=== PATIENT | male | born 1950 | race Caucasian/White ===

== ENCOUNTER → 2016-09-04 | Outpatient (CLI) | payer OTHER ==
[~2016-09-04] MED LIST: ALL300 PO; ALLO300T2 PO; ASPI81TA28 PO; DOXY100C2 PO; ENOX120I SQ; GLC5 PO; METF500T5 PO; METO50TA16 PO; PRAV20TA PO; PRLSR20 PO; RLF500 PO; ROSU5TAB PO; TAMS0.4C38 PO; TAMS0.4C59 PO
[2016-09-04 12:09] LABS: BASO % 0.6 %; BASO ABS # 0.06 K/uL (0-0.2); COMPLETE YES; EOS % 2.8 %; HEMATOCRIT 42.9 % (42-52); IG% 0.2 %; LYMPH % 40.4 %; MEAN CELL VOLUME 95.5 fL (80-100); MEAN CORPUSCULAR HEMOGLOBIN 30.1 pg (25-34); MEAN CORPUSCULAR HGB CONC 31.5 g/dl (32-36); MEAN PLATELET VOLUME 9.6 fL (7.4-10.4); MONO % 6.8 %; NEUT % 49.2 %; PLATELET COUNT 248 K/uL (130-400); RED BLOOD COUNT 4.49 M/uL (4.7-6.1); WHITE BLOOD COUNT 9.91 K/uL (4.8-10.8)
[2016-09-04 12:13] LABS: URINE APPEARANCE CLEAR (CLEAR); URINE BILIRUBIN NEG (NEG); URINE COLOR YELLOW; URINE NITRITE NEG (NEG); URINE PH 5.5 (4.5-7.5); URINE SPECIFIC GRAVITY 1.027 (1.000-1.030); UROBILINOGEN NEG (NEG); ZZUR CULT IF INDIC CLEAN CATCH NO
[2016-09-04 12:14] LABS: MANUAL MICROSCOPIC REQUIRED? NO; REVIEW REQ? NO
[2016-09-04 12:21] LABS: ALT/SGPT 23 U/L (12-78); AST/SGOT 16 U/L (15-37); BLOOD UREA NITROGEN 18 mg/dl (7-18); BUN/CREATININE RATIO 14.8 (10-20); CARBON DIOXIDE 24 mmol/L (21-32); CHLORIDE 105 mmol/L (98-107); CHOLESTEROL 135 mg/dl (0-200); GLUCOSE 207 mg/dl (70-99); POTASSIUM 4.1 mmol/L (3.5-5.1); SODIUM 139 mmol/L (136-145); TRIGLYCERIDES 240 mg/dl (0-150); URIC ACID 3.4 mg/dl (2.6-7.2); VERY LOW DENSITY LIPOPROT CALC 48 mg/dl
[2016-09-04 12:44] LABS: ALB/GLOB RATIO 0.9 (0.9-2); ALKALINE PHOSPHATASE 96 U/L (45-117); CHOLESTEROL/HDL RATIO 4.2; HDL CHOLESTEROL 32 mg/dl; LDL CHOLESTEROL CALCULATED 55 mg/dl
[2016-09-04 12:48] LABS: RATIO 40.9 mcg/mg (0-30.0)
[2016-09-04 12:58] LABS: ESTIMATED AVERAGE GLUCOSE 194 mg/dl; HA1C FLAG Normal (Normal)
== END | disposition home or self-care (01) ==
LOC: C.LABBFT 07:48
PROVIDERS: ATTEND Internal Medicine
DX: E11.65 Type 2 diabetes mellitus with hyperglycemia (principal); E78.5 Hyperlipidemia, unspecified; N40.0 Benign prostatic hyperplasia without lower urinary tract symptoms; M10.9 Gout, unspecified

== ENCOUNTER 2016-11-18 06:19 | Observation (INO) | payer OTHER ==
[~2016-11-18] VITALS: Ht 185.4 cm; Wt 149.0 kg
[~2016-11-18 06:19] MED LIST changes: -ALLO300T2 PO; -ASPI81TA28 PO; -ENOX120I SQ; -METF500T5 PO; -ROSU5TAB PO; -TAMS0.4C38 PO
[2016-11-18] MEDS ORDERED: GLC5 PO (06:40)
[2016-11-18] MEDS ORDERED: ASPI81TA28 PO (06:40)
[2016-11-18] MEDS ORDERED: TAMS0.4C38 PO (06:40)
[2016-11-18] MEDS ORDERED: ROSU5TAB PO (06:40)
[2016-11-18] MEDS ORDERED: ALLO300T2 PO (06:40)
[2016-11-18] MEDS ORDERED: METF500T5 PO (06:40)
[2016-11-18] MEDS ORDERED: ONDANSETRON INJ 2 MG/ML 2 ML VIAL IV STA (06:41)
[2016-11-18] MEDS ORDERED: MoRPHine SULFATE 4 MG/ML 1 ML CARP\\VIAL IV STA ×2 (06:41→07:39)
--- NOTE | 2016-11-18 06:44 | EMERGENCY ROOM VISIT NOTE ---
History Report prepared by Marshall: Sher Tilley Under the Supervision of: Dr. Quan Covarrubias M.D. First contact with patient: 06:30 Chief Complaint: CHEST PAIN Stated Complaint: CHEST PAIN Nursing Triage Summary: Patient arrived via EMS from home. EMS reports patient has been having chest pain on and off for the last month. Patient states his chest pain started tonight around 3AM. Patient reports a heavy pain radiating to his necka dn left jaw. Patient ahs a history of a previous NC five years ago. Patient took 2 nitro at home with no relief. Patient recieved 3 sprays of nitro in the ambulance and 324 of asa. Patient pain reduced from 10/10 to 5/10. Patient also recieved duoneb and albuterol breathing treatment en route for SOB. History of Present Illness The patient is a 66 year old male who presents to the Emergency Room with complaints of intermittent chest pain that began 1 hour ago. He rates his current pain a 5/10 in severity. Per EMS, he received 3 NTG en route which helped his pain. His pain is radiating down his left arm and into his left jaw. When his pain began, he was lying in bed. The patient notes that he has been short of breath for about 1 month, but it worsened this morning. His pain is exacerbated when he takes a deep breath. He denies any fevers, cough, chills, congestion, rhinorrhea, melena, hematochezia, pain in his legs, or swelling in his leg. He has a past medical history of cardiac arrest which occurred 5 years ago. Source of History: patient Onset: 1 hour ago Position: chest Symptom Intensity: 5/10 Quality: sharp Timing: intermittent Modifying Factors (Worsening): breathing Associated Symptoms: + SOB, + nausea, No fevers, No chills, No cough, No melena, No hematochezia Review of Systems See HPI for pertinent positives & negatives. A total of 10 systems reviewed and were otherwise negative. Past Medical & Surgical Medical Problems: (1) Ac/Subac Bact Endocard (2) ACUTE KIDNEY FAILURE WITH LESION OF TUBULAR NECROSIS (3) Acute retention of urine (4) Anemia of chronic disorder (5) Arthritis (6) Bacterial endocarditis (7) Chronic Kidney Disease, Stage Iii (Moderate) (8) Diab Radha Wo Compl, Type Ii Or Unspec Type, Not Uncntrld (9) diabetes type 2 poor control (10) ENCEPHALOPATHY (11) Endocarditis (12) Foreign body in nose (13) Heart Disease Nos (14) HYPOPOTASSEMIA (15) Metabolic Encephalopathy (16) Morbid Obesity (17) Morbid obesity (18) NSTMI (19) Pulmonary embolism (20) Retention Of Urine Nos (21) Rhabdomyolysis (22) Sepsis (23) Streptococcal Septicemia Old medical records were reviewed. Nurse's notes were reviewed and I agree with. Family History Diabetes mellitus FH: heart disease Social History Smoking Status: Former Smoker Alcohol Use: none, occasionally Drug Use: none Marital Status: Housing Status: lives with family Occupation Status: retired, disabled Current/Historical Medications Scheduled Allopurinol (Zyloprim), 300 MG PO DAILY Aspirin (Aspirin Ec), 81 MG PO DAILY Glipizide (Glipizide), 5 MG PO BID Metformin Hcl Er (Glucophage Er), 1,000 MG PO DAILY Metoprolol Tartrate (Lopressor) (Lopressor), 50 MG PO BID Omeprazole (Prilosec), 20 MG PO BID Rosuvastatin Calcium (Crestor), 5 MG PO DAILY Tamsulosin Hcl (Flomax), 0.4 MG PO QPM Allergies Coded Allergies: Fluticasone (Verified Allergy, Severe, lips and tongue swelling, angioedema, 11/18/16) Tomato (Verified Allergy, Mild, Itching, 11/18/16) Pt/family reported to during 01/27 visit. Physical Exam Vital Signs Date Time Temp Pulse Resp B/P (MAP) Pulse Ox O2 Delivery O2 Flow Rate FiO2 11/18/16 09:15 91 16 136/78 92 Room Air 11/18/16 07:40 94 18 119/63 93 Room Air 11/18/16 06:38 100 11/18/16 06:30 92 Room Air 11/18/16 06:30 36.6 98 16 125/72 92 Room Air Physical Exam General: Non ill appearing middle aged male, Well developed well nourished in no acute distress, breathing comfortably on room air. Normal speech HEENT: Normal cephalic atraumatic. Pupils are equal round and reactive to light. Extraocular movements are intact. Oropharynx is pink with moist mucous membranes. No swelling of the mouth lips or tongue. Neck: Supple with a midline trachea. No meningeal signs or stiffness, no JVD or bruits. No Stridor. Chest: Clear to auscultation bilaterally. No wheezes or rhonchi. No increased work of breathing. Heart: regular rate and rhythm. Abdomen: Soft nontender, nondistended without rebound guarding or rigidity. Extremities: Trace pedal edema to the bilateral lower extremities. No cyanosis clubbing. No calf tenderness or assymetry Spine/Back. Non tender to palpation. No CVA tenderness Skin: Good turgor without rashes. Neurologic exam: Cranial nerves two through 12 are intact. Motor and sensation are intact and symmetrical throughout. Medical Decision & Procedures ER Provider Diagnostic Interpretation: Radiology results as stated below per my review and radiologist interpretation: CHEST ONE VIEW PORTABLE HISTORY: 66 years-old Male Chest Pain acute atypical chest pain COMPARISON: Chest radiograph 05/28/2015 TECHNIQUE: Portable upright AP view of the chest FINDINGS: Cardiac silhouette is mildly enlarged. Mild pulmonary vascular congestion is noted without overt pulmonary edema. There is no pneumothorax or large pleural effusion. Multifocal alveolar opacities of the right lung base are noted. Bones are grossly intact. Degenerative changes are seen about the shoulders. IMPRESSION: Alveolar opacities of the right lung base suggest pneumonia. Follow-up imaging recommended. The above report was generated using voice recognition software. It may contain grammatical, syntax or spelling errors. Electronically signed by: Fito Hayes M.D. 11/18/2016 7:25 AM Dictated Date/Time: 11/18/2016 7:24 AM (CHEST FOR PE) ANGIO WITH CT DOSE: 609.93 mGy.cm HISTORY: 66 years-old Male presents with acute chest pain and heaviness with radiation to the left side and left jaw. History of myocardial infarction. Acute shortness of breath. TECHNIQUE: Multiple CTA images of the chest were obtained after the intravenous administration of 117 mL Optiray 320. Coronal and sagittal MIPS were obtained from the axial data set and were submitted for review. A dose lowering technique was utilized adhering to the principles of ALARA. COMPARISON: CT chest 07/16/2014. FINDINGS: CTA: Heart is mildly enlarged. No pericardial effusion. Coronary arterial calcifications are noted. The thoracic aorta is normal in course and caliber. Imaged proximal great vessels are patent. No aortic dissection or aneurysm. The pulmonary arterial tree is opacified level of the proximal segmental branches. The distal segmental and subsegmental branches are not well seen secondary to contrast bolus timing and respiratory motion. There is focal filling defects within the right lower lobar and segmental branches as seen on images 118 through 129 of the axial series. CT CHEST: No dominant thyroid nodule identified. Mildly prominent lymph nodes are seen about the mediastinum which are nonspecific. Mildly enlarged subcarinal lymph node, 3.0 x 1.3 cm is unchanged and nonspecific. Mild dependent bibasilar atelectasis. No pneumothorax or pleural effusion. No lobar airspace consolidation or large pulmonary infarction. 8 mm groundglass nodule is present within the posterior basal right lower lobe on image 84 which appears unchanged from 07/16/2014. Additional scattered noncalcified pulmonary nodules also appear unchanged from comparison. Calcified granuloma the apical segment right upper lobe noted. Central airways are patent. Patient obesity noted. Bones appear intact. Multiple remote left-sided rib fractures. IMPRESSION: 1. Pulmonary emboli are present within the right lower lobar and proximal segmental branches as above. The distal segmental and subsegmental branches are not well-seen secondary to respiratory motion artifact and contrast bolus timing. 2. Cardiomegaly. 3. Scattered bilateral noncalcified pulmonary nodules are unchanged from comparison 07/16/2014 suggesting benign etiology. 4. Additional incidental findings as above. The above report was generated using voice recognition software. It may contain grammatical, syntax or spelling errors. Electronically signed by: Fito Hayes M.D. 11/18/2016 8:56 AM Dictated Date/Time: 11/18/2016 8:43 AM Laboratory Results 11/18/16 07:35 Red Blood Count 3.87, Mean Corpuscular Volume 93.3, Mean Corpuscular Hemoglobin 31.0, Mean Corpuscular Hemoglobin Concent 33.2, Mean Platelet Volume 9.2, Neutrophils (%) (Auto) 70.7, Lymphocytes (%) (Auto) 21.0, Monocytes (%) (Auto) 6.8, Eosinophils (%) (Auto) 1.0, Basophils (%) (Auto) 0.2, Neutrophils # (Auto) 11.58, Lymphocytes # (Auto) 3.43, Monocytes # (Auto) 1.12, Eosinophils # (Auto) 0.16, Basophils # (Auto) 0.03 11/18/16 06:36 11/18/16 07:36 Test 11/18/16 06:22 11/18/16 06:36 11/18/16 06:39 11/18/16 07:35 Creatine Kinase MB Ratio (0-3.0) Anion Gap 8.0 mmol/L (3-11) Est Creatinine Clear Calc Drug Dose 89.6 ml/min Estimated GFR () 71.6 Estimated GFR (Non- 61.8 BUN/Creatinine Ratio 13.5 (10-20) Calcium Level 8.7 mg/dl (8.5-10.1) Total Bilirubin 0.8 mg/dl (0.2-1) Alanine Aminotransferase (ALT/SGPT) 17 U/L (12-78) Alkaline Phosphatase 88 U/L (45-117) Creatine Kinase MB 1.5 ng/ml (0.5-3.6) Troponin I < 0.015 ng/ml (0-0.045) Pro-B-Type Natriuretic Peptide 791 pg/ml (0-900) Total Protein 7.4 gm/dl (6.4-8.2) Albumin 3.5 gm/dl (3.4-5.0) Globulin 3.9 gm/dl (2.5-4.0) Albumin/Globulin Ratio 0.9 (0.9-2) Bedside Troponin I < 0.030 ng/ml (0-0.045) White Blood Count 16.37 K/uL (4.8-10.8) Red Blood Count 3.87 M/uL (4.7-6.1) Hemoglobin 12.0 g/dL (14.0-18.0) Hematocrit 36.1 % (42-52) Mean Corpuscular Volume 93.3 fL (80-100) Mean Corpuscular Hemoglobin 31.0 pg (25-34) Mean Corpuscular Hemoglobin Concent 33.2 g/dl (32-36) Platelet Count 201 K/uL (130-400) Mean Platelet Volume 9.2 fL (7.4-10.4) Neutrophils (%) (Auto) 70.7 % Lymphocytes (%) (Auto) 21.0 % Monocytes (%) (Auto) 6.8 % Eosinophils (%) (Auto) 1.0 % Basophils (%) (Auto) 0.2 % Neutrophils # (Auto) 11.58 K/uL (1.4-6.5) Lymphocytes # (Auto) 3.43 K/uL (1.2-3.4) Monocytes # (Auto) 1.12 K/uL (0.11-0.59) Eosinophils # (Auto) 0.16 K/uL (0-0.5) Basophils # (Auto) 0.03 K/uL (0-0.2) RDW Standard Deviation 49.0 fL (36.4-46.3) RDW Coefficient of Variation 14.5 % (11.5-14.5) Immature Granulocyte % (Auto) 0.3 % Immature Granulocyte # (Auto) 0.05 K/uL (0.00-0.02) Prothrombin Time 10.7 SECONDS (9.0-12.0) Prothromb Time International Ratio 1.0 (0.9-1.1) Activated Partial Thromboplast Time 27.1 SECONDS (21.0-31.0) Partial Thromboplastin Ratio 1.0 Test 11/18/16 07:36 Aspartate Amino Transf (AST/SGOT) 11 U/L (15-37) Total Creatine Kinase 92 U/L (39-308) Laboratory studies as stated above per my review. Medications Administered Medications (Trade) Dose Ordered Sig/Dat Route Start Time Stop Time Status Last Admin Dose Admin Morphine Sulfate (MoRPHine SULFATE INJ) 4 mg NOW STAT IV 11/18/16 06:41 11/18/16 06:42 DC 11/18/16 06:51 4 MG Ondansetron HCl (Zofran Inj) 4 mg NOW STAT IV 11/18/16 06:41 11/18/16 06:42 DC 11/18/16 06:51 4 MG Morphine Sulfate (MoRPHine SULFATE INJ) 4 mg NOW STAT IV 11/18/16 07:39 11/18/16 07:40 DC 11/18/16 08:15 4 MG ECG Indication: chest pain Rate (beats per minute): 77 Rhythm: normal sinus Findings: 1st degree AV block, left axis deviation, other (Low voltage, no ST elevation) Comparison ECG Date: 15 April 2014 Change: no significant change ED Course 0630: Past medical records reviewed. The patient was evaluated in room B10, and a complete history and physical examination were performed. 0641: Ordered Zofran Inj 4 mg IV, Morphine Sulfate 4 mg IV 0654: I reevaluated the patient at this time. He is starting to feel better. Multiple members of his family are at bedside. 0738: The patient is feeling even better but is still experiencing a pain rated a 4/10. I will order him more pain medications. 0739: Ordered Morphine Sulfate 4 mg IV 0921: Upon reevaluation, the patient is resting. I discussed the results and treatment plan with the patient. He verbalized agreement of the treatment plan. The patient will be evaluated by Dr. Ghada CORRALES, for further management. Medical Decision Differentials include, but are not limited to; ACS, arrhythmia, PE, CHF, and electrolyte or metabolic abnormality. This patient comes in as described above. He had chest pain since this morning he did receive aspirin and 3 nitroglycerin on route his pain went from a attend about a 4. He does have a an extensive medical history. His EKG does not show any definite acute changes compared to old. Chest x-ray multiple blood testing was obtained. He was given morphine 4 mg IV and Zofran 4 mg IV for additional pain management. He was reassessed frequently the pain has come down he still is some mild residual pain and is somewhat full her rate a cation is 2. He was given additional 4 morphine IV. His initial cardiac enzymes are not elevated. He has no acute electrolyte or metabolic abnormalities. His chest x-ray is somewhat difficult to ensure interpret due to his large body habitus cannot rule out infiltrate in the right base however he's had no cough or fever or any symptoms to suggest pneumonia. He did eat some food last night and thinks he could have had caused indigestion from this. I did order a chest CT to rule out PE and other pulmonary pathology. The chest CT does show findings consistent with a PE. I have consulted the hospitalist group to see him. Dr. Urrutia who saw the patient ER and is going to admit him for further anticoagulation treatment and evaluation. Medication Reconcilliation Current Medication List: was personally reviewed by me Blood Pressure Screening Patient's blood pressure: Normal blood pressure Blood pressure disposition: Did not require urgent referral Consults Time Called: 917 Consulting Physician: Dr. Ghada CORRALES Returned Call: [phone] Discussed the patient's case. The patient will be evaluated for further management. Impression Primary Impression: Chest pain, central Additional Impression: Pulmonary embolism Scribe Attestation The scribe's documentation has been prepared under my direction and personally reviewed by me in its entirety. I confirm that the note above accurately reflects all work, treatment, procedures, and medical decision making performed by me. Departure Information Dispostion Being Evaluated By Hospitalist Referrals Diego Marie M.D. (PCP) Patient Instructions My [facility] Problem Qualifiers
[2016-11-18 07:26] LABS: BLOOD UREA NITROGEN 16 mg/dl (7-18); BUN/CREATININE RATIO 13.5 (10-20); CALCIUM 8.7 mg/dl (8.5-10.1); CARBON DIOXIDE 25 mmol/L (21-32); CHLORIDE 105 mmol/L (98-107); GLUCOSE 199 mg/dl (70-99); SODIUM 138 mmol/L (136-145)
--- NOTE | 2016-11-18 07:26 | DIAGNOSTIC IMAGING REPORT ---
CHEST ONE VIEW PORTABLE HISTORY: 66 years-old Male Chest Pain acute atypical chest pain COMPARISON: Chest radiograph 05/28/2015 TECHNIQUE: Portable upright AP view of the chest FINDINGS: Cardiac silhouette is mildly enlarged. Mild pulmonary vascular congestion is noted without overt pulmonary edema. There is no pneumothorax or large pleural effusion. Multifocal alveolar opacities of the right lung base are noted. Bones are grossly intact. Degenerative changes are seen about the shoulders. IMPRESSION: Alveolar opacities of the right lung base suggest pneumonia. Follow-up imaging recommended. The above report was generated using voice recognition software. It may contain grammatical, syntax or spelling errors. Electronically signed by: Fito Hayes M.D. 11/18/2016 7:25 AM Dictated Date/Time: 11/18/2016 7:24 AM
[2016-11-18] MEDS ORDERED: OPTIRAY 320 IV PRN (07:45)
[2016-11-18 07:54] LABS: BASO % 0.2 %; BASO ABS # 0.03 K/uL (0-0.2); COMPLETE YES; HEMATOCRIT 36.1 % (42-52); IG% 0.3 %; LYMPH ABS # 3.43 K/uL (1.2-3.4); MEAN CELL VOLUME 93.3 fL (80-100); MEAN CORPUSCULAR HGB CONC 33.2 g/dl (32-36); MEAN PLATELET VOLUME 9.2 fL (7.4-10.4); MONO % 6.8 %; NEUT % 70.7 %; PLATELET COUNT 201 K/uL (130-400); RED BLOOD COUNT 3.87 M/uL (4.7-6.1); WHITE BLOOD COUNT 16.37 K/uL (4.8-10.8)
[2016-11-18 08:06] LABS: PROTHROMBIN TIME (PATIENT) 10.7 SECONDS (9.0-12.0)
[2016-11-18 08:11] LABS: ALB/GLOB RATIO 0.9 (0.9-2); ALKALINE PHOSPHATASE 88 U/L (45-117); ALT/SGPT 17 U/L (12-78)
[2016-11-18 08:11] LABS: POTASSIUM 3.6 mmol/L (3.5-5.1)
--- NOTE | 2016-11-18 08:57 | DIAGNOSTIC IMAGING REPORT ---
(CHEST FOR PE) ANGIO WITH CT DOSE: 609.93 mGy.cm HISTORY: 66 years-old Male presents with acute chest pain and heaviness with radiation to the left side and left jaw. History of myocardial infarction. Acute shortness of breath. TECHNIQUE: Multiple CTA images of the chest were obtained after the intravenous administration of 117 mL Optiray 320. Coronal and sagittal MIPS were obtained from the axial data set and were submitted for review. A dose lowering technique was utilized adhering to the principles of ALARA. COMPARISON: CT chest 07/16/2014. FINDINGS: CTA: Heart is mildly enlarged. No pericardial effusion. Coronary arterial calcifications are noted. The thoracic aorta is normal in course and caliber. Imaged proximal great vessels are patent. No aortic dissection or aneurysm. The pulmonary arterial tree is opacified level of the proximal segmental branches. The distal segmental and subsegmental branches are not well seen secondary to contrast bolus timing and respiratory motion. There is focal filling defects within the right lower lobar and segmental branches as seen on images 118 through 129 of the axial series. CT CHEST: No dominant thyroid nodule identified. Mildly prominent lymph nodes are seen about the mediastinum which are nonspecific. Mildly enlarged subcarinal lymph node, 3.0 x 1.3 cm is unchanged and nonspecific. Mild dependent bibasilar atelectasis. No pneumothorax or pleural effusion. No lobar airspace consolidation or large pulmonary infarction. 8 mm groundglass nodule is present within the posterior basal right lower lobe on image 84 which appears unchanged from 07/16/2014. Additional scattered noncalcified pulmonary nodules also appear unchanged from comparison. Calcified granuloma the apical segment right upper lobe noted. Central airways are patent. Patient obesity noted. Bones appear intact. Multiple remote left-sided rib fractures. IMPRESSION: 1. Pulmonary emboli are present within the right lower lobar and proximal segmental branches as above. The distal segmental and subsegmental branches are not well-seen secondary to respiratory motion artifact and contrast bolus timing. 2. Cardiomegaly. 3. Scattered bilateral noncalcified pulmonary nodules are unchanged from comparison 07/16/2014 suggesting benign etiology. 4. Additional incidental findings as above. The above report was generated using voice recognition software. It may contain grammatical, syntax or spelling errors. Electronically signed by: Fito Hayes M.D. 11/18/2016 8:56 AM Dictated Date/Time: 11/18/2016 8:43 AM
[2016-11-18] MEDS ORDERED: APIXABAN 2.5 MG TAB PO ONE (10:08)
[2016-11-18 10:15] VITALS: O2SAT 91
[2016-11-18] MEDS ORDERED: ALUMINUM/MAGNESIUM/SIMETH (MAALOX MAX) 30 ML UDC PO PRN (10:15)
[2016-11-18] MEDS ORDERED: MAGNESIUM HYDROXIDE SUSP 30 ML UDC PO PRN (10:15)
--- NOTE | 2016-11-18 10:20 | History and Physical ---
History & Physical Date of Service Nov 18, 2016. History & Physical obs #[id number]
[2016-11-18 10:22] VITALS: BP 160/91; PULSE 92; TEMP 36.7; O2SAT 93; Ht 185.4 cm; Wt 149.0 kg
--- NOTE | 2016-11-18 10:56 | HISTORY & PHYSICAL EXAMINATION ---
DATE OF ADMISSION: 11/18/2016 CHIEF COMPLAINT: Chest pain. HISTORY OF PRESENT ILLNESS: The patient is a very pleasant 66-year-old male accompanied by his family who notes that he started with chest pain about an hour ago, 5/10 in severity. There was initial concern on cardiac because it was radiating down the left arm and left jaw. It started whenever he was lying in bed. Incidentally, he notes that he has been short of breath for about a month but it did worsen this morning. It seems to be a little bit more pleuritic in nature given it is worse whenever he takes a deep breath. No fevers, chills or sweats, no real cough or sputum. REVIEW OF SYSTEMS: Otherwise, negative except for as above. PAST MEDICAL HISTORY: Includes coronary artery disease and he did apparently have a cardiac arrest about 5 years ago, uncontrolled type 2 diabetes, GERD, morbid obesity, allergic rhinitis, gout, hyperlipidemia, osteoarthritis, question of rheumatoid arthritis. MEDICATIONS: Allopurinol 300 mg daily, Astelin nasal 2 sprays daily, glipizide 5 mg p.o. b.i.d., metformin 1000 mg daily, metoprolol 50 mg tartrate b.i.d., Relafen 500 mg b.i.d. p.r.n. pain, nitroglycerin 0.4 sublingual q. 5 minutes p.r.n. chest pain, Prilosec 20 mg daily, Crestor 5 mg at bedtime, sodium bicarb 650 mg 2 tabs t.i.d., Flomax 0.4 two tabs at bedtime. PAST SURGICAL HISTORY: Includes colonoscopy, on paper was reportedly done in about 2005, although he and his claim to me they feel like it was more in the 3-5 year range. FAMILY HISTORY: His parents have both passed. There is no significant family history. SOCIAL HISTORY: No significant alcohol, tobacco or drugs. He is a former smoker, unclear his pack years. ALLERGIES: INCLUDE FLUTICASONE AND TOMATO. PHYSICAL EXAMINATION: VITAL SIGNS: Temperature 36.6, pulse 98-100, respiratory rate 16, blood pressure 125/72, 92% on room air. GENERAL: He is awake, alert, oriented x3, pleasant, in no acute distress. HEAD, EYES, EARS, NOSE, AND THROAT: Normocephalic, atraumatic. Mucous membranes are moist. CARDIOVASCULAR: Regular, without rubs, murmurs, or gallops. May be slightly tachycardic, it is distant. LUNGS: Clear to auscultation bilaterally with diminished breath sounds. No rales, rhonchi or wheezes. Good effort. ABDOMEN: Soft, obese but nondistended, nontender, no masses or organomegaly. EXTREMITIES: Without cyanosis or clubbing. He has about 1-2+ bilateral edema without tenderness. SKIN: Shows no rashes. No pallor or icterus. NEUROLOGIC: Shows cranial nerves II-XII to be grossly intact. Gross motor and sensory are intact. MENTAL STATE: Shows good recent and remote recall. Normal mood and affect. Good judgment and insight. MUSCULOSKELETAL: Exam yields no gross lesions. LABORATORY DATA AND DIAGNOSTICS: His chest CT shows PEs. His EKG shows sinus with first degree AV block, questionable anterior Q's versus lead placement and normal variant working towards a left anterior hemiblock with left axis deviation but no ischemic changes. CBC shows a white count of 16.4 with 71% neutrophils, hemoglobin 12, platelets 201. Complete metabolic panel with sodium 138, potassium 3.6, chloride 105, CO2 25, BUN 16, creatinine 1.2, calcium 8.7, glucose 199. His A1c not yet 3 months ago was about 8.5, calcium 8.7, total bilirubin 0.8, AST 11, ALT 17, alkaline phos 88, CK total of 92 with an MB of 1.5, troponin of less than 0.015. BNP of 791, total protein 7.4, albumin 3.5. PT of 10.7, PTT 27.1. ASSESSMENT AND PLAN: 1. Acute PEs, this appears predominantly to be related to his weight and venous stasis. He is centrally obese, does not move much according to both him and his and family and does have osteoarthritis. Certainly also has evidence of venous stasis with this lower extremity edema. I see no evidence for endothelial dysfunction or hypercoagulable state, so it is possible that extreme degree of venous stasis is the main root cause. He is fortunately very stable. He is on room air in the mid 90s. I also wonder with his weight if this may or may not be his baseline oxygenation and he is hemodynamically stable; however, with his age and comorbidities, certainly he warrants initial inpatient treatment to ensure stability, but he appears to be a good candidate for novel anticoagulant. Because of his weight we will utilize Eliquis 10 mg b.i.d. for a week and then 5 mg b.i.d. thereafter and had an absolutely extensive discussion with the patient and the family in regards to PEs, etiology, pathophysiology, treatment and recovery answering all questions to the best of my ability and their satisfaction. 2. Leukocytosis. He shows no active signs or symptoms of infection. We will recheck in the morning. Follow serial exams and serial vitals. I suspect demargination related to the PEs given no other clearcut cause. 3. Morbid obesity. We had an extensive discussion on weight loss, weight gain, discussing the physics of weight loss, discussing simple measures to work towards weight loss and initially he is going to work towards walking more with a goal of about a half hour a day as well as reducing and working towards eliminating concentrated sweets. 4. Uncontrolled diabetes. The above noted lifestyle changes will likely improve that dramatically should he follow through. 5. Coronary artery disease. In spite of his PEs "putting him on a treadmill" fortunately he is not showing any signs or symptoms of unstable angina. His troponins are okay. His EKG is nonacute. Continue his home meds in that respect. 6. Hyperlipidemia. Continue home meds. 7. Osteoarthritis. Continue home meds, although over time given his age and vascular disease, I will defer to his PCP, but we may need to move away from NSAIDs, although hopefully weight loss would certainly improve this and moving more would certainly improve this as well. 8. Gout. Continue his allopurinol. DISPOSITION: He will be observed on med/surg under the [facility] hospitalist service.
[2016-11-18] MEDS: INSULIN ASPART 100 UNITS/ML 3 ML PEN SC SCH ×3 (11:00→22:05)
[2016-11-18] MEDS ORDERED: DEXTROSE 50% 50 ML SYR IV PRN (11:30)
[2016-11-18] MEDS ORDERED: GLUCAGON FOR INJ 1 MG VIAL SQ PRN (11:30)
[2016-11-18] MEDS ORDERED: GLUCOSE 40% GEL 15 GM TUBE PO PRN (11:30)
[2016-11-18] MEDS ORDERED: GLUCOSE 10 TABS/TUBE PO PRN (11:30)
[2016-11-18] MEDS: ACETAMINOPHEN 325 MG TAB PO PRN (13:03)
[2016-11-18] MEDS ORDERED: IV FLUIDS COMPLETED PRN (14:15)
[2016-11-18 16:49] VITALS: BP 147/94; PULSE 95; TEMP 37; O2SAT 93
[2016-11-18] MEDS ORDERED: SODIUM CHLORIDE 0.65% NA SOLN 45 ML (OCEAN) ONE (17:24)
[2016-11-18] MEDS ORDERED: TAMSULOSIN HCL 0.4 MG CAP PO SCH (21:00)
[2016-11-18] MEDS: APIXABAN 2.5 MG TAB PO SCH (22:00)
[2016-11-18] MEDS: PANTOprazole SOD 40 MG TAB PO SCH (22:01)
[2016-11-18] MEDS: METOPROLOL TARTRATE 50 MG TAB PO SCH (22:01)
[2016-11-19] MEDS: ACETAMINOPHEN 325 MG TAB PO PRN (00:08)
[2016-11-19 00:35] VITALS: BP 147/72; PULSE 84; TEMP 37.1; O2SAT 90
[2016-11-19] MEDS: INSULIN ASPART 100 UNITS/ML 3 ML PEN SC SCH ×2 (06:30→12:04)
[2016-11-19 07:35] VITALS: BP 143/79; PULSE 86; TEMP 36.8; O2SAT 91
[2016-11-19 08:19] LABS: HEMATOCRIT 35.9 % (42-52); MEAN CORPUSCULAR HEMOGLOBIN 31.7 pg (25-34); MEAN CORPUSCULAR HGB CONC 33.7 g/dl (32-36); MEAN PLATELET VOLUME 9.2 fL (7.4-10.4); PLATELET COUNT 188 K/uL (130-400); RED BLOOD COUNT 3.82 M/uL (4.7-6.1); WHITE BLOOD COUNT 10.35 K/uL (4.8-10.8)
[2016-11-19] MEDS ORDERED: ASPIRIN 81 MG ECTAB PO SCH (09:00)
[2016-11-19] MEDS ORDERED: ALLOPURINOL 300 MG TAB PO SCH (09:00)
[2016-11-19] MEDS ORDERED: ROSUVASTATIN CALCIUM 5 MG TAB PO SCH (09:00)
[2016-11-19] MEDS ORDERED: METFORMIN HCL 500 MG TABCR PO SCH (09:00)
[2016-11-19] MEDS: PANTOprazole SOD 40 MG TAB PO SCH (09:01)
[2016-11-19] MEDS: METOPROLOL TARTRATE 50 MG TAB PO SCH (09:01)
[2016-11-19] MEDS: APIXABAN 2.5 MG TAB PO SCH (09:01)
[2016-11-19 09:30] LABS: BASO % 0.4 %; BASO ABS # 0.04 K/uL (0-0.2); COMPLETE YES; EOS % 1.6 %; IG% 0.3 %; LYMPH % 28.9 %; LYMPH ABS # 2.99 K/uL (1.2-3.4); MONO % 9.5 %; NEUT % 59.3 %
[2016-11-19] MEDS ORDERED: ENOX120I SQ (11:10)
--- NOTE | 2016-11-19 14:46 | Discharge Instructions ---
Discharge Instructions Date of Service Nov 19, 2016. Admission Reason for Admission: Pulmonary Embolism VTE Date & Time Date of VTE Diagnosis: Nov 18, 2016 Time of VTE Diagnosis: 08:43 Discharge Goals Goal(s): Learn about illness, Diagnostic testing, Therapeutic intervention Activity Recommendations Activity Limitations: resume your previous activity (for now, allow "your symptoms to be your guide" -- there are no formal restrictions with activity as you recover, but just don't push through if you're feeling short of breath, weak or lightheaded -- if those were to happen, then take a rest; otherwise you can do anything you feel up to.) . Instructions / Follow-Up Instructions / Follow-Up pulmonary emboli (blood clots in the lungs) -as we discussed, your symptoms were related to blood clots in your lungs -the clots likely formed because of sluggish venous blood flow (brought on by a combination of lack of activity, arthritis, and weight all reducing how briskly your veins bring blood back to central circulation -- this sluggish flow creates a "stagnant pond" that allows clots to form, and these clots, when floating "downstream" will go through the heart and then out into the lungs) -fortunately you're very stable with the clots -- and likely will only need a blood thinner for about three months -we're going to work on prior authorization for a pill blood thinner - most likely eliquis - but for now to be able to have you home safely we'll need to have you on an injection blood thinner (lovenox or enoxaparin) until we can get insurance authorization to transition to a pill -the lovenox (enoxaparin) will be 150mg injected under the skin twice a day ( as close to about 12 hours apart as you can) until you are switched to the pill blood thinner -- it is very important that you don't miss doses and that if anything appears to be "falling through the cracks" with coverage for a new pill blood thinner that you're kept on the lovenox until the "insurance mess" is able to be sorted out. We wrote the prescription for the lovenox to be about a week - but only because if it takes that long for the prior auth process you'll have a blood thinner - so again, to reiterate, make sure that you don't run out of blood thinner even if it means that Dr Marie has to refill the lovenox if they're still running into insurance problems weight loss -as we discussed, the weight is the "central theme" of what's been making you feel sick lately - and is something that it fortunately sounds like you and your family are motivated to help you address -the simplest way to look at weight loss and weight gain is through the laws of physics - weight is just stored energy, and energy can't be created or destroyed , just converted to different forms. food is energy that your body takes in, living (which christianson calories through your base metabolism - which is about 2500 calories per day -- and once there is less of you that number will slowly go down) and exercise gets energy out -there are about 3500 calories per pound, so if you "convert dollars to pennies " (multiple your weight in pounds by 3500 calories per pound) you have a savings of about 1,000,000 calories of energy -- the goal is to "spend more than you earn" -when you eat things like sweets, cookies, pies, etc - those have A LOT of calories per bite - so you're depositing WAY more into the savings account than if you eat something more "whole" (like a banana, apple, etc) -- so it takes a lot more to "spend" off those calories, and if you don't, your body saves it as weight gain -when you move more, you burn off more calories - making you "spend" more -- so movement is hugely important, and the more movement the better. while everyone is a little different, you can assume that you burn off about 100 calories for every mile you walk. 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 ("generic" [place] blood clot instructions below:) Medication Instructions: Your condition is typically treated with an anticoagulant. Anticoagulants will thin your blood to help prevent new clots. * You should take her medication exactly as directed. * Never skip a dose. * Never take a double dose. If you miss a dose, take it as soon as you remember. Call your Primary Care doctor if you experience any of the following: * Swelling or Pain in your leg * Sudden, continuous pain deep in a muscle * Pain that worsens when you are active or when you stand still for a long time * Chest Pain * Sudden Shortness of Breath * Rapid or pounding heart beat * Fainting * Dizziness * Cough with blood or bloody sputum * Sweating more than normal * Bruises * Heavy or uncontrolled bleeding * Blood in your urine, stool or vomit * Black or tarry stools Caring for Your Self at Home: * Avoid sitting, standing or lying down for long periods without moving your legs and feet * When traveling by car, stop to get out and move around at least once every 3 hours * On long airplane, train or bus rides, get up and move around when possible * If you can't get up, wiggle your toes and tighten your calves to keep your blood moving Follow Up: It is important for you to keep your follow up appointments with your medical provider. Current Hospital Diet Patient's current hospital diet: AHA Diet (Heart Healthy), Diabetes Type 2 Diet Discharge Diet Recommended Diet: AHA Diet (Heart Healthy), Diabetes Type 2 Diet Pending Studies Studies pending at discharge: no Laboratory Results Hemoglobin A1c Test 09/04/16 07:54 Range/Units Estimated Average Glucose 194 mg/dl Hemoglobin A1c 8.4 H 4.5-5.6 % Lipid Panel Test 09/04/16 07:54 Range/Units Triglycerides Level 240 H 0-150 mg/dl Cholesterol Level 135 0-200 mg/dl HDL Cholesterol 32 mg/dl Cholesterol/HDL Ratio 4.2 LDL Cholesterol, Calculated 55 mg/dl Medical Emergencies . Who to Call and When: Medical Emergencies: If at any time you feel your situation is an emergency, please call 911 immediately. . Non-Emergent Contact Non-Emergency issues call your: Primary Care Provider . . "Provider Documentation" section prepared by Sohail Urrutia. . VTE Core Measure Inpt VTE Proph given/why not?: Other Anticoagulation
[2016-11-19 15:06] VITALS: BP 143/79; PULSE 86; TEMP 36.8; O2SAT 91
--- NOTE | 2016-11-19 20:25 | Discharge Summary ---
Discharge Summary Date of Service Nov 19, 2016. Discharge Summary Admission Date: Nov 18, 2016 at 09:21 Discharge Date: Nov 19, 2016 Discharge Disposition: Home Principal Diagnosis: PE Immunizations: Have You Had Influenza Vaccine: Yes Influenza Vaccine Date: Oct 23, 2011 History of Tetanus Vaccine?: Yes Tetanus Immunization Date: Nov 04, 2011 History of Pneumococcal: Unknown History of Hepatitis B Vaccine: Unknown Procedures: [~ rep ct add3]] (CHEST FOR PE) ANGIO WITH CT DOSE: 609.93 mGy.cm HISTORY: 66 years-old Male presents with acute chest pain and heaviness with radiation to the left side and left jaw. History of myocardial infarction. Acute shortness of breath. TECHNIQUE: Multiple CTA images of the chest were obtained after the intravenous administration of 117 mL Optiray 320. Coronal and sagittal MIPS were obtained from the axial data set and were submitted for review. A dose lowering technique was utilized adhering to the principles of ALARA. COMPARISON: CT chest 07/16/2014. FINDINGS: CTA: Heart is mildly enlarged. No pericardial effusion. Coronary arterial calcifications are noted. The thoracic aorta is normal in course and caliber. Imaged proximal great vessels are patent. No aortic dissection or aneurysm. The pulmonary arterial tree is opacified level of the proximal segmental branches. The distal segmental and subsegmental branches are not well seen secondary to contrast bolus timing and respiratory motion. There is focal filling defects within the right lower lobar and segmental branches as seen on images 118 through 129 of the axial series. CT CHEST: No dominant thyroid nodule identified. Mildly prominent lymph nodes are seen about the mediastinum which are nonspecific. Mildly enlarged subcarinal lymph node, 3.0 x 1.3 cm is unchanged and nonspecific. Mild dependent bibasilar atelectasis. No pneumothorax or pleural effusion. No lobar airspace consolidation or large pulmonary infarction. 8 mm groundglass nodule is present within the posterior basal right lower lobe on image 84 which appears unchanged from 07/16/2014. Additional scattered noncalcified pulmonary nodules also appear unchanged from comparison. Calcified granuloma the apical segment right upper lobe noted. Central airways are patent. Patient obesity noted. Bones appear intact. Multiple remote left-sided rib fractures. IMPRESSION: 1. Pulmonary emboli are present within the right lower lobar and proximal segmental branches as above. The distal segmental and subsegmental branches are not well-seen secondary to respiratory motion artifact and contrast bolus timing. 2. Cardiomegaly. 3. Scattered bilateral noncalcified pulmonary nodules are unchanged from comparison 07/16/2014 suggesting benign etiology. 4. Additional incidental findings as above. The above report was generated using voice recognition software. It may contain grammatical, syntax or spelling errors. Last 24 Hours Test 11/19/16 06:08 11/19/16 07:19 11/19/16 11:22 White Blood Count 10.35 K/uL Red Blood Count 3.82 M/uL Hemoglobin 12.1 g/dL Hematocrit 35.9 % Mean Corpuscular Volume 94.0 fL Mean Corpuscular Hemoglobin 31.7 pg Mean Corpuscular Hemoglobin Concent 33.7 g/dl Platelet Count 188 K/uL Mean Platelet Volume 9.2 fL Neutrophils (%) (Auto) 59.3 % Lymphocytes (%) (Auto) 28.9 % Monocytes (%) (Auto) 9.5 % Eosinophils (%) (Auto) 1.6 % Basophils (%) (Auto) 0.4 % Neutrophils # (Auto) 6.14 K/uL Lymphocytes # (Auto) 2.99 K/uL Monocytes # (Auto) 0.98 K/uL Eosinophils # (Auto) 0.17 K/uL Basophils # (Auto) 0.04 K/uL RDW Standard Deviation 49.4 fL RDW Coefficient of Variation 14.5 % Immature Granulocyte % (Auto) 0.3 % Immature Granulocyte # (Auto) 0.03 K/uL Bedside Glucose 146 mg/dl 194 mg/dl Medication Reconciliation New Medications: Enoxaparin (Lovenox) 120 Mg/0.8 Ml Inj 150 MG SQ Q12H, #14 SYR Rx called in verbally by me to pharmacist for 150mg SQ Q12 first 2 days will be with 1.5 100mg syringes, then pharmacy will be able to have ordered in 150mg syringes Continued Medications: Allopurinol (Zyloprim) 300 Mg Tab 300 MG PO DAILY, TAB Aspirin (Aspirin Ec) 81 Mg Tab 81 MG PO DAILY Glipizide (Glipizide) 5 Mg Tab 5 MG PO BID Metformin Hcl Er (Glucophage Er) 500 Mg Tab 1000 MG PO DAILY, TAB Metoprolol Tartrate (Lopressor) (Lopressor) 50 Mg Tab 50 MG PO BID, 0 Refills Omeprazole (Prilosec) 20 Mg Capcr 20 MG PO BID, 0 Refills Rosuvastatin Calcium (Crestor) 5 Mg Tab 5 MG PO DAILY, TAB Tamsulosin Hcl (Flomax) 0.4 Mg Cap 0.4 MG PO QPM, CAP Discharge Exam Physical Exam: General Appearance: no apparent distress Eyes: EOMI ENT: hearing grossly normal Respiratory/Chest: no respiratory distress, no accessory muscle use Extremities: normal inspection Neurologic/Psychiatric: 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 Acute PEs, this appears predominantly to be related to his weight and venous stasis. He is centrally obese, does not move much according to both him and his and family and does have osteoarthritis. Certainly also has evidence of venous stasis with this lower extremity edema. I see no evidence for endothelial dysfunction or hypercoagulable state, so it is possible that extreme degree of venous stasis is the main root cause. -very stable - stable for home, no deterioration despite hx of CAD/etc -tried to d/c home on eliquis - unfortunately requires prior auth - i called # but while a person answered they informed me that prior auth's are not done on weekend -d/w pt - options of staying inpatient or home on lovenox (made it clear that was in injection) until situation w NOAC could be sorted out, he clearly expressed that he was OK w lovenox, i discussed with nursing, they discussed further and he appeared comfortable with situation -after discharge family called panicked because pt apparently said he was needle phobic and could not / would not take injections. i personally called back - ~10mins conversation w , i noted that i made it clear that home today included injections and he was OK w that. she noted that she has anxiety and can't administer, son has essential tremor and can't but dtr was coming and probably could I emphasized critical importance of getting blood thinners on time - if all else fails ER if it was ER or no blood thinners at all - but also emphasized that optimal treatment would be him being able to take the already RX'd lovenox at home until prior auth situation could be sorted out. she expressed understanding and commitment to ensuring in some way pt will have anticoagulant. will ask for home nursing referral but noted to that this will not likely be able to continue q12 dosing with every dose - but could help some -anticipate anticoagulation to be for three months unless other factors arise ( and as long as he makes enough lifestyle change that his venous stasis risk is reduced) -hopefully NOAC tomorrow - asking TOM Langley to assist with this as well -I discussed with pt's pharmacist twice - first about eliquis, then about lovenox - he only had 100mg syringes but again this was discussed with pt and he expressed good understanding and comfort with this. dosing 150mg BID - so for now asked pharm to fill #8 100mg syringes then order in 150mg syringes - and pt instructed on 1.5 syringes per 150mg dose, then if NOAC still not approved would use 150mg syringes -on above noted phone call i reiterated this again to -during his stay today pt expressed good understanding and comfort with above plan to myself and multiple members of nursing staff, then when home apparently totally changed his mind -again emphasized to critical importance of keeping anticoagulation on time and ER as last resort but far better than allowing him off anticoagulation 2. Leukocytosis. He shows no active signs or symptoms of infection. improved. likely PE related demargination 3. Morbid obesity. We had an extensive discussion on weight loss, weight gain, etc - see d/c instructions 4. Uncontrolled diabetes. The above noted lifestyle changes will likely improve that dramatically should he follow through. 5. Coronary artery disease. In spite of his PEs "putting him on a treadmill" fortunately he is not showing any signs or symptoms of unstable angina. His troponins are okay. His EKG was nonacute. Continue his home meds in that respect. 6. Hyperlipidemia. Continue home meds. 7. Osteoarthritis. Continue home meds, although over time given his age and vascular disease, I will defer to his PCP, but we may need to move away from NSAIDs, although hopefully weight loss would certainly improve this and moving more would certainly improve this as well. 8. Gout. Continue his allopurinol. stable for home Total Time Spent: Greater than 30 minutes This includes examination of the patient, discharge planning, medication reconciliation, and communication with other providers. Discharge Instructions Please refer to the electronic Patient Visit Report (Discharge Instructions) for additional information. Additional Copies To Diego Marie M.D.
[2016-11-25] MEDS ORDERED: APIXABAN 2.5 MG TAB PO SCH (09:00)
== END 2016-11-19 15:45 | disposition home or self-care (01) ==
LOC: EDBD 06:19 → C.EDB 06:20 → C.MS2W 09:21 → ENRESERV 09:53
PROVIDERS: ADMIT Family Medicine; ATTEND Family Medicine
DX: I26.99 Other pulmonary embolism without acute cor pulmonale (principal); I51.7 Cardiomegaly; E11.65 Type 2 diabetes mellitus with hyperglycemia; E78.5 Hyperlipidemia, unspecified; R91.8 Other nonspecific abnormal finding of lung field; I25.10 Atherosclerotic heart disease of native coronary artery without angina pectoris; M10.9 Gout, unspecified; M19.90 Unspecified osteoarthritis, unspecified site; N18.3 Chronic kidney disease, stage 3 (moderate); E66.01 Morbid (severe) obesity due to excess calories; Z86.711 Personal history of pulmonary embolism; Z83.3 Family history of diabetes mellitus; Z82.49 Family history of ischemic heart disease and other diseases of the circulatory system; Z87.891 Personal history of nicotine dependence; Z79.82 Long term (current) use of aspirin; Z79.84 Long term (current) use of oral hypoglycemic drugs

== ENCOUNTER 2016-11-28 13:47 | Emergency (ER) | payer OTHER ==
[~2016-11-28] VITALS: Ht 185.4 cm; Wt 142.0 kg
[~2016-11-28 13:47] MED LIST changes: -ALL300 PO; +ALLO300T2 PO; +ASPI81TA28 PO; -DOXY100C2 PO; +ENOX120I SQ; +METF500T5 PO; -PRAV20TA PO; -RLF500 PO; +ROSU5TAB PO; +TAMS0.4C38 PO; -TAMS0.4C59 PO
[2016-11-28 13:57] VITALS: TEMP 36.8; O2SAT 95; Ht 185.4 cm; Wt 142.0 kg
[2016-11-28] MEDS ORDERED: LIDOCAINE 4% W/AFRIN NASAL SOLN 4ML ONE (14:07)
[2016-11-28] MEDS ORDERED: LIDOCAINE/EPINEPHRINE 1% 20 ML VIAL ONE (14:11)
--- NOTE | 2016-11-28 14:21 | EMERGENCY ROOM VISIT NOTE ---
History Report prepared by Marshall: Katheryn Diggs Under the Supervision of: Dr. Raul Rdz M.D. First contact with patient: 14:01 Chief Complaint: NOSE BLEED (MINOR) Stated Complaint: unk History of Present Illness The patient is a 66 year old white male with a past medical history of a PE who presents to the ED with a cc of a nosebleed beginning 3 hours [employer]. He has had intermittent bleeding from both nostrils for the past couple of days, but he states that today it is worse and constant. He has been on Lovenox for the past week for a PE. Pt denies recent trauma, injury, or fall. He does not take any other blood thinners. Source of History: patient Onset: 3 hours [employer] Position: nose Quality: other (bleeding) Timing: constant Modifying Factors (Worsening): other (Lovenox) Note: Pt denies recent trauma, injury, or fall. Review of Systems See HPI for pertinent positives and negatives. A total of ten systems were reviewed and were otherwise negative. Past Medical & Surgical Medical Problems: (1) Ac/Subac Bact Endocard (2) ACUTE KIDNEY FAILURE WITH LESION OF TUBULAR NECROSIS (3) Acute retention of urine (4) Anemia of chronic disorder (5) Arthritis (6) Bacterial endocarditis (7) Chronic Kidney Disease, Stage Iii (Moderate) (8) Diab Radha Wo Compl, Type Ii Or Unspec Type, Not Uncntrld (9) diabetes type 2 poor control (10) ENCEPHALOPATHY (11) Endocarditis (12) Foreign body in nose (13) Heart Disease Nos (14) HYPOPOTASSEMIA (15) Metabolic Encephalopathy (16) Morbid Obesity (17) Morbid obesity (18) NSTMI (19) Pulmonary embolism (20) Retention Of Urine Nos (21) Rhabdomyolysis (22) Sepsis (23) Streptococcal Septicemia Family History Diabetes mellitus FH: heart disease Social History Smoking Status: Former Smoker Alcohol Use: none, occasionally Drug Use: none Marital Status: Housing Status: lives with family Occupation Status: retired, disabled Current/Historical Medications Scheduled Allopurinol (Zyloprim), 300 MG PO DAILY Aspirin (Aspirin Ec), 81 MG PO 2XWK Enoxaparin (Lovenox), 150 MG SQ Q12H Glipizide (Glipizide), 5 MG PO BID Metformin Hcl Er (Glucophage Er), 1,000 MG PO DAILY Metoprolol Tartrate (Lopressor) (Lopressor), 50 MG PO BID Omeprazole (Prilosec), 20 MG PO BID Rosuvastatin Calcium (Crestor), 5 MG PO DAILY Tamsulosin Hcl (Flomax), 0.4 MG PO QPM Allergies Coded Allergies: Fluticasone (Verified Allergy, Severe, lips and tongue swelling, angioedema, 11/28/16) Tomato (Verified Allergy, Mild, Itching, 11/28/16) Pt/family reported to RD during 01/27 visit. Physical Exam Vital Signs Date Time Temp Pulse Resp B/P (MAP) Pulse Ox O2 Delivery O2 Flow Rate FiO2 11/28/16 16:45 74 16 143/84 11/28/16 15:30 74 16 140/88 11/28/16 13:57 36.8 100 24 143/93 95 Room Air Physical Exam GENERAL: Awake, alert, well-appearing, NAD HENT: Normocephalic, atraumatic. He has some scant bleeding to the bilateral anterior nares. No bleeding in the posterior pharynx. He does have some blood on teeth, this is believed to be blood from the anterior nares. EYES: Normal conjunctiva. Sclera non-icteric. NECK: Supple. No nuchal rigidity. FROM. RESPIRATORY: CTAB, no rhonchi, wheezing, crackles CARDIAC: RRR, no MRG ABDOMEN: Soft, NTND, BS+ MSK: No chest wall TTP, no LE edema NEURO: GCS 15, CN 2-12 intact, moves all 4s on command SKIN: No rash or jaundice noted. Medical Decision & Procedures Laboratory Results 11/28/16 14:40 Red Blood Count 4.21, Mean Corpuscular Volume 94.1, Mean Corpuscular Hemoglobin 31.6, Mean Corpuscular Hemoglobin Concent 33.6, Mean Platelet Volume 9.1, Neutrophils (%) (Auto) 59.4, Lymphocytes (%) (Auto) 31.6, Monocytes (%) (Auto) 6.0, Eosinophils (%) (Auto) 2.1, Basophils (%) (Auto) 0.5, Neutrophils # (Auto) 6.46, Lymphocytes # (Auto) 3.43, Monocytes # (Auto) 0.65, Eosinophils # (Auto) 0.23, Basophils # (Auto) 0.05 11/28/16 14:40 Test 11/28/16 14:40 White Blood Count 10.86 K/uL (4.8-10.8) Red Blood Count 4.21 M/uL (4.7-6.1) Hemoglobin 13.3 g/dL (14.0-18.0) Hematocrit 39.6 % (42-52) Mean Corpuscular Volume 94.1 fL (80-100) Mean Corpuscular Hemoglobin 31.6 pg (25-34) Mean Corpuscular Hemoglobin Concent 33.6 g/dl (32-36) Platelet Count 253 K/uL (130-400) Mean Platelet Volume 9.1 fL (7.4-10.4) Neutrophils (%) (Auto) 59.4 % Lymphocytes (%) (Auto) 31.6 % Monocytes (%) (Auto) 6.0 % Eosinophils (%) (Auto) 2.1 % Basophils (%) (Auto) 0.5 % Neutrophils # (Auto) 6.46 K/uL (1.4-6.5) Lymphocytes # (Auto) 3.43 K/uL (1.2-3.4) Monocytes # (Auto) 0.65 K/uL (0.11-0.59) Eosinophils # (Auto) 0.23 K/uL (0-0.5) Basophils # (Auto) 0.05 K/uL (0-0.2) RDW Standard Deviation 48.6 fL (36.4-46.3) RDW Coefficient of Variation 14.3 % (11.5-14.5) Immature Granulocyte % (Auto) 0.4 % Immature Granulocyte # (Auto) 0.04 K/uL (0.00-0.02) Prothrombin Time 10.7 SECONDS (9.0-12.0) Prothromb Time International Ratio 1.0 (0.9-1.1) Activated Partial Thromboplast Time 30.0 SECONDS (21.0-31.0) Partial Thromboplastin Ratio 1.2 Anion Gap 9.0 mmol/L (3-11) Est Creatinine Clear Calc Drug Dose 89.5 ml/min Estimated GFR () 73.8 Estimated GFR (Non- 63.7 BUN/Creatinine Ratio 14.6 (10-20) Calcium Level 9.8 mg/dl (8.5-10.1) Laboratory results reviewed by me. Medications Administered Medications (Trade) Dose Ordered Sig/Dat Route Start Time Stop Time Status Last Admin Dose Admin Sodium Chloride 500 ml @ 500 mls/hr Q1H STAT IV 11/28/16 15:12 11/28/16 16:11 DC 11/28/16 15:19 500 MLS/HR Procedure Anterior Nasal Packing Indication: epistaxis Verbal consent obtained. Risks and benefits were explained with the usual customary discussion. A time out was taken. Clots were removed with suction. The bilateral nares were prepped with Afrin and lidocaine. A 5.5-cm nasal balloon was placed in a standard fashion. The patient tolerated this well. Hemostasis was achieved. No complications. ED Course 1407: The patient was evaluated in room A3. A complete history and physical exam was performed. 1502: At this time I performed an anterior nasal packing procedure. Please see above for further details. 1547: The bleeding has stopped and the patient is doing well. 1607: The patient's bleeding has started again. 1609: I discussed the results and treatment plan with Dr. Estrella of ENT. He will see the patient in clinic tomorrow for follow-up. 1626: Upon further evaluation the patient has a septal perforation. I discussed this with Dr. Estrella and he will still follow-up with the patient tomorrow. 1651: I reassessed the patient at this time. He is feeling better and resting comfortably. I discussed the results and treatment plan with the patient. I answered all pertaining questions that he had. He expressed understanding and verbalized agreement. The patient will be discharged home. Medical Decision The patient is a 66 year old white male with a past medical history of a PE who presents to the ED with a cc of a nosebleed beginning 3 hours [employer]. Differential diagnosis: Etiologies such as anterior epistaxis, coagulopathy, traumatic injury, fracture , septal hematoma, posterior epistaxis as well as other pathologies were entertained. Patient was seen and evaluated the bedside. Patient been having several days of recurrent nose bleeding however worse today. Upon examination patient did have some scant bleeding anteriorly in the bilateral nares. Patient states he has been placing tissue in his nose but nothing else. Patient was told several times to keep the nasal clamp on as well as to not blow his nose area continue to do this at the bedside. Patient did have Afrin as well as lidocaine with epi via atomizer that were placed in the nares. Patient's is currently had a clamp placed. On reassessment patient did have some recurrent bleeding to the left naris. She did have a anterior nasal pack placed. This was inflated with the tubing taped to the side of his face. Patient tolerated this procedure well. Patient furthermore had some mild bleeding to the right nares. Additional lidocaine with epinephrine and Afrin was placed in the right nares. Patient did have nasal Clamp placed. Upon reassessment 30 minutes later patient had a clot that formed was not actively bleeding. Patient's hemoglobin is stable. Platelet count normal. Patient is taking Lovenox for prior history of blood clots in the lungs. Patient is not short of breath nor hypoxic. Patient tolerated everything well. I did speak with Dr. Estrella who agreed to see the patient in clinic. Of note upon reassessment, patient does have nasal perforation and under advisement, b/l nasal pack, rapid rhinos were placed anteriorly. Upon reassessment, patient had removed his b/l nasal packs. No bleeding noted. Patient given afrin and nasal clamp. Obtained appointment for patient tomorrow at 1030AM. Patient was given strict follow-up, discharge, and return precautions. Patient agreed with plan care was safely discharged home. Medication Reconcilliation Current Medication List: was personally reviewed by me Blood Pressure Screening Patient's blood pressure: Elevated blood pressure Blood pressure disposition: Elevated BP felt to be situational Consults Time Called: 1603 Consulting Physician: Dr. Estrella Returned Call: 1609 I discussed the results and treatment plan with Dr. Estrella of ENT. He will see the patient in clinic tomorrow for follow-up. Impression Primary Impression: Bleeding nose Scribe Attestation The scribe's documentation has been prepared under my direction and personally reviewed by me in its entirety. I confirm that the note above accurately reflects all work, treatment, procedures, and medical decision making performed by me. Departure Information Dispostion Home / Self-Care Referrals Diego Marie M.D. (PCP) Janice Estrella M.D. Patient Instructions [facility], Nosebleeds - [facility] Additional Instructions Please return to the emergency department if you have worsening or recurrent symptoms not amenable to at-home treatment. Please call for a follow-up appointment with her primary care physician. Please take your medications as prescribed. If you have other concerns and/or complaints please feel free to also call your primary care physician's office or return the ED for further evaluation, management, and treatment. Please use Afrin in the nose if you have bleeding. You should breathe in and do two squirts into each nostril. After this place the clamp over your nose for 45 minutes and then you may take it off to reassess your nose bleed. You have been examined and treated today on an emergency basis only. This is not a substitute for, or an effort to provide, complete comprehensive medical care. It is impossible to recognize and treat all injuries or illnesses in a single emergency department visit. It is therefore important that you follow up closely with [facility]. Call as soon as possible for an appointment. Thank you for your time and consideration. I look forward to speaking with you again soon. Please don't hesitate to call us if you have any questions.
[2016-11-28 14:56] LABS: BASO % 0.5 %; BASO ABS # 0.05 K/uL (0-0.2); COMPLETE YES; EOS % 2.1 %; HEMATOCRIT 39.6 % (42-52); IG% 0.4 %; LYMPH % 31.6 %; LYMPH ABS # 3.43 K/uL (1.2-3.4); MEAN CELL VOLUME 94.1 fL (80-100); MEAN CORPUSCULAR HEMOGLOBIN 31.6 pg (25-34); MEAN CORPUSCULAR HGB CONC 33.6 g/dl (32-36); MEAN PLATELET VOLUME 9.1 fL (7.4-10.4); NEUT % 59.4 %; PLATELET COUNT 253 K/uL (130-400); RED BLOOD COUNT 4.21 M/uL (4.7-6.1); WHITE BLOOD COUNT 10.86 K/uL (4.8-10.8)
[2016-11-28 15:06] LABS: PARTIAL THROMBOPLASTIN RATIO 1.2; PROTHROMBIN TIME (PATIENT) 10.7 SECONDS (9.0-12.0)
[2016-11-28] MEDS ORDERED: SILVER NITR/POTASSIUM NITRATE 10 APPLICATOR PACK ONE (15:11)
[2016-11-28] MEDS ORDERED: SODIUM CHLORIDE 0.9% 500ML 500 ML IV STA (15:12)
[2016-11-28 15:13] LABS: BUN/CREATININE RATIO 14.6 (10-20); CALCIUM 9.8 mg/dl (8.5-10.1); CREATININE 1.17 mg/dl (0.60-1.40)
[2016-11-28 16:45] VITALS: BP 143/84; PULSE 74
== END 2016-11-28 17:47 | disposition home or self-care (01) ==
LOC: EDBD 13:47 → C.EDA 13:49
DX: R04.0 Epistaxis (principal); Z79.01 Long term (current) use of anticoagulants; Z86.711 Personal history of pulmonary embolism; D63.1 Anemia in chronic kidney disease; N18.3 Chronic kidney disease, stage 3 (moderate); E11.9 Type 2 diabetes mellitus without complications; E66.01 Morbid (severe) obesity due to excess calories; Z68.41 Body mass index [BMI] 40.0-44.9, adult; I25.2 Old myocardial infarction; Z83.3 Family history of diabetes mellitus; Z87.891 Personal history of nicotine dependence; Z79.82 Long term (current) use of aspirin; Z79.899 Other long term (current) drug therapy

== ENCOUNTER → 2017-04-25 | Outpatient (CLI) | payer OTHER ==
[2017-04-25 12:32] LABS: HEMOGLOBIN A1C 8.3 % (4.5-5.6)
[2017-04-25 12:41] LABS: ALBUMIN 3.5 gm/dl (3.4-5.0); ALT/SGPT 18 U/L (12-78); AST/SGOT 12 U/L (15-37); BLOOD UREA NITROGEN 22 mg/dl (7-18); CARBON DIOXIDE 22 mmol/L (21-32); CREATININE 1.23 mg/dl (0.60-1.40); GLUCOSE 214 mg/dl (70-99); POTASSIUM 3.9 mmol/L (3.5-5.1); SODIUM 137 mmol/L (136-145)
[2017-04-25 12:45] LABS: ALKALINE PHOSPHATASE 93 U/L (45-117); CHOLESTEROL 80 mg/dl (0-200); LDL CHOLESTEROL CALCULATED 13 mg/dl; TOTAL PROTEIN 7.7 gm/dl (6.4-8.2)
== END | disposition home or self-care (01) ==
LOC: C.LABBFT 09:07
PROVIDERS: ATTEND Physician Assistant Medical
DX: E11.65 Type 2 diabetes mellitus with hyperglycemia (principal); E78.5 Hyperlipidemia, unspecified

== ENCOUNTER 2017-09-05 14:23 | Emergency (ER) | payer OTHER ==
[~2017-09-05] VITALS: Ht 172.7 cm; Wt 142.3 kg
[~2017-09-05 14:23] MED LIST changes: -ENOX120I SQ
[2017-09-05 14:25] VITALS: TEMP 36.8
[2017-09-05] MEDS ORDERED: OPTIRAY 320 IV PRN (15:00)
--- NOTE | 2017-09-05 15:04 | DIAGNOSTIC IMAGING REPORT ---
CHEST ONE VIEW PORTABLE CLINICAL HISTORY: Shortness of breath. Respiratory distress. COMPARISON STUDY: 11/18/2016 FINDINGS: The heart is mildly enlarged. There is diffuse elevation of the interstitium, likely secondary to pulmonary vascular congestion/fluid overload. There is no focal pulmonary consolidation. There is an old deformity of the left posterior fourth rib.[ IMPRESSION: 1. Mild diffuse elevation of the interstitium, likely secondary to mild pulmonary vascular congestion/fluid overload. Clinical and radiographic follow-up is recommended Electronically signed by: Rhett Ortiz M.D. 09/05/2017 3:03 PM Dictated Date/Time: 09/05/2017 3:02 PM
[2017-09-05] MEDS ORDERED: XRL15 PO (15:09)
[2017-09-05] MEDS ORDERED: METF500T5 PO (15:09)
[2017-09-05 15:36] LABS: BASO % 0.5 %; BASO ABS # 0.05 K/uL (0-0.2); EOS % 1.7 %; EOS ABS # 0.18 K/uL (0-0.5); HEMATOCRIT 35.2 % (42-52); HEMOGLOBIN 11.5 g/dL (14.0-18.0); IG# 0.04 K/uL (0.00-0.02); LYMPH % 27.7 %; LYMPH ABS # 2.92 K/uL (1.2-3.4); MEAN CELL VOLUME 92.1 fL (80-100); MEAN CORPUSCULAR HEMOGLOBIN 30.1 pg (25-34); MEAN CORPUSCULAR HGB CONC 32.7 g/dl (32-36); MONO ABS # 0.63 K/uL (0.11-0.59); NEUT % 63.7 %; NEUT ABS # 6.74 K/uL (1.4-6.5); PLATELET COUNT 263 K/uL (130-400); RED CELL DISTRIBUTION WIDTH CV 15.9 % (11.5-14.5); RED CELL DISTRIBUTION WIDTH SD 53.6 fL (36.4-46.3); WHITE BLOOD COUNT 10.56 K/uL (4.8-10.8)
[2017-09-05 15:47] VITALS: O2SAT 97; Ht 172.7 cm; Wt 142.3 kg
[2017-09-05 15:58] LABS: ALBUMIN 3.7 gm/dl (3.4-5.0); ALKALINE PHOSPHATASE 88 U/L (45-117); ALT/SGPT 19 U/L (12-78); AST/SGOT 14 U/L (15-37); BLOOD UREA NITROGEN 16 mg/dl (7-18); CALCIUM 8.7 mg/dl (8.5-10.1); CARBON DIOXIDE 26 mmol/L (21-32); CKMB 1.3 ng/ml (0.5-3.6); CREATININE 1.27 mg/dl (0.60-1.40); GLUCOSE 168 mg/dl (70-99); POTASSIUM 4.3 mmol/L (3.5-5.1); SODIUM 140 mmol/L (136-145); TOTAL PROTEIN 7.9 gm/dl (6.4-8.2)
[2017-09-05] MEDS ORDERED: ALBUT/IPRATROP 3MG/0.5MG NEB 3 ML VIAL INH STA (16:42)
--- NOTE | 2017-09-05 16:53 | DIAGNOSTIC IMAGING REPORT ---
(CHEST FOR PE) ANGIO WITH CT DOSE: 827.15 mGy.cm HISTORY: 67 years-old Male with presents with acute shortness of breath. TECHNIQUE: Multiple CTA images of the chest were obtained after the intravenous administration of 110 ml Optiray 320. Coronal and sagittal MIPS were obtained from the axial data set and were submitted for review. A dose lowering technique was utilized adhering to the principles of ALARA. COMPARISON: CTA chest 11/18/2016, chest radiograph 09/05/2017 FINDINGS: CTA: Heart is upper limits of normal in size without pericardial effusion. Coronary arterial calcifications are noted. The thoracic aorta is normal in both course and caliber without aneurysm or dissection. Reflux of contrast into the IVC and hepatic veins. The pulmonary arterial tree is opacified to level of the segmental branches. The subsegmental branches are not well-seen secondary to contrast bolus timing. Linear nonocclusive web like pulmonary emboli are noted within segmental branches of the bilateral lower lobes with emboli within the right lower lobe unchanged from comparison. CT CHEST: No dominant thyroid nodule identified. Mildly enlarged subcarinal lymph node measures 3.1 x 1.2 cm, unchanged. This is likely physiologic. Small right and trace left pleural effusion. No pneumothorax. Mild thickening about the bronchovascular bundles with dependent subsegmental bibasilar opacities suggesting atelectasis. There are several scattered pleural-based solid nodules measuring up to 6 mm appear unchanged. Costophrenic granuloma of the superior segment left lower lobe. Mild intralobular septal thickening within the lung bases. Calcified granulomata about the spleen. No acute process of the imaged upper abdomen. Moderate generalized pancreatic atrophy. The soft tissues are within normal limits. The bones appear to be intact. IMPRESSION: 1. 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 No evidence of acute occlusive thromboembolic disease. 2. Thickening of the bronchovascular bundles with mild intralobular septal thickening of the lung bases may reflect mild pulmonary edema. 3. Trace left and small right pleural effusions with subsegmental bibasilar atelectasis. 4. Unchanged appearance of scattered bilateral pulmonary nodules measuring up to 6 mm. The above report was generated using voice recognition software. It may contain grammatical, syntax or spelling errors. Electronically signed by: Fito Hayes M.D. 09/05/2017 4:51 PM Dictated Date/Time: 09/05/2017 4:43 PM
--- NOTE | 2017-09-05 17:00 | EMERGENCY ROOM VISIT NOTE ---
History Report prepared by Marshall: Elin Holbrook Under the Supervision of: Dr. Yazan Grijalva M.D. 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 He states he feels out of breath and walking worsens his SOB. He reports that lying down at night worsens his SOB. He notes he was recently started on folic acid pills for anemia by [facility] and he believes they caused his SOB. He also reports he has BLE edema but states this due to him eating too much salt for the past couple of weeks. The patient states he had a heart attack 5 years and a blood clot in his lungs in January 2017. He is currently not on any blood thinners and does not use any oxygen at home. He quit smoking in the middle of last year. Pt denies LOC, headache, fevers, chills, diaphoresis, visual changes, neck pain, chest pain, nausea, vomiting, abdominal pain, back pain, melena, hematochezia, urinary symptoms, numbness, weakness, lymphadenopathy, rash, or other complaints. 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 A total of ten systems were reviewed and were otherwise negative. Past Medical & Surgical Medical Problems: (1) Ac/Subac Bact Endocard (2) ACUTE KIDNEY FAILURE WITH LESION OF TUBULAR NECROSIS (3) Acute retention of urine (4) Anemia of chronic disorder (5) Arthritis (6) Bacterial endocarditis (7) Chronic Kidney Disease, Stage Iii (Moderate) (8) Diab Radha Wo Compl, Type Ii Or Unspec Type, Not Uncntrld (9) diabetes type 2 poor control (10) ENCEPHALOPATHY (11) Endocarditis (12) Foreign body in nose (13) Heart Disease Nos (14) HYPOPOTASSEMIA (15) Metabolic Encephalopathy (16) Morbid Obesity (17) Morbid obesity (18) NSTMI (19) Pulmonary embolism (20) Retention Of Urine Nos (21) Rhabdomyolysis (22) Sepsis (23) Streptococcal Septicemia Family History Diabetes mellitus FH: heart disease Social History Smoking Status: Former Smoker Alcohol Use: none, occasionally Drug Use: none Marital Status: Housing Status: lives with family Occupation Status: retired, disabled Current/Historical Medications Scheduled Allopurinol (Zyloprim), 300 MG PO DAILY Furosemide (Lasix), 20 MG PO DAILY Glipizide (Glipizide), 5 MG PO BID Metformin Hcl Er (Glucophage Er), 1,000 MG PO BID Metoprolol Tartrate (Lopressor) (Lopressor), 50 MG PO BID Omeprazole (Prilosec), 20 MG PO BID Potassium Chloride Microencaps (Potassium Chloride Er), 1 TAB PO DAILY Rivaroxaban (Xarelto), 15 MG PO DAILY Rosuvastatin Calcium (Crestor), 5 MG PO DAILY Tamsulosin Hcl (Flomax), 0.4 MG PO QPM Allergies Coded Allergies: Fluticasone (Verified Allergy, Severe, lips and tongue swelling, angioedema, 09/05/17) Tomato (Verified Allergy, Mild, Itching, 09/05/17) Pt/family reported to during 01/27 visit. Physical Exam Vital Signs Date Time Temp Pulse Resp B/P (MAP) Pulse Ox O2 Delivery O2 Flow Rate FiO2 09/05/17 19:04 88 22 164/78 94 09/05/17 16:48 22 96 09/05/17 16:44 149/109 09/05/17 15:53 83 15 94 09/05/17 15:47 97 Room Air 09/05/17 15:47 97 Room Air 09/05/17 14:25 36.8 80 20 137/88 97 Room Air Physical Exam GENERAL: Awake, alert, tired-appearing, in no distress HENT: Normocephalic, atraumatic. Oropharynx unremarkable. EYES: Normal conjunctiva. Sclera non-icteric. NECK: Supple. No nuchal rigidity. FROM. No masses. RESPIRATORY: Clear to auscultation. No wheezes. No rales. Normal respiratory effort. CARDIAC: Normal rate. Normal rhythm. No murmurs. No rubs. Extremities warm and well perfused. Pulses equal. No JVD. GI: Soft, non-distended. No tenderness to palpation. No rebound or guarding. No masses. RECTAL: Deferred. MUSCULOSKELETAL: Atraumatic. Chest examination reveals no tenderness. The back is symmetrical on inspection without obvious abnormality. There is no CVA tenderness to palpation. No joint edema. LOWER EXTREMITIES: Calves are equal size bilaterally and non-tender. 2+ BLE edema. No discoloration. NEURO: Normal sensorium. No sensory or motor deficits noted. SKIN: No rash or jaundice noted. Medical Decision & Procedures ER Provider Diagnostic Interpretation: Radiology results as stated below per my review and radiologist interpretation: CHEST ONE VIEW PORTABLE CLINICAL HISTORY: Shortness of breath. Respiratory distress. COMPARISON STUDY: 11/18/2016 FINDINGS: The heart is mildly enlarged. There is diffuse elevation of the interstitium, likely secondary to pulmonary vascular congestion/fluid overload. There is no focal pulmonary consolidation. There is an old deformity of the left posterior fourth rib.[ IMPRESSION: 1. Mild diffuse elevation of the interstitium, likely secondary to mild pulmonary vascular congestion/fluid overload. Clinical and radiographic follow-up is recommended Electronically signed by: Rhett Ortiz M.D. 09/05/2017 3:03 PM (CHEST FOR PE) ANGIO WITH CT DOSE: 827.15 mGy.cm HISTORY: 67 years-old Male with presents with acute shortness of breath. TECHNIQUE: Multiple CTA images of the chest were obtained after the intravenous administration of 110 ml Optiray 320. Coronal and sagittal MIPS were obtained from the axial data set and were submitted for review. A dose lowering technique was utilized adhering to the principles of ALARA. COMPARISON: CTA chest 11/18/2016, chest radiograph 09/05/2017 FINDINGS: CTA: Heart is upper limits of normal in size without pericardial effusion. Coronary arterial calcifications are noted. The thoracic aorta is normal in both course and caliber without aneurysm or dissection. Reflux of contrast into the IVC and hepatic veins. The pulmonary arterial tree is opacified to level of the segmental branches. The subsegmental branches are not well-seen secondary to contrast bolus timing. Linear nonocclusive web like pulmonary emboli are noted within segmental branches of the bilateral lower lobes with emboli within the right lower lobe unchanged from comparison. CT CHEST: No dominant thyroid nodule identified. Mildly enlarged subcarinal lymph node measures 3.1 x 1.2 cm, unchanged. This is likely physiologic. Small right and trace left pleural effusion. No pneumothorax. Mild thickening about the bronchovascular bundles with dependent subsegmental bibasilar opacities suggesting atelectasis. There are several scattered pleural-based solid nodules measuring up to 6 mm appear unchanged. Costophrenic granuloma of the superior segment left lower lobe. Mild intralobular septal thickening within the lung bases. Calcified granulomata about the spleen. No acute process of the imaged upper abdomen. Moderate generalized pancreatic atrophy. The soft tissues are within normal limits. The bones appear to be intact. IMPRESSION: 1. 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 No evidence of acute occlusive thromboembolic disease. 2. Thickening of the bronchovascular bundles with mild intralobular septal thickening of the lung bases may reflect mild pulmonary edema. 3. Trace left and small right pleural effusions with subsegmental bibasilar atelectasis. 4. Unchanged appearance of scattered bilateral pulmonary nodules measuring up to 6 mm. The above report was generated using voice recognition software. It may contain grammatical, syntax or spelling errors. Electronically signed by: Fito Hayes M.D. 09/05/2017 4:51 PM Laboratory Results 09/05/17 15:17 Red Blood Count 3.82, Mean Corpuscular Volume 92.1, Mean Corpuscular Hemoglobin 30.1, Mean Corpuscular Hemoglobin Concent 32.7, Mean Platelet Volume 9.0, Neutrophils (%) (Auto) 63.7, Lymphocytes (%) (Auto) 27.7, Monocytes (%) (Auto) 6.0, Eosinophils (%) (Auto) 1.7, Basophils (%) (Auto) 0.5, Neutrophils # (Auto) 6.74, Lymphocytes # (Auto) 2.92, Monocytes # (Auto) 0.63, Eosinophils # (Auto) 0.18, Basophils # (Auto) 0.05 09/05/17 15:17 Test 09/05/17 15:17 09/05/17 16:56 White Blood Count 10.56 K/uL (4.8-10.8) Red Blood Count 3.82 M/uL (4.7-6.1) Hemoglobin 11.5 g/dL (14.0-18.0) Hematocrit 35.2 % (42-52) Mean Corpuscular Volume 92.1 fL (80-100) Mean Corpuscular Hemoglobin 30.1 pg (25-34) Mean Corpuscular Hemoglobin Concent 32.7 g/dl (32-36) Platelet Count 263 K/uL (130-400) Mean Platelet Volume 9.0 fL (7.4-10.4) Neutrophils (%) (Auto) 63.7 % Lymphocytes (%) (Auto) 27.7 % Monocytes (%) (Auto) 6.0 % Eosinophils (%) (Auto) 1.7 % Basophils (%) (Auto) 0.5 % Neutrophils # (Auto) 6.74 K/uL (1.4-6.5) Lymphocytes # (Auto) 2.92 K/uL (1.2-3.4) Monocytes # (Auto) 0.63 K/uL (0.11-0.59) Eosinophils # (Auto) 0.18 K/uL (0-0.5) Basophils # (Auto) 0.05 K/uL (0-0.2) RDW Standard Deviation 53.6 fL (36.4-46.3) RDW Coefficient of Variation 15.9 % (11.5-14.5) Immature Granulocyte % (Auto) 0.4 % Immature Granulocyte # (Auto) 0.04 K/uL (0.00-0.02) Anion Gap 6.0 mmol/L (3-11) Est Creatinine Clear Calc Drug Dose 76.1 ml/min Estimated GFR () 66.4 Estimated GFR (Non- 57.3 BUN/Creatinine Ratio 12.8 (10-20) Calcium Level 8.7 mg/dl (8.5-10.1) Total Bilirubin 0.7 mg/dl (0.2-1) Aspartate Amino Transf (AST/SGOT) 14 U/L (15-37) Alanine Aminotransferase (ALT/SGPT) 19 U/L (12-78) Alkaline Phosphatase 88 U/L (45-117) Total Creatine Kinase 84 U/L (39-308) Creatine Kinase MB 1.3 ng/ml (0.5-3.6) Creatine Kinase MB Ratio 1.5 (0-3.0) Troponin I < 0.015 ng/ml (0-0.045) Pro-B-Type Natriuretic Peptide 1365 pg/ml (0-900) Total Protein 7.9 gm/dl (6.4-8.2) Albumin 3.7 gm/dl (3.4-5.0) Globulin 4.2 gm/dl (2.5-4.0) Albumin/Globulin Ratio 0.9 (0.9-2) Urine Color YELLOW Urine Appearance CLEAR (CLEAR) Urine pH 5.0 (4.5-7.5) Urine Specific [place] 1.039 (1.000-1.030) Urine Protein TRACE (NEG) Urine Glucose (UA) TRACE (NEG) Urine Ketones NEG (NEG) Urine Occult Blood NEG (NEG) Urine Nitrite NEG (NEG) Urine Bilirubin NEG (NEG) Urine Urobilinogen NEG (NEG) Urine Leukocyte Esterase NEG (NEG) Urine WBC (Auto) 1-5 /hpf (0-5) Urine RBC (Auto) 0-4 /hpf (0-4) Urine Hyaline Casts (Auto) 1-5 /lpf (0-5) Urine Epithelial Cells (Auto) 5-10 /lpf (0-5) Urine Bacteria (Auto) NEG (NEG) Laboratory results reviewed by me Medications Administered Medications (Trade) Dose Ordered Sig/Dat Route Start Time Stop Time Status Last Admin Dose Admin Albuterol/ Ipratropium (Duoneb) 3 ml NOW STAT INH 09/05/17 16:42 09/05/17 16:43 DC 09/05/17 17:00 3 ML Potassium Chloride (Klor-Con M10) 20 meq NOW STAT PO 09/05/17 18:17 09/05/17 18:19 DC 09/05/17 18:54 20 MEQ Albuterol (Ventolin Hfa Inhaler) 2 puffs NOW ONCE INH 09/05/17 18:30 09/05/17 18:31 DC 09/05/17 18:54 2 PUFFS Furosemide (Lasix Tab) 20 mg NOW STAT PO 09/05/17 18:25 09/05/17 18:26 DC 09/05/17 18:54 20 MG ECG Per My Interpretation Indication: SOB/dyspnea Rate (beats per minute): 81 Rhythm: sinus rhythm Findings: 1st degree AV block, PAC, left axis deviation, other (anterio-septal waves, no ST elevation or depression) ED Course 1438: The patient was evaluated in room A4. A complete history and physical exam was performed. 1641: The patient is currently undergoing an ambulatory trial. He is not hypoxic but he is wheezing and is very symptomatic, so he will receive a breathing treatment. 164: Ordered Dunoeb 3 ml INH 1809: I spoke to the patient about an inhaler and oral Lasix. He will follow up in the clinic in the next week. He states he does not want to stay in the hospital. 1816: Ordered Potassium Chloride 20 meq PO 1824: Ordered Lasix Tab 20 mg PO 1829: Ordered Albuterol 2 puffs INH 1830: I reevaluated the patient. Discussed results and discharge instructions: He verbalized understanding and agreement. The patient is ready for discharge. Medical Decision Triage Nursing notes reviewed. The patient's presentation and history were concerning for SOB, Dyspnea. Etiologies such as pneumonia, COPD, reactive airway disease, CHF, cardiac ischemia, pulmonary embolism, pneumothorax, musculoskeletal, infections, gastrointestinal, as well as others were entertained. The patient was evaluated. He was in no distress. He readily admits to dietary indiscretion especially with regards to sodium intake. He has a history of PE and is currently off of his anticoagulation. The patient underwent blood work which was unremarkable. His EKG, chest x-ray and CT study were also unremarkable. The patient has chronic appearing PEs but no acute pulmonary embolism. His BNP was mildly elevated and chest x-ray showed some mild pulmonary vascular congestion. He is not hypoxic. He is able to ambulate without hypoxia. He had some wheezing and was given a nebulizer treatment and felt significantly better with this. Given his stable vital signs and the fact that he does not want to be admitted to the hospital I discussed treatment with oral Lasix, potassium, and an albuterol MDI. The patient feels comfortable with this. He will follow-up with his primary physician's office this week. He was advised to hold his metformin due to the CT scan dye in the usual fashion. The patient will watch his diet. I did discuss this with family as well. Patient agrees to refrain from salt use. If he worsens in any way he will be coming back to the emergency department immediately for reevaluation. I gave my usual and customary discussion regarding this issue. By the evaluation outlined above other emergent etiologies such as those listed in the differential, as well as others, were deemed relatively unlikely. The patient was educated about the findings as listed above. All questions were answered and the patient was pleased with the treatment. Return instructions were outlined and the patient was discharged in stable condition. The patient was referred to his primary clinic this week for follow-up for a recheck of the current condition. Medication Reconcilliation Current Medication List: was personally reviewed by me Blood Pressure Screening Patient's blood pressure: Elevated blood pressure Blood pressure disposition: Referred to PCP Impression Primary Impression: SOB (shortness of breath) Additional Impressions: Lower extremity edema Wheezing Scribe Attestation The scribe's documentation has been prepared under my direction and personally reviewed by me in its entirety. I confirm that the note above accurately reflects all work, treatment, procedures, and medical decision making performed by me. Departure Information Dispostion Home / Self-Care Prescriptions Furosemide (LASIX) 20 Mg Tab 20 MG PO DAILY, #3 TAB Prov: Yazan Grijalva MD 09/05/17 Potassium Chloride Microencaps (POTASSIUM CHLORIDE ER) 20 Meq Tab 1 TAB PO DAILY, #3 TAB Prov: Yazan Grijalva MD 09/05/17 Referrals No Doctor, Assigned (PCP) Forms HOME CARE DOCUMENTATION FORM, IMPORTANT VISIT INFORMATION Patient Instructions My [facility] Additional Instructions Albuterol inhaler: Take 2 puffs 4 times daily for the next 5 days then as needed. Lasix 20 mg: Take 1 tablet daily for the next 3 days. Potassium chloride 20 mEq: Take 1 tablet daily for the next 3 days. Hold your metformin for 48 hours. Follow-up with your primary physician before restarting. Watch your carbohydrate and sugar intake over the next 2 days. Low-salt diet as discussed. Elevate your legs. Follow up with your primary physician's office tomorrow for a recheck. Return to the emergency department for increased breathing problems, fever, vomiting, chest pain, abdominal pain, or as needed. Problem Qualifiers
[2017-09-05] MEDS ORDERED: POTASSIUM CHLORIDE 10 MEQ TABCR PO STA (18:17)
[2017-09-05] MEDS ORDERED: POTA20TA13 PO (18:22)
[2017-09-05] MEDS ORDERED: FURO-85 PO (18:22)
[2017-09-05] MEDS ORDERED: FUROSEMIDE 20 MG TAB PO STA (18:25)
[2017-09-05] MEDS ORDERED: ALBUTEROL HFA 8 GM INHALER INH ONE (18:30)
[2017-09-05 19:04] VITALS: BP 164/78; PULSE 88; O2SAT 94
== END 2017-09-05 19:05 | disposition home or self-care (01) ==
LOC: C.EDB 14:24 → C.EDA 19:05
DX: R06.02 Shortness of breath (principal); R60.0 Localized edema; R06.2 Wheezing; N17.9 Acute kidney failure, unspecified; M19.90 Unspecified osteoarthritis, unspecified site; N18.3 Chronic kidney disease, stage 3 (moderate); E11.9 Type 2 diabetes mellitus without complications; I51.9 Heart disease, unspecified; Z86.711 Personal history of pulmonary embolism; Z87.891 Personal history of nicotine dependence; Z79.84 Long term (current) use of oral hypoglycemic drugs; Z79.01 Long term (current) use of anticoagulants; Z79.899 Other long term (current) drug therapy; Z88.8 Allergy status to other drugs, medicaments and biological substances; Z91.018 Allergy to other foods

== ENCOUNTER 2021-06-05 10:17 | Inpatient (IN) ==
[2021-06-05] MEDS ORDERED: SODIUM CHLORIDE 0.9% 1000ML 1,000 ML IV ONE ×3 (10:30→12:09)
--- NOTE | 2021-06-05 10:35 | Emergency Department Note ---
Impression & Plan Sepsis, Urinary tract infection, Acute hypotension, Abdominal pain, Hypomagnesemia ED Provider Note NAME: MISHEL SMITH AGE: 71 SEX: M : 1950 ARRIVES VIA: Ambulance INFORMANT: Patient, EMS ED PROVIDER(S): Tony Davis DO CHIEF COMPLAINT: Near syncope HPI: The patient is a 71-year-old male who presented to the emergency department by ambulance. He was going to the bathroom when he started getting dizzy and weak. He was able to have a bowel movement but has been having difficulty urinating. He is finding that making his urine is very difficult he notices no hematuria. He notices no nausea or vomiting. He denies having any back pain or chest pain. He denies having any trouble breathing. He was noted to have low blood pressure by the prehospital personnel he was given a small IV fluid bolus. This did significantly improve his blood pressure. The patient himself offers no complaints at this time. He states he just became very weak and dizzy. He denies having any fever. He denies having any hemoptysis. ROS: See above HPI for pertinent positives & negatives. A total of 10 systems reviewed and were otherwise negative. PAST MEDICAL HISTORY: See Below PAST SURGICAL HISTORY: See Below FAMILY HISTORY: See Below SOCIAL HISTORY: See Below HOME MEDICATIONS: See Below ALLERGIES: See Below VITALS: See Below PHYSICAL EXAMINATION: GENERAL: The patient is awake and alert. He is somewhat anxious appearing but overall comfortable. EYES: The conjunctivae are clear. The pupils are round and reactive. EARS, NOSE, MOUTH AND THROAT: The nose is without any evidence of any deformity. NECK: The neck is nontender and supple. RESPIRATORY: Normal respiratory effort is noted there is no evidence of wheezing rhonchi or rales CARDIOVASCULAR: Regular rate and rhythm noted there no murmurs rubs or gallops normal S1 normal S2. GASTROINTESTINAL: The abdomen is soft and mildly distended. There is diffuse tenderness to palpation but no guarding rigidity. MUSCULOSKELETAL/EXTREMITIES: There is no evidence of gross deformity full range of motion is noted in the hips and shoulders. SKIN: Skin is warm and dry. Pedal edema was noted bilaterally. NEUROLOGIC: Patient is awake alert and oriented x3. Strength is diminished but symmetric. MEDICAL DECISION MAKING: The patient is a 71-year-old male who presented to the emergency department for an evaluation of generalized weakness. He states he had a near syncopal episode while trying to go to the bathroom. He was found to be hypotensive prior to arrival and received an IV fluid bolus. Upon presentation here he was found to have lower abdominal tenderness. He continued to have episodes of hypotension. He was treated with IV fluids in the emergency department. He was also treated with IV antibiotics for presumed sepsis. I discussed the patient's laboratory and radiographic studies with him. His infectious source appears to be consistent with a urinary source. CT did not show any signs of prior infection. He was reevaluated multiple times. [facility] They have agreed to evaluate the patient in the emergency department for further management and disposition. Triage Nursing notes reviewed. Prior medical records reviewed Vital Signs: reviewed and remarkable for hypotension and tachycardia. Differential diagnosis: Infection, dehydration, metabolic abnormality, hypo/hyperglycemia, electrolyte disturbance, anemia, hypoxia, cardiac sources, intracerebral event, toxicologic, neurologic, as well as other pathologies. ER treatment provided: See below Diagnostics interpreted by me: ECG: EKG was obtained in the emergency department. My interpretation is sinus tachycardia at 116 bpm. There is no PVCs noted. Left bundle branch block pattern was noted. This was compared to a tracing from July 23, 2019. No changes were noted. Cardiac Monitoring: An order was placed for continuous cardiac monitoring. The monitor shows a rate of 97 bpm with sinus rhythm. Laboratory studies: As stated above and show below. Imaging studies: See below Consultation(s): I discussed this case with Gonzales who is [facility]. The patient was given IV fluids for sepsis based on his ideal body weight of 84 kg. ED COURSE: Procedures: none Critical Care: I have personally spent greater than 55 minutes of critical care time in the direct management of this patient. This includes bedside care, interpretation o f diagnostic studies, and testing, discussion with consultants, patient, and family members, and other required patient management activities. This 55 minutes is in excess of all separately billable procedures. Past Med/Surg History Medical History Allergic rhinitis Anemia Coronary artery disease Diabetes mellitus type 2, uncontrolled Elevated homocysteine Enlarged prostate without lower urinary tract symptoms (luts) GERD without esophagitis Gout, joint Hyperlipidemia Morbid obesity Multiple pulmonary nodules NSTEMI (non-ST elevated myocardial infarction) (01/30/11) Raynauds phenomenon Rheumatoid arthritis Type 2 diabetes mellitus Surgical History H/O colonoscopy Social History Smoking Status: Former smoker Age Started Using Tobacco: 12; Age Quit Using Tobacco: 68; packs per day: 1; Hx Alcohol Use: No Hx Substance Use: No Preferred Language: Kazakh Communication Ability: Effective marital status: current occupational status: retired Feels Safe at Home: Yes Allergies Allergies Allergy/AdvReac Type Severity Reaction Status Date / Time fluticasone Allergy Severe lips and Verified 06/05/21 12:05 tongue swelling, angioedema tomato Allergy Mild Itching Verified 06/05/21 12:05 Fluticasone Propionate SUSP AdvReac Unknown Uncoded 06/05/21 12:05 Home Meds Home Medications Medication Instructions Recorded Confirmed folic acid 1 mg tablet 1 mg PO QAM 07/17/18 06/05/21 allopurinol 300 mg tablet 300 mg PO QAM 06/05/21 06/05/21 aspirin 81 mg tablet,delayed 81 mg PO QAM 06/05/21 06/05/21 release (Adult Low Dose Aspirin) furosemide 20 mg tablet (Lasix) 40 mg PO QAM 06/05/21 06/05/21 tamsulosin 0.4 mg capsule 0.8 mg PO HS 06/05/21 06/05/21 Previous Rx's Medication Instructions Recorded katherine #1 ea 07/17/18 metoprolol tartrate 50 mg tablet 50 mg PO BID #60 tab 05/26/20 omeprazole 20 mg capsule,delayed 20 mg PO BID #180 cap 07/09/20 release metformin 500 mg tablet,extended 500 mg PO BID #180 tab 11/01/20 release 24 hr nabumetone 500 mg tablet 500 mg PO BID #60 tab 12/30/20 blood-glucose meter (Contour Next #1 ea 02/14/21 One Meter) glipizide 5 mg tablet 5 mg PO BID #180 tab 03/30/21 blood sugar diagnostic (Contour #100 ea 04/08/21 Next Test Strips) lancets (Microlet Lancet) #100 ea 04/08/21 Results & Data (ED) Vital Signs Vital Signs - 24 hr 06/05/21 10:30 06/05/21 11:02 06/05/21 11:15 Temperature 36.8 C Temperature Source Oral Pulse Rate 117 H 112 H 114 H Respiratory Rate 22 23 18 Respiratory Effort / Characteristics Non-Labored Respiratory Depth Normal Respiratory Pattern Regular Blood Pressure 82/51 L 96/52 L 102/50 L Blood Pressure Mean 61 66 67 Blood Pressure Position Semi-fowlers Pulse Oximetry 94 96 96 Oxygen Delivery Method Room Air Sepsis Recent Fever Within 48 Hours No Sepsis New/Unexplained Change in Mental Status N/A Sepsis Action Taken by Nursing Physician Notified 06/05/21 12:00 06/05/21 12:05 06/05/21 12:15 Temperature Temperature Source Pulse Rate 107 H 103 H 104 H Respiratory Rate 22 19 18 Respiratory Effort / Characteristics Respiratory Depth Respiratory Pattern Blood Pressure 76/65 L 89/53 L 86/48 L Blood Pressure Mean 68 65 60 Blood Pressure Position Pulse Oximetry 95 96 95 Oxygen Delivery Method Sepsis Recent Fever Within 48 Hours Sepsis New/Unexplained Change in Mental Status Sepsis Action Taken by Nursing 06/05/21 12:30 06/05/21 12:45 06/05/21 13:11 Temperature Temperature Source Pulse Rate 105 H 104 H 103 H Respiratory Rate 17 20 16 Respiratory Effort / Characteristics Respiratory Depth Respiratory Pattern Blood Pressure 97/51 L 95/57 L 89/55 L Blood Pressure Mean 66 69 66 Blood Pressure Position Pulse Oximetry 95 96 96 Oxygen Delivery Method Sepsis Recent Fever Within 48 Hours Sepsis New/Unexplained Change in Mental Status Sepsis Action Taken by Nursing 06/05/21 13:15 06/05/21 14:15 Temperature Temperature Source Pulse Rate 103 H 97 H Respiratory Rate 16 17 Respiratory Effort / Characteristics Respiratory Depth Respiratory Pattern Blood Pressure 96/60 L 95/63 L Blood Pressure Mean 72 73 Blood Pressure Position Pulse Oximetry 97 96 Oxygen Delivery Method Sepsis Recent Fever Within 48 Hours Sepsis New/Unexplained Change in Mental Status Sepsis Action Taken by [facility] Medications Current Medication List: was personally reviewed by me Laboratory Data Attestation: I reviewed the patient's lab results. Result diagrams: 06/05/21 10:47 06/05/21 10:47 Lab Results 06/05/21 06/05/21 06/05/21 Range/Units 10:45 10:47 10:47 WBC 15.94 H (4.8-10.8) K/uL RBC 4.12 L (4.7-6.1) M/uL Hgb 12.3 L (14.0-18.0) g/dL Hct 37.4 L (42-52) % MCV 90.8 (80-100) fL MCH 29.9 (25-34) pg MCHC 32.9 (32-36) g/dL RDW Std Deviation 53.1 H (36.4-46.3) fL RDW Coeff of Cheng 16.1 H (11.5-14.5) % Plt Count 140 (130-400) K/uL MPV 9.2 (7.4-10.4) fL Immature Gran % (Auto) 0.3 % Neut % (Auto) 89.1 % Lymph % (Auto) 6.1 % Isabela % (Auto) 4.4 % Eos % (Auto) 0.0 % Baso % (Auto) 0.1 % Neut # (Auto) 14.21 H (1.4-6.5) K/uL Lymph # (Auto) 0.97 L (1.2-3.4) K/uL Isabela # (Auto) 0.70 H (0.11-0.59) K/uL Eos # (Auto) 0.00 (0-0.5) K/uL Baso # (Auto) 0.01 (0-0.2) K/uL Immature Gran # (Auto) 0.05 H (0.00-0.02) K/uL Toxic Granulation 1+ Dohle Bodies 1+ PT (9.0-12.0) Seconds INR (0.9-1.1) APTT (21.0-31.0) Seconds PTT Ratio VBG pH (7.36-7.41) VBG pCO2 (38-50) mmHg VBG pO2 mmHg VBG HCO3 mmol/L VBG O2 Saturation % VBG Base Excess mEq/L Barometric Pressure mm/Hg Sodium (136-145) mmol/L Potassium (3.5-5.1) mmol/L Chloride (98-107) mmol/L Carbon Dioxide (21-32) mmol/L Anion Gap (3-11) BUN (6-23) mg/dl Creatinine (0.6-1.4) mg/dl Est Cr Clr Drug Dosing ml/min Est GFR ( Amer) ml/min Est GFR (Non-Af Amer) ml/min BUN/Creatinine Ratio (10-20) Glucose (70-99(Fasting)) mg/dl Lactate (0.4-2.0) mmol/L Calcium (8.5-10.1) mg/dl Magnesium (1.7-2.4) mg/dl Total Bilirubin (0.2-1.0) mg/dl AST (13-39) U/L ALT (7-52) U/L Alkaline Phosphatase (34-104) U/L Troponin I High Sens 21.0 H (0-20) pg/ml Total Protein (6.0-8.3) gm/dl Albumin (3.4-5.0) gm/dl Globulin (2.5-4.0) gm/dl Albumin/Globulin Ratio (0.9-2) Procalcitonin (0-0.5) ng/ml Urine Color Yellow Urine Appearance Cloudy A (Clear) Urine pH 5.0 (4.5-7.5) Ur Specific Conley 1.024 (1.000-1.030) Urine Protein 1+ H (Negative) Urine Glucose (UA) Negative (Negative) Urine Ketones Trace H (Negative) Urine Blood 2+ H (Negative) Urine Nitrite Positive A (Negative) Urine Bilirubin Negative (Negative) Urine Urobilinogen Negative (Negative) Ur Leukocyte Esterase 2+ H (Negative) Urine WBC (Auto) >30 H (0-5) /hpf Urine RBC (Auto) 0-4 (0-4) /hpf U Hyaline Cast (Auto) 10-30 H (0-5) /lpf U Epithel Cells (Auto) 0-5 (0-5) /lpf Urine Bacteria (Auto) 2+ H (Negative) SARS-CoV-2, RNA, NAAT (NEGATIVE) 06/05/21 06/05/21 06/05/21 Range/Units 10:47 10:47 10:47 WBC (4.8-10.8) K/uL RBC (4.7-6.1) M/uL Hgb (14.0-18.0) g/dL Hct (42-52) % MCV (80-100) fL MCH (25-34) pg MCHC (32-36) g/dL RDW Std Deviation (36.4-46.3) fL RDW Coeff of Cheng (11.5-14.5) % Plt Count (130-400) K/uL MPV (7.4-10.4) fL Immature Gran % (Auto) % Neut % (Auto) % Lymph % (Auto) % Isabela % (Auto) % Eos % (Auto) % Baso % (Auto) % Neut # (Auto) (1.4-6.5) K/uL Lymph # (Auto) (1.2-3.4) K/uL Isabela # (Auto) (0.11-0.59) K/uL Eos # (Auto) (0-0.5) K/uL Baso # (Auto) (0-0.2) K/uL Immature Gran # (Auto) (0.00-0.02) K/uL Toxic Granulation Dohle Bodies PT 13.0 H (9.0-12.0) Seconds INR 1.2 H (0.9-1.1) APTT 30.2 (21.0-31.0) Seconds PTT Ratio 1.1 VBG pH (7.36-7.41) VBG pCO2 (38-50) mmHg VBG pO2 mmHg VBG HCO3 mmol/L VBG O2 Saturation % VBG Base Excess mEq/L Barometric Pressure mm/Hg Sodium 138 (136-145) mmol/L Potassium 3.5 (3.5-5.1) mmol/L Chloride 105 (98-107) mmol/L Carbon Dioxide 20 L (21-32) mmol/L Anion Gap 13 H (3-11) BUN 25 H (6-23) mg/dl Creatinine 1.87 H (0.6-1.4) mg/dl Est Cr Clr Drug Dosing 51.9 ml/min Est GFR ( Amer) 40.4 ml/min Est GFR (Non-Af Amer) 34.9 ml/min BUN/Creatinine Ratio 13.4 (10-20) Glucose 124 H (70-99(Fasting)) mg/dl Lactate 3.8 H* (0.4-2.0) mmol/L Calcium 8.2 L (8.5-10.1) mg/dl Magnesium 1.3 L (1.7-2.4) mg/dl Total Bilirubin 1.2 H (0.2-1.0) mg/dl AST 14 (13-39) U/L ALT 9 (7-52) U/L Alkaline Phosphatase 93 (34-104) U/L Troponin I High Sens (0-20) pg/ml Total Protein 6.9 (6.0-8.3) gm/dl Albumin 3.4 (3.4-5.0) gm/dl Globulin 3.5 (2.5-4.0) gm/dl Albumin/Globulin Ratio 1.0 (0.9-2) Procalcitonin (0-0.5) ng/ml Urine Color Urine Appearance (Clear) Urine pH (4.5-7.5) Ur Specific Conley (1.000-1.030) Urine Protein (Negative) Urine Glucose (UA) (Negative) Urine Ketones (Negative) Urine Blood (Negative) Urine Nitrite (Negative) Urine Bilirubin (Negative) Urine Urobilinogen (Negative) Ur Leukocyte Esterase (Negative) Urine WBC (Auto) (0-5) /hpf Urine RBC (Auto) (0-4) /hpf U Hyaline Cast (Auto) (0-5) /lpf U Epithel Cells (Auto) (0-5) /lpf Urine Bacteria (Auto) (Negative) SARS-CoV-2, RNA, NAAT (NEGATIVE) 06/05/21 06/05/21 06/05/21 Range/Units 10:47 10:47 11:49 WBC (4.8-10.8) K/uL RBC (4.7-6.1) M/uL Hgb (14.0-18.0) g/dL Hct (42-52) % MCV (80-100) fL MCH (25-34) pg MCHC (32-36) g/dL RDW Std Deviation (36.4-46.3) fL RDW Coeff of Cheng (11.5-14.5) % Plt Count (130-400) K/uL MPV (7.4-10.4) fL Immature Gran % (Auto) % Neut % (Auto) % Lymph % (Auto) % Isabela % (Auto) % Eos % (Auto) % Baso % (Auto) % Neut # (Auto) (1.4-6.5) K/uL Lymph # (Auto) (1.2-3.4) K/uL Isabela # (Auto) (0.11-0.59) K/uL Eos # (Auto) (0-0.5) K/uL Baso # (Auto) (0-0.2) K/uL Immature Gran # (Auto) (0.00-0.02) K/uL Toxic Granulation Dohle Bodies PT (9.0-12.0) Seconds INR (0.9-1.1) APTT (21.0-31.0) Seconds PTT Ratio VBG pH 7.38 (7.36-7.41) VBG pCO2 36 L (38-50) mmHg VBG pO2 29 mmHg VBG HCO3 21 mmol/L VBG O2 Saturation < 60.0 % VBG Base Excess -3.9 mEq/L Barometric Pressure 735.2 mm/Hg Sodium (136-145) mmol/L Potassium (3.5-5.1) mmol/L Chloride (98-107) mmol/L Carbon Dioxide (21-32) mmol/L Anion Gap (3-11) BUN (6-23) mg/dl Creatinine (0.6-1.4) mg/dl Est Cr Clr Drug Dosing ml/min Est GFR ( Amer) ml/min Est GFR (Non-Af Amer) ml/min BUN/Creatinine Ratio (10-20) Glucose (70-99(Fasting)) mg/dl Lactate (0.4-2.0) mmol/L Calcium (8.5-10.1) mg/dl Magnesium (1.7-2.4) mg/dl Total Bilirubin (0.2-1.0) mg/dl AST (13-39) U/L ALT (7-52) U/L Alkaline Phosphatase (34-104) U/L Troponin I High Sens (0-20) pg/ml Total Protein (6.0-8.3) gm/dl Albumin (3.4-5.0) gm/dl Globulin (2.5-4.0) gm/dl Albumin/Globulin Ratio (0.9-2) Procalcitonin 17.52 H (0-0.5) ng/ml Urine Color Urine Appearance (Clear) Urine pH (4.5-7.5) Ur Specific Conley (1.000-1.030) Urine Protein (Negative) Urine Glucose (UA) (Negative) Urine Ketones (Negative) Urine Blood (Negative) Urine Nitrite (Negative) Urine Bilirubin (Negative) Urine Urobilinogen (Negative) Ur Leukocyte Esterase (Negative) Urine WBC (Auto) (0-5) /hpf Urine RBC (Auto) (0-4) /hpf U Hyaline Cast (Auto) (0-5) /lpf U Epithel Cells (Auto) (0-5) /lpf Urine Bacteria (Auto) (Negative) SARS-CoV-2, RNA, NAAT NEGATIVE (NEGATIVE) 06/05/21 Range/Units 12:43 WBC (4.8-10.8) K/uL RBC (4.7-6.1) M/uL Hgb (14.0-18.0) g/dL Hct (42-52) % MCV (80-100) fL MCH (25-34) pg MCHC (32-36) g/dL RDW Std Deviation (36.4-46.3) fL RDW Coeff of Cheng (11.5-14.5) % Plt Count (130-400) K/uL MPV (7.4-10.4) fL Immature Gran % (Auto) % Neut % (Auto) % Lymph % (Auto) % Isabela % (Auto) % Eos % (Auto) % Baso % (Auto) % Neut # (Auto) (1.4-6.5) K/uL Lymph # (Auto) (1.2-3.4) K/uL Isabela # (Auto) (0.11-0.59) K/uL Eos # (Auto) (0-0.5) K/uL Baso # (Auto) (0-0.2) K/uL Immature Gran # (Auto) (0.00-0.02) K/uL Toxic Granulation Dohle Bodies PT (9.0-12.0) Seconds INR (0.9-1.1) APTT (21.0-31.0) Seconds PTT Ratio VBG pH (7.36-7.41) VBG pCO2 (38-50) mmHg VBG pO2 mmHg VBG HCO3 mmol/L VBG O2 Saturation % VBG Base Excess mEq/L Barometric Pressure mm/Hg Sodium (136-145) mmol/L Potassium (3.5-5.1) mmol/L Chloride (98-107) mmol/L Carbon Dioxide (21-32) mmol/L Anion Gap (3-11) BUN (6-23) mg/dl Creatinine (0.6-1.4) mg/dl Est Cr Clr Drug Dosing ml/min Est GFR ( Amer) ml/min Est GFR (Non-Af Amer) ml/min BUN/Creatinine Ratio (10-20) Glucose (70-99(Fasting)) mg/dl Lactate 2.8 H* (0.4-2.0) mmol/L Calcium (8.5-10.1) mg/dl Magnesium (1.7-2.4) mg/dl Total Bilirubin (0.2-1.0) mg/dl AST (13-39) U/L ALT (7-52) U/L Alkaline Phosphatase (34-104) U/L Troponin I High Sens (0-20) pg/ml Total Protein (6.0-8.3) gm/dl Albumin (3.4-5.0) gm/dl Globulin (2.5-4.0) gm/dl Albumin/Globulin Ratio (0.9-2) Procalcitonin (0-0.5) ng/ml Urine Color Urine Appearance (Clear) Urine pH (4.5-7.5) Ur Specific Conley (1.000-1.030) Urine Protein (Negative) Urine Glucose (UA) (Negative) Urine Ketones (Negative) Urine Blood (Negative) Urine Nitrite (Negative) Urine Bilirubin (Negative) Urine Urobilinogen (Negative) Ur Leukocyte Esterase (Negative) Urine WBC (Auto) (0-5) /hpf Urine RBC (Auto) (0-4) /hpf U Hyaline Cast (Auto) (0-5) /lpf U Epithel Cells (Auto) (0-5) /lpf Urine Bacteria (Auto) (Negative) SARS-CoV-2, RNA, NAAT (NEGATIVE) Administered Medications Magnesium Sulfate/Dextrose (Magnesium Sulfate / D5w) 1 gm in 100 mls @ 50 mls/hr IV Q2H STA Stop: 06/05/21 15:44 Last Admin: 06/05/21 14:01 Dose: 50 mls/hr Documented by: [id number] Discontinued Medications Sodium Chloride (Nss 1000ml) 1,000 mls @ 999 mls/hr IV .Q1H1M ONE Stop: 06/05/21 11:30 Last Infusion: 06/05/21 11:30 Dose: 0 mls/hr Documented by: [id number] Admin: 06/05/21 10:30 Dose: 999 mls/hr Documented by: [id number] Sodium Chloride (Nss 1000ml) 1,000 mls @ 999 mls/hr IV .Q1H1M ONE Stop: 06/05/21 12:33 Last Infusion: 06/05/21 14:34 Dose: 0 mls/hr Documented by: [id number] Admin: 06/05/21 13:32 Dose: 999 mls/hr Documented by: [id number] Piperacillin Sod/Tazobactam Sod (Zosyn) 4.5 gm in 120 mls @ 240 mls/hr IV NOW ONE Stop: 06/05/21 12:02 Last Infusion: 06/05/21 12:17 Dose: 0 mls/hr Documented by: [id number] Admin: 06/05/21 11:47 Dose: 240 mls/hr Documented by: [id number] Magnesium Sulfate/Dextrose (Magnesium Sulfate / D5w) 1 gm in 100 mls @ 100 mls/hr IV Q1H ANJEL Stop: 06/05/21 13:33 Last Infusion: 06/05/21 14:34 Dose: 0 mls/hr Documented by: [id number] Admin: 06/05/21 13:16 Dose: 100 mls/hr Documented by: [id number] Infusion: 06/05/21 12:47 Dose: 100 mls/hr Documented by: [id number] Admin: 06/05/21 11:47 Dose: 100 mls/hr Documented by: [id number] Sodium Chloride (Nss 1000ml) 1,000 mls @ 999 mls/hr IV .Q1H1M ONE Stop: 06/05/21 13:09 Last Infusion: 06/05/21 13:20 Dose: 0 mls/hr Documented by: [id number] Admin: 06/05/21 12:15 Dose: 999 mls/hr Documented by: [id number] Imaging Data Radiologist's Impression: Abdomen/Pelvis CT 06/05/21 10:30 CT OF THE ABDOMEN AND PELVIS WITHOUT CONTRAST CLINICAL HISTORY: Right flank pain. COMPARISON STUDY: Right upper quadrant ultrasound October 20, 2011. CT of the abdomen and pelvis January 26, 2011. TECHNIQUE: Axial images of the abdomen and pelvis were obtained without IV contrast. Images were reviewed in the axial, sagittal, and coronal planes. Automated exposure control was utilized for the study. A dose lowering technique was utilized adhering to the principles of ALARA. FINDINGS: Multiple small subpleural nodule within the left lower lobe are unchanged and CT of January 26, 2011. These are benign given stability. No pneumatosis, free air or portal venous gas is present. 5 mm calcification within the lower pole the right kidney could reflect a cortical calcification or non obstructing calculus. There are no ureteral calculi. There is no hydronephrosis or hydroureter. Burks balloon within the bladder is noted. Bladder wall thickening is noted. There is adjacent stranding. Prostate is enlarged, measuring 6.7 cm in transverse dimension. Mild stranding within the pelvis is noted. Prominent right common iliac chain node is similar to prior CT. This is benign given stability. Evaluation of the remainder of the abdomen and pelvis is suboptimal on this unenhanced exam. Suspected left hepatic lobe cysts are noted. The largest cyst on prior CT has decreased in size. Unenhanced images of the spleen, adrenal glands and pancreas are unremarkable. No biliary or pancreatic d uctal dilatation. Indistinctness of the gallbladder wall is likely due to motion artifact. There is no evidence for a bowel obstruction. Sigmoid diverticulosis is noted without evidence for acute diverticulitis. IMPRESSION: 1. No ureteral calculi or hydronephrosis. 5 mm calcification within the lower pole of the right kidney which could reflect a cortical calcification or nonobstructing calculus. 2. Enlarged prostate. Burks balloon within the bladder. Bladder wall thickening with adjacent infiltration which could be correlated with urinalysis. 3. No bowel obstruction. 4. Extensive sigmoid diverticulosis. No evidence for acute diverticulitis. ACT 112: Negative or not required by law. Electronically signed by: Tyree Zaragoza M.D. 06/05/2021 11:59 AM Chest X-Ray 06/05/21 10:30 XR chest 1V portable CLINICAL HISTORY: Sepsis. COMPARISON STUDY: Chest CT September 05, 2017. Chest radiograph July 23, 2019. FINDINGS: Lung volumes are normal. Lungs are clear. There is no pneumothorax or pleural effusion. Cardiac size is stable. Mediastinal contours are normal. There is no evidence for pulmonary edema. Incidental note is made of multiple old left rib fractures. IMPRESSION: No acute cardiopulmonary findings. No change in appearance of the chest. ACT 112: Negative or not required by law. Electronically signed by: Tyree Zaragoza M.D. 06/05/2021 11:51 AM Discharge Plan Visit Data Chief Complaint: Illness ED Provider: Tony Davis Discharge Problem: Sepsis, Urinary tract infection, Acute hypotension, Abdominal pain, Hypomagnesemia Patient Disposition: Being Evaluated by Hospitalist Discharge Instructions Interventions: ED Discharge Assessment Last Done: 06/05/21 14:30 Forms Stand Alone Forms: My [facility] [place] Prescriptions Prescriptions: No Action metoprolol tartrate 50 mg tablet 50 mg PO BID Qty: 60 RF: 11 omeprazole 20 mg capsule,delayed release(DR/EC) 20 mg PO BID Qty: 180 RF: 3 metformin 500 mg tablet extended release 24 hr 500 mg PO BID Qty: 180 RF: 1 nabumetone 500 mg tablet 500 mg PO BID Qty: 60 RF: 5 (DME) blood-glucose meter [Contour Next One Meter] Misc See Rx Instructions .Route Qty: 1 RF: 0 (DME) lancets [Microlet Lancet] Misc See Rx Instructions .Route Qty: 100 RF: 11 (DME) Contour Next Test Strips Strip See Rx Instructions .Route Qty: 100 RF: 11 glipizide 5 mg tablet 5 mg PO BID Qty: 180 RF: 3 folic acid 1 mg tablet 1 mg PO QAM RF: 0 (DME) walker misc See Dose Instructions .ROUTE .MEDSUPPLY Qty: 1 RF: 0 aspirin [Adult Low Dose Aspirin] 81 mg tablet,delayed release (DR/EC) 81 mg PO QAM RF: 0 tamsulosin 0.4 mg capsule 0.8 mg PO HS RF: 0 allopurinol 300 mg tablet 300 mg PO QAM RF: 0 furosemide [Lasix] 20 mg tablet 40 mg PO QAM RF: 0 Referrals Referrals: Diego Marie MD [Primary Care Provider] -
[2021-06-05 11:07] LABS: Hematocrit (blood only) 37.4 % (42-52); Hemoglobin 12.3 g/dL (14.0-18.0); Mean Corpuscular Hemoglobin 29.9 pg (25-34); Mean Corpuscular Hgb Conc 32.9 g/dL (32-36); Mean Corpuscular Volume 90.8 fL (80-100); Mean Platelet Volume 9.2 fL (7.4-10.4); Platelet Count 140 K/uL (130-400); RDW Coefficient of Variation 16.1 % (11.5-14.5); RDW Standard Deviation 53.1 fL (36.4-46.3); Red Blood Count 4.12 M/uL (4.7-6.1); White Blood Count 15.94 K/uL (4.8-10.8)
[2021-06-05 11:12] LABS: INR 1.2 (0.9-1.1); Partial Thromboplastin Ratio 1.1; Partial Thromboplastin Time 30.2 Seconds (21.0-31.0)
[2021-06-05 11:25] LABS: Albumin Level 3.4 gm/dl (3.4-5.0); BUN Creatinine Ratio 13.4 (10-20); Bilirubin,Total 1.2 mg/dl (0.2-1.0); Calcium 8.2 mg/dl (8.5-10.1); Creatinine Clr Calc Pharmacy 51.9 ml/min; Est GFR (African American) 40.4 ml/min; Est GFR (Non-African American) 34.9 ml/min; Globulin 3.5 gm/dl (2.5-4.0); Magnesium 1.3 mg/dl (1.7-2.4); Potassium 3.5 mmol/L (3.5-5.1); Total Protein 6.9 gm/dl (6.0-8.3)
[2021-06-05 11:30] LABS: Appearance Urine Cloudy (Clear); Bacteria Urine Automated 2+ (Negative); Bilirubin Urine Negative (Negative); Blood Urine 2+ (Negative); Color Urine Yellow; Epithelial Cell Urine Auto 0-5 /lpf (0-5); Glucose Urine UA Negative (Negative); Ketones Urine Trace (Negative); Leukocyte Esterase Urine 2+ (Negative); Nitrite Urine Positive (Negative); Protein Urine 1+ (Negative); RBC Urine Automated 0-4 /hpf (0-4); Specific Gravity Urine 1.024 (1.000-1.030); Urobilinogen Urine Negative (Negative); WBC Urine Automated >30 /hpf (0-5)
[2021-06-05 11:33] LABS: Base Excess VBG -3.9 mEq/L; HCO3 VBG 21 mmol/L; Oxygen Saturation VBG < 60.0 %; PCO2 VBG 36 mmHg (38-50); PO2 VBG 29 mmHg; pH VBG 7.38 (7.36-7.41)
[2021-06-05] MEDS ORDERED: PIPERACILL/TAZOBAC CONSULT ACTIVE PRN ×2 (11:33→15:11)
[2021-06-05] MEDS ORDERED: PIPERACILLIN/TAZOBACTAM 4.5 GM/120 ML BAG IV ONE (11:33)
[2021-06-05 11:35] LABS: Basophils # (auto) 0.01 K/uL (0-0.2); Basophils % (auto) 0.1 %; Dohle Bodies 1+; Immature Granulocytes # (auto) 0.05 K/uL (0.00-0.02); Immature Granulocytes % (auto) 0.3 %; Lymphocytes # (auto) 0.97 K/uL (1.2-3.4); Lymphocytes % (auto) 6.1 %; Monocytes % (auto) 4.4 %; Neutrophils # (auto) 14.21 K/uL (1.4-6.5); Neutrophils % (auto) 89.1 %; Toxic Granulation 1+
[2021-06-05] MEDS: MAGNESIUM SULFATE / D5W 1 GM/100 ML BAG IV SCH ×2 (11:47→13:16)
--- NOTE | 2021-06-05 11:52 | XRay Report ---
XR chest 1V portable CLINICAL HISTORY: Sepsis. COMPARISON STUDY: Chest CT September 05, 2017. Chest radiograph July 23, 2019. FINDINGS: Lung volumes are normal. Lungs are clear. There is no pneumothorax or pleural effusion. Car diac size is stable. Mediastinal contours are normal. There is no evidence for pulmonary edema. Incid ental note is made of multiple old left rib fractures. IMPRESSION: No acute cardiopulmonary findings. No change in appearance of the chest. ACT 112: Negative or not required by law. Electronically signed by: Tyree Zaragoza M.D. 06/05/2021 11:51 AM
--- NOTE | 2021-06-05 12:01 | CT Scan Report ---
CT OF THE ABDOMEN AND PELVIS WITHOUT CONTRAST CLINICAL HISTORY: Right flank pain. COMPARISON STUDY: Right upper quadrant ultrasound October 20, 2011. CT of the abdomen and pelvis De cember 2010. TECHNIQUE: Axial images of the abdomen and pelvis were obtained without IV contrast. Images were revi ewed in the axial, sagittal, and coronal planes. Automated exposure control was utilized for the stefani dy. A dose lowering technique was utilized adhering to the principles of ALARA. FINDINGS: Multiple small subpleural nodule within the left lower lobe are unchanged and [facility] of [facility] r 2010. These are benign given stability. No pneumatosis, free air or portal venous gas is presen t. 5 mm calcification within the lower pole the right kidney could reflect a cortical calcification o r nonobstructing calculus. There are no ureteral calculi. There is no hydronephrosis or hydroureter. Burks balloon within the bladder is noted. Bladder wall thickening is noted. There is adjacent strand ing. Prostate is enlarged, measuring 6.7 cm in transverse dimension. Mild stranding within the pelvis is noted. Prominent right common iliac chain node is similar to prior CT. This is benign given stabi lity. Evaluation of the remainder of the abdomen and pelvis is suboptimal on this unenhanced exam. Waller spected left hepatic lobe cysts are noted. The largest cyst on prior CT has decreased in size. Unenha nced images of the spleen, adrenal glands and pancreas are unremarkable. No biliary or pancreatic mariajose jd dilatation. Indistinctness of the gallbladder wall is likely due to motion artifact. There is no evidence for a bowel obstruction. Sigmoid diverticulosis is noted without evidence for acute divertic ulitis. IMPRESSION: 1. No ureteral calculi or hydronephrosis. 5 mm calcification within the lower pole of the right kidne y which could reflect a cortical calcification or nonobstructing calculus. 2. Enlarged prostate. Burks balloon within the bladder. Bladder wall thickening with adjacent infiltr ation which could be correlated with urinalysis. 3. No bowel obstruction. 4. Extensive sigmoid diverticulosis. No evidence for acute diverticulitis. ACT 112: Negative or not required by law. Electronically signed by: Tyree Zaragoza M.D. 06/05/2021 11:59 AM
--- NOTE | 2021-06-05 12:14 | Electrocardiogram Report ---
Test Reason : Blood Pressure : / mmHG Vent. Rate : 116 BPM Atrial Rate : 117 BPM P-R Int : 152 ms QRS Dur : 136 ms QT Int : 378 ms P-R-T Axes : 000 -68 077 degrees QTc Int : 525 ms Sinus tachycardia Left axis deviation Left bundle branch block Abnormal ECG When compared with ECG of 23-JUL-2019 08:15, No significant change was found Confirmed by Tony Guerrero ([id number]) on 06/05/2021 12:13:47 PM Referred By: Confirmed By:Tony Guerrero
--- NOTE | 2021-06-05 12:51 | History & Physical Report ---
Date of Service June 05, 2021 Assessment & Plan (1) Septic shock: Plan: Septic shock secondary to obstructive UTI or prostatitis with possible right sided non obstructive renal stone - Continue with fluid resuscitation to at least 30ml/kg- currently received 1.5 liters- 3Lmin - Currently volume responsive following 2nd liter bolus- MAPS 72- as above 3L follow with LR for one liter over 10 hour - Continue Zosyn for complicated UTI and enlarged prostate- without pain while passing Radford per report - Afebrile WBC 15, PCT 17, Urine culture and blood cultures are pending - Organ dysfunction with - elevated HScTNI, SHIRLEY, encephalopathy, INR 1.2 - maintain MAPS >65 (2) Right kidney stone: Plan: Possible right kidney stone on CT scan - 5 mm calcification within the lower pole of the right kidney which could reflect a cortical calcification or nonobstructing calculus - non obstructive- continue flomax - IVF as above - ABX as above (3) Enlarged prostate without lower urinary tract symptoms (luts): Plan: Will continue Zosyn to cover for possible prostate as source - however without severe discomfort when passing radford reported by RN - Likely enlarged prostate led to urinary retention and now with UTI (4) Encephalopathy: Plan: reports that he is normally sharp but does have some memory issues- she is concerned for dementia - Current mental status is likely related to his infection and hypotension- correct toxic/metabolic deficits and continue to follow (5) Diabetes mellitus type 2, uncontrolled: Plan: Hold home oral agents - sliding scale insulin aspart 20 CF with 1:10 carb ratio (6) GERD without esophagitis: Plan: Continue PPI (7) Hyperlipidemia: Plan: Not on statin or other disease modyfying medications at home (8) Chronic kidney disease, stage 3: Plan: SHIRLEY II on CKD III - secondary to sepsis from urinary source at this time - Hold diuretics - Follow renal function renally dose medications as needed - Heparin 5000 units sub q for VTE (9) CHF (congestive heart failure): Plan: CHF unspecified type- followed by PCP without ECHO - placed on Lasix in 08/01 with improvement in dyspnea and edema - does not follow with cardiology - ECHO while in house (10) Hypomagnesemia: Plan: Mag 1.3 in EMD- already given 2 GM - will give 2 more for total of 4 GM History of Present Illness Primary Care Provider: Diego Marie MD 71 YOM with medical history of: Obesity, HTN, CHF (unknown type), gout, DMII, chronic right knee pain, rheumatoid arthritis, allergic rhinitis. Patient comes to the EMD today via ems after being called by his family members at home secondary to, rigors, diarrhea, unable to void and confusion. In the EMD the patient arrived hypotensive, had routine labs done as well as blood cultures, lactate, PCT, UA and VBG. He had CXR completed as well as CT scan of his abdomen. He has currently received 1.5 liters of crystalloid. His urine was noted for + LE, +Nit, + Casts and 2+ bacteria. His CT scan was notable for 5mm calcification of the lower pole of right kidney non-obstructing and enlarged prostate. He had a radford catheter placed. He was started on Zosyn. Hos pitalist service was consulted for admission. The patient was evaluated and is noted to be confused and with poor tracking of conversation. Did talk to his for historical review. She notes that he has been constipated over the past 2 days and taking miralax and got up this morning "all out of sorts", he was really cold and shivering. He got up and appeared confused. His son came over and helped him get up and to the bathroom, he remained confused and easily fatigued and fell to his knee in the bathroom. His son called 911. Gregory will continue with goal directed therapy with volume resuscitation and may need admission to ICU for continued resuscitation/vasopressors. Allergies Allergy/AdvReac Type Severity Reaction Status Date / Time fluticasone Allergy Severe lips and Verified 06/05/21 12:05 tongue swelling, angioedema tomato Allergy Mild Itching Verified 06/05/21 12:05 Fluticasone Propionate SUSP AdvReac Unknown Uncoded 06/05/21 12:05 Home Medications Medication Instructions Recorded Confirmed Type folic acid 1 mg tablet 1 mg PO QAM 07/17/18 06/05/21 History walker #1 ea 07/17/18 03/30/21 Rx metoprolol tartrate 50 mg tablet 50 mg PO BID #60 tab 05/26/20 06/05/21 Rx omeprazole 20 mg capsule,delayed 20 mg PO BID #180 cap 07/09/20 06/05/21 Rx release metformin 500 mg tablet,extended 500 mg PO BID #180 tab 11/01/20 06/05/21 Rx release 24 hr nabumetone 500 mg tablet 500 mg PO BID #60 tab 12/30/20 06/05/21 Rx blood-glucose meter (Contour Next #1 ea 02/14/21 03/30/21 Rx One Meter) glipizide 5 mg tablet 5 mg PO BID #180 tab 03/30/21 06/05/21 Rx blood sugar diagnostic (Contour #100 ea 04/08/21 Rx Next Test Strips) lancets (Microlet Lancet) #100 ea 04/08/21 Rx allopurinol 300 mg tablet 300 mg PO QAM 06/05/21 06/05/21 History aspirin 81 mg tablet,delayed 81 mg PO QAM 06/05/21 06/05/21 History release (Adult Low Dose Aspirin) furosemide 20 mg tablet (Lasix) 40 mg PO QAM 06/05/21 06/05/21 History tamsulosin 0.4 mg capsule 0.8 mg PO HS 06/05/21 06/05/21 History Past Med/Surg History Medical History Allergic rhinitis Anemia Coronary artery disease Diabetes mellitus type 2, uncontrolled Elevated homocysteine Enlarged prostate without lower urinary tract symptoms (luts) GERD without esophagitis Gout, joint Hyperlipidemia Morbid obesity Multiple pulmonary nodules NSTEMI (non-ST elevated myocardial infarction) (01/30/11) Raynauds phenomenon Rheumatoid arthritis Type 2 diabetes mellitus Surgical History H/O colonoscopy Social History Smoking Status: Unknown if ever smoked Age Started Using Tobacco: 12; Age Quit Using Tobacco: 68; packs per day: 1; Hx Alcohol Use: No Hx Substance Use: No Preferred Language: Kazakh Communication Ability: Effective [employer] Required: No Beliefs That Will Affect Care: None marital status: Current Living Situation: Spouse current occupational status: retired Other Information That Helps Us Care for You: No Feels Safe at Home: Yes Safety Concerns: Feels Safe At This Time Assistive Devices: Cane and Walker Review of Systems Review of Systems: REVIEW OF SYSTEMS: Constitutional: (+)fever, sweats or chills Eyes: No diplopia, no worsening or blurred vision ENT: normal hearing, no trouble swallowing Respiratory: No cough, sputum, dyspnea at rest or on exertion Cardiovascular: No chest pain, tightness or palpitations Abdomen: (+) right flank pain, constipation, NO nausea, vomiting, diarrhea Musculoskeletal: (+) right knee joint pain, calf pain, swelling Neurologic: (+) confusion Skin: (+) dirt on feet, scratches to toes and left song Physical Exam Physical Exam: PHYSICAL EXAM: General: awake, alert, delirius Head: Normocephalic, atraumatic ENT: PERRLA, EOMI, no pharyngeal exudate, mucous membranes dry Neuro: AAO x 3, speech clear but difficulty staying on conversation or task, strength intact bilaterally 5/5, sensation intact and equal all extremities and dermatomes, no pronator drift Chest: equal rise and fall of the chest, no accessory muscle use, no heaves or thrills, scattered crackles and end expiratory wheeze Cardiac: Regular rate and rhythm, telemetry reviewed- NSR, skin warm dry, cap refill <3 seconds, peripheral pulses +2 no JVD, no murmur, +1 edema to bilateral lower extremities GI: NABS x 4 quadrants, softly distended, tympanic on exam, tender to right flank, had formed bowel movment in the EMD : radford to gravity, draining light yoel urine Extremities: Normal inspection, no peripheral edema or erythema, calfs nontender to palpation Skin: dirt on feet, onychomycosis, scratch to feet and abrasion to left song Results & Data Results & Data ([facility]) Vital Signs (Past 12 Hours) Vital Signs Temp Pulse Resp BP Pulse Ox 06/05/21 12:15 104 H 18 86/48 L 95 06/05/21 12:05 103 H 19 89/53 L 96 06/05/21 12:00 107 H 22 76/65 L 95 06/05/21 11:15 114 H 18 102/50 L 96 06/05/21 11:02 112 H 23 96/52 L 96 06/05/21 10:30 36.8 C 117 H 22 82/51 L 94 Laboratory Results Abnormal lab results 06/05/21 06/05/21 06/05/21 Range/Units 10:45 10:47 10:47 WBC 15.94 H (4.8-10.8) K/uL RBC 4.12 L (4.7-6.1) M/uL Hgb 12.3 L (14.0-18.0) g/dL Hct 37.4 L (42-52) % RDW Std Deviation 53.1 H (36.4-46.3) fL RDW Coeff of Cheng 16.1 H (11.5-14.5) % Neut # (Auto) 14.21 H (1.4-6.5) K/uL Lymph # (Auto) 0.97 L (1.2-3.4) K/uL Sherman # (Auto) 0.70 H (0.11-0.59) K/uL Immature Gran # (Auto) 0.05 H (0.00-0.02) K/uL PT (9.0-12.0) Seconds INR (0.9-1.1) VBG pCO2 (38-50) mmHg Carbon Dioxide (21-32) mmol/L Anion Gap (3-11) BUN (6-23) mg/dl Creatinine (0.6-1.4) mg/dl Glucose (70-99(Fasting)) mg/dl Lactate (0.4-2.0) mmol/L Calcium (8.5-10.1) mg/dl Magnesium (1.7-2.4) mg/dl Total Bilirubin (0.2-1.0) mg/dl Troponin I High Sens 21.0 H (0-20) pg/ml Procalcitonin (0-0.5) ng/ml Urine Appearance Cloudy A (Clear) Urine Protein 1+ H (Negative) Urine Ketones Trace H (Negative) Urine Blood 2+ H (Negative) Urine Nitrite Positive A (Negative) Ur Leukocyte Esterase 2+ H (Negative) Urine WBC (Auto) >30 H (0-5) /hpf U Hyaline Cast (Auto) 10-30 H (0-5) /lpf Urine Bacteria (Auto) 2+ H (Negative) 06/05/21 06/05/21 06/05/21 Range/Units 10:47 10:47 10:47 WBC (4.8-10.8) K/uL RBC (4.7-6.1) M/uL Hgb (14.0-18.0) g/dL Hct (42-52) % RDW Std Deviation (36.4-46.3) fL RDW Coeff of Cheng (11.5-14.5) % Neut # (Auto) (1.4-6.5) K/uL Lymph # (Auto) (1.2-3.4) K/uL Sherman # (Auto) (0.11-0.59) K/uL Immature Gran # (Auto) (0.00-0.02) K/uL PT 13.0 H (9.0-12.0) Seconds INR 1.2 H (0.9-1.1) VBG pCO2 (38-50) mmHg Carbon Dioxide 20 L (21-32) mmol/L Anion Gap 13 H (3-11) BUN 25 H (6-23) mg/dl Creatinine 1.87 H (0.6-1.4) mg/dl Glucose 124 H (70-99(Fasting)) mg/dl Lactate 3.8 H* (0.4-2.0) mmol/L Calcium 8.2 L (8.5-10.1) mg/dl Magnesium 1.3 L (1.7-2.4) mg/dl Total Bilirubin 1.2 H (0.2-1.0) mg/dl Troponin I High Sens (0-20) pg/ml Procalcitonin (0-0.5) ng/ml Urine Appearance (Clear) Urine Protein (Negative) Urine Ketones (Negative) Urine Blood (Negative) Urine Nitrite (Negative) Ur Leukocyte Esterase (Negative) Urine WBC (Auto) (0-5) /hpf U Hyaline Cast (Auto) (0-5) /lpf Urine Bacteria (Auto) (Negative) 06/05/21 06/05/21 Range/Units 10:47 10:47 WBC (4.8-10.8) K/uL RBC (4.7-6.1) M/uL Hgb (14.0-18.0) g/dL Hct (42-52) % RDW Std Deviation (36.4-46.3) fL RDW Coeff of Cheng (11.5-14.5) % Neut # (Auto) (1.4-6.5) K/uL Lymph # (Auto) (1.2-3.4) K/uL Sherman # (Auto) (0.11-0.59) K/uL Immature Gran # (Auto) (0.00-0.02) K/uL PT (9.0-12.0) Seconds INR (0.9-1.1) VBG pCO2 36 L (38-50) mmHg Carbon Dioxide (21-32) mmol/L Anion Gap (3-11) BUN (6-23) mg/dl Creatinine (0.6-1.4) mg/dl Glucose (70-99(Fasting)) mg/dl Lactate (0.4-2.0) mmol/L Calcium (8.5-10.1) mg/dl Magnesium (1.7-2.4) mg/dl Total Bilirubin (0.2-1.0) mg/dl Troponin I High Sens (0-20) pg/ml Procalcitonin 17.52 H (0-0.5) ng/ml Urine Appearance (Clear) Urine Protein (Negative) Urine Ketones (Negative) Urine Blood (Negative) Urine Nitrite (Negative) Ur Leukocyte Esterase (Negative) Urine WBC (Auto) (0-5) /hpf U Hyaline Cast (Auto) (0-5) /lpf Urine Bacteria (Auto) (Negative) Diagnostic Findings Abdomen/Pelvis CT 06/05/21 10:30 CT OF THE ABDOMEN AND PELVIS WITHOUT CONTRAST CLINICAL HISTORY: Right flank pain. COMPARISON STUDY: Right upper quadrant ultrasound October 20, 2011. CT of the abdomen and pelvis January 26, 2011. TECHNIQUE: Axial images of the abdomen and pelvis were obtained without IV cont rast. Images were reviewed in the axial, sagittal, and coronal planes. Automated exposure control was utilized for the study. A dose lowering technique was utilized adhering to the principles of ALARA. FINDINGS: Multiple small subpleural nodule within the left lower lobe are unchanged and CT of January 26, 2011. These are benign given stability. No pneumatosis, free air or portal venous gas is present. 5 mm calcification within the lower pole the right kidney could reflect a cortical calcification or nonobstructing calculus. There are no ureteral calculi. There is no hydronephrosis or hydroureter. Radford balloon within the bladder is noted. Bladder wall thickening is noted. There is adjacent stranding. Prostate is enlarged, measuring 6.7 cm in transverse dimension. Mild stranding within the pelvis is noted. Prominent right common iliac chain node is similar to prior CT. This is benign given stability. Evaluation of the remainder of the abdomen and pelvis is suboptimal on this unenhanced exam. Suspected left hepatic lobe cysts are noted. The largest cyst on prior CT has decreased in size. Unenhanced images of the spleen, adrenal glands and pancreas are unremarkable. No biliary or pancreatic ductal dilatation. Indistinctness of the gallbladder wall is likely due to motion artifact. There is no evidence for a bowel obstruction. Sigmoid diverticulosis is noted without evidence for acute diverticulitis. IMPRESSION: 1. No ureteral calculi or hydronephrosis. 5 mm calcification within the lower pole of the right kidney which could reflect a cortical calcification or nonobstructing calculus. 2. Enlarged prostate. Radford balloon within the bladder. Bladder wall thickening with adjacent infiltration which could be correlated with urinalysis. 3. No bowel obstruction. 4. Extensive sigmoid diverticulosis. No evidence for acute diverticulitis. ACT 112: Negative or not required by law. Electronically signed by: Tyree Zaragoza M.D. 06/05/2021 11:59 AM Chest X-Ray 06/05/21 10:30 XR chest 1V portable CLINICAL HISTORY: Sepsis. COMPARISON STUDY: Chest CT September 05, 2017. Chest radiograph July 23, 2019. FINDINGS: Lung volumes are normal. Lungs are clear. There is no pneumothorax or pleural effusion. Cardiac size is stable. Mediastinal contours are normal. There is no evidence for pulmonary edema. Incidental note is made of multiple old left rib fractures. IMPRESSION: No acute cardiopulmonary findings. No change in appearance of the chest. ACT 112: Negative or not required by law. Electronically signed by: Tyree Zaragoza M.D. 06/05/2021 11:51 AM Medications Administered Home Medications folic acid 1 mg tablet 1 mg PO QAM 07/17/18 [History Confirmed 06/05/21] walker #1 ea 07/17/18 [Rx Confirmed 03/30/21] metoprolol tartrate 50 mg tablet 50 mg PO BID #60 tab 05/26/20 [Rx Confirmed 06/05/21] omeprazole 20 mg capsule,delayed release 20 mg PO BID #180 cap 07/09/20 [Rx Confirmed 06/05/21] metformin 500 mg tablet,extended release 24 hr 500 mg PO BID #180 tab 11/01/20 [Rx Confirmed 06/05/21] nabumetone 500 mg tablet 500 mg PO BID #60 tab 12/30/20 [Rx Confirmed 06/05/21] blood-glucose meter (Contour Next One Meter) #1 ea 02/14/21 [Rx Confirmed 03/30/21] glipizide 5 mg tablet 5 mg PO BID #180 tab 03/30/21 [Rx Confirmed 06/05/21] blood sugar diagnostic (Contour Next Test Strips) #100 ea 04/08/21 [Rx] lancets (Microlet Lancet) #100 ea 04/08/21 [Rx] allopurinol 300 mg tablet 300 mg PO QAM 06/05/21 [History Confirmed 06/05/21] aspirin 81 mg tablet,delayed release (Adult Low Dose Aspirin) 81 mg PO QAM 06/05/21 [History Confirmed 06/05/21] furosemide 20 mg tablet (Lasix) 40 mg PO QAM 06/05/21 [History Confirmed ] tamsulosin 0.4 mg capsule 0.8 mg PO HS 06/05/21 [History Confirmed 06/05/21] Active Medications Magnesium Sulfate/Dextrose (Magnesium Sulfate / D5w) 1 gm in 100 mls @ 100 mls/hr IV Q1H [facility] Stop: 06/05/21 13:33 Last Admin: 06/05/21 11:47 Dose: 100 mls/hr Documented by: Sodium Chloride (Nss 1000ml) 1,000 mls @ 999 mls/hr IV .Q1H1M ONE Stop: 06/05/21 13:09 Last Admin: 06/05/21 12:15 Dose: 999 mls/hr Documented by: Miscellaneous Information (Piperacill/Tazobac Consult Active) 1 ea N/A UD PRN PRN Reason: Consult Stop: 07/05/21 11:32 Magnesium Sulfate/Dextrose (Magnesium Sulfate / D5w) 1 gm in 100 mls @ 100 mls/hr IV Q1H ANJEL Stop: 06/05/21 13:33 Last Admin: 06/05/21 11:47 Dose: 100 mls/hr Documented by: [id number] Sodium Chloride (Nss 1000ml) 1,000 mls @ 999 mls/hr IV .Q1H1M ONE Stop: 06/05/21 13:09 Last Admin: 06/05/21 12:15 Dose: 999 mls/hr Documented by: [id number] Discontinued Medications Sodium Chloride (Nss 1000ml) 1,000 mls @ 999 mls/hr IV .Q1H1M ONE Stop: 06/05/21 11:30 Last Admin: 06/05/21 10:30 Dose: 999 mls/hr Documented by: [id number] Piperacillin Sod/Tazobactam Sod (Zosyn) 4.5 gm in 120 mls @ 240 mls/hr IV NOW ONE Stop: 06/05/21 12:02 Last Admin: 06/05/21 11:47 Dose: 240 mls/hr Documented by: [id number] ECG Additional Comments: Vent. Rate : 116 BPM Atrial Rate : 117 BPM P-R Int : 152 ms QRS Dur : 136 ms QT Int : 378 ms P-R-T Axes : 000 -68 077 degrees QTc Int : 525 ms Sinus tachycardia Left axis deviation Left bundle branch block Abnormal ECG When compared with ECG of 23-JUL-2019 08:15, No significant change was found Confirmed by Tony Guerrero ([id number]) on 06/05/2021 12:13:47 PM Code Status & VTE Plan Code Status CODE: FULL VTE: SCDS, Heparin 5000 units sub q TID Supervising Physician Co-Signing Physician Notes 71 yo male seen and examined at bedside. During face to face encounter, obtained history and physical examination. Discussed plan of care with patient and ARON Fulton. Reviewed above note and agree with it. Patient will be admitted with Urosepsis and placed on antibiotics. Due to labile BP but not requiring pressors at this time, patient will be placed on PCU. PG Care Time/CCT Total # of Minutes Spent Total Time Spent with Patient: Total time spent is greater than 50% in coordination of care (as documented) at patient's floor/unit and/or counseling patient: Coding Level of Care Code 15749 Initial Inpt Care Lvl 3 Diagnoses Septic shock A41.9; R65.21 Right kidney stone N20.0 Diabetes mellitus type 2, uncontrolled E11.65 Enlarged prostate without lower urinary tract symptoms (luts) N40.0 GERD without esophagitis K21.9 Hyperlipidemia E78.5 Chronic kidney disease, stage 3 N18.30 CHF (congestive heart failure) I50.9 Encephalopathy G93.40 Hypomagnesemia E83.42
[2021-06-05] MEDS ORDERED: MAGNESIUM SULFATE / D5W 1 GM/100 ML BAG IV STA (13:45)
--- NOTE | 2021-06-05 14:41 | XRay Report ---
KUB HISTORY: Right flank pain. evaluate bowel gas pattern COMPARISON: Abdomen and pelvis CT 06/05/2021. FINDINGS: The bowel gas pattern is unremarkable. There are no dilated loops of small bowel to suggest an obstruction. No renal calculi. No ureteral calculi. No pneumoperitoneum or pneumatosis. There is a Burks catheter within the bladder. Degenerative changes again noted within the lumbar spine. IMPRESSION: No evidence for bowel obstruction. ACT 112: Negative or not required by law. Electronically signed by: Scotty Pérez M.D. 06/05/2021 2:40 PM
[2021-06-05] MEDS ORDERED: GLUCOSE 10 TABS/TUBE PO PRN (15:11)
[2021-06-05] MEDS ORDERED: CARBOHYDRATES FOR HYPOGLYCEMIA PO PRN (15:11)
[2021-06-05] MEDS ORDERED: GLUCAGON FOR INJ 1 MG VIAL SQ PRN (15:11)
[2021-06-05] MEDS ORDERED: LACTATED RINGER'S 1,000 ML IV ONE (15:11)
[2021-06-05] MEDS ORDERED: GLUCOSE 40% GEL 15 GM TUBE PO PRN (15:11)
[2021-06-05] MEDS ORDERED: DEXTROSE 50% 50 ML SYRINGE IV PRN (15:11)
[2021-06-05] MEDS ORDERED: bisacodyL 10 MG SUPP PR PRN (15:11)
[2021-06-05] MEDS ORDERED: MAGNESIUM SULFATE / D5W 1 GM/100 ML BAG IV ONE (16:45)
[2021-06-05] MEDS: INSULIN ASPART PER UNIT SC SCH ×2 (17:16→20:15)
[2021-06-05] MEDS: SODIUM CHLORIDE 0.65% NA SOLN 45 ML (OCEAN) SCH (17:17)
[2021-06-05] MEDS: HEPARIN SOD 5,000 UNIT/0.5 ML VIAL SQ SCH ×2 (17:40→20:14)
[2021-06-05] MEDS: PIPERACILLIN/TAZOBACTAM 4.5 GM in DEXTROSE 5% 100 ML IV SCH (20:13)
[2021-06-05] MEDS: TAMSULOSIN HCL 0.4 MG CAP PO SCH (20:14)
[2021-06-05] MEDS: PANTOprazole 40 MG TAB PO SCH (20:14)
[2021-06-06] MEDS: ACETAMINOPHEN 325 MG TAB PO PRN ×2 (02:37→13:08)
[2021-06-06] MEDS: PIPERACILLIN/TAZOBACTAM 4.5 GM in DEXTROSE 5% 100 ML IV SCH ×3 (05:24→21:11)
[2021-06-06] MEDS: HEPARIN SOD 5,000 UNIT/0.5 ML VIAL SQ SCH ×3 (05:24→21:11)
[2021-06-06 06:15] LABS: Basophils # (auto) 0.02 K/uL (0-0.2); Basophils % (auto) 0.1 %; Eosinophils # (auto) 0.05 K/uL (0-0.5); Eosinophils % (auto) 0.3 %; Hematocrit (blood only) 34.1 % (42-52); Hemoglobin 11.5 g/dL (14.0-18.0); Immature Granulocytes # (auto) 0.09 K/uL (0.00-0.02); Immature Granulocytes % (auto) 0.5 %; Lymphocytes # (auto) 1.73 K/uL (1.2-3.4); Lymphocytes % (auto) 9.6 %; Mean Corpuscular Hemoglobin 29.9 pg (25-34); Mean Corpuscular Hgb Conc 33.7 g/dL (32-36); Mean Corpuscular Volume 88.8 fL (80-100); Mean Platelet Volume 9.5 fL (7.4-10.4); Monocytes # (auto) 0.77 K/uL (0.11-0.59); Monocytes % (auto) 4.3 %; Neutrophils # (auto) 15.45 K/uL (1.4-6.5); Neutrophils % (auto) 85.2 %; Platelet Count 137 K/uL (130-400); RDW Coefficient of Variation 16.5 % (11.5-14.5); RDW Standard Deviation 53.8 fL (36.4-46.3); Red Blood Count 3.84 M/uL (4.7-6.1); White Blood Count 18.11 K/uL (4.8-10.8)
[2021-06-06 06:33] LABS: Creatinine Clr Calc Pharmacy 57.6 ml/min; Est GFR (African American) 47.7 ml/min; Est GFR (Non-African American) 41.2 ml/min; Magnesium 2.4 mg/dl (1.7-2.4); Potassium 3.7 mmol/L (3.5-5.1)
[2021-06-06] MEDS: POLYETHYLENE (MIRALAX) 17 GM PACK PO SCH (08:17)
[2021-06-06] MEDS: SODIUM CHLORIDE 0.65% NA SOLN 45 ML (OCEAN) SCH (08:17)
[2021-06-06] MEDS: ASPIRIN 81 MG ECTAB PO SCH (08:17)
[2021-06-06] MEDS: allopurinoL 300 MG TAB PO SCH (08:17)
[2021-06-06] MEDS: DOCUSATE SODIUM/SENNA 50/8.6MG TAB PO SCH (08:17)
[2021-06-06] MEDS: PANTOprazole 40 MG TAB PO SCH ×2 (08:17→20:47)
[2021-06-06] MEDS: INSULIN ASPART PER UNIT SC SCH ×4 (08:18→20:46)
--- NOTE | 2021-06-06 08:44 | Urology Consultation ---
Date of Consultation June 06, 2021 Assessment & Plan (1) Sepsis: (2) Urinary tract infection: 71yo M admitted with sepsis and encephalopathy likely secondary to UTI. - Plan of care reviewed with Dr. Avila, on-call urologist. - CTAP reviewed - Enlarged prostate with bladder wall thickening; 5mm non obstructing right renal calculi, no ureteral stones or hydronephrosis. - Urinary retention likely multifactorial including underlying BPH with obstruction and reported constipation issues. - Suspect enlarged prostate led to urinary retention and now with UTI. - Pt afebrile, hemodynamically stable. - Labs reviewed - Wbc 18.11 today, Creatinine down from 1.87 to 1.63 today. - Urine and blood cultures preliminary with gram negative bacilli. - On IV Zosyn, follow cultures. - Maintain Radford catheter for max drainage while treating infection. - Continue supportive care and antibiotic therapy. - Continue tamsulosin, can consider addition of 5-SARBJIT such as Finasteride for dual therapy. - Will arrange outpatient follow-up with our service. - Thank you for allowing us to participate in the acute care of Mr. Amor. Please reconsult us with additional questions, concerns or changes in patient status. History of Present Illness Reason for Consultation: prostatitis? obstructive uropathy Attending Physician: Collins Parks History of Present Illness 71 year-old male with a past medical history including obesity, HTN, CHF, gout, DMII, chronic right knee pain, rheumatoid arthritis, and allergic rhinitis who presented to the ED with rigors, diarrhea, unable to void and confusion and was admitted with septic shock secondary to obstructive UTI, possible prostatitis. Urology consulted for obstructive uropathy and possible prostatitis. On presentation to the ED, pt was hypotensive. He was afebrile with a white count of 15.94 and creatinine 1.87. Lactate 3.8. His urinalysis was positive for 2+blood, 2+ LE, +Nit, +Casts and 2+ bacteria. A CT abdomen pelvis was obtained and noted an enlarged prostate with bladder wall thickening and a 5mm calcification within the lower pole of the right kidney and no ureteral calculi or hydronephrosis. A radford catheter placed and he was started on Zosyn. He was admitted to the hospitalist service for further management. Per chart review, patient's reported that he had been constipated for a few days prior to his arrival in the ED. CT abdomen pelvis - 1. No ureteral calculi or hydronephrosis. 5 mm calcification within the lower pole of the right kidney which could reflect a cortical calcification or nonobstructing calculus. 2. Enlarged prostate. Radford balloon within the bladder. Bladder wall thickening with adjacent infiltration which could be correlated with urinalysis. 3. No bowel obstruction. 4. Extensive sigmoid diverticulosis. No evidence for acute diverticulitis. Pt examined at bedside this AM. Awake, sitting in bedside chair on arrival. No acute distress. Denies abdominal, flank, and back pain at present. No fevers or chills. Tolerating diet, no nausea or vomiting. Radford catheter intact, draining clear yellow urine. Urine output overnight -500ml. Reports he had a BM this morning. States he was struggling with constipation last week and started to notice difficulty with urination last Sunday. Pt notes he had not had any urinary issues or symptoms since he was started on Flomax by his PCP. States PCP does his prostate exams and checks his PSA. Last PSA in chart from 05/26/20 was 2.8. Pt denies personal and family hx of urological issues. He has not seen a urologist in the past. Offered no additional complaints at time of exam. Allergies Allergy/AdvReac Type Severity Reaction Status Date / Time fluticasone Allergy Severe lips and Verified 06/05/21 12:05 tongue swelling, angioedema tomato Allergy Mild Itching Verified 06/05/21 12:05 Fluticasone Propionate SUSP AdvReac Unknown Uncoded 06/05/21 12:05 Home Medications Medication Instructions Recorded Confirmed Type folic acid 1 mg tablet 1 mg PO QAM 07/17/18 06/05/21 History walker #1 ea 07/17/18 03/30/21 Rx metoprolol tartrate 50 mg tablet 50 mg PO BID #60 tab 05/26/20 06/05/21 Rx omeprazole 20 mg capsule,delayed 20 mg PO BID #180 cap 07/09/20 06/05/21 Rx release metformin 500 mg tablet,extended 500 mg PO BID #180 tab 11/01/20 06/05/21 Rx release 24 hr nabumetone 500 mg tablet 500 mg PO BID #60 tab 12/30/20 06/05/21 Rx blood-glucose meter (Contour Next #1 ea 02/14/21 03/30/21 Rx One Meter) glipizide 5 mg tablet 5 mg PO BID #180 tab 03/30/21 06/05/21 Rx blood sugar diagnostic (Contour #100 ea 04/08/21 Rx Next Test Strips) lancets (Microlet Lancet) #100 ea 04/08/21 Rx allopurinol 300 mg tablet 300 mg PO QAM 06/05/21 06/05/21 History aspirin 81 mg tablet,delayed 81 mg PO QAM 06/05/21 06/05/21 History release (Adult Low Dose Aspirin) furosemide 20 mg tablet (Lasix) 40 mg PO QAM 06/05/21 06/05/21 History tamsulosin 0.4 mg capsule 0.8 mg PO HS 06/05/21 06/05/21 History Patient History Medical History Allergic rhinitis Anemia Coronary artery disease Diabetes mellitus type 2, uncontrolled Elevated homocysteine Enlarged prostate without lower urinary tract symptoms (luts) GERD without esophagitis Gout, joint Hyperlipidemia Morbid obesity Multiple pulmonary nodules NSTEMI (non-ST elevated myocardial infarction) (01/30/11) Raynauds phenomenon Rheumatoid arthritis Type 2 diabetes mellitus Surgical History H/O colonoscopy Social History Smoking Status: Unknown if ever smoked Age Started Using Tobacco: 12; Age Quit Using Tobacco: 68; packs per day: 1; Hx Alcohol Use: No Hx Substance Use: No Preferred Language: Palestinian Communication Ability: Effective Customer Resolution Specialist Required: No Beliefs That Will Affect Care: None marital status: Current Living Situation: Spouse current occupational status: retired Other Information That Helps Us Care for You: No Feels Safe at Home: Yes Safety Concerns: Feels Safe At This Time Assistive Devices: Cane and Walker Review of Systems Review of Systems: All systems reviewed & are unremarkable except as noted in HPI & below Physical Exam Constitutional: well developed, well nourished and + obese; no acute distress Neck: normal visual inspection Respiratory: no respiratory distress Cardiovascular: Extremities: no calf tenderness Gastrointestinal (Abdomen): Inspection/Auscultation: abdomen normal to inspection; abdomen not distended Percussion/Palpation: abdomen soft; abdomen nontender Musculoskeletal: Head/Neck/Chest: normocephalic Skin: Warm and dry Neurologic: moves all extremities and awake Psychiatric: Orientation: alert, oriented x 3 and cooperative Genitourinary: no CVA tenderness Radford catheter intact, draining clear yellow urine Results & Data ([facility]) Vital Signs (Past 12 Hours) Vital Signs Temp Pulse Pulse Resp BP Pulse Ox 06/06/21 07:32 37.0 C 89 20 111/69 93 06/06/21 07:00 82 06/06/21 03:04 36.8 C 87 20 107/87 92 06/05/21 23:52 36.4 C L 85 20 104/65 93 06/05/21 22:43 87 PG Care Time/CCT Total # of Minutes Spent Total Time Spent with Patient: Total time spent is greater than 50% in coordination of care (as documented) at patient's floor/unit and/or counseling patient: Coding Level of Care Code 72475 Initial Inpt Care Lvl 2 Diagnoses Sepsis A41.9 Sepsis acute organ dysfunction status: unspecified Sepsis type: sepsis due to unspecified organism Urinary tract infection N39.0 Hematuria presence: without hematuria Urinary tract infection type: site unspecified (1) Urinary tract infection Hematuria presence: without hematuria Urinary tract infection type: site unspecified Qualified Code(s): N39.0 - Urinary tract infection, site not specified (2) Sepsis Sepsis acute organ dysfunction status: unspecified Sepsis type: sepsis due to unspecified organism Qualified Code(s): A41.9 - Sepsis, unspecified organism
--- NOTE | 2021-06-06 11:34 | XCELERA ---
[id number]
[2021-06-06 18:32] LABS: Calcium 8.2 mg/dl (8.5-10.1); Creatinine Clr Calc Pharmacy 45.2 ml/min; Est GFR (African American) 35.5 ml/min; Est GFR (Non-African American) 30.7 ml/min; Potassium 3.9 mmol/L (3.5-5.1)
[2021-06-06 18:35] LABS: Base Excess VBG -2.5 mEq/L; Oxygen Saturation VBG 66.3 %; pH VBG 7.43 (7.36-7.41)
[2021-06-06] MEDS: ADVANCED PROBIOTIC 1250 MG CAPSULE PO SCH (19:34)
--- NOTE | 2021-06-06 20:28 | Hospitalist Progress Note ---
Date of Service June 06, 2021 Assessment & Plan (1) Septic shock: Plan: Septic shock secondary to obstructive UTI or prostatitis with possible right sided non obstructive renal stone Blood pressure appears to be improving with antibitoics and fluid resuscitation repeat lactic acid is improving Maintain MAP>65 Continue Zosyn for complicated UTI and enlarged prostate- without pain while passing Radford per report Urine culture and blood cultures are pending Organ dysfunction with - elevated HScTNI, SHIRLEY, encephalopathy (2) Right kidney stone: Plan: Possible right kidney stone on CT scan - 5 mm calcification within the lower pole of the right kidney which could reflect a cortical calcification or nonobstructing calculus - non obstructive- continue flomax - IVF as above - ABX as above (3) Enlarged prostate without lower urinary tract symptoms (luts): Plan: Will continue Zosyn to cover for possible prostate as source - however without severe discomfort when passing radford reported by RN - Likely enlarged prostate led to urinary retention and now with UTI (4) Encephalopathy: Plan: reports that he is normally sharp but does have some memory issues- she is concerned for dementia - Current mental status is likely related to his infection and hypotension- correct toxic/metabolic deficits and continue to follow (5) Diabetes mellitus type 2, uncontrolled: Plan: Hold home oral agents - sliding scale insulin aspart 20 CF with 1:10 carb ratio (6) GERD without esophagitis: Plan: Continue PPI (7) Hyperlipidemia: Plan: Not on statin or other disease modyfying medications at home (8) Chronic kidney disease, stage 3: Plan: SHIRLEY II on CKD III - secondary to sepsis from urinary source at this time - Hold diuretics - Follow renal function renally dose medications as needed - Heparin 5000 units sub q for VTE (9) CHF (congestive heart failure): Plan: CHF unspecified type- followed by PCP without ECHO - placed on Lasix in 08/01 with improvement in dyspnea and edema - does not follow with cardiology - ECHO while in house (10) Hypomagnesemia: Plan: Mag 1.3 in EMD- already given 2 GM - will give 2 more for total of 4 GM Admission and Anticipated Discharge Date Admission Date: June 05, 2021 Subjective Patient reports having loose stools today. Patient denies any fever, chills, nausea, vomiting Updated on phone. Review of Systems Review of Systems: All systems reviewed & are unremarkable except as noted in HPI & below Physical Exam Physical Exam: General: awake, alert Head: Normocephalic, atraumatic ENT: PERRLA, EOMI, no pharyngeal exudate, mucous membranes dry Neuro: AAO x 3, speech clear but difficulty staying on conversation or task, strength intact bilaterally 5/5, sensation intact and equal all extremities and dermatomes, no pronator drift Chest: equal rise and fall of the chest, no accessory muscle use, no heaves or thrills, scattered crackles and end expiratory wheeze Cardiac: Regular rate and rhythm, telemetry reviewed- NSR, skin warm dry, cap refill <3 seconds, peripheral pulses +2 no JVD, no murmur, +1 edema to bilateral lower extremities GI: NABS x 4 quadrants, softly distended, tympanic on exam, tender to right flank, had formed bowel movment in the EMD : radford to gravity, draining light yoel urine Extremities: Normal inspection, no peripheral edema or erythema, calfs nontender to palpation Results & Data Results & Data ([facility]) Vital Signs (Past 12 Hours) Vital Signs Temp Pulse Pulse Resp BP BP Pulse Ox 06/06/21 19:30 37.0 C 95 H 20 122/78 94 06/06/21 15:22 36.8 C 100 H 19 94/65 L 94 06/06/21 14:54 100 H 06/06/21 11:04 36.8 C 92 H 21 96/76 L 95 PG Care Time/CCT Total # of Minutes Spent Total Time Spent with Patient: Total time spent is greater than 50% in coordination of care (as documented) at patient's floor/unit and/or counseling patient: Coding Level of Care Code 48069 Subseq Hosp Care Lvl 2 Diagnoses Septic shock A41.9; R65.21 Right kidney stone N20.0 Enlarged prostate without lower urinary tract symptoms (luts) N40.0 Encephalopathy G93.40 Diabetes mellitus type 2, uncontrolled E11.65 GERD without esophagitis K21.9 Hyperlipidemia E78.5 Chronic kidney disease, stage 3 N18.30 CHF (congestive heart failure) I50.9 Hypomagnesemia E83.42
[2021-06-06] MEDS: TAMSULOSIN HCL 0.4 MG CAP PO SCH (20:47)
[2021-06-06] MEDS: LACTATED RINGER'S 1,000 ML IV SCH (22:38)
[2021-06-07] MEDS: ACETAMINOPHEN 325 MG TAB PO PRN ×2 (00:49→17:10)
[2021-06-07] MEDS: PIPERACILLIN/TAZOBACTAM 4.5 GM in DEXTROSE 5% 100 ML IV SCH (06:15)
[2021-06-07] MEDS: HEPARIN SOD 5,000 UNIT/0.5 ML VIAL SQ SCH ×3 (06:15→21:15)
[2021-06-07] MEDS: LACTATED RINGER'S 1,000 ML IV SCH (06:16)
[2021-06-07 07:08] LABS: Basophils # (auto) 0.03 K/uL (0-0.2); Basophils % (auto) 0.2 %; Eosinophils # (auto) 0.16 K/uL (0-0.5); Hematocrit (blood only) 32.6 % (42-52); Hemoglobin 10.9 g/dL (14.0-18.0); Immature Granulocytes # (auto) 0.07 K/uL (0.00-0.02); Immature Granulocytes % (auto) 0.4 %; Lymphocytes # (auto) 2.16 K/uL (1.2-3.4); Lymphocytes % (auto) 12.9 %; Mean Corpuscular Hemoglobin 29.7 pg (25-34); Mean Corpuscular Hgb Conc 33.4 g/dL (32-36); Mean Corpuscular Volume 88.8 fL (80-100); Mean Platelet Volume 9.7 fL (7.4-10.4); Monocytes # (auto) 0.95 K/uL (0.11-0.59); Monocytes % (auto) 5.7 %; Neutrophils # (auto) 13.31 K/uL (1.4-6.5); Neutrophils % (auto) 79.8 %; Platelet Count 153 K/uL (130-400); RDW Coefficient of Variation 16.6 % (11.5-14.5); RDW Standard Deviation 54.2 fL (36.4-46.3); Red Blood Count 3.67 M/uL (4.7-6.1); White Blood Count 16.68 K/uL (4.8-10.8)
[2021-06-07 07:29] LABS: BUN Creatinine Ratio 14.8 (10-20); Creatinine Clr Calc Pharmacy 55.8 ml/min; Est GFR (African American) 45.7 ml/min; Est GFR (Non-African American) 39.4 ml/min; Magnesium 2.3 mg/dl (1.7-2.4); Potassium 3.5 mmol/L (3.5-5.1)
[2021-06-07] MEDS: FINASTERIDE 5 MG TAB PO SCH (08:08)
[2021-06-07] MEDS: PANTOprazole 40 MG TAB PO SCH ×2 (08:09→21:19)
[2021-06-07] MEDS: allopurinoL 300 MG TAB PO SCH (08:09)
[2021-06-07] MEDS: ADVANCED PROBIOTIC 1250 MG CAPSULE PO SCH (08:09)
[2021-06-07] MEDS: ASPIRIN 81 MG ECTAB PO SCH (08:09)
[2021-06-07] MEDS: INSULIN ASPART PER UNIT SC SCH ×4 (08:13→21:18)
[2021-06-07] MEDS: DOCUSATE SODIUM/SENNA 50/8.6MG TAB PO SCH (08:59)
[2021-06-07] MEDS: POLYETHYLENE (MIRALAX) 17 GM PACK PO SCH (08:59)
--- NOTE | 2021-06-07 11:08 | XRay Report ---
SINGLE VIEW CHEST CLINICAL HISTORY: Wheezing FINDINGS: An AP, portable, upright chest radiograph is compared to study dated 06/05/2021 and correlat ed with chest CT dated 09/05/2017. The heart is enlarged. There is mild pulmonary vascular congestion. Chronic residual thickening is similar to previous. Atelectasis is noted at the lung bases. No large pleural effusion or pneumothorax is seen. The skeletal structures are osteopenic. The bony thorax is grossly intact. Calcific tendinopathy is noted in the left shoulder. IMPRESSION: 1. Cardiomegaly with mild pulmonary vascular congestion. 2. No airspace consolidation or large pleural effusion is identified. ACT 112: Negative or not required by law. Electronically signed by: Surjit Donnelly M.D. 06/07/2021 11:07 AM
[2021-06-07] MEDS: cefTRIAXone SODIUM 2,000 MG in DEXTROSE 5% 50 ML IV SCH (13:03)
--- NOTE | 2021-06-07 21:17 | Hospitalist Progress Note ---
Date of Service June 07, 2021 Assessment & Plan (1) Septic shock: Plan: Septic shock secondary to obstructive UTI or prostatitis with possible right sided non obstructive renal stone Blood pressure appears to be improving with antibitoics and fluid resuscitation repeat lactic acid is improving Maintain MAP>65 Continue Zosyn for complicated UTI and enlarged prostate- without pain while passing Radford per report Urine culture and blood cultures Klebsiella oxytoca sensitive to ceftriaxone. will transition to ceftriaxone. Organ dysfunction with - elevated HScTNI, SHIRLEY, encephalopathy As patient is responding to antibiotics will continue treatment. await repeat blood culture. if remains negative in AM, will discharge. wbc and lactic acid appears to be improving. (2) Right kidney stone: Plan: Possible right kidney stone on CT scan - 5 mm calcification within the lower pole of the right kidney which could reflect a cortical calcification or nonobstructing calculus - non obstructive- continue flomax - IVF as above - ABX as above (3) Enlarged prostate without lower urinary tract symptoms (luts): Plan: Will continue Zosyn to cover for possible prostate as source - however without severe discomfort when passing radford reported by RN - Likely enlarged prostate led to urinary retention and now with UTI (4) Encephalopathy: Plan: reports that he is normally sharp but does have some memory issues- she is concerned for dementia - Current mental status is likely related to his infection and hypotension- correct toxic/metabolic deficits and continue to follow (5) Diabetes mellitus type 2, uncontrolled: Plan: Hold home oral agents - sliding scale insulin aspart 20 CF with 1:10 carb ratio (6) GERD without esophagitis: Plan: Continue PPI (7) Hyperlipidemia: Plan: Not on statin or other disease modyfying medications at home (8) Chronic kidney disease, stage 3: Plan: SHIRLEY on CKD III - secondary to sepsis from urinary source at this time - Hold diuretics -renal funstion appears to be improving, not at baseline - Follow renal function renally dose medications as needed - Heparin 5000 units sub q for VTE (9) CHF (congestive heart failure): Plan: - does not follow with cardiology - ECHO while in house (10) Hypomagnesemia: Plan: Mag 1.3 in EMD- already given 2 GM - will give 2 more for total of 4 GM Admission and Anticipated Discharge Date Admission Date: June 05, 2021 Subjective 71 yo male reports feeling well.Patient haing no new symptoms. Review of Systems Review of Systems: All systems reviewed & are unremarkable except as noted in HPI & below Physical Exam Physical Exam: General: awake, alert Head: Normocephalic, atraumatic ENT: PERRLA, EOMI, no pharyngeal exudate, mucous membranes dry Neuro: AAO x 3, speech clear but difficulty staying on conversation or task, strength intact bilaterally 5/5, sensation intact and equal all extremities and dermatomes, no pronator drift Chest: equal rise and fall of the chest, no accessory muscle use, no heaves or thrills, scattered crackles and end expiratory wheeze Cardiac: Regular rate and rhythm, telemetry reviewed- NSR, skin warm dry, cap refill <3 seconds, peripheral pulses +2 no JVD, no murmur, +1 edema to bilateral lower extremities GI: NABS x 4 quadrants, softly distended, tympanic on exam, tender to right flank, had formed bowel movment in the EMD : radford to gravity, draining light yoel urine Extremities: Normal inspection, no peripheral edema or erythema, calfs nontender to palpation Results & Data Results & Data ([facility]) Vital Signs (Past 12 Hours) Vital Signs Temp Pulse Pulse Resp BP BP Pulse Ox 06/07/21 19:21 37.0 C 89 18 119/72 93 06/07/21 15:52 37.0 C 85 20 124/81 94 06/07/21 15:13 85 06/07/21 11:21 06/07/21 11:06 37.0 C 89 18 116/69 94 Pulse Ox 06/07/21 19:21 06/07/21 15:52 06/07/21 15:13 06/07/21 11:21 90 06/07/21 11:06 PG Care Time/CCT Total # of Minutes Spent Total Time Spent with Patient: Total time spent is greater than 50% in coordination of care (as documented) at patient's floor/unit and/or counseling patient: Coding Level of Care Code 87860 Subseq Hosp Care Lvl 3 Diagnoses Septic shock A41.9; R65.21 Right kidney stone N20.0 Enlarged prostate without lower urinary tract symptoms (luts) N40.0 Encephalopathy G93.40 Diabetes mellitus type 2, uncontrolled E11.65 GERD without esophagitis K21.9 Hyperlipidemia E78.5 Chronic kidney disease, stage 3 N18.30 CHF (congestive heart failure) I50.9 Hypomagnesemia E83.42
[2021-06-07] MEDS: TAMSULOSIN HCL 0.4 MG CAP PO SCH (21:18)
[2021-06-08] MEDS: HEPARIN SOD 5,000 UNIT/0.5 ML VIAL SQ SCH ×3 (05:25→21:08)
[2021-06-08] MEDS: INSULIN ASPART PER UNIT SC SCH ×4 (07:58→21:12)
[2021-06-08] MEDS: ACETAMINOPHEN 325 MG TAB PO PRN ×2 (08:00→21:06)
[2021-06-08] MEDS: ADVANCED PROBIOTIC 1250 MG CAPSULE PO SCH (08:01)
[2021-06-08] MEDS: ASPIRIN 81 MG ECTAB PO SCH (08:01)
[2021-06-08] MEDS: allopurinoL 300 MG TAB PO SCH (08:01)
[2021-06-08] MEDS: PANTOprazole 40 MG TAB PO SCH ×2 (08:01→21:07)
[2021-06-08] MEDS: POLYETHYLENE (MIRALAX) 17 GM PACK PO SCH (08:02)
[2021-06-08] MEDS: FINASTERIDE 5 MG TAB PO SCH (08:02)
[2021-06-08] MEDS: DOCUSATE SODIUM/SENNA 50/8.6MG TAB PO SCH (08:02)
[2021-06-08 08:05] LABS: BUN Creatinine Ratio 16.6 (10-20); Calcium 8.4 mg/dl (8.5-10.1); Creatinine Clr Calc Pharmacy 64.8 ml/min; Est GFR (Non-African American) 47.4 ml/min; Potassium 3.7 mmol/L (3.5-5.1)
[2021-06-08 08:42] LABS: Basophils # (auto) 0.04 K/uL (0-0.2); Basophils % (auto) 0.3 %; Eosinophils # (auto) 0.25 K/uL (0-0.5); Eosinophils % (auto) 1.7 %; Hematocrit (blood only) 34.1 % (42-52); Hemoglobin 11.4 g/dL (14.0-18.0); Immature Granulocytes # (auto) 0.05 K/uL (0.00-0.02); Immature Granulocytes % (auto) 0.3 %; Lymphocytes % (auto) 17.5 %; Mean Corpuscular Hemoglobin 29.2 pg (25-34); Mean Corpuscular Hgb Conc 33.4 g/dL (32-36); Mean Corpuscular Volume 87.2 fL (80-100); Mean Platelet Volume 4.3 fL (7.4-10.4); Monocytes # (auto) 0.99 K/uL (0.11-0.59); Monocytes % (auto) 6.9 %; Neutrophils # (auto) 10.49 K/uL (1.4-6.5); Neutrophils % (auto) 73.3 %; Platelet Count 173 K/uL (130-400); RDW Coefficient of Variation 16.8 % (11.5-14.5); RDW Standard Deviation 53.1 fL (36.4-46.3); Red Blood Count 3.91 M/uL (4.7-6.1); White Blood Count 14.32 K/uL (4.8-10.8)
[2021-06-08] MEDS: cefTRIAXone SODIUM 2,000 MG in DEXTROSE 5% 50 ML IV SCH (13:02)
[2021-06-08] MEDS: TAMSULOSIN HCL 0.4 MG CAP PO SCH (21:07)
--- NOTE | 2021-06-08 21:57 | Hospitalist Progress Note ---
Date of Service June 08, 2021 Assessment & Plan (1) Septic shock: Plan: Septic shock secondary to obstructive UTI or prostatitis with possible right sided non obstructive renal stone Blood pressure appears to be improving with antibitoics and fluid resuscitation repeat lactic acid resolvdd. Maintain MAP>65 Continue Zosyn for complicated UTI and enlarged prostate- without pain while passing Radford per report Urine culture and blood cultures Klebsiella oxytoca sensitive to ceftriaxone. will transition to ceftriaxone. -can be switched to orals at discharge: 10-14 days. Likely recommend 14 day regimen given how sick patient was. Organ dysfunction with - elevated HScTNI, SHIRLEY, encephalopathy As patient is responding to antibiotics will continue treatment. await repeat blood culture, currently negative at 24 hours Patient now requiring placement. (2) Right kidney stone: Plan: Possible right kidney stone on CT scan - 5 mm calcification within the lower pole of the right kidney which could reflect a cortical calcification or nonobstructing calculus - non obstructive- continue flomax - IVF as above - ABX as above (3) Enlarged prostate without lower urinary tract symptoms (luts): Plan: Will continue Zosyn to cover for possible prostate as source - however without severe discomfort when passing radford reported by RN - Likely enlarged prostate led to urinary retention and now with UTI -removed radford on 06/08, may need to replace if patient is having difficulty urinating. (4) Encephalopathy: Plan: reports that he is normally sharp but does have some memory issues- she is concerned for dementia - Current mental status is likely related to his infection and hypotension- correct toxic/metabolic deficits and continue to follow (5) Diabetes mellitus type 2, uncontrolled: Plan: Hold home oral agents - sliding scale insulin aspart 20 CF with 1:10 carb ratio (6) GERD without esophagitis: Plan: Continue PPI (7) Hyperlipidemia: Plan: Not on statin or other disease modyfying medications at home (8) Chronic kidney disease, stage 3: Plan: SHIRLEY on CKD III - secondary to sepsis from urinary source at this time - Hold diuretics -renal funstion appears to be improving, not at baseline - Follow renal function renally dose medications as needed - Heparin 5000 units sub q for VTE (9) CHF (congestive heart failure): Plan: - does not follow with cardiology - ECHO while in house (10) Hypomagnesemia: Plan: replenished (11) Acute metabolic encephalopathy: Plan: Metabolic encephalopathy resolved. Patient presents with AMS "likely related to infection and hypotension - correct toxic/metabolic deficits" Risk Factor(s): As above, septic shock Treatment: IV hydration, IV Zosyn, telemetry Admission and Anticipated Discharge Date Admission Date: June 05, 2021 Subjective 71 yo male reports feeling better, but he is having difficulty urinating once urine catheter was removed. updated spouse and son over phone Review of Systems Review of Systems: All systems reviewed & are unremarkable except as noted in HPI & below Physical Exam Physical Exam: General: awake, alert Head: Normocephalic, atraumatic ENT: PERRLA, EOMI, no pharyngeal exudate, mucous membranes dry Neuro: AAO x 3, speech clear but difficulty staying on conversation or task, strength intact bilaterally 5/5, sensation intact and equal all extremities and dermatomes, no pronator drift Chest: equal rise and fall of the chest, no accessory muscle use, no heaves or thrills, scattered crackles and end expiratory wheeze Cardiac: Regular rate and rhythm, telemetry reviewed- NSR, skin warm dry, cap refill <3 seconds, peripheral pulses +2 no JVD, no murmur, +1 edema to bilateral lower extremities GI: NABS x 4 quadrants, softly distended, tympanic on exam, tender to right flank, had formed bowel movment in the EMD : radford to gravity, draining light yoel urine Extremities: Normal inspection, no peripheral edema or erythema, calfs nontender to palpation Results & Data Results & [facility] ([facility]) Vital Signs (Past 12 Hours) Vital Signs Temp Pulse Pulse Resp BP Pulse Ox 06/08/21 19:43 36.7 C 94 H 20 132/72 96 06/08/21 16:02 89 06/08/21 15:00 36.8 C 91 H 22 122/79 96 06/08/21 10:54 36.8 C 96 H 18 122/61 93 PG Care Time/CCT Total # of Minutes Spent Total Time Spent with Patient: Total time spent is greater than 50% in coordination of care (as documented) at patient's floor/unit and/or counseling patient: Coding Level of Care Code 15829 Subseq Hosp Care Lvl 3 Diagnoses Septic shock A41.9; R65.21 Right kidney stone N20.0 Enlarged prostate without lower urinary tract symptoms (luts) N40.0 Encephalopathy G93.40 Diabetes mellitus type 2, uncontrolled E11.65 GERD without esophagitis K21.9 Hyperlipidemia E78.5 Chronic kidney disease, stage 3 N18.30 CHF (congestive heart failure) I50.9 Hypomagnesemia E83.42 Acute metabolic encephalopathy G93.41
[2021-06-09] MEDS: HEPARIN SOD 5,000 UNIT/0.5 ML VIAL SQ SCH ×3 (06:21→21:16)
[2021-06-09] MEDS: ACETAMINOPHEN 325 MG TAB PO PRN ×2 (06:30→13:50)
[2021-06-09] MEDS: INSULIN ASPART PER UNIT SC SCH ×4 (08:33→20:07)
[2021-06-09] MEDS: ASPIRIN 81 MG ECTAB PO SCH (08:40)
[2021-06-09] MEDS: FINASTERIDE 5 MG TAB PO SCH (08:40)
[2021-06-09] MEDS: DOCUSATE SODIUM/SENNA 50/8.6MG TAB PO SCH (08:40)
[2021-06-09] MEDS: PANTOprazole 40 MG TAB PO SCH ×2 (08:40→20:08)
[2021-06-09] MEDS: POLYETHYLENE (MIRALAX) 17 GM PACK PO SCH (08:40)
[2021-06-09] MEDS: ADVANCED PROBIOTIC 1250 MG CAPSULE PO SCH (08:41)
[2021-06-09] MEDS: allopurinoL 300 MG TAB PO SCH (08:41)
[2021-06-09] MEDS: cefTRIAXone SODIUM 2,000 MG in DEXTROSE 5% 50 ML IV SCH (13:40)
--- NOTE | 2021-06-09 15:59 | Hospitalist Progress Note ---
Date of Service June 09, 2021 Assessment & Plan (1) Septic shock: Plan: Septic shock secondary to obstructive UTI vs prostatitis with possible right sided non obstructive renal stone - BP improved - elevated lactic acid normalized -On Zosyn empirically, cultures positive for Klebsiella sensitive to Rocephin, transitioned to Rocephin Minimum 14 days of antibiotics, can convert to cefdinir on discharge. If strong suspicion for prostatitis, treatment of up to 6 weeks is indicated. We will follow at this time. Trend CBC Patient continues to have LUTS with urinary retention, Radford replaced and follow with urology as outpatient for voiding trial (2) Right kidney stone: Plan: Possible right kidney stone on CT scan - 5 mm calcification within the lower pole of the right kidney which could reflect a cortical calcification or nonobstructing calculus - non obstructive- continue flomax - IVF as above - ABX as above (3) Enlarged prostate without lower urinary tract symptoms (luts): Plan: Will continue Zosyn to cover for possible prostate as source - however without severe discomfort when passing radford reported by RN - Likely enlarged prostate led to urinary retention and now with UTI Patient unable to void with several serial straight caths, ultimately Radford replaced with 1 [address] place Radford, discharge with bladder bag, and have outpatient follow-up to urology. Continue treatment for UTI vs Prostatitis as above (4) Encephalopathy: Plan: reports that he is normally sharp but does have some memory issues- she is concerned for dementia Tatian improved and near baseline 06/09 per patient and family at bedside (5) Diabetes mellitus type 2, uncontrolled: Plan: Hold home oral agents - sliding scale insulin aspart 20 CF with 1:10 carb ratio (6) GERD without esophagitis: Plan: Continue PPI (7) Hyperlipidemia: Plan: Not on statin or other disease modyfying medications at home (8) Chronic kidney disease, stage 3: Plan: SHIRLEY on CKD III - secondary to sepsis from urinary source at this time - Hold diuretics -BMP daily, resume diuretics if normalized creatinine - Follow renal function renally dose medications as needed - Heparin 5000 units sub q for VTE (9) CHF (congestive heart failure): Plan: EF 55-60%. Normal LV SF. Patient does not follow with cardiology.? Diastolic dysfunction versus venous stasis. No pulmonary edema/hypoxia. (10) Hypomagnesemia: Plan: replenished (11) Acute metabolic encephalopathy: Plan: Metabolic encephalopathy resolved. Admission and Anticipated Discharge Date Admission Date: June 05, 2021 Subjective He was seen at the bedside in the morning, and again in the afternoon with family present. Denies fever, chills, sweats, shortness of breath, difficulty breathing, lightheadedness, dizziness, chest pain, chest pressure. He has had difficulty urinating. Does not feel an urge to void, feels like he should pee but when he tries he also cannot initiate voiding. Has had urinary retention, and is on both Flomax and finasteride. Patient does not wish to go to rehab, would like to return home with home health feels he is strong enough to do so. Case management following Review of Systems Review of Systems: All systems reviewed & are unremarkable except as noted in Subjective Physical Exam Physical Exam: General: A&Ox3. NAD. Cooperative. HEENT: Atraumatic, normocephalic. Pulm: CTAB A&P. -wheezes, -rales, -rhonchi. Symmetrical chest rise. No increase in work of breathing. No respiratory distress. Cardiac: RRR, -mrg. Radial pulses intact and symmetrical. Abdominal: Nontender, nondistended, soft. BS present. Extremities: Moves all extremities equally, no calf asymmetry, sensation intact in hands and feet bilaterally to soft touch mild 1+ lower extremity edema bilaterally. Results & Data Results & Data ([facility]) Vital Signs (Past 12 Hours) Vital Signs Temp Pulse Pulse Resp BP BP Pulse Ox 06/09/21 15:35 36.8 C 87 18 137/82 92 06/09/21 11:15 36.3 C L 92 H 18 121/73 93 06/09/21 10:19 86 06/09/21 08:00 36.8 C 90 22 141/81 H 93 06/09/21 04:04 36.8 C 97 H 24 147/93 H 95 PG Care Time/CCT Total # of Minutes Spent Total Time Spent with Patient: Total time spent is greater than 50% in coordination of care (as documented) at patient's floor/unit and/or counseling patient: Coding Level of Care Code 57232 Subseq Hosp Care Lvl 2 Diagnoses Septic shock A41.9; R65.21 Right kidney stone N20.0 Enlarged prostate without lower urinary tract symptoms (luts) N40.0 Encephalopathy G93.40 Diabetes mellitus type 2, uncontrolled E11.65 GERD without esophagitis K21.9 Hyperlipidemia E78.5 Chronic kidney disease, stage 3 N18.30 CHF (congestive heart failure) I50.9 Hypomagnesemia E83.42 Acute metabolic encephalopathy G93.41
[2021-06-09] MEDS: TAMSULOSIN HCL 0.4 MG CAP PO SCH (20:08)
[2021-06-10] MEDS ORDERED: SODIUM CHLORIDE 0.9% 500 ML IV SCH (02:00)
--- NOTE | 2021-06-10 02:00 | Communication Note ---
Date of Service: June 10, 2021 Notified by patient's RN that he has had ~6 voluminous loose stools since start of shift, some associated with incontinence. I reviewed his chart and see he is being treated -- and improving -- from sepsis, and was previously on broad spectrum antibiotics, now on CFTX. Afebrile. BP 141/84, HR 100. Patient not reporting his belly is tender or larger than usual. Voluminous diarrhea. Concern for C. diff - send test now. Start NSS 500cc @ 100cc/hr, add more if needed, alongside 20 mEq KCl given expected losses given continued loose large stools. His history of CHF is noted and his net I&Os are a total of 1L down from yesterday. Will consider more if needed, alongside further testing (e.g., stool panel, KUB) if indicated. Resident Activity Tracking Resident Involvement: Resident Care Provided Care Provided: [facility]
[2021-06-10] MEDS: ACETAMINOPHEN 325 MG TAB PO PRN ×2 (02:13→12:28)
[2021-06-10] MEDS: POTASSIUM CHLORIDE / WTR 10 MEQ/100 ML PLCT IV SCH ×2 (02:17→03:14)
[2021-06-10] MEDS: HEPARIN SOD 5,000 UNIT/0.5 ML VIAL SQ SCH ×3 (05:56→20:16)
[2021-06-10 07:22] LABS: Basophils # (auto) 0.02 K/uL (0-0.2); Basophils % (auto) 0.2 %; Eosinophils # (auto) 0.18 K/uL (0-0.5); Eosinophils % (auto) 2.2 %; Hematocrit (blood only) 35.6 % (42-52); Hemoglobin 11.4 g/dL (14.0-18.0); Immature Granulocytes # (auto) 0.21 K/uL (0.00-0.02); Immature Granulocytes % (auto) 2.6 %; Lymphocytes # (auto) 1.75 K/uL (1.2-3.4); Lymphocytes % (auto) 21.8 %; Mean Corpuscular Hemoglobin 28.7 pg (25-34); Mean Corpuscular Volume 89.7 fL (80-100); Mean Platelet Volume 9.7 fL (7.4-10.4); Monocytes % (auto) 13.7 %; Neutrophils # (auto) 4.75 K/uL (1.4-6.5); Neutrophils % (auto) 59.5 %; Platelet Count 224 K/uL (130-400); RDW Coefficient of Variation 16.8 % (11.5-14.5); RDW Standard Deviation 55.1 fL (36.4-46.3); Red Blood Count 3.97 M/uL (4.7-6.1); White Blood Count 8.01 K/uL (4.8-10.8)
[2021-06-10 07:32] LABS: Creatinine Clr Calc Pharmacy 76.4 ml/min; Est GFR (African American) 67.1 ml/min; Est GFR (Non-African American) 57.9 ml/min; Potassium 4.1 mmol/L (3.5-5.1)
[2021-06-10] MEDS: INSULIN ASPART PER UNIT SC SCH ×4 (08:07→21:31)
[2021-06-10] MEDS: FINASTERIDE 5 MG TAB PO SCH (08:08)
[2021-06-10] MEDS: DOCUSATE SODIUM/SENNA 50/8.6MG TAB PO SCH (08:08)
[2021-06-10] MEDS: ASPIRIN 81 MG ECTAB PO SCH (08:08)
[2021-06-10] MEDS: allopurinoL 300 MG TAB PO SCH (08:08)
[2021-06-10] MEDS: POLYETHYLENE (MIRALAX) 17 GM PACK PO SCH (08:09)
[2021-06-10] MEDS: PANTOprazole 40 MG TAB PO SCH ×2 (08:09→20:16)
[2021-06-10] MEDS: ADVANCED PROBIOTIC 1250 MG CAPSULE PO SCH (08:09)
[2021-06-10] MEDS: LOPERAMIDE HCL 2 MG CAP PO PRN ×2 (08:55→18:36)
--- NOTE | 2021-06-10 13:12 | Hospitalist Progress Note ---
Date of Service June 10, 2021 Assessment & Plan (1) Septic shock: Plan: Septic shock secondary to obstructive UTI vs prostatitis with possible right sided non obstructive renal stone, improved - BP improved - elevated lactic acid normalized -On Zosyn empirically, cultures positive for Klebsiella sensitive to Rocephin, transitioned to Rocephin Minimum 14 days of antibiotics, can convert to cefdinir on discharge. Patient like with LUTS leading to UTI, without pain when voiding/BMs with lower suspicion for prostatitis. If clinical suspicion rises, or follow-up culture negative would extend to 6 weeks of therapy Trend CBC Patient continues to have LUTS with urinary retention, Radford replaced and follow with urology as outpatient for voiding trial No leukocytosis, afebrile Patient does have watery diarrhea 06/09 and 06/10, MiraLAX held, C. difficile ne gative, loperamide twice daily as needed. If persistent or increasing can repeat C. difficile test. DDx includes antibiotic side effect. Patient, consulting with family does wish to pursue rehab, pending placement at this time. Case management following. (2) Right kidney stone: Plan: Possible right kidney stone on CT scan - 5 mm calcification within the lower pole of the right kidney which could reflect a cortical calcification or nonobstructing calculus - non obstructive- continue flomax - IVF as above - ABX as above (3) Enlarged prostate without lower urinary tract symptoms (luts): Plan: Will continue Zosyn to cover for possible prostate as source - however without severe discomfort when passing radford reported by RN - Likely enlarged prostate led to urinary retention and now with UTI Patient unable to void with several serial straight caths, ultimately Radford replaced with 1 L of drainage Radford in place, discharge with bladder bag, and have outpatient follow-up to urology. Continue treatment for UTI vs Prostatitis as above (4) Encephalopathy: Plan: reports that he is normally sharp but does have some memory issues- she is concerned for dementia improved and near baseline 06/09 per patient and family at bedside (5) Diabetes mellitus type 2, uncontrolled: Plan: Hold home oral agents - sliding scale insulin aspart 20 CF with 1:10 carb ratio (6) GERD without esophagitis: Plan: Continue PPI (7) Hyperlipidemia: Plan: Not on statin or other disease modyfying medications at home (8) Chronic kidney disease, stage 3: Plan: SHIRLEY on CKD III - secondary to sepsis from urinary source at this time Diuretics held for SHIRLEY, normalized remains at baseline. Resumed. -BMP daily - Follow renal function renally dose medications as needed - Heparin 5000 units sub q for VTE (9) CHF (congestive heart failure): Plan: EF 55-60%. Normal LV SF. Patient does not follow with cardiology.? Diastolic dysfunction versus venous stasis. No pulmonary edema/hypoxia. (10) Hypomagnesemia: Plan: replenished (11) Acute metabolic encephalopathy: Plan: Metabolic encephalopathy resolved. Admission and Anticipated Discharge Date Admission Date: June 05, 2021 Subjective Seen the bedside this morning. Also discussed with nursing staff. Patient has had a liquid bowel movement last night and this morning, C. difficile testing was negative for gene. Mild stomach upset. No fevers, chills, sweats, difficulty breathing. Radford remains in place draining light yellow urine. No chest pain/chest pressure. Does now want to go to rehab after following with family, case management aware Review of Systems Review of Systems: All systems reviewed & are unremarkable except as noted in Subjective Physical Exam Physical Exam: General: A&Ox3. NAD. Cooperative. Sitting in chair at time of assessment HEENT: Atraumatic, normocephalic. Vision and hearing grossly intact Pulm: CTAB A&P. -wheezes, -rales, -rhonchi. Symmetrical chest rise. No increase in work of breathing. No respiratory distress. Cardiac: RRR, -mrg. Radial pulses intact and symmetrical. Abdominal: Nontender, nondistended, soft. BS present. Extremities: Moves all extremities equally. 1+ lower extremity edema bilaterally. Results & Data Results & Data ([facility]) Vital Signs (Past 12 Hours) Vital Signs Temp Pulse Pulse Resp BP BP Pulse Ox 06/10/21 12:00 36.6 C 95 H 18 124/68 95 06/10/21 08:06 36.6 C 92 H 18 123/79 94 06/10/21 06:15 85 06/10/21 05:14 37.6 C H 89 20 128/76 96 06/10/21 02:00 36.8 C 100 H 24 141/84 H 96 PG Care Time/CCT Total # of Minutes Spent Total Time Spent with Patient: Total time spent is greater than 50% in coordination of care (as documented) at patient's floor/unit and/or counseling patient: Coding Level of Care Code 15708 Subseq Hosp Care Lvl 2 Diagnoses Septic shock A41.9; R65.21 Right kidney stone N20.0 Enlarged prostate without lower urinary tract symptoms (luts) N40.0 Encephalopathy G93.40 Diabetes mellitus type 2, uncontrolled E11.65 GERD without esophagitis K21.9 Hyperlipidemia E78.5 Chronic kidney disease, stage 3 N18.30 CHF (congestive heart failure) I50.9 Hypomagnesemia E83.42 Acute metabolic encephalopathy G93.41
[2021-06-10] MEDS: FAMOTIDINE 20 MG in SYRINGE 3 ML IV SCH ×2 (14:13→20:16)
[2021-06-10] MEDS: cefTRIAXone SODIUM 2,000 MG in DEXTROSE 5% 50 ML IV SCH (14:14)
[2021-06-10] MEDS: METOPROLOL TARTRATE 50 MG TAB PO SCH (20:16)
[2021-06-10] MEDS: TAMSULOSIN HCL 0.4 MG CAP PO SCH (20:16)
[2021-06-11] MEDS: HEPARIN SOD 5,000 UNIT/0.5 ML VIAL SQ SCH ×3 (05:35→21:33)
[2021-06-11 06:17] LABS: Basophils # (auto) 0.03 K/uL (0-0.2); Basophils % (auto) 0.3 %; Eosinophils # (auto) 0.21 K/uL (0-0.5); Eosinophils % (auto) 2.3 %; Hematocrit (blood only) 37.1 % (42-52); Hemoglobin 12.2 g/dL (14.0-18.0); Immature Granulocytes # (auto) 0.13 K/uL (0.00-0.02); Immature Granulocytes % (auto) 1.4 %; Lymphocytes % (auto) 33.4 %; Mean Corpuscular Hemoglobin 28.9 pg (25-34); Mean Corpuscular Hgb Conc 32.9 g/dL (32-36); Mean Corpuscular Volume 87.9 fL (80-100); Mean Platelet Volume 9.4 fL (7.4-10.4); Monocytes # (auto) 1.09 K/uL (0.11-0.59); Monocytes % (auto) 12.2 %; Neutrophils # (auto) 4.51 K/uL (1.4-6.5); Neutrophils % (auto) 50.4 %; Platelet Count 264 K/uL (130-400); RDW Standard Deviation 54.8 fL (36.4-46.3); Red Blood Count 4.22 M/uL (4.7-6.1); White Blood Count 8.97 K/uL (4.8-10.8)
[2021-06-11 08:06] LABS: BUN Creatinine Ratio 13.5 (10-20); Calcium 7.9 mg/dl (8.5-10.1); Creatinine Clr Calc Pharmacy 74.5 ml/min; Est GFR (African American) 65.2 ml/min; Est GFR (Non-African American) 56.2 ml/min
[2021-06-11] MEDS: allopurinoL 300 MG TAB PO SCH (09:11)
[2021-06-11] MEDS: METOPROLOL TARTRATE 50 MG TAB PO SCH ×2 (09:12→20:00)
[2021-06-11] MEDS: FOLIC ACID 1 MG TAB PO SCH (09:12)
[2021-06-11] MEDS: ADVANCED PROBIOTIC 1250 MG CAPSULE PO SCH (09:12)
[2021-06-11] MEDS: ASPIRIN 81 MG ECTAB PO SCH (09:12)
[2021-06-11] MEDS: FINASTERIDE 5 MG TAB PO SCH (09:12)
[2021-06-11] MEDS: PANTOprazole 40 MG TAB PO SCH ×2 (09:12→20:00)
[2021-06-11] MEDS: DOCUSATE SODIUM/SENNA 50/8.6MG TAB PO SCH (09:12)
[2021-06-11] MEDS: FUROSEMIDE 40 MG TAB PO SCH (09:12)
[2021-06-11] MEDS: INSULIN ASPART PER UNIT SC SCH ×4 (09:12→22:00)
[2021-06-11] MEDS: FAMOTIDINE 20 MG in SYRINGE 3 ML IV SCH ×2 (09:15→20:01)
--- NOTE | 2021-06-11 12:42 | Hospitalist Progress Note ---
Date of Service June 11, 2021 Assessment & Plan (1) Septic shock: Plan: Septic shock secondary to obstructive UTI vs prostatitis with possible right sided non obstructive renal stone, improved - BP improved - elevated lactic acid normalized -On Zosyn empirically, cultures positive for Klebsiella sensitive to Rocephin, transitioned to Rocephin Minimum 14 days of antibiotics, can convert to cefdinir on discharge. Patient like with LUTS leading to UTI, without pain when voiding/BMs with lower suspicion for prostatitis. If clinical suspicion rises, or follow-up culture negative would extend to 6 weeks of therapy Trend CBC Patient continues to have LUTS with urinary retention, Burks replaced and follow with urology as outpatient for voiding trial No leukocytosis, afebrile Patient does have watery diarrhea 06/09 and 06/10, MiraLAX held, C. difficile ne gative, loperamide twice daily as needed. If persistent or increasing can repeat C. difficile test. DDx includes antibiotic side effect. PEnding placement to [facility], dispo hold at this time anticipate placement available on Sunday (2) Right kidney stone: Plan: Possible right kidney stone on CT scan - 5 mm calcification within the lower pole of the right kidney which could reflect a cortical calcification or nonobstructing calculus - non obstructive- continue flomax - IVF as above - ABX as above (3) Enlarged prostate without lower urinary tract symptoms (luts): Plan: - Likely enlarged prostate led to urinary retention and now with UTI Patient unable to void with several serial straight caths, ultimately Burks replaced with 1 L of drainage Burks in place, discharge with bladder bag, and have outpatient follow-up to urology. Continue treatment for UTI as above (4) Encephalopathy: Plan: reports that he is normally sharp but does have some memory issues- she is concerned for dementia improved and near baseline 06/09 per patient and family at bedside (5) Diabetes mellitus type 2, uncontrolled: Plan: Hold home oral agents - sliding scale insulin aspart 20 CF with 1:10 carb ratio (6) GERD without esophagitis: Plan: Continue PPI (7) Hyperlipidemia: Plan: Not on statin or other disease modyfying medications at home (8) Chronic kidney disease, stage 3: Plan: SHIRLEY on CKD III - secondary to sepsis from urinary source at this time Diuretics held for SHIRLEY, normalized remains at baseline. Lasix resumed. -BMP daily - Follow renal function renally dose medications as needed - Heparin 5000 units sub q for VTE (9) CHF (congestive heart failure): Plan: EF 55-60%. Normal LV SF. Patient does not follow with cardiology.? Diastolic dysfunction versus venous stasis. No pulmonary edema/hypoxia. (10) Hypomagnesemia: Plan: replenished (11) Acute metabolic encephalopathy: Plan: Metabolic encephalopathy resolved. Admission and Anticipated Discharge Date Admission Date: June 05, 2021 Subjective 1 episode of loose bowels this morning, otherwise no further diarrhea. Improved per patient. Reports he feels okay and is doing well with no change. Continues to have light yellow drainage from Burks. No fever, chills, sweats, chest pain, chest pressure. Pending placement to [facility] on Sunday. No additional questions or concerns at bedside Review of Systems Review of Systems: All systems reviewed & are unremarkable except as noted in Subjective Physical Exam Physical Exam: General: A&Ox3. NAD. Cooperative. Sitting in chair at time of assessment HEENT: Atraumatic, normocephalic. Vision and hearing grossly intact Pulm: Symmetrical chest rise. No increase in work of breathing. No respiratory distress. Cardiac: RRR, -mrg. Radial pulses intact and symmetrical. Abdominal: Nontender, nondistended, soft. BS present. Extremities: Moves all extremities equally. 1+ lower extremity edema bilaterally. : Burks with light yellow urine Results & Data Results & Data ([facility]) Vital Signs (Past 12 Hours) Vital Signs Temp Pulse Pulse Resp BP BP Pulse Ox 06/11/21 10:58 36.8 C 71 20 111/69 94 06/11/21 08:14 92 H 06/11/21 07:49 37.1 C 81 18 120/72 93 06/11/21 03:12 37.3 C 80 14 122/73 96 PG Care Time/CCT Total # of Minutes Spent Total Time Spent with Patient: Total time spent is greater than 50% in coordination of care (as documented) at patient's floor/unit and/or counseling patient: Coding Level of Care Code 62134 Subseq Hosp Care Lvl 1 Diagnoses Septic shock A41.9; R65.21 Right kidney stone N20.0 Enlarged prostate without lower urinary tract symptoms (luts) N40.0 Encephalopathy G93.40 Diabetes mellitus type 2, uncontrolled E11.65 GERD without esophagitis K21.9 Hyperlipidemia E78.5 Chronic kidney disease, stage 3 N18.30 CHF (congestive heart failure) I50.9 Hypomagnesemia E83.42 Acute metabolic encephalopathy G93.41
[2021-06-11] MEDS: cefTRIAXone SODIUM 2,000 MG in DEXTROSE 5% 50 ML IV SCH (13:19)
[2021-06-11] MEDS: TAMSULOSIN HCL 0.4 MG CAP PO SCH (20:00)
[2021-06-11] MEDS: ACETAMINOPHEN 325 MG TAB PO PRN (22:37)
[2021-06-12] MEDS: LOPERAMIDE HCL 2 MG CAP PO PRN (01:46)
[2021-06-12] MEDS: HEPARIN SOD 5,000 UNIT/0.5 ML VIAL SQ SCH ×3 (05:29→22:23)
[2021-06-12] MEDS: INSULIN ASPART PER UNIT SC SCH ×4 (08:37→22:22)
[2021-06-12] MEDS: FUROSEMIDE 40 MG TAB PO SCH (08:39)
[2021-06-12] MEDS: ASPIRIN 81 MG ECTAB PO SCH (08:39)
[2021-06-12] MEDS: FOLIC ACID 1 MG TAB PO SCH (08:39)
[2021-06-12] MEDS: allopurinoL 300 MG TAB PO SCH (08:39)
[2021-06-12] MEDS: FINASTERIDE 5 MG TAB PO SCH (08:39)
[2021-06-12] MEDS: ADVANCED PROBIOTIC 1250 MG CAPSULE PO SCH (08:40)
[2021-06-12] MEDS: DOCUSATE SODIUM/SENNA 50/8.6MG TAB PO SCH (08:40)
[2021-06-12] MEDS: PANTOprazole 40 MG TAB PO SCH ×2 (08:40→20:10)
[2021-06-12] MEDS: METOPROLOL TARTRATE 50 MG TAB PO SCH ×2 (08:40→20:11)
[2021-06-12] MEDS: FAMOTIDINE 20 MG in SYRINGE 3 ML IV SCH ×2 (08:44→22:20)
[2021-06-12 08:52] LABS: Hematocrit (blood only) 35.7 % (42-52); Hemoglobin 11.6 g/dL (14.0-18.0); Mean Corpuscular Hemoglobin 28.5 pg (25-34); Mean Corpuscular Hgb Conc 32.5 g/dL (32-36); Mean Corpuscular Volume 87.7 fL (80-100); Mean Platelet Volume 9.3 fL (7.4-10.4); Platelet Count 280 K/uL (130-400); RDW Coefficient of Variation 17.2 % (11.5-14.5); Red Blood Count 4.07 M/uL (4.7-6.1); White Blood Count 9.84 K/uL (4.8-10.8)
[2021-06-12 09:03] LABS: BUN Creatinine Ratio 17.2 (10-20); Calcium 8.1 mg/dl (8.5-10.1); Creatinine Clr Calc Pharmacy 72.7 ml/min; Est GFR (African American) 63.9 ml/min; Est GFR (Non-African American) 55.2 ml/min; Potassium 3.7 mmol/L (3.5-5.1)
[2021-06-12 09:18] LABS: Basophils # (auto) 0.02 K/uL (0-0.2); Basophils % (auto) 0.2 %; Eosinophils # (auto) 0.27 K/uL (0-0.5); Eosinophils % (auto) 2.7 %; Immature Granulocytes # (auto) 0.09 K/uL (0.00-0.02); Immature Granulocytes % (auto) 0.9 %; Lymphocytes # (auto) 2.66 K/uL (1.2-3.4); Monocytes # (auto) 0.79 K/uL (0.11-0.59); Neutrophils # (auto) 6.01 K/uL (1.4-6.5); Neutrophils % (auto) 61.2 %; Polychromasia 1+
--- NOTE | 2021-06-12 11:43 | Hospitalist Progress Note ---
Date of Service June 12, 2021 Assessment & Plan (1) Septic shock: Plan: Septic shock secondary to obstructive UTI vs prostatitis with possible right sided non obstructive renal stone, improved - BP improved - elevated lactic acid normalized -On Zosyn empirically, cultures positive for Klebsiella sensitive to Rocephin, transitioned to Rocephin Minimum 14 days of antibiotics, can convert to cefdinir on discharge. Patient like with LUTS leading to UTI, without pain when voiding/BMs with lower suspicion for prostatitis. If clinical suspicion rises, or follow-up culture negative would extend to 6 weeks of therapy Trend CBC Patient continues to have LUTS with urinary retention, Burks replaced and follow with urology as outpatient for voiding trial No leukocytosis, afebrile Patient does have watery diarrhea 06/09 and 06/10, MiraLAX held, C. difficile negative. Improved per patient PEnding placement to [facility], dispo hold at this time anticipate placement available on Sunday (2) Right kidney stone: Plan: Possible right kidney stone on CT scan - 5 mm calcification within the lower pole of the right kidney which could reflect a cortical calcification or nonobstructing calculus - non obstructive- continue flomax - IVF as above - ABX as above (3) Enlarged prostate without lower urinary tract symptoms (luts): Plan: - Likely enlarged prostate led to urinary retention and now with UTI Patient unable to void with several serial straight caths, ultimately Burks replaced with 1 L of drainage Burks in place, discharge with bladder bag, and have outpatient follow-up to urology. Continue treatment for UTI as above (4) Encephalopathy: Plan: reports that he is normally sharp but does have some memory issues- she is concerned for dementia improved and near baseline 06/09 per patient and family at bedside (5) Diabetes mellitus type 2, uncontrolled: Plan: Hold home oral agents - sliding scale insulin aspart 20 CF with 1:10 carb ratio (6) GERD without esophagitis: Plan: Continue PPI (7) Hyperlipidemia: Plan: Not on statin or other disease modyfying medications at home (8) Chronic kidney disease, stage 3: Plan: SHIRLEY on CKD III - secondary to sepsis from urinary source at this time Diuretics held for SHIRLEY, normalized remains at baseline. Lasix resumed. -BMP daily - Follow renal function renally dose medications as needed - Heparin 5000 units sub q for VTE (9) CHF (congestive heart failure): Plan: EF 55-60%. Normal LV SF. Patient does not follow with cardiology.? Diastolic dysfunction versus venous stasis. No pulmonary edema/hypoxia. (10) Hypomagnesemia: Plan: replenished (11) Acute metabolic encephalopathy: Plan: Metabolic encephalopathy resolved. Admission and Anticipated Discharge Date Admission Date: June 05, 2021 Subjective Seen at bedside. No acute change. Continues to have some chronic scrotal swelling without erythema. Burks draining clear yellow urine. No fever, chills, sweats, difficulty breathing. Reports had some diarrhea earlier, has since improved. Reports that he is eager to go to rehab and then home, reports he used to enjoy elbow and are at home but has been fairly bored in the hospital. No other questions or concerns Review of Systems Review of Systems: All systems reviewed & are unremarkable except as noted in Subjective Physical Exam Physical Exam: General: A&Ox3. NAD. Cooperative. Sitting in chair at time of assessment HEENT: Atraumatic, normocephalic. Vision and hearing grossly intact Pulm: Symmetrical chest rise. No increase in work of breathing. No respiratory distress. Cardiac: RRR, -mrg. Radial pulses intact and symmetrical. Abdominal: Nontender, nondistended, soft. BS present. Extremities: Moves all extremities equally. 1+ lower extremity edema bilaterally. : Burks with light yellow urine. Scrotal edema without tenderness/erythema present Results & Data Results & Data ([facility]) Vital Signs (Past 12 Hours) Vital Signs Temp Pulse Pulse Resp BP BP Pulse Ox 06/12/21 10:55 36.9 C 77 20 115/73 95 06/12/21 08:06 76 06/12/21 07:00 37.2 C 78 18 113/70 94 06/12/21 02:11 36.9 C 77 18 103/56 L 92 PG Care Time/CCT Total # of Minutes Spent Total Time Spent with Patient: Total time spent is greater than 50% in coordination of care (as documented) at patient's floor/unit and/or counseling patient: Coding Level of Care Code 33920 Subseq Hosp Care Lvl 1 Diagnoses Septic shock A41.9; R65.21 Right kidney stone N20.0 Enlarged prostate without lower urinary tract symptoms (luts) N40.0 Encephalopathy G93.40 Diabetes mellitus type 2, uncontrolled E11.65 GERD without esophagitis K21.9 Hyperlipidemia E78.5 Chronic kidney disease, stage 3 N18.30 CHF (congestive heart failure) I50.9 Hypomagnesemia E83.42 Acute metabolic encephalopathy G93.41
[2021-06-12] MEDS: cefTRIAXone SODIUM 2,000 MG in DEXTROSE 5% 50 ML IV SCH (14:05)
[2021-06-12] MEDS: TAMSULOSIN HCL 0.4 MG CAP PO SCH (20:10)
[2021-06-12] MEDS: ACETAMINOPHEN 325 MG TAB PO PRN (20:11)
[2021-06-13] MEDS: HEPARIN SOD 5,000 UNIT/0.5 ML VIAL SQ SCH (05:31)
[2021-06-13 07:20] LABS: Basophils # (auto) 0.04 K/uL (0-0.2); Basophils % (auto) 0.4 %; Eosinophils # (auto) 0.28 K/uL (0-0.5); Eosinophils % (auto) 2.6 %; Hematocrit (blood only) 34.9 % (42-52); Hemoglobin 11.5 g/dL (14.0-18.0); Immature Granulocytes # (auto) 0.07 K/uL (0.00-0.02); Immature Granulocytes % (auto) 0.7 %; Lymphocytes # (auto) 2.88 K/uL (1.2-3.4); Lymphocytes % (auto) 27.1 %; Mean Corpuscular Hemoglobin 28.9 pg (25-34); Mean Corpuscular Volume 87.7 fL (80-100); Mean Platelet Volume 9.1 fL (7.4-10.4); Monocytes # (auto) 0.58 K/uL (0.11-0.59); Monocytes % (auto) 5.5 %; Neutrophils # (auto) 6.77 K/uL (1.4-6.5); Neutrophils % (auto) 63.7 %; Platelet Count 294 K/uL (130-400); RDW Coefficient of Variation 16.9 % (11.5-14.5); RDW Standard Deviation 53.4 fL (36.4-46.3); Red Blood Count 3.98 M/uL (4.7-6.1); White Blood Count 10.62 K/uL (4.8-10.8)
[2021-06-13 07:51] LABS: BUN Creatinine Ratio 18.3 (10-20); Calcium 8.1 mg/dl (8.5-10.1); Creatinine Clr Calc Pharmacy 73.8 ml/min; Est GFR (African American) 65.2 ml/min; Est GFR (Non-African American) 56.2 ml/min; Potassium 3.7 mmol/L (3.5-5.1)
[2021-06-13] MEDS: ASPIRIN 81 MG ECTAB PO SCH (08:30)
[2021-06-13] MEDS: DOCUSATE SODIUM/SENNA 50/8.6MG TAB PO SCH (08:30)
[2021-06-13] MEDS: allopurinoL 300 MG TAB PO SCH (08:30)
[2021-06-13] MEDS: FAMOTIDINE 20 MG in SYRINGE 3 ML IV SCH (08:31)
[2021-06-13] MEDS: FINASTERIDE 5 MG TAB PO SCH (08:31)
[2021-06-13] MEDS: FOLIC ACID 1 MG TAB PO SCH (08:31)
[2021-06-13] MEDS: ADVANCED PROBIOTIC 1250 MG CAPSULE PO SCH (08:32)
[2021-06-13] MEDS: METOPROLOL TARTRATE 50 MG TAB PO SCH (08:33)
[2021-06-13] MEDS: PANTOprazole 40 MG TAB PO SCH (08:33)
[2021-06-13] MEDS: INSULIN ASPART PER UNIT SC SCH ×2 (08:54→12:19)
[2021-06-13] MEDS ORDERED: FUROSEMIDE 20 MG TAB PO SCH (09:00)
--- NOTE | 2021-06-13 12:35 | Discharge Summary ---
Date of Service June 13, 2021 Admission HPI Per Admitting Provider 71 YOM with medical history of: Obesity, HTN, CHF (unknown type), gout, DMII, chronic right knee pain, rheumatoid arthritis, allergic rhinitis. Patient comes to the EMD today via ems after being called by his family members at home secondary to, rigors, diarrhea, unable to void and confusion. In the EMD the patient arrived hypotensive, had routine labs done as well as blood cultures, lactate, PCT, UA and VBG. He had CXR completed as well as CT scan of his abdomen. He has currently received 1.5 liters of crystalloid. His urine was noted for + LE, +Nit, + Casts and 2+ bacteria. His CT scan was notable for 5mm calcification of the lower pole of right kidney non-obstructing and enlarged prostate. He had a radford catheter placed. He was started on Zosyn. Hospitalist service was consulted for admission. The patient was evaluated and is noted to be confused and with poor tracking of conversation. Did talk to his for historical review. She notes that he has been constipated over the past 2 days and taking miralax and got up this morning "all out of sorts", he was really cold and shivering. He got up and appeared confused. His son came over and helped him get up and to the bathroom, he remained confused and easily fatigued and fell to his knee in the bathroom. His son called 911. Patietn will continue with goal directed therapy with volume resuscitation and may need admission to ICU for continued resuscitation/vasopressors. Principal Diagnosis UTI, LUTS Discharge Exam General: A&Ox3. NAD. Cooperative. Sitting in chair at time of assessment HEENT: Atraumatic, normocephalic. Vision and hearing grossly intact Pulm: Symmetrical chest rise. No increase in work of breathing. No respiratory distress. Cardiac: RRR, -mrg. Radial pulses intact and symmetrical. Abdominal: Nontender, nondistended, soft. BS present. Extremities: Moves all extremities equally. 1+ lower extremity edema bilaterally. : Radford with light yellow urine. Scrotal edema without tenderness/erythema present greatly improved from prior Discharge Data Allergies Allergy/AdvReac Type Severity Reaction Status Date / Time fluticasone Allergy Severe lips and Verified 06/05/21 12:05 tongue swelling, angioedema tomato Allergy Mild Itching Verified 06/05/21 12:05 Fluticasone Propionate SUSP AdvReac Unknown Uncoded 06/05/21 12:05 Consultations 06/05/21 12:59 ED Decision to Admit Stat 06/06/21 08:23 Consult Urology Routine Ordered Studies 06/05/21 10:30 CT abd pelvis wo con Stat Hospital Course (1) Septic shock: He was a 71-year-old male who presented with shock and was found to have obstructive UTI with a right-sided nonobstructive renal stone. Urology was consulted during admission, and patient was recommended for at least 14 days of antibiotic therapy, tamsulosin with addition of finasteride, and supportive care patient patient did clinically improve, and was near his baseline mentation at discharge. Did have weakening and was recommended for rehab for which placement was pursued. Patient did experience recurrent urinary retention which did not improve with finasteride and tamsulosin, Radford was replaced following failed voiding trial with a drainage of clear yellow urine. He was discharged to outpatient follow-up with urology for further care. He did experience some loose bowel movements, these were C. difficile negative and likely 2/2 antibiotics. Patient was continued on probiotic and may use loperamide as as needed, reevaluate if worsening symptoms. To do as outpatient: 1. Complete at least 14 days of outpatient antibiotics with cefdinir for UTI. Consider extension to up to 6 weeks for prostatitis based on outpatient follow- up and progression 2. Continue finasteride, Flomax 3. Weekly CBC/BMP while undergoing antibiotic treatment 4. Urology follow-up with Radford voiding trial 5. Rehab 6. Follow-up to PCP, can follow lipids. LDL 48 on last check, statin deferred Septic shock secondary to obstructive UTI vs prostatitis with possible right sided non obstructive renal stone, improved - BP improved - elevated lactic acid normalized -On Zosyn empirically, cultures positive for Klebsiella sensitive to Rocephin, transitioned to Rocephin Minimum 14 days of antibiotics, converted to cefdinir on discharge. Patient like with LUTS leading to UTI, without pain when voiding/BMs with lower suspicion for prostatitis. If clinical suspicion rises, or follow-up culture negative would extend to 6 weeks of therapy Trend CBC Patient continues to have LUTS with urinary retention, Radford replaced and follow with urology as outpatient for voiding trial No leukocytosis, afebrile Patient does have watery diarrhea 06/09 and 06/10, MiraLAX held, C. difficile negative. Improved per patient Discharged to Center care (2) Right kidney stone: Possible right kidney stone on CT scan - 5 mm calcification within the lower pole of the right kidney which could reflect a cortical calcification or nonobstructing calculus - non obstructive- continue flomax - IVF as above - ABX as above (3) Enlarged prostate without lower urinary tract symptoms (luts): - Likely enlarged prostate led to urinary retention and now with UTI Patient unable to void with several serial straight caths, ultimately Radford replaced with 1 L of drainage Radford in place, discharge with bladder bag, and have outpatient follow-up to urology. Continue treatment for UTI as above (4) Encephalopathy: reports that he is normally sharp but does have some memory issues- she is concerned for dementia improved and near baseline 06/09 per patient and family at bedside (5) Diabetes mellitus type 2, uncontrolled: Hold home oral agents - sliding scale insulin aspart 20 CF with 1:10 carb ratio (6) GERD without esophagitis: Continue PPI (7) Hyperlipidemia: Not on statin or other disease modyfying medications at home (8) Chronic kidney disease, stage 3: SHIRLEY on CKD III - secondary to sepsis from urinary source at this time Diuretics held for SHIRLEY, normalized remains at baseline. Lasix resumed. -BMP daily - Follow renal function renally dose medications as needed - Heparin 5000 units sub q for VTE (9) CHF (congestive heart failure): EF 55-60%. Normal LV SF. Patient does not follow with cardiology.? Di astolic dysfunction versus venous stasis. No pulmonary edema/hypoxia. (10) Hypomagnesemia: replenished (11) Acute metabolic encephalopathy: Metabolic encephalopathy resolved. Total Time Total Time Spent Total Time Spent (In Minutes): Time spend day of discharge 35 minutes including direct patient care, documentation, review of labs and images, and coordination of care. Discharge Plan Discharge Items Patient Disposition: Transfer Inpatient Rehab Fac Reason For Visit: SEPTIC SHOCK, UTI, POSSIBLE URINARY STONE Discharge Diagnosis: Septic shock 2/2 obstructive UTI Activity: Per Instructions section Non-emergency contact: Primary Care Provider Call non-emergency contact if: you have any medication questions, your symptoms worsen, your pain is not controlled, your pain is worsening and you have a fever Follow-up/Referrals: Shmuel Hamlin MD [Physician] - Diego Marie MD [Primary Care Provider] - Diet: Carb Consistent or DM2 and Low Sodium (2gm) Addtl Attending Provider Instructions: You are seen in the hospital for septic shock due to a UTI in the setting of obstruction. You have had lower urinary tract symptoms in the past with a history of enlarged prostate. He did not have pain with bowel movements or other symptoms consistent with prostatitis, however you are at risk for this. You have been discharged with 14 days of antibiotics, if you have any recurrence of symptoms you should have a repeat exam and valuation for prostatitis with extension of antibiotics for up to 6 weeks if necessary. You have been prescribed cefdinir, an antibiotic. Please take cefdinir 300 mg by mouth twice daily for 8 additional days to complete 14 days of treatment. You are being discharged for additional strengthening/rehab. You did experience lower urinary tract symptoms with retention. You have experienced this before, and you underwent a voiding trial with your Radford catheter removed but still had difficulty voiding despite medical therapy. We have been prescribed finasteride 5 mg by mouth daily to help with this, and please continue tamsulosin 0.8 mg in the evening. A Radford catheter was replaced with drainage of light yellow urine. It is recommended you continue treatment for your infection as above, and undergo an outpatient voiding trial with follow-up to urology which is being scheduled as above. You had some diarrhea with your antibiotics, a C. difficile test was negative. This is likely due to antibiotics, and can be followed and treated symptomatically. If your diarrhea worsens or becomes several times a day and completely liquid, or you experience fever/chills or other new symptoms please seek prompt medical reevaluation. If you develop any new or worsening symptoms including fever, chills, sweats, chest pain, chest pressure, difficulty breathing, uncontrolled nausea/vomiting, rash, wheezing, passing out or nearly passing out, bleeding, black/bloody bowel movements, or other new or concerning symptoms please call your primary care physician, or call 911 for re-evaluation in the emergency department if you are very concerned. Pending Studies at Discharge: No Stand-Alone Forms: My [facility] Skilled Items Patient informed of condition?: Yes DNR: No Discharge Level of Care: Acute rehab Communicable Disease: No Discharge Prognosis: Stable Lines: None Urinary Catheter: Yes Medications and DC Order Prescriptions: New finasteride [Proscar] 5 mg Tablet 5 mg PO QAM 30 Days Qty: 30 RF: 0 cefdinir 300 mg capsule 300 mg PO BID 8 Days Qty: 16 RF: 0 Continued metoprolol tartrate 50 mg tablet 50 mg PO BID Qty: 60 RF: 11 Hold Instructions: pt in hospital omeprazole 20 mg capsule,delayed release(DR/EC) 20 mg PO BID Qty: 180 RF: 3 metformin 500 mg tablet extended release 24 hr 500 mg PO BID Qty: 180 RF: 1 nabumetone 500 mg tablet 500 mg PO BID Qty: 60 RF: 5 (DME) blood-glucose meter [Contour Next One Meter] Misc See Rx Instructions .Route Qty: 1 RF: 0 (DME) lancets [Microlet Lancet] Misc See Rx Instructions .Route Qty: 100 RF: 11 (DME) Contour Next Test Strips Strip See Rx Instructions .Route Qty: 100 RF: 11 glipizide 5 mg tablet 5 mg PO BID Qty: 180 RF: 3 folic acid 1 mg tablet 1 mg PO QAM RF: 0 (DME) walker misc See Dose Instructions .ROUTE .MEDSUPPLY Qty: 1 RF: 0 aspirin [Adult Low Dose Aspirin] 81 mg tablet,delayed release (DR/EC) 81 mg PO QAM RF: 0 tamsulosin 0.4 mg capsule 0.8 mg PO HS RF: 0 allopurinol 300 mg tablet 300 mg PO QAM RF: 0 furosemide [Lasix] 20 mg tablet 40 mg PO QAM RF: 0 Discharge Orders: Discharge Order (Routine); Ordered 06/13/21 Ordered By: aLst Hernández Admission Data Admit Date/Time: 06/05/21 13:40 Attending Provider: Last Hernández Admit Provider: Collins Parks Primary Care Provider: Diego Marie Other Providers: [place] ; Collins Parks ; Michael Vanessa ; Shmuel Hamlin ; Diego Godwin ; Carol Oconnor ; Fran Avila ; Anjali Cam ; Carolina Moreno ; Cheyanne Mcduffie ; Doc Paulino ; Parag Serra ; Trinity Yanez ; Maliha Mcduffie ; Ayush Bee Coding Level of Care Code D/C DAY MANAGEMENT >30 MINS Diagnoses Septic shock A41.9; R65.21 Right kidney stone N20.0 Enlarged prostate without lower urinary tract symptoms (luts) N40.0 Encephalopathy G93.40 Diabetes mellitus type 2, uncontrolled E11.65 GERD without esophagitis K21.9 Hyperlipidemia E78.5 Chronic kidney disease, stage 3 N18.30 CHF (congestive heart failure) I50.9 Hypomagnesemia E83.42 Acute metabolic encephalopathy G93.41
== END 2021-06-13 14:21 | DRG 871 ==
LOC: ED 10:17 → SUATTDRO 13:40 → 2E 13:40 → 2W 06-10 22:31

== ENCOUNTER 2022-05-19 13:09 | Inpatient (IN) ==
[2022-05-19] MEDS ORDERED: cefTRIAXone SODIUM 2,000 MG/70 ML BAG IV STA (13:17)
[2022-05-19] MEDS ORDERED: SODIUM CHLORIDE 0.9% 1000ML 1,000 ML IV ONE (13:17)
--- NOTE | 2022-05-19 13:38 | Emergency Department Note ---
Impression & Plan Sepsis, Febrile, Leukocytosis ED Provider Note NAME: MISHEL SMITH AGE: 72 SEX: M : 1950 ARRIVES VIA: Ambulance INFORMANT: Patient, EMS ED PROVIDER(S): Sohail Heller DO CHIEF COMPLAINT: Lower back pain/flank pain and fever HPI: Patient is a 72-year-old male with a past medical history of sepsis, PE, diabetes, CAD who presents to the ER for right lower back pain/flank pain. He was brought in by EMS. He was found to be hypoxic with pulse ox in the 70s. He denies any new cough or congestion. No chest pain or shortness of breath. He denies any belly pain. No dysuria, urgency, or frequency. No other exacerbating or remitting factors. He was unaware that he had a fever. Denies all other exacerbating or remitting factors. He is on a nonrebreather upon pres entation. PAST MEDICAL HISTORY:See Below PAST SURGICAL HISTORY:See Below FAMILY HISTORY:See Below SOCIAL HISTORY:See Below HOME MEDICATIONS:See Below ALLERGIES:See Below VITALS:See Below PHYSICAL EXAMINATION: GENERAL: Sitting up in bed, alert, ill-appearing, disheveled, morbidly obese EYE EXAM: normal conjunctiva. PERRL and EOM's grossly intact. OROPHARYNX: Mucous membranes are dry NECK: supple, no nuchal rigidity, no adenopathy, non-tender LUNGS: Clear to auscultation. Normal chest wall mechanics HEART: no murmurs, S1 normal and S2 normal ABDOMEN: abdomen soft, non-tender, normo-active bowel sounds, no masses, no rebo und or guarding. BACK: Back is symmetrical on inspection and there is no deformity, no midline tenderness, no CVA tenderness. Mild tenderness in right lower lumbar paraspinal region UPPER EXTREMITIES: upper extremities are grossly normal. LOWER EXTREMITIES: Wound over the left medial distal tib-fib with surrounding erythema over the foot and around the wound. Is warm and tender. NEURO EXAM: Normal sensorium, cranial nerves II-XII grossly intact, normal speech, no gross weakness of arms, no gross weakness of legs. No drift. Finger to nose intact. Gross sensation intact. MEDICAL DECISION MAKING: Patient is a 72-year-old male who presents the ER febrile, tachycardic and hypoxic. He was placed on 2 L nasal cannula. Chest x-ray suggested pulmonary edema and with this in mind he was given judicious fluids and not a total of 30 cc/kg due to the concern for volume overload in the setting of a hypoxic patient with pulmonary edema on the chest x-ray. IV was established and blood work was obtained. Labs show a leukocytosis of 20,000. Mild anemia 12. BMP with creatinine 1.69 which is consistent with his baseline. Glucose slightly elevated at 230. LFTs bilirubin was unremarkable. Troponin was negative. Pro- Royce elevated at 1.5. Lipase was normal. UA was clean without white cells to suggest a UTI. COVID was negative. He denies all complaints with the exception of right lower back pain. Unable to perform with IV contrast due to small gauge IV. Patient was given IV Rocephin, vancomycin and a small amount of fluids. He was updated bedside. He was given oral Tylenol. He was updated bedside and discussed with Dr. Gregory Strickland for further evaluation management and treatment. CT abdomen pelvis and CT of the chest was limited and showed no focal signs of infection. Question if this is all secondary to cellulitis on his left lower extremity. Triage Nursing notes reviewed. Limited review of prior medical records performed Vital Signs: reviewed and remarkable for fever and tachycardia Differential diagnosis: Differential diagnosis includes etiologies such as sepsis, UTI, pneumonia, metabolic, electrolyte abnormalities, cardiac sources, intracerebral event, toxicologic, neurological, as well as others were entertained. ER treatment provided: See below Diagnostics interpreted by me include EKG and cardiac monitoring as listed below: -Cardiac Monitoring: An order was placed for continuous cardiac monitoring. The monitor shows a rate of 101 with sinus rhythm. -ECG: A-fib rate of 110 Left axis PVC Left bundle branch block QTc 541 -Laboratory studies:Interpreted by me as stated above in MDM and shown below. Imaging studies: Xrays: As interpreted by me: Portable AP upright 1 view of the chest shows no focal infiltrate CTs show: CT of the chest and belly shows no obvious source of infection Consultation(s): Discussed with Dr. Gregory Strickland for further evaluation management and treatment Procedures:none Critical Care: None Past Med/Surg History Medical History Acute metabolic encephalopathy Allergic rhinitis Anemia Bacterial endocarditis (02/18/11) Bronchitis Coronary artery disease Diabetes mellitus type 2, uncontrolled Elevated homocysteine Encephalopathy Enlarged prostate without lower urinary tract symptoms (luts) Foreign body in nose GERD without esophagitis Gout, joint Hyperlipidemia Hypomagnesemia Hypomagnesemia Morbid obesity Multiple pulmonary nodules NSTEMI (non-ST elevated myocardial infarction) (01/30/11) Raynauds phenomenon Rheumatoid arthritis Sepsis Septic shock Type 2 diabetes mellitus Urinary tract infection Surgical History H/O colonoscopy Social History Smoking Status: Unknown if ever smoked Age Started Using Tobacco: 12; Age Quit Using Tobacco: 68; packs per day: 1; Hx Alcohol Use: No Hx Substance Use: No Preferred Language: [place] Islander Communication Ability: Effective Water Treatment Operator Required: No Beliefs That Will Affect Care: None marital status: Current Living Situation: Spouse current occupational status: retired Feels Safe at Home: Yes Assistive Devices: Cane and Walker Allergies Allergies Allergy/AdvReac Type Severity Reaction Status Date / Time fluticasone Allergy Severe lips and Verified 05/19/22 16:24 tongue swelling, angioedema tomato Allergy Mild Itching Verified 05/19/22 16:24 Home Meds Home Medications Medication Instructions Recorded Confirmed folic acid 1 mg tablet 1 mg PO QAM 07/17/18 05/19/22 aspirin 81 mg tablet,delayed 81 mg PO QAM 06/05/21 05/19/22 release (Adult Low Dose Aspirin) coenzyme Q10 100 mg capsule 100 mg PO DAILY 09/01/21 05/19/22 (CoQ-10) digestive enzymes 1 cap PO DAILY 09/01/21 05/19/22 ferrous sulfate 325 mg (65 mg 325 mg PO DAILY 09/01/21 05/19/22 iron) tablet (iron) multivitamin (Multiple Vitamins 1 tab PO DAILY 09/01/21 05/19/22 tablet) potassium gluconate 595 mg (99 mg) 595 mg PO DAILY 05/19/22 05/19/22 tablet Previous Rx's Medication Instructions Recorded walker #1 ea 07/17/18 lancets (Microlet Lancet) #100 ea 04/08/21 metformin 500 mg tablet,extended 500 mg PO BID #180 tabs 08/04/21 release 24 hr metoprolol tartrate 50 mg tablet 50 mg PO BID #60 tabs 12/21/21 nabumetone 500 mg tablet 500 mg PO BID M19.90 #60 tabs 01/09/22 furosemide 20 mg tablet (Lasix) 40 mg PO QAM #90 tabs 02/10/22 omeprazole 20 mg capsule,delayed 20 mg PO BID #180 caps 03/03/22 release rosuvastatin 10 mg tablet (Crestor) 10 mg PO DAILY #90 tabs 03/03/22 allopurinol 300 mg tablet 300 mg PO QAM #90 tabs 03/09/22 finasteride 5 mg tablet (Proscar) 5 mg PO QAM #30 tabs 03/16/22 glipizide 5 mg tablet 5 mg PO BID #180 tabs 03/20/22 tamsulosin 0.4 mg capsule 0.8 mg PO HS #90 caps 03/21/22 dapagliflozin 5 mg tablet (Farxiga) 5 mg PO DAILY #90 tabs 04/13/22 OneTouch Verio Meter #1 ea 04/14/22 (blood-glucose meter) OneTouch Verio test strips (blood #200 ea 04/14/22 sugar diagnostic) lancets 30 gauge (OneTouch Delica #100 ea 04/18/22 Lancets) Results & Data (ED) Vital Signs Vital Signs - 24 hr 05/19/22 13:18 05/19/22 13:34 05/19/22 14:28 Temperature 38.2 C H Temperature Source Oral Pulse Rate 111 H 105 H 104 H Pulse Rate [Left Finger] Pulse Rhythm Regular Pulse Rhythm [Left Finger] Pulse Strength Normal Pulse Strength [Left Finger] Respiratory Rate 24 Respiratory Effort / Characteristics Non-Labored Spontaneous Respiratory Depth Normal Respiratory Pattern Regular Blood Pressure 127/63 Blood Pressure [Right Arm] Blood Pressure Mean 84 Blood Pressure Mean [Right Arm] Blood Pressure Position Sitting Blood Pressure Position [Right Arm] Pulse Oximetry 90 92 Oxygen Delivery Method Room Air Room Air Oxygen Flow Rate Sepsis Recent Fever Within 48 Hours Yes Sepsis New/Unexplained Change in Mental Status Yes Sepsis Action Taken by Nursing Physician Notified Oxygen Flow Rate - Titration Pulse Oximetry Post Tiitration 05/19/22 15:21 05/19/22 16:25 05/19/22 16:27 Temperature 38.9 C H Temperature Source Oral Pulse Rate Pulse Rate [Left Finger] 111 H 113 H Pulse Rhythm Pulse Rhythm [Left Finger] Regular Pulse Strength Pulse Strength [Left Finger] Normal Normal Respiratory Rate 27 H 23 Respiratory Effort / Characteristics Non-Labored Spontaneous Non-Labored Spontaneous Respiratory Depth Normal Normal Respiratory Pattern Regular Tachypnea Blood Pressure Blood Pressure [Right Arm] 127/63 104/63 Blood Pressure Mean Blood Pressure Mean [Right Arm] 84 76 Blood Pressure Position Blood Pressure Position [Right Arm] Lying Lying Pulse Oximetry 93 88 L 93 Oxygen Delivery Method Room Air Room Air Nasal Cannula Oxygen Flow Rate 0 2 Sepsis Recent Fever Within 48 Hours Sepsis New/Unexplained Change in Mental Status Sepsis Action Taken by Nursing Oxygen Flow Rate - Titration 2 Pulse Oximetry Post Tiitration 91 Laboratory Data 05/19/22 14:22 05/19/22 14:22 Lab Results 05/19/22 05/19/22 05/19/22 Range/Units 14:22 14:22 14:22 WBC 19.86 H (4.8-10.8) K/ul RBC 4.06 L (4.70-6.10) M/uL Hgb 12.4 L (14.0-18.0) g/dl Hct 37.0 L (42.0-52.0) % MCV 91.1 (80.0-100.0) fL MCH 30.5 (25.0-34.0) pg MCHC 33.5 (32.0-36.0) g/dL RDW Std Deviation 49.1 H (36.4-46.3) fL RDW Coeff of Cheng 14.9 H (11.5-14.5) % Plt Count 205 (130-400) K/uL MPV 9.2 L (9.4-12.4) fL Immature Gran % (Auto) 0.9 % Neut % (Auto) 88.8 % Lymph % (Auto) 4.4 % [place] % (Auto) 5.7 % Eos % (Auto) 0.0 % Baso % (Auto) 0.2 % Neut # (Auto) 17.63 H (1.40-6.50) K/uL Lymph # (Auto) 0.87 L (1.2-3.4) K/uL [place] # (Auto) 1.14 H (0.11-0.59) K/uL Eos # (Auto) 0.00 (0-0.50) K/uL Baso # (Auto) 0.04 (0-0.2) K/uL Immature Gran # (Auto) 0.18 (0.01-0.20) K/uL Sodium 136 (136-145) mmol/L Potassium 3.9 (3.5-5.1) mmol/L Chloride 103 (98-107) mmol/L Carbon Dioxide 22 (21-32) mmol/L Anion Gap 11 (3-11) BUN 34 H (6-23) mg/dl Creatinine 1.69 H (0.6-1.4) mg/dl Est Cr Clr Drug Dosing 55.6 ml/min Est GFR ( Amer) 45.4 ml/min Est GFR (Non-Af Amer) 39.1 ml/min BUN/Creatinine Ratio 20.1 H (10-20) Glucose 230 H (70-99(Fasting)) mg/dl Lactate 1.8 (0.4-2.0) mmol/L Calcium 9.2 (8.6-10.3) mg/dl Total Bilirubin 0.8 (0.2-1.0) mg/dl AST 13 (13-39) U/L ALT 8 (7-52) U/L Alkaline Phosphatase 70 (34-104) U/L Troponin I High Sens 15.9 (0-20) pg/ml Total Protein 7.5 (6.0-8.3) gm/dl Albumin 3.8 (3.4-5.0) gm/dl Globulin 3.7 (2.5-4.0) gm/dl Albumin/Globulin Ratio 1.0 (0.9-2) Lipase 13 (11-82) U/L Procalcitonin (0-0.5) ng/ml Urine Color Urine Appearance (Clear) Urine pH (4.5-7.5) Ur Specific [place] (1.000-1.030) Urine Protein (Negative) Urine Glucose (UA) (Negative) Urine Ketones (Negative) Urine Blood (Negative) Urine Nitrite (Negative) Urine Bilirubin (Negative) Urine Urobilinogen (Negative) Ur Leukocyte Esterase (Negative) Urine WBC (Auto) (0-5) /hpf Urine RBC (Auto) (0-4) /hpf U Hyaline Cast (Auto) (0-5) /lpf U Epithel Cells (Auto) (0-5) /lpf Urine Bacteria (Auto) (Negative) SARS-CoV-2, RNA, NAAT (NEGATIVE) 05/19/22 05/19/22 05/19/22 Range/Units 14:22 Unknown Unknown WBC (4.8-10.8) K/ul RBC (4.70-6.10) M/uL Hgb (14.0-18.0) g/dl Hct (42.0-52.0) % MCV (80.0-100.0) fL MCH (25.0-34.0) pg MCHC (32.0-36.0) g/dL RDW Std Deviation (36.4-46.3) fL RDW Coeff of Cheng (11.5-14.5) % Plt Count (130-400) K/uL MPV (9.4-12.4) fL Immature Gran % (Auto) % Neut % (Auto) % Lymph % (Auto) % [place] % (Auto) % Eos % (Auto) % Baso % (Auto) % Neut # (Auto) (1.40-6.50) K/uL Lymph # (Auto) (1.2-3.4) K/uL [place] # (Auto) (0.11-0.59) K/uL Eos # (Auto) (0-0.50) K/uL Baso # (Auto) (0-0.2) K/uL Immature Gran # (Auto) (0.01-0.20) K/uL Sodium (136-145) mmol/L Potassium (3.5-5.1) mmol/L Chloride (98-107) mmol/L Carbon Dioxide (21-32) mmol/L Anion Gap (3-11) BUN (6-23) mg/dl Creatinine (0.6-1.4) mg/dl Est Cr Clr Drug Dosing ml/min Est GFR ( Amer) ml/min Est GFR (Non-Af Amer) ml/min BUN/Creatinine Ratio (10-20) Glucose (70-99(Fasting)) mg/dl Lactate (0.4-2.0) mmol/L Calcium (8.6-10.3) mg/dl Total Bilirubin (0.2-1.0) mg/dl AST (13-39) U/L ALT (7-52) U/L Alkaline Phosphatase (34-104) U/L Troponin I High Sens (0-20) pg/ml Total Protein (6.0-8.3) gm/dl Albumin (3.4-5.0) gm/dl Globulin (2.5-4.0) gm/dl Albumin/Globulin Ratio (0.9-2) Lipase (11-82) U/L Procalcitonin 1.55 H (0-0.5) ng/ml Urine Color Yellow Urine Appearance Clear (Clear) Urine pH 5.5 (4.5-7.5) Ur Specific [place] 1.029 (1.000-1.030) Urine Protein Trace H (Negative) Urine Glucose (UA) 3+ H (Negative) Urine Ketones Negative (Negative) Urine Blood 1+ H (Negative) Urine Nitrite Negative (Negative) Urine Bilirubin Negative (Negative) Urine Urobilinogen Negative (Negative) Ur Leukocyte Esterase Negative (Negative) Urine WBC (Auto) 1-5 (0-5) /hpf Urine RBC (Auto) 0-4 (0-4) /hpf U Hyaline Cast (Auto) 0 (0-5) /lpf U Epithel Cells (Auto) 5-10 H (0-5) /lpf Urine Bacteria (Auto) 1+ H (Negative) SARS-CoV-2, RNA, NAAT NEGATIVE (NEGATIVE) Administered Medications Discontinued Medications Acetaminophen (Acetaminophen 325 Mg Tab) 650 mg PO NOW STA Stop: 05/19/22 15:28 Last Admin: 05/19/22 15:55 Dose: 650 mg Documented By: MEDICAL ADMINISTRATIVE Sodium Chloride (Nss 1000ml) 1,000 mls @ 999 mls/hr IV .Q1H1M ONE Stop: 05/19/22 14:17 Last Infusion: 05/19/22 15:20 Dose: 0 mls/hr Documented By: MEDICAL ADMINISTRATIVE Admin: 05/19/22 14:09 Dose: 999 mls/hr Documented By: NRB Ceftriaxone Sodium (Rocephin) 2,000 mg in 70 mls @ 140 mls/hr IV NOW STA Stop: 05/19/22 13:46 Last Infusion: 05/19/22 15:17 Dose: 0 mls/hr Documented By: MEDICAL ADMINISTRATIVE Admin: 05/19/22 14:49 Dose: 140 mls/hr Documented By: NRB Morphine Sulfate (Morphine Sulfate 4 Mg/Ml 1 Ml Carp\Vial) 4 mg IV NOW STA Stop: 05/19/22 15:29 Last Admin: 05/19/22 15:55 Dose: 4 mg Documented By: MEDICAL ADMINISTRATIVE Ondansetron HCl (Ondansetron Inj 2 Mg/Ml 2 Ml Vial) 4 mg IV NOW STA Stop: 05/19/22 15:29 Last Admin: 05/19/22 15:55 Dose: 4 mg Documented By: MEDICAL ADMINISTRATIVE Imaging Data Radiologist's Impression: Chest X-Ray 05/19/22 13:11 XR chest 1V portable CLINICAL HISTORY: Chest pain, nonspecific COMPARISON STUDY: Chest CT September 05, 2017. Chest radiograph June 07, 2021. FINDINGS: There is no pneumothorax. No definite pleural effusion is identified. Cardiomegaly is unchanged. There is mild interstitial thickening. No consolidation is identified. Multiple old left rib fractures are incidentally noted. IMPRESSION: Cardiomegaly. Pulmonary vascular congestion with possible mild pulmonary edema. ACT 112: Negative or not required by law. Electronically signed by: Tyree Zaragoza M.D. 05/19/2022 2:56 PM Abdomen/Pelvis CT 05/19/22 14:17 CT OF THE ABDOMEN AND PELVIS WITHOUT CONTRAST CLINICAL HISTORY: Abdominal pain. Back pain. Fever. Sepsis. COMPARISON STUDY: CT of the abdomen and pelvis June 05, 2021 and renal ultrasound May 02, 2022. TECHNIQUE: Axial images of the abdomen and pelvis were obtained without IV contrast. Images were reviewed in the axial, sagittal, and coronal planes. Automated exposure control was utilized for the study. A dose lowering technique was utilized adhering to the principles of ALARA. FINDINGS: Please note that the chest CT will be reported separately. This exam is significantly compromised by artifact and lack of IV contrast. No pneumatosis, free air or portal venous gas is present. Unenhanced images of liver, spleen, adrenal glands, kidneys and pancreas are grossly unremarkable. There is pancreatic glandular atrophy. There is no peripancreatic or pericholecystic infiltration. A 5 mm calcification within the lower pole of the right kidney is unchanged. This could reflect a cortical calcification or a nonobstructing calculus. There are no ureteral calculi. There is no hydronephrosis. Extensive sigmoid diverticulosis is present. There is no evidence for acute diverticulitis. There is no evidence for a bowel obstruction. There is been no significant change in appearance of the abdomen or pelvis since prior CT. No acute fractures are identified. Multilevel degenerative changes within lumbar spine are present. Lumbar spine central canal and neural foramen a re suboptimally assessed by CT. IMPRESSION: 1. Exam significantly compromised given artifact and lack of contrast. However, no definite acute findings. 2. No bowel obstruction. No pneumatosis, free air or portal venous gas. 3. Extensive colonic diverticulosis. No evidence for acute diverticulitis. ACT 112: Negative or not required by law. Electronically signed by: Tyree Zaragoza M.D. 05/19/2022 4:[address] 05/19/22 15:27 CT OF THE CHEST WITHOUT IV CONTRAST CLINICAL HISTORY: ? sepsis COMPARISON STUDY: Chest CT September 05, 2017. Chest radiograph performed earlier today. TECHNIQUE: Axial images of the chest were obtained without IV contrast. Images were reviewed in the axial, sagittal, and coronal planes. IV contrast was not administered for this examination. Automated exposure control was utilized for the study. A dose lowering technique was utilized adhering to the principles of ALARA. FINDINGS: This exam is mildly compromised by motion artifact. Mild cardiomegaly is noted. No pericardial effusion. There is dilatation of the central pulmonary arteries. No pneumothorax or pleural effusion is present. Lungs are suboptimally assessed due to motion artifact. There is no consolidation to suggest pneumonia. Linear subpleural opacities favor atelectasis. Central airways are grossly patent. A few small pulmonary nodules are similar to CT of September 05, 2017. No acute fractures within the bony thorax are identified. Several old left-sided rib fractures are present. There is no thoracic spine fracture. Abdomen and pelvis CT will be reported separately. There is no significant thoracic lymphadenopathy. Prominent subcarinal lymph nodes remain unchanged. IMPRESSION: 1. Exam mildly compromised by artifact. No consolidation to suggest pneumonia. 2. No acute intrathoracic findings on unenhanced exam. 3. Mild cardiomegaly and dilatation of the central pulmonary arteries. ACT 112: Negative or not required by law. Electronically signed by: Tyree Zaragoza M.D. 05/19/2022 4:14 PM Discharge Plan Visit Data Chief Complaint: Back Injury/Pain Stated Complaint: CHEST PAIN, SOB ED Provider: Sohail Heller Discharge Problem: Sepsis, Febrile, Leukocytosis Patient Disposition: Admitted As Inpatient Forms Stand Alone Forms: [facility] Prescriptions Prescriptions: No Action (DME) lancets [Microlet Lancet] Misc See Rx Instructions .Route Qty: 100 11RF Rx Instructions: TEST TWICE DAILY E11.9 metformin 500 mg tablet extended release 24 hr 500 mg PO BID Qty: 180 3RF metoprolol tartrate 50 mg tablet 50 mg PO BID Qty: 60 11RF Hold Instructions: pt in hospital nabumetone 500 mg tablet 500 mg PO BID Qty: 60 5RF furosemide [Lasix] 20 mg tablet 40 mg PO QAM Qty: 90 3RF omeprazole 20 mg capsule,delayed release(DR/EC) 20 mg PO BID Qty: 180 3RF rosuvastatin [Crestor] 10 mg tablet 10 mg PO DAILY Qty: 90 3RF allopurinol 300 mg tablet 300 mg PO QAM Qty: 90 3RF finasteride [Proscar] 5 mg tablet 5 mg PO QAM Qty: 30 5RF glipizide 5 mg tablet 5 mg PO BID Qty: 180 3RF tamsulosin 0.4 mg capsule 0.8 mg PO HS Qty: 90 3RF Farxiga 5 mg tablet 5 mg PO DAILY Qty: 90 3RF (DME) OneTouch Verio test strips Strip See Rx Instructions .Route Qty: 200 5RF Rx Instructions: TEST TWICE DAILY. DX: E11.65 (DME) blood-glucose meter [OneTouch Verio Meter] [facility] [place] See Rx Instructions .Route Qty: 1 0RF Rx Instructions: TEST TWICE DAILY. DX: E11.65 (DME) lancets [OneTouch Delica Lancets] 30 [place] [facility] [place] Rx Instructions .Route Qty: 100 5RF Rx Instructions: test twice daily and prn multivitamin [Multiple Vitamins] Tablet 1 tab PO DAILY digestive enzymes Capsule 1 cap PO DAILY Rx Instructions: administer with food; swallow whole; do not crush/chew/dissolve/break/cut ferrous sulfate [iron] 325 mg (65 mg iron) tablet 325 mg PO DAILY coenzyme Q10 [CoQ-10] 100 mg capsule 100 mg PO DAILY folic acid 1 mg tablet 1 mg PO QAM (DME) [place] [facility] [place] Dose Instructions .ROUTE .MEDSUPPLY Qty: 1 0RF Dose Instruction: As directed Rx Instructions: As directed aspirin [Adult Low Dose Aspirin] 81 mg tablet,delayed release (DR/EC) 81 mg PO QAM potassium gluconate 595 mg (99 mg) Tablet 595 mg PO DAILY Referrals Referrals: Diego Marie MD [Primary Care Provider] -
[2022-05-19 14:41] LABS: Basophils # (auto) 0.04 K/uL (0-0.2); Basophils % (auto) 0.2 %; Hemoglobin 12.4 g/dl (14.0-18.0); Immature Granulocytes # (auto) 0.18 K/uL (0.01-0.20); Immature Granulocytes % (auto) 0.9 %; Lymphocytes # (auto) 0.87 K/uL (1.2-3.4); Lymphocytes % (auto) 4.4 %; Mean Corpuscular Hemoglobin 30.5 pg (25.0-34.0); Mean Corpuscular Hgb Conc 33.5 g/dL (32.0-36.0); Mean Corpuscular Volume 91.1 fL (80.0-100.0); Mean Platelet Volume 9.2 fL (9.4-12.4); Monocytes # (auto) 1.14 K/uL (0.11-0.59); Monocytes % (auto) 5.7 %; Neutrophils # (auto) 17.63 K/uL (1.40-6.50); Neutrophils % (auto) 88.8 %; Platelet Count 205 K/uL (130-400); RDW Coefficient of Variation 14.9 % (11.5-14.5); RDW Standard Deviation 49.1 fL (36.4-46.3); Red Blood Count 4.06 M/uL (4.70-6.10); White Blood Count 19.86 K/ul (4.8-10.8)
[2022-05-19 14:42] LABS: Appearance Urine Clear (Clear); Bacteria Urine Automated 1+ (Negative); Bilirubin Urine Negative (Negative); Blood Urine 1+ (Negative); Cast Urine Automated 0 /lpf (0-5); Color Urine Yellow; Glucose Urine UA 3+ (Negative); Ketones Urine Negative (Negative); Leukocyte Esterase Urine Negative (Negative); Nitrite Urine Negative (Negative); Protein Urine Trace (Negative); RBC Urine Automated 0-4 /hpf (0-4); Specific Gravity Urine 1.029 (1.000-1.030); Urobilinogen Urine Negative (Negative); pH Urine 5.5 (4.5-7.5)
--- NOTE | 2022-05-19 14:58 | XRay Report ---
XR chest 1V portable CLINICAL HISTORY: Chest pain, nonspecific COMPARISON STUDY: Chest CT September 05, 2017. Chest radiograph June 07, 2021. FINDINGS: There is no pneumothorax. No definite pleural effusion is identified. Cardiomegaly is uncha nged. There is mild interstitial thickening. No consolidation is identified. Multiple old left rib fr actures are incidentally noted. IMPRESSION: Cardiomegaly. Pulmonary vascular congestion with possible mild pulmonary edema. ACT 112: Negative or not required by law. Electronically signed by: Tyree Zaragoza M.D. 05/19/2022 2:56 PM
[2022-05-19 15:00] LABS: Albumin Level 3.8 gm/dl (3.4-5.0); BUN Creatinine Ratio 20.1 (10-20); Bilirubin,Total 0.8 mg/dl (0.2-1.0); Calcium 9.2 mg/dl (8.6-10.3); Creatinine Clr Calc Pharmacy 55.6 ml/min; Est GFR (African American) 45.4 ml/min; Est GFR (Non-African American) 39.1 ml/min; Globulin 3.7 gm/dl (2.5-4.0); Potassium 3.9 mmol/L (3.5-5.1); Total Protein 7.5 gm/dl (6.0-8.3); Troponin I High Sensitivity 15.9 pg/ml (0-20)
[2022-05-19] MEDS ORDERED: ACETAMINOPHEN 325 MG TAB PO STA (15:27)
[2022-05-19] MEDS ORDERED: MoRPHine SULFATE 4 MG/ML 1 ML CARP\\VIAL IV STA (15:28)
[2022-05-19] MEDS ORDERED: ONDANSETRON INJ 2 MG/ML 2 ML VIAL IV STA (15:28)
--- NOTE | 2022-05-19 16:07 | CT Scan Report ---
CT OF THE ABDOMEN AND PELVIS WITHOUT CONTRAST CLINICAL HISTORY: Abdominal pain. Back pain. Fever. Sepsis. COMPARISON STUDY: CT of the abdomen and pelvis June 05, 2021 and renal ultrasound May 02, 2022. TECHNIQUE: Axial images of the abdomen and pelvis were obtained without IV contrast. Images were revi ewed in the axial, sagittal, and coronal planes. Automated exposure control was utilized for the stefani dy. A dose lowering technique was utilized adhering to the principles of ALARA. FINDINGS: Please note that the chest CT will be reported separately. This exam is significantly compr omised by artifact and lack of IV contrast. No pneumatosis, free air or portal venous gas is present. Unenhanced images of liver, spleen, adrenal glands, kidneys and pancreas are grossly unremarkable. T here is pancreatic glandular atrophy. There is no peripancreatic or pericholecystic infiltration. A 5 mm calcification within the lower pole of the right kidney is unchanged. This could reflect a cortic al calcification or a nonobstructing calculus. There are no ureteral calculi. There is no hydronephro sis. Extensive sigmoid diverticulosis is present. There is no evidence for acute diverticulitis. Ther e is no evidence for a bowel obstruction. There is been no significant change in appearance of the ab domen or pelvis since prior CT. No acute fractures are identified. Multilevel degenerative changes wi thin lumbar spine are present. Lumbar spine central canal and neural foramen are suboptimally assesse d by CT. IMPRESSION: 1. Exam significantly compromised given artifact and lack of contrast. However, no definite acute fin dings. 2. No bowel obstruction. No pneumatosis, free air or portal venous gas. 3. Extensive colonic diverticulosis. No evidence for acute diverticulitis. ACT 112: Negative or not required by law. Electronically signed by: Tyree Zaragoza M.D. 05/19/2022 4:06 PM
[2022-05-19] MEDS ORDERED: VANCOMYCIN HCL 2,750 MG in SODIUM CHLORIDE 0.9% 500 ML IV ONE (16:15)
[2022-05-19] MEDS ORDERED: VANCOMYCIN CONSULT ACTIVE PRN (16:15)
--- NOTE | 2022-05-19 16:16 | CT Scan Report ---
CT OF THE CHEST WITHOUT IV CONTRAST CLINICAL HISTORY: ? sepsis COMPARISON STUDY: Chest CT September 05, 2017. Chest radiograph performed earlier today. TECHNIQUE: Axial images of the chest were obtained without IV contrast. Images were reviewed in the axial, sagittal, and coronal planes. IV contrast was not administered for this examination. Automat ed exposure control was utilized for the study. A dose lowering technique was utilized adhering to t he principles of ALARA. FINDINGS: This exam is mildly compromised by motion artifact. Mild cardiomegaly is noted. No pericar dial effusion. There is dilatation of the central pulmonary arteries. No pneumothorax or pleural effu gerson is present. Lungs are suboptimally assessed due to motion artifact. There is no consolidation to suggest pneumonia. Linear subpleural opacities favor atelectasis. Central airways are grossly patent . A few small pulmonary nodules are similar to CT of September 05, 2017. No acute fractures within the bon y thorax are identified. Several old left-sided rib fractures are present. There is no thoracic spine fracture. Abdomen and pelvis CT will be reported separately. There is no significant thoracic lympha denopathy. Prominent subcarinal lymph nodes remain unchanged. IMPRESSION: 1. Exam mildly compromised by artifact. No consolidation to suggest pneumonia. 2. No acute intrathoracic findings on unenhanced exam. 3. Mild cardiomegaly and dilatation of the central pulmonary arteries. ACT 112: Negative or not required by law. Electronically signed by: Tyree Zaragoza M.D. 05/19/2022 4:14 PM
--- NOTE | 2022-05-19 17:05 | History & Physical Report ---
Date of Service May 19, 2022 Assessment & Plan (1) Sepsis: Plan: Suspected source left lower extremity cellulitis Continue Vancomycin. Given this is essential a diabetic wound infection will broaden coverage to cefepime and metronidazole from ceftriaxone. Follow up blood cultures Lactate 1.8, aggressive fluid resuscitation not given due to Hx CHF and normal lactate (2) Abnormal EKG: Plan: Suspect this was just frequent PACs. Telemetry currently in NSR and regular hrat rate. Monitor on telemetry. (3) CHF (congestive heart failure): Plan: Euvolemic on admission. Chronic without acute exacerbation Holding metoprolol and lasix in setting of sepsis with concern for hypotension. Restart as able. (4) Coronary artery disease: Plan: Continue ASA, rosuvastatin Metoprolol on hold as above. Restart if BP stable overnight (5) Enlarged prostate without lower urinary tract symptoms (luts): Plan: Continue tamsulosin and finasteride. Monitor for urinary retention given this has been an issue in the past. (6) GERD without esophagitis: Plan: Switch omeprazole to pantorpazole (7) Hypertension: Plan: Metoprolol and Lasix on hold as able. Restart as able. (8) Type 2 diabetes mellitus: Plan: HbA1C 7.8 in Mar, no need to repeat this. Hold home meds - Farxiga, glipizide, metformin Consult pharmacy for glycemic control while here (9) Gout, joint: Plan: No acute exacerbation Continue allopurinol for prophylaxis Plan VTE Prophylaxis - Lovenox 40mg SQ BID Diet - T2DM Disposition - admit to PCU Admission and Anticipated Discharge Date Admission Date: May 19, 2022 History of Present Illness Chief Complaint: Generalized weakness Primary Care Provider: Diego Marie MD Fermin Amor is a 72 year old male who presents to the ER with generalized weakness. Story from ER notes is that he was complaining of back pain but he denies this to me. He reports he ate tacos last night and was vomiting this morning therefore he came to the ER. On discussion with his over the phone she reports he is here for generalized weakness - around midday he was sitting in his recliner slouched over and couldn't get up there she called for an ambulance. He was noted to have a left lower extremity cellulitis. He reports stubbing his left 5th toe (and possible 1st toe per his ) last week and again last night. Since last week it has surrounding erythema although he is unsure if this is getting better or worse. He denies any fever or chills. He was noted to be hypoxic and requiring 3LPM O2 at rest to maintain O2 sats > 90%. He denies any chest pain, orthopnea, PND, shortness of breath, nasal congestion or cough. Allergies Allergy/AdvReac Type Severity Reaction Status Date / Time fluticasone Allergy Severe lips and Verified 05/19/22 16:24 tongue swelling, angioedema tomato Allergy Mild Itching Verified 05/19/22 16:24 Home Medications Medication Instructions Recorded Confirmed Type folic acid 1 mg tablet 1 mg PO QAM 07/17/18 05/19/22 History walker #1 ea 07/17/18 05/19/22 Rx lancets (Microlet Lancet) #100 ea 04/08/21 05/19/22 Rx aspirin 81 mg tablet,delayed 81 mg PO QAM 06/05/21 05/19/22 History release (Adult Low Dose Aspirin) metformin 500 mg tablet,extended 500 mg PO BID #180 tabs 08/04/21 05/19/22 Rx release 24 hr coenzyme Q10 100 mg capsule 100 mg PO DAILY 09/01/21 05/19/22 History (CoQ-10) digestive enzymes 1 cap PO DAILY 09/01/21 05/19/22 History ferrous sulfate 325 mg (65 mg 325 mg PO DAILY 09/01/21 05/19/22 History iron) tablet (iron) multivitamin (Multiple Vitamins 1 tab PO DAILY 09/01/21 05/19/22 History tablet) metoprolol tartrate 50 mg tablet 50 mg PO BID #60 tabs 12/21/21 05/19/22 Rx nabumetone 500 mg tablet 500 mg PO BID M19.90 #60 tabs 01/09/22 05/19/22 Rx furosemide 20 mg tablet (Lasix) 40 mg PO QAM #90 tabs 02/10/22 05/19/22 Rx omeprazole 20 mg capsule,delayed 20 mg PO BID #180 caps 03/03/22 05/19/22 Rx release rosuvastatin 10 mg tablet (Crestor) 10 mg PO DAILY #90 tabs 03/03/22 05/19/22 Rx allopurinol 300 mg tablet 300 mg PO QAM #90 tabs 03/09/22 05/19/22 Rx finasteride 5 mg tablet (Proscar) 5 mg PO QAM #30 tabs 03/16/22 05/19/22 Rx glipizide 5 mg tablet 5 mg PO BID #180 tabs 03/20/22 05/19/22 Rx tamsulosin 0.4 mg capsule 0.8 mg PO HS #90 caps 03/21/22 05/19/22 Rx dapagliflozin 5 mg tablet (Farxiga) 5 mg PO DAILY #90 tabs 04/13/22 05/19/22 Rx OneTouch Verio Meter #1 ea 04/14/22 05/19/22 Rx (blood-glucose meter) OneTouch Verio test strips (blood #200 ea 04/14/22 05/19/22 Rx sugar diagnostic) lancets 30 gauge (OneTouch Delica #100 ea 04/18/22 05/19/22 Rx Lancets) potassium gluconate 595 mg (99 mg) 595 mg PO DAILY 05/19/22 05/19/22 History tablet Past Med/Surg History Medical History Acute metabolic encephalopathy Allergic rhinitis Anemia Bacterial endocarditis (02/18/11) Bronchitis Coronary artery disease Diabetes mellitus type 2, uncontrolled Elevated homocysteine Encephalopathy Enlarged prostate without lower urinary tract symptoms (luts) Foreign body in nose GERD without esophagitis Gout, joint Hyperlipidemia Hypomagnesemia Hypomagnesemia Morbid obesity Multiple pulmonary nodules NSTEMI (non-ST elevated myocardial infarction) (01/30/11) Raynauds phenomenon Rheumatoid arthritis Sepsis Septic shock Type 2 diabetes mellitus Urinary tract infection Surgical History H/O colonoscopy Social History Smoking Status: Former smoker Age Started Using Tobacco: 12; Age Quit Using Tobacco: 68; packs per day: 1; Smoking End Date: 7 years ago; Hx Alcohol Use: No Hx Substance Use: No Preferred Language: Citizen Of [place] Communication Ability: Effective Medical Office Specialist Required: No Beliefs That Will Affect Care: None marital status: Current Living Situation: Spouse and Family Current Living Situation Comment: Pt lives with and son. Stated his son helps with his care. current occupational status: retired Other Information That Helps Us Care for You: No Feels Safe at Home: Yes Safety Concerns: Feels Safe At This Time Assistive Devices: Cane, Oxygen - Continuous and Walker Review of Systems Review of Systems: All systems reviewed & are unremarkable except as noted in HPI & below Physical Exam Constitutional: well developed; + not well nourished and no acute distress Eyes: PERRL, conjunctivae normal, anicteric sclerae ENMT: external ear and nose normal, oropharynx normal Respiratory: normal respiratory effort; no respiratory distress Auscultation: + crackles (bibasal); breath sounds present, no diminished lung sounds, no rales, no rhonchi and no wheezes Cardiovascular: Rate/Rhythm: regular rate and regular rhythm Heart Sounds: no murmur Extremities: normal capillary refill and + pedal edema (1+ b/l equal); no calf tenderness Gastrointestinal (Abdomen): normal bowel sounds, soft, nontender, no hepatosplenomegaly Skin: blood around 5th toe on left foot, dry skin on feet, Erythema, warmth and swelling surrounding ulcer on mid song to foot Neurologic: moves all extremities and awake; not confused Psychiatric: Orientation: alert, oriented to person and oriented to time (year and month); + not oriented to place Genitourinary: no CVA tenderness Results & Data Results & Data Vital Signs (Past 12 Hours) Vital Signs Temp Pulse Pulse Resp BP BP Pulse Ox 05/19/22 16:41 87 L 05/19/22 16:27 113 H 23 104/63 93 05/19/22 16:25 88 L 05/19/22 15:21 38.9 C H 111 H 27 H 127/63 93 05/19/22 14:28 104 H 92 05/19/22 13:34 105 H 05/19/22 13:18 38.2 C H 111 H 24 127/63 90 O2 Del Method O2 Flow Rate 05/19/22 16:41 2 05/19/22 16:27 Nasal Cannula 2 05/19/22 16:25 Room Air 0 05/19/22 15:21 Room Air 05/19/22 14:28 Room Air 05/19/22 13:34 05/19/22 13:18 Room Air Laboratory Results Abnormal lab results 05/19/22 05/19/2205/19/23 Range/Units 14:22 14:22 14:22 WBC 19.86 H (4.8-10.8) K/ul RBC 4.06 L (4.70-6.10) M/uL Hgb 12.4 L (14.0-18.0) g/dl Hct 37.0 L (42.0-52.0) % RDW Std Deviation 49.1 H (36.4-46.3) fL RDW Coeff of Cheng 14.9 H (11.5-14.5) % MPV 9.2 L (9.4-12.4) fL Neut # (Auto) 17.63 H (1.40-6.50) K/uL Lymph # (Auto) 0.87 L (1.2-3.4) K/uL [place] # (Auto) 1.14 H (0.11-0.59) K/uL BUN 34 H (6-23) mg/dl Creatinine 1.69 H (0.6-1.4) mg/dl BUN/Creatinine Ratio 20.1 H (10-20) Glucose 230 H (70-99(Fasting)) mg/dl Procalcitonin 1.55 H (0-0.5) ng/ml Urine Protein (Negative) Urine Glucose (UA) (Negative) Urine Blood (Negative) U Epithel Cells (Auto) (0-5) /lpf Urine Bacteria (Auto) (Negative) 05/19/22 Range/Units Unknown WBC (4.8-10.8) K/ul RBC (4.70-6.10) M/uL Hgb (14.0-18.0) g/dl Hct (42.0-52.0) % RDW Std Deviation (36.4-46.3) fL RDW Coeff of Cheng (11.5-14.5) % MPV (9.4-12.4) fL Neut # (Auto) (1.40-6.50) K/uL Lymph # (Auto) (1.2-3.4) K/uL [place] # (Auto) (0.11-0.59) K/uL BUN (6-23) mg/dl Creatinine (0.6-1.4) mg/dl BUN/Creatinine Ratio (10-20) Glucose (70-99(Fasting)) mg/dl Procalcitonin (0-0.5) ng/ml Urine Protein Trace H (Negative) Urine Glucose (UA) 3+ H (Negative) Urine Blood 1+ H (Negative) U Epithel Cells (Auto) 5-10 H (0-5) /lpf Urine Bacteria (Auto) 1+ H (Negative) Diagnostic Findings XR chest 1V portable CLINICAL HISTORY: Chest pain, nonspecific COMPARISON STUDY: Chest CT September 05, 2017. Chest radiograph June 07, 2021. FINDINGS: There is no pneumothorax. No definite pleural effusion is identified. Cardiomegaly is unchanged. There is mild interstitial thickening. No consolidation is identified. Multiple old left rib fractures are incidentally noted. IMPRESSION: Cardiomegaly. Pulmonary vascular congestion with possible mild pulmonary edema. CT OF THE CHEST WITHOUT IV CONTRAST CLINICAL HISTORY: ? sepsis COMPARISON STUDY: Chest CT September 05, 2017. Chest radiograph performed earlier today. TECHNIQUE: Axial images of the chest were obtained without IV contrast. Images were reviewed in the axial, sagittal, and coronal planes. IV contrast was not administered for this examination. Automated exposure control was utilized for the study. A dose lowering technique was utilized adhering to the principles of ALARA. FINDINGS: This exam is mildly compromised by motion artifact. Mild cardiomegaly is noted. No pericardial effusion. There is dilatation of the central pulmonary arteries. No pneumothorax or pleural effusion is present. Lungs are suboptimally assessed due to motion artifact. There is no consolidation to suggest pneumonia. Linear subpleural opacities favor atelectasis. Central airways are grossly patent. A few small pulmonary nodules are similar to CT of September 05, 2017. No acute fractures within the bony thorax are identified. Several old left-sided rib fractures are present. There is no thoracic spine fracture. Abdomen and pelvis CT will be reported separately. There is no significant thoracic lymphadenopathy. Prominent subcarinal lymph nodes remain unchanged. IMPRESSION: 1. Exam mildly compromised by artifact. No consolidation to suggest pneumonia. 2. No acute intrathoracic findings on unenhanced exam. 3. Mild cardiomegaly and dilatation of the central pulmonary arteries. CT OF THE ABDOMEN AND PELVIS WITHOUT CONTRAST CLINICAL HISTORY: Abdominal pain. Back pain. Fever. Sepsis. COMPARISON STUDY: CT of the abdomen and pelvis June 05, 2021 and renal ultrasound May 02, 2022. TECHNIQUE: Axial images of the abdomen and pelvis were obtained without IV contrast. Images were reviewed in the axial, sagittal, and coronal planes. Automated exposure control was utilized for the study. A dose lowering technique was utilized adhering to the principles of ALARA. FINDINGS: Please note that the chest CT will be reported separately. This exam is significantly compromised by artifact and lack of IV contrast. No pneumatosis, free air or portal venous gas is present. Unenhanced images of liver, spleen, adrenal glands, kidneys and pancreas are grossly unremarkable. There is pancreatic glandular atrophy. There is no peripancreatic or pericholecystic infiltration. A 5 mm calcification within the lower pole of the right kidney is unchanged. This could reflect a cortical calcification or a nonobstructing calculus. There are no ureteral calculi. There is no hydronephrosis. Extensive sigmoid diverticulosis is present. There is no evidence for acute diverticulitis. There is no evidence for a bowel obstruction. There is been no significant change in appearance of the abdomen or pelvis since prior CT. No acute fractures are identified. Multilevel degenerative changes within lumbar spine are present. Lumbar spine central canal and neural foramen are suboptimally assessed by CT. IMPRESSION: 1. Exam significantly compromised given artifact and lack of contrast. However, no definite acute findings. 2. No bowel obstruction. No pneumatosis, free air or portal venous gas. 3. Extensive colonic diverticulosis. No evidence for acute diverticulitis. Medications Administered ER Medications Given: NSS 1L bolus Ceftriaxone 2g IV Acetaminophen 650mg PO Morphine 4mg IV Ondansetron 4mg IV ECG Rate (beats per minute): 110 Rhythm: atrial fibrillation Findings: + LBBB and + left axis deviation Comparison ECG Date: from (June 05, 2021) Change: the following changes noted (irregular rhythm ?a. fib replaced regular rhythm tachycardia) Code Status & VTE Plan Code Status Full PG Care Time/CCT Total # of Minutes Spent Total Time Spent with Patient: Total time spent is greater than 50% in coordination of care (as documented) at patient's floor/unit and/or counseling patient: Coding Level of Care Code 01702 INT INP/OBS CARE 3/75MIN Diagnoses Sepsis A41.9 Abnormal EKG R94.31 CHF (congestive heart failure) I50.9 Coronary artery disease I25.10 Enlarged prostate without lower urinary tract symptoms (luts) N40.0 GERD without esophagitis K21.9 Hypertension I10 Type 2 diabetes mellitus E11.9 Gout, joint M10.9
--- NOTE | 2022-05-19 17:07 | Electrocardiogram Report ---
Test Reason : Blood Pressure : / mmHG Vent. Rate : 110 BPM Atrial Rate : 110 BPM P-R Int : 184 ms QRS Dur : 132 ms QT Int : 400 ms P-R-T Axes : 000 -74 057 degrees QTc Int : 541 ms Poor data quality, interpretation may be adversely affected Atrial fibrillation vs, sinus tachycardia wih frequent PACs Left axis deviation Left bundle branch block Abnormal ECG When compared with ECG of 05-JUN-2021 10:22, Rhythm less regular (P waves difficult to discern on either tracing) Confirmed by Emory Onofre ([id number]) on 05/19/2022 5:06:42 PM Referred By: Confirmed By:Emory nOofre
[2022-05-19] MEDS ORDERED: DEXTROSE 50% 50 ML SYRINGE IV PRN (19:16)
[2022-05-19] MEDS ORDERED: GLUCAGON FOR INJ 1 MG VIAL SQ PRN (19:16)
[2022-05-19] MEDS ORDERED: GLUCOSE 10 TAB/TUBE PO PRN (19:16)
[2022-05-19] MEDS ORDERED: GLUCOSE 40% GEL 15 GM TUBE PO PRN (19:16)
[2022-05-19] MEDS ORDERED: PHARMACY GLYCEMIC MGMT CONSULT PRN (19:16)
[2022-05-19] MEDS ORDERED: CARBOHYDRATES FOR HYPOGLYCEMIA PO PRN (19:16)
[2022-05-19] MEDS: CEFEPIME 2,000 MG in SYRINGE 0 ML IV SCH (21:33)
[2022-05-19] MEDS: metroNIDAZOLE 500 MG/100 ML BAG IV SCH (21:40)
[2022-05-19] MEDS: PANTOprazole 40 MG TAB PO SCH (21:41)
[2022-05-19] MEDS: LANTUS PER UNIT CHARGE SQ SCH (21:51)
[2022-05-19] MEDS: INSULIN ASPART PER UNIT CHARGE SC SCH (21:51)
[2022-05-19] MEDS: ACETAMINOPHEN 325 MG TAB PO PRN (21:55)
[2022-05-20] MEDS: INSULIN ASPART PER UNIT CHARGE SC SCH ×6 (00:53→20:36)
[2022-05-20] MEDS: metroNIDAZOLE 500 MG/100 ML BAG IV SCH ×2 (04:21→12:26)
[2022-05-20 04:29] LABS: A calco-baum cmplx NotReported Not Detected (NotDetected); Bact fragilis Not Reported Not Detected (NotDetected); C auris Not Reported Not Detected (NotDetected); Calbicans Not Reported Not Detected (NotDetected); Candida glabrata Not Reported Not Detected (NotDetected); Candida krusei Not Reported Not Detected (NotDetected); Cneoformans/gatti Not Reported Not Detected (NotDetected); Cparapsilosis Not Reported Not Detected (NotDetected); Ctropicalis Not Reported Not Detected (NotDetected); E cloacae compx Not Reported Not Detected (NotDetected); Efaecalis Not Reported Not Detected (NotDetected); Efaecium Not Reported Not Detected (NotDetected); Enterobacterales Not Reported Not Detected (NotDetected); Escherichia coli Not Reported Not Detected (NotDetected); H influenzae Not Reported Not Detected (NotDetected); K aerogenes Not Reported Not Detected (NotDetected); Koxytoca Not Reported Not Detected (NotDetected); Kpneumoniae grp Not Reported Not Detected (NotDetected); Lmonocyt Not Reported Not Detected (NotDetected); N meningitidis Not Reported Not Detected (NotDetected); P aeruginosa Not Reported Not Detected (NotDetected); Proteus spp Not Reported Not Detected (NotDetected); Salmonella spp Not Reported Not Detected (NotDetected); Smarcescens Not Reported Not Detected (NotDetected); Staph lugdunensis Not Reported Not Detected (NotDetected); Staph spp. Not Reported Not Detected (NotDetected); Staphaureus Not Reported Not Detected (NotDetected); Staphepi Not Reported Not Detected (NotDetected); Stenmaltophilia Not Reported Not Detected (NotDetected); Strep agal(GrpB) Not Reported Not Detected (NotDetected); Strep pneum Not Reported Not Detected (NotDetected); Strep pyog (GrpA) Not Reported Not Detected (NotDetected); Streptococcus spp DETECTED (NotDetected)
[2022-05-20] MEDS ORDERED: VANCOMYCIN LEVEL ONE (04:30)
[2022-05-20 04:45] LABS: Strep spp Not Reported DETECTED (NotDetected)
[2022-05-20] MEDS ORDERED: VANCOMYCIN HCL 500 MG in DEXTROSE 5% 100 ML IV SCH (06:00)
[2022-05-20 07:21] LABS: Basophils # (auto) 0.07 K/uL (0-0.2); Basophils % (auto) 0.5 %; Eosinophils # (auto) 0.04 K/uL (0-0.50); Eosinophils % (auto) 0.3 %; Hematocrit (blood only) 35.9 % (42.0-52.0); Hemoglobin 11.9 g/dl (14.0-18.0); Immature Granulocytes # (auto) 0.11 K/uL (0.01-0.20); Immature Granulocytes % (auto) 0.7 %; Lymphocytes # (auto) 1.54 K/uL (1.2-3.4); Mean Corpuscular Hemoglobin 30.2 pg (25.0-34.0); Mean Corpuscular Hgb Conc 33.1 g/dL (32.0-36.0); Mean Corpuscular Volume 91.1 fL (80.0-100.0); Mean Platelet Volume 9.3 fL (9.4-12.4); Monocytes # (auto) 0.89 K/uL (0.11-0.59); Monocytes % (auto) 5.8 %; Neutrophils # (auto) 12.77 K/uL (1.40-6.50); Neutrophils % (auto) 82.7 %; Platelet Count 162 K/uL (130-400); RDW Coefficient of Variation 15.1 % (11.5-14.5); RDW Standard Deviation 50.2 fL (36.4-46.3); Red Blood Count 3.94 M/uL (4.70-6.10); White Blood Count 15.42 K/ul (4.8-10.8)
[2022-05-20 07:46] LABS: Albumin Level 3.6 gm/dl (3.4-5.0); BUN Creatinine Ratio 20.6 (10-20); Bilirubin,Total 0.7 mg/dl (0.2-1.0); Calcium 8.4 mg/dl (8.6-10.3); Creatinine Clr Calc Pharmacy 66.9 ml/min; Est GFR (African American) 56.5 ml/min; Est GFR (Non-African American) 48.7 ml/min; Globulin 3.5 gm/dl (2.5-4.0); Potassium 3.9 mmol/L (3.5-5.1); Total Protein 7.1 gm/dl (6.0-8.3)
--- NOTE | 2022-05-20 08:13 | Ultrasound Report ---
LEFT LOWER EXTREMITY ARTERIAL DOPPLER ULTRASOUND CLINICAL HISTORY: Left lower extremity infection COMPARISON STUDY: No previous studies for comparison. TECHNIQUE: Color and duplex Doppler sonography of the arterial system of the left lower extremity was performed. FINDINGS: This exam was compromised by suboptimal penetration. No elevated velocities within the left lower extremity were identified to suggest a hemodynamically significant stenosis. Triphasic flow wa s noted within the left common femoral, superficial femoral, popliteal, anterior tibial and posterior tibial arteries. The left peroneal artery was not well visualized on this exam. Mild atherosclerotic plaque was noted. IMPRESSION: 1. No evidence for a hemodynamically significant stenosis within the left lower extremity. Triphasic flow throughout the left lower extremity. 2. Left peroneal artery not well visualized. Exam compromised by suboptimal penetration. ACT 112: Negative or not required by law. Electronically signed by: Tyree Zaragoza M.D. 05/20/2022 8:11 AM
[2022-05-20] MEDS: FUROSEMIDE 40 MG/4 ML VIAL IV SCH ×2 (08:59→20:26)
[2022-05-20] MEDS: ROSUVASTATIN CALCIUM 10 MG TAB PO SCH (08:59)
[2022-05-20] MEDS: ENOXAPARIN INJ 40 MG/0.4 ML SYR SQ SCH ×2 (08:59→20:25)
[2022-05-20] MEDS: CEFEPIME 2,000 MG in SYRINGE 0 ML IV SCH (08:59)
[2022-05-20] MEDS: METOPROLOL TARTRATE 50 MG TAB PO SCH ×3 (09:00→20:30)
[2022-05-20] MEDS: LANTUS PER UNIT CHARGE SQ SCH ×2 (09:00→21:22)
[2022-05-20] MEDS ORDERED: NON-FORMULARY MEDICATION (Coenzyme Q10 [Coq-10] 100 mg capsule) PO SCH (09:00)
[2022-05-20] MEDS: PANTOprazole 40 MG TAB PO SCH ×2 (09:00→20:24)
[2022-05-20] MEDS: ASPIRIN 81 MG ECTAB PO SCH (09:00)
[2022-05-20] MEDS: FINASTERIDE 5 MG TAB PO SCH (09:00)
[2022-05-20] MEDS: allopurinoL 300 MG TAB PO SCH (09:00)
--- NOTE | 2022-05-20 12:44 | Hospitalist Progress Note ---
Date of Service May 20, 2022 Assessment & Plan (1) Sepsis: Plan: Present on admission. Gram-positive cocci in chains isolated in the blood. Antibiotic switched over to intravenous Ancef. We will consult infectious disease. (2) Abnormal EKG: Plan: No evidence of acute coronary syndrome. Telemetry. (3) CHF (congestive heart failure): Plan: Acute on chronic diastolic CHF. Normal ejection fraction on most recent echo. This is causing acute hypoxic respiratory failure. Lasix diuresis ordered. Monitor intake and output. Serial chest x-rays. Continue current medical management (4) Coronary artery disease: Plan: Stable. Continue ASA, rosuvastatin, metoprolol (5) Enlarged prostate without lower urinary tract symptoms (luts): Plan: Continue tamsulosin and finasteride. Monitor for urinary retention given this has been an issue in the past. (6) GERD without esophagitis: Plan: pantorpazole therapy while hospitalized (7) Hypertension: Plan: Stable. Continue current medical management (8) Type 2 diabetes mellitus: Plan: HbA1C 7.8 in Mar. p.o. home meds are on hold ( Farxiga, glipizide, metformin). Sliding scale coverage as needed (9) Gout, joint: Plan: No acute exacerbation. Continue allopurinol for prophylaxis (10) Bacteremia: Plan: Gram-positive cocci in chains isolated. Antibiotics switched to intravenous Ancef. Consult infectious disease. We will repeat blood cultures every 2 days until negative Plan To be determined Admission and Anticipated Discharge Date Admission Date: May 19, 2022 Subjective Alert and oriented. Flat affect. Gram-positive cocci in chains isolated in the blood culture. Antibiotics switched over to IV Ancef. Probable streptococcal infection. Arterial Doppler left lower extremity is unremarkable. He appears to have an element of diastolic congestive heart failure, acute on chronic. This is associated with hypoxic respiratory failure. Intravenous Lasix ordered. Will restart metoprolol which he takes at home. Serial labs ordered. Review of Systems Review of Systems: Constitutional-no fever or chills ENT-no blurred vision, no double vision, no epistaxis, no sore throat Respiratory-no cough, no wheezing. Orthopnea and dyspnea on exertion Cardiac-no palpitations, no chest pain, no syncope GI-no nausea, vomiting, diarrhea, melena, hematochezia -no urinary retention, no urinary incontinence, no dysuria, no hematuria Musculoskeletal-no joint pain, no muscle tenderness Skin-cellulitic changes left lower extremity . 2+ pitting edema bilateral lower extremities below the knees Neuro-no isolated weakness, no paresthesia, no weakness Psych-no depression, no anxiety Physical Exam Physical Exam: General-alert and oriented x3, no fevers, no chills HEENT-head atraumatic and normocephalic, pupils equal and reactive to light, extraocular muscles intact Neck-no lymphadenopathy or thyromegaly, trachea midline Chest-bibasilar inspiratory rales. End expiratory wheezes. No rhonchi Cardiac-regular rate and rhythm, normal S1 and S2 Abdomen-normal bowel sounds, nontender, no hepatosplenomegaly Extremities-cellulitic changes left lower extremity. 2+ pitting edema bilateral lower extremities below the knees Neuro-cranial nerves II through XII intact, motor and sensory function within normal limits, strength symmetrical with generalized weakness, no focal deficits Psych-flat affect Results & Data Results & Data Vital Signs (Past 12 Hours) Vital Signs Temp Pulse Resp BP Pulse Ox O2 Del Method O2 Flow Rate 05/20/22 12:28 36.5 C 77 20 109/68 97 Nasal Cannula 3.0 05/20/22 07:53 37.1 C 82 20 100/60 96 Nasal Cannula 3.0 05/20/22 03:17 36.9 C 75 20 111/66 92 Nasal Cannula 3 Laboratory Results 05/20/22 06:55 05/20/22 06:55 PG Care Time/CCT Total # of Minutes Spent Total Time Spent with Patient: Total time spent is greater than 50% in coordination of care (as documented) at patient's floor/unit and/or counseling patient: Coding Level of Care Code 82251 SUB INP/OBS CARE 3/50MIN Diagnoses Sepsis A41.9 Abnormal EKG R94.31 CHF (congestive heart failure) I50.9 Coronary artery disease I25.10 Enlarged prostate without lower urinary tract symptoms (luts) N40.0 GERD without esophagitis K21.9 Hypertension I10 Type 2 diabetes mellitus E11.9 Gout, joint M10.9 Bacteremia R78.81
[2022-05-20] MEDS: ceFAZolin 2000MG 2,000 MG/15 ML SYR IV SCH ×2 (13:30→21:44)
--- NOTE | 2022-05-20 13:55 | Pharmacy Report ---
Pharmacy Glycemic Short Note 2 - Date of Service May 20, 2022 - Glycemic Short BSG Results (Last 24 hours): 05/19/22 05/19/22 05/20/22 14:22 20:29 00:33 Glucose 230 H POC Glucose 208 H 152 H 05/20/22 05/20/22 05/20/22 04:20 06:55 07:19 Glucose 164 H POC Glucose 146 H 166 H 05/20/22 11:05 Glucose POC Glucose 186 H OUTPATIENT ANTIDIABETIC REGIMEN: * Farxiga 5 mg daily * glipizide 5 mg PO BID * metformin ER 500 mg PO BID * HbA1C = 7.8% (04/10/22) ASSESSMENT: * Mr Amor is a 72 y/o M with a PMH of T2DM who was admitted on 05/19/22. * His BSGs on day of admission were ~200s. * He received Lantus 20 units yesterday evening and BSGs overnight were 152-146 mg/dL. Fasting this AM was 166 mg/dL. * Will start with Lantus 20 units BID- this is slightly less than weight-based stress of 2. * Novolog weight-based stress of 2. PLAN FOR INPATIENT GLYCEMIC CONTROL: * Hold outpatient oral diabetes medications * Basal insulin * Lantus 20 units SQ BID * Bolus insulin * NovoLog per scale ACHS or Q6hrs while NPO * Goal Range: Low 110 mg/dL - High 140 mg/dL * Correction Factor: 15 mg/dL/unit * Nutritional / Prandial insulin per carb ratio of 1 unit per 5 grams CHO consumed
[2022-05-20] MEDS ORDERED: CEFEPIME 2,000 MG in SYRINGE 0 ML IV SCH (16:00)
[2022-05-20] MEDS: ACETAMINOPHEN 325 MG TAB PO PRN (18:40)
[2022-05-20] MEDS: TAMSULOSIN HCL 0.4 MG CAP PO SCH (20:25)
[2022-05-21] MEDS: ACETAMINOPHEN 325 MG TAB PO PRN ×2 (01:36→12:29)
[2022-05-21] MEDS: ceFAZolin 2000MG 2,000 MG/15 ML SYR IV SCH ×2 (05:45→12:23)
[2022-05-21 07:16] LABS: BUN Creatinine Ratio 20.4 (10-20); Calcium 8.2 mg/dl (8.6-10.3); Creatinine Clr Calc Pharmacy 57.3 ml/min; Est GFR (African American) 47.7 ml/min; Est GFR (Non-African American) 41.2 ml/min; Potassium 3.4 mmol/L (3.5-5.1)
[2022-05-21] MEDS: FUROSEMIDE 40 MG/4 ML VIAL IV SCH ×2 (08:16→21:34)
[2022-05-21] MEDS: FINASTERIDE 5 MG TAB PO SCH (08:16)
[2022-05-21] MEDS: METOPROLOL TARTRATE 50 MG TAB PO SCH (08:16)
[2022-05-21] MEDS: PANTOprazole 40 MG TAB PO SCH ×2 (08:16→21:36)
[2022-05-21] MEDS: ENOXAPARIN INJ 40 MG/0.4 ML SYR SQ SCH (08:16)
[2022-05-21] MEDS: allopurinoL 300 MG TAB PO SCH (08:16)
[2022-05-21] MEDS: ASPIRIN 81 MG ECTAB PO SCH (08:16)
[2022-05-21] MEDS: ROSUVASTATIN CALCIUM 10 MG TAB PO SCH (08:17)
[2022-05-21] MEDS: INSULIN ASPART PER UNIT CHARGE SC SCH ×4 (08:26→20:39)
[2022-05-21] MEDS: LANTUS PER UNIT CHARGE SQ SCH ×2 (08:27→21:34)
[2022-05-21] MEDS: POTASSIUM CHLORIDE CRTAB 20 MEQ TABCR PO SCH ×2 (09:41→21:36)
--- NOTE | 2022-05-21 12:26 | Hospitalist Progress Note ---
Date of Service May 21, 2022 Assessment & Plan (1) Sepsis: Plan: Present on admission. Gram-positive cocci in chains isolated in the blood. Antibiotic has been switched over to intravenous Ancef. Infectious disease consultation pending. (2) Abnormal EKG: Plan: No evidence of acute coronary syndrome. Telemetry. (3) CHF (congestive heart failure): Plan: Acute on chronic diastolic CHF. Normal ejection fraction on most recent echo. This has caused acute hypoxic respiratory failure. Lasix diuresis ordered. Monitor intake and output. Repeat portable chest x-ray tomorrow, May 22. Serial chest x-rays. (4) Coronary artery disease: Plan: Stable. Continue ASA, rosuvastatin, metoprolol (5) Enlarged prostate without lower urinary tract symptoms (luts): Plan: Continue tamsulosin and finasteride. Monitor for urinary retention given this has been an issue in the past. (6) GERD without esophagitis: Plan: pantorpazole therapy while hospitalized (7) Hypertension: Plan: Stable. Continue current medical management (8) Type 2 diabetes mellitus: Plan: HbA1C 7.8 in Mar. p.o. home meds are on hold ( Farxiga, glipizide, metformin). Sliding scale coverage as needed (9) Gout, joint: Plan: No acute exacerbation. Continue allopurinol for prophylaxis (10) Bacteremia: Plan: Streptococcus isolated. Antibiotics have been switched to intravenous Ancef. ID consult pending. Repeat blood cultures again today, May 21. We will repeat blood cultures every 2 days until negative (11) Urinary tract infection: Plan: Staph isolated. Currently on Ancef. Awaiting final identification and sensitivities. Antibiotics may need to be tailored or additional antibiotics ordered Plan To be determined Admission and Anticipated Discharge Date Admission Date: May 19, 2022 Subjective Alert and oriented. No acute distress. Streptococcus isolated in the blood cultures on May 19. Repeat blood cultures ordered today, May 21. Urine culture is growing staph with further identification and sensitivities pending. Continue Ancef for now. Creatinine stable at 1.4. Continue IV Lasix. Intake and output is negative. Portable chest x-ray will be repeated tomorrow, May 22. Oral potassium replacement ordered along with serial labs. Review of Systems Review of Systems: Constitutional-no fever or chills ENT-no blurred vision, no double vision, no epistaxis, no sore throat Respiratory-no cough, no wheezing. Orthopnea and dyspnea on exertion Cardiac-no palpitations, no chest pain, no syncope GI-no nausea, vomiting, diarrhea, melena, hematochezia -no urinary retention, no urinary incontinence, no dysuria, no hematuria Musculoskeletal-no joint pain, no muscle tenderness Skin-cellulitic changes left lower extremity . 2+ pitting edema bilateral lower extremities below the knees Neuro-no isolated weakness, no paresthesia, no weakness Psych-no depression, no anxiety Physical Exam Physical Exam: General-alert and oriented x3, no fevers, no chills HEENT-head atraumatic and normocephalic, pupils equal and reactive to light, extraocular muscles intact Neck-no lymphadenopathy or thyromegaly, trachea midline Chest-bibasilar inspiratory rales. End expiratory wheezes. No rhonchi Cardiac-regular rate and rhythm, normal S1 and S2 Abdomen-normal bowel sounds, nontender, no hepatosplenomegaly Extremities-cellulitic changes left lower extremity. 2+ pitting edema bilateral lower extremities below the knees Neuro-cranial nerves II through XII intact, motor and sensory function within normal limits, strength symmetrical with generalized weakness, no focal deficits Psych-flat affect Results & Data Results & Data Vital Signs (Past 12 Hours) Vital Signs Temp Pulse Pulse Resp BP Pulse Ox O2 Del Method 05/21/22 11:32 36.8 C 104 H 18 113/69 96 Nasal Cannula 05/21/22 08:00 104 H 05/21/22 10:25 Nasal Cannula 05/21/22 07:42 36.8 C 114 H 18 103/61 98 Nasal Cannula 05/21/22 03:51 102 H 110/63 05/21/22 03:06 36.3 C L 113 H 20 110/77 96 Nasal Cannula O2 Flow Rate 05/21/22 11:32 3 05/21/22 08:00 05/21/22 10:25 3 05/21/22 07:42 05/21/22 03:51 05/21/22 03:06 3 Laboratory Results 05/20/22 06:55 05/21/22 06:39 PG Care Time/CCT Total # of Minutes Spent Total Time Spent with Patient: Total time spent is greater than 50% in coordination of care (as documented) at patient's floor/unit and/or counseling patient: Coding Level of Care Code 07273 SUB INP/OBS CARE 350MIN Diagnoses Sepsis A41.9 Abnormal EKG R94.31 CHF (congestive heart failure) I50.9 Coronary artery disease I25.10 Enlarged prostate without lower urinary tract symptoms (luts) N40.0 GERD without esophagitis K21.9 Hypertension I10 Type 2 diabetes mellitus E11.9 Gout, joint M10.9 Bacteremia R78.81 Urinary tract infection N39.0
[2022-05-21] MEDS ORDERED: Nursing to Pharmacy Communication SCH (15:45)
[2022-05-21] MEDS ORDERED: ENOXAPARIN 1 MG/KG SQ SCH (15:45)
[2022-05-21] MEDS ORDERED: ENOXAPARIN 100 MG/1ML SYR SQ ONE (16:00)
--- NOTE | 2022-05-21 17:23 | Electrocardiogram Report ---
Test Reason : Blood Pressure : / mmHG Vent. Rate : 095 BPM Atrial Rate : 340 BPM P-R Int : 000 ms QRS Dur : 136 ms QT Int : 386 ms P-R-T Axes : 000 -62 068 degrees QTc Int : 485 ms Atrial fibrillation Left axis deviation Left bundle branch block Abnormal ECG When compared with ECG of 19-MAY-2022 13:16, No significant change Confirmed by Emory Onofre ([id number]) on 05/21/2022 5:23:06 PM Referred By: REFERRED SELF Confirmed By:Emory Onofre
[2022-05-21] MEDS: METOPROLOL TARTRATE 25 MG TAB PO SCH (21:35)
[2022-05-21] MEDS: TAMSULOSIN HCL 0.4 MG CAP PO SCH (21:36)
[2022-05-22] MEDS: ceFAZolin 2000MG 2,000 MG/15 ML SYR IV SCH ×2 (00:40→12:16)
[2022-05-22] MEDS ORDERED: ENOXAPARIN 150 MG/ML SYR SQ SCH (05:00)
[2022-05-22 07:28] LABS: BUN Creatinine Ratio 19.6 (10-20); Calcium 8.6 mg/dl (8.6-10.3); Creatinine Clr Calc Pharmacy 50.2 ml/min; Est GFR (African American) 40.9 ml/min; Est GFR (Non-African American) 35.3 ml/min; Potassium 3.7 mmol/L (3.5-5.1)
[2022-05-22] MEDS: LANTUS PER UNIT CHARGE SQ SCH ×2 (08:39→21:04)
[2022-05-22] MEDS: INSULIN ASPART PER UNIT CHARGE SC SCH ×4 (08:39→20:57)
[2022-05-22] MEDS: allopurinoL 300 MG TAB PO SCH (08:42)
[2022-05-22] MEDS: ASPIRIN 81 MG ECTAB PO SCH (08:42)
[2022-05-22] MEDS: FINASTERIDE 5 MG TAB PO SCH (08:42)
[2022-05-22] MEDS: PANTOprazole 40 MG TAB PO SCH ×2 (08:43→19:59)
[2022-05-22] MEDS: METOPROLOL TARTRATE 25 MG TAB PO SCH (08:43)
[2022-05-22] MEDS: ROSUVASTATIN CALCIUM 10 MG TAB PO SCH (08:43)
[2022-05-22] MEDS: POTASSIUM CHLORIDE CRTAB 20 MEQ TABCR PO SCH ×2 (08:43→19:59)
[2022-05-22] MEDS: FUROSEMIDE 40 MG/4 ML VIAL IV SCH (08:52)
[2022-05-22] MEDS ORDERED: METOPROLOL TARTRATE 25 MG TAB PO ONE (09:30)
--- NOTE | 2022-05-22 09:54 | XRay Report ---
SINGLE VIEW CHEST CLINICAL HISTORY: Congestive heart failure. FINDINGS: An AP, portable, upright chest radiograph is compared to chest x-ray and chest CT dated 05/19. The heart is enlarged. Mild pulmonary vascular congestion appears improved from previous. Ther e is bibasilar scarring/atelectasis. No airspace consolidation or large pleural effusion is identifie d. No pneumothorax is seen. The skeletal structures are osteopenic. There are chronic/healed left-rody ed rib fractures. IMPRESSION: 1. Cardiomegaly with mild pulmonary vascular congestion. This has improved as compared to 05/19/2022. 2. No airspace consolidation or large pleural effusion is identified. ACT 112: Negative or not required by law. Electronically signed by: Surjit Donnelly M.D. 05/22/2022 9:52 AM
--- NOTE | 2022-05-22 14:58 | Infectious Disease Consult ---
Date of Consultation May 22, 2022 Assessment & Plan (1) Bacteremia: #BHS bacteremia, Group G #LE lesions #Resolving cellulitis #Bacteruria with MRSE #Leukocytosis #CKD ABX Cefazolin MICRO Blood cultures 05/21 in lab Blood culture 05/19 Group G [facility]HS 4/4 bottles Urine Culture 05/19 >100, 000 cfu/ml ConS Oxacillin R (MRSE) 72 year old male with h/o CAD, DM2, BPH, morbid obesity, chronic lower extremity wounds who was admitted left leg drainage. Infectious diseases consulted for bacteremia. Patient is not a good historian. Review EMR states that he had eaten tacos and began vomiting day of admission. He states that he stubbed his right toe against something and his left leg began draining. Denies any emesis or diarrhea prior to admission. Per EMR his reported around midday he was sitting in his recliner slouched over and couldn't get up there she called for an ambulance. On admission, he was noted to be hypoxic and requiring 3LPM O2 at rest to maintain O2 sats > 90%. He denies any chest pain, orthopnea, PND, shortness of breath, nasal congestion or cough. Blood culture 05/19 Group G [facility] / bottles, Urine Culture 05/19 >100, 000 cfu/ml ConS Oxacillin R (MRSE) CT A/P without contrast nonrevealing. CT Chest no infectious etiology. Arterial dopplers No evidence for a hemodynamically significant stenosis within the left lower extremity. Discussion Suspect Strep is from lower extremities. CT negative for GI or pulm source. Awaiting repeat cultures. I also suspect CoNS in urine is a contaminant. He also has no urinary complaints to me and MRSE in urine is resistant to cefazolin. Given his CKD, would favor changing Cefazolin to Ceftriaxone. (2) Leukocytosis: Plan -Recommend dc Cefazolin -Start Ceftriaxone 2G IV daily -Follow repeat blood cultures from 05/21 -Follow WBC Thank you ID will follow Will d/w primary team prior to abx change Shameka Love MD Infectious Diseases [facility] Consultation Information Consultation was provided via telemedicine using two-way real-time interactive telecommunication between the patient and the telemedicine provider. For the duration of the visit, the provider was performing the assessment from a different facility than the patient. This includesuse of bluetooth stethoscope forauscultationperformed by the telepresenter that the telemedicine provider can hear if described in the physical exam. Systems Integration Advisor contact information: Please call [facility] [phone]. (Phone Number For Physician Use Only) After establishing a telemedicine visit, patient was: Patient was verified with two unique identifiers, Patient/authorized rep acknowledged consent and understanding and Gave permission to continue telehealth session Time Spent with Patient: Initial => 55 min History of Present Illness Reason for Consultation: bacteremia Requesting Physician: bacteremia Attending Physician: Katrina Freeman MD Allergies Allergy/AdvReac Type Severity Reaction Status Date / Time fluticasone Allergy Severe lips and Verified 05/19/22 16:24 tongue swelling, angioedema tomato Allergy Mild Itching Verified 05/19/22 16:24 Home Medications Medication Instructions Recorded Confirmed Type folic acid 1 mg tablet 1 mg PO QAM 07/17/18 05/19/22 History walker #1 ea 07/17/18 05/19/22 Rx lancets (Microlet Lancet) #100 ea 04/08/21 05/19/22 Rx aspirin 81 mg tablet,delayed 81 mg PO QAM 06/05/21 05/19/22 History release (Adult Low Dose Aspirin) metformin 500 mg tablet,extended 500 mg PO BID #180 tabs 08/04/21 05/19/22 Rx release 24 hr coenzyme Q10 100 mg capsule 100 mg PO DAILY 09/01/21 05/19/22 History (CoQ-10) digestive enzymes 1 cap PO DAILY 09/01/21 05/19/22 History ferrous sulfate 325 mg (65 mg 325 mg PO DAILY 09/01/21 05/19/22 History iron) tablet (iron) multivitamin (Multiple Vitamins 1 tab PO DAILY 09/01/21 05/19/22 History tablet) metoprolol tartrate 50 mg tablet 50 mg PO BID #60 tabs 12/21/21 05/19/22 Rx nabumetone 500 mg tablet 500 mg PO BID M19.90 #60 tabs 01/09/22 05/19/22 Rx furosemide 20 mg tablet (Lasix) 40 mg PO QAM #90 tabs 02/10/22 05/19/22 Rx omeprazole 20 mg capsule,delayed 20 mg PO BID #180 caps 03/03/22 05/19/22 Rx release rosuvastatin 10 mg tablet (Crestor) 10 mg PO DAILY #90 tabs 03/03/22 05/19/22 Rx allopurinol 300 mg tablet 300 mg PO QAM #90 tabs 03/09/22 05/19/22 Rx finasteride 5 mg tablet (Proscar) 5 mg PO QAM #30 tabs 03/16/22 05/19/22 Rx glipizide 5 mg tablet 5 mg PO BID #180 tabs 03/20/22 05/19/22 Rx tamsulosin 0.4 mg capsule 0.8 mg PO HS #90 caps 03/21/22 05/19/22 Rx dapagliflozin 5 mg tablet (Farxiga) 5 mg PO DAILY #90 tabs 04/13/22 05/19/22 Rx OneTouch Verio Meter #1 ea 04/14/22 05/19/22 Rx (blood-glucose meter) OneTouch Verio test strips (blood #200 ea 04/14/22 05/19/22 Rx sugar diagnostic) lancets 30 gauge (OneTouch Delica #100 ea 04/18/22 05/19/22 Rx Lancets) potassium gluconate 595 mg (99 mg) 595 mg PO DAILY 05/19/22 05/19/22 History tablet Patient History Medical History Acute metabolic encephalopathy Allergic rhinitis Anemia Bacterial endocarditis (02/18/11) Bronchitis Coronary artery disease Diabetes mellitus type 2, uncontrolled Elevated homocysteine Encephalopathy Enlarged prostate without lower urinary tract symptoms (luts) Foreign body in nose GERD without esophagitis Gout, joint Hyperlipidemia Hypomagnesemia Hypomagnesemia Morbid obesity Multiple pulmonary nodules NSTEMI (non-ST elevated myocardial infarction) (01/30/11) Raynauds phenomenon Rheumatoid arthritis Sepsis Septic shock Type 2 diabetes mellitus Urinary tract infection Surgical History H/O colonoscopy Social History Smoking Status: Former smoker Age Started Using Tobacco: 12; Age Quit Using Tobacco: 68; packs per day: 1; Smoking End Date: 7 years ago; Hx Alcohol Use: No Hx Substance Use: No Preferred Language: Estonian Communication Ability: Effective Formula Bottler Required: No Beliefs That Will Affect Care: None marital status: Current Living Situation: Spouse and Family Current Living Situation Comment: Pt lives with and son. Stated his son helps with his care. current occupational status: retired Other Information That Helps Us Care for You: No Feels Safe at Home: Yes Safety Concerns: Feels Safe At This Time Assistive Devices: Cane, Oxygen - Continuous and Walker Review of System as per HPI Results & Data Vital Signs (Past 12 Hours) Vital Signs Temp Pulse Pulse Resp BP Pulse Ox O2 Del Method 05/22/22 11:38 36.7 C 110 H 20 143/100 H 96 Nasal Cannula 05/22/22 10:12 Nasal Cannula 05/22/22 07:44 37.2 C 84 22 169/44 H 94 Nasal Cannula 05/22/22 07:24 120 H 05/22/22 03:00 36.8 C 93 H 21 148/90 H 93 Room Air O2 Flow Rate 05/22/22 11:38 3 05/22/22 10:12 3 05/22/22 07:44 3 05/22/22 07:24 05/22/22 03:00 Laboratory Results Laboratory Results - last 48 hr 05/20/22 05/20/22 05/21/22 16:15 20:31 06:39 Sodium 137 Potassium 3.4 L Chloride 100 Carbon Dioxide 26 Anion Gap 11 BUN 33 H Creatinine 1.62 H Est Cr Clr Drug Dosing 57.3 Est GFR ( Amer) 47.7 Est GFR (Non-Af Amer) 41.2 BUN/Creatinine Ratio 20.4 H Glucose 110 H POC Glucose 131 H 103 H Calcium 8.2 L 05/21/22 05/21/22 05/21/22 07:21 11:21 16:32 Sodium Potassium Chloride Carbon Dioxide Anion Gap BUN Creatinine Est Cr Clr Drug Dosing Est GFR ( Amer) Est GFR (Non-Af Amer) BUN/Creatinine Ratio Glucose POC Glucose 115 H 245 H 106 H Calcium 05/21/22 05/22/22 05/22/22 20:34 06:06 07:36 Sodium 136 Potassium 3.7 Chloride 99 Carbon Dioxide 26 Anion Gap 11 BUN 36 H Creatinine 1.84 H Est Cr Clr Drug Dosing 50.2 Est GFR ( Amer) 40.9 Est GFR (Non-Af Amer) 35.3 BUN/Creatinine Ratio 19.6 Glucose 151 H POC Glucose 137 H 139 H Calcium 8.6 05/22/22 11:05 Sodium Potassium Chloride Carbon Dioxide Anion Gap BUN Creatinine Est Cr Clr Drug Dosing Est GFR ( Amer) Est GFR (Non-Af Amer) BUN/Creatinine Ratio Glucose POC Glucose 203 H Calcium Microbiology 05/21/22 09:31 Blood Aerobic Blood Culture - Preliminary No growth in Aerobic bottle after 24 hours. 05/21/22 09:31 Blood Anaerobic Blood Culture - Preliminary No growth in Anaerobic bottle after 24 hours. 05/21/22 09:25 Blood Aerobic Blood Culture - Preliminary No growth in Aerobic bottle after 24 hours. 05/21/22 09:25 Blood Anaerobic Blood Culture - Preliminary No growth in Anaerobic bottle after 24 hours. 05/19/22 Unknown Urine,Clean Catch Urine Culture - Final Coag negative Staphylococcus 05/19/22 14:22 Blood Aerobic Blood Culture - Preliminary Group G Beta Strep 05/19/22 14:22 Blood Anaerobic Blood Culture - Preliminary Group G Beta Strep 05/19/22 14:22 Blood Aerobic Blood Culture - Final Group G Beta Strep 05/19/22 14:22 Blood Anaerobic Blood Culture - Final Group G Beta Strep Diagnostic Findings Abdomen/Pelvis CT 05/19/22 14:17 CT OF THE ABDOMEN AND PELVIS WITHOUT CONTRAST CLINICAL HISTORY: Abdominal pain. Back pain. Fever. Sepsis. COMPARISON STUDY: CT of the abdomen and pelvis June 05, 2021 and renal ultrasound May 02, 2022. TECHNIQUE: Axial images of the abdomen and pelvis were obtained without IV contrast. Images were reviewed in the axial, sagittal, and coronal planes. Automated exposure control was utilized for the study. A dose lowering technique was utilized adhering to the principles of ALARA. FINDINGS: Please note that the chest CT will be reported separately. This exam is significantly compromised by artifact and lack of IV contrast. No pneumatosis, free air or portal venous gas is present. Unenhanced images of liver, spleen, adrenal glands, kidneys and pancreas are grossly unremarkable. There is pancreatic glandular atrophy. There is no peripancreatic or pericholecystic infiltration. A 5 mm calcification within the lower pole of the right kidney is unchanged. This could reflect a cortical calcification or a nonobstructing calculus. There are no ureteral calculi. There is no hydronephrosis. Extensive sigmoid diverticulosis is present. There is no evidence for acute diverticulitis. There is no evidence for a bowel obstruction. There is been no significant change in appearance of the abdomen or pelvis since prior CT. No acute fractures are identified. Multilevel degenerative changes within lumbar spine are present. Lumbar spine central canal and neural foramen are suboptimally assessed by CT. IMPRESSION: 1. Exam significantly compromised given artifact and lack of contrast. However, no definite acute findings. 2. No bowel obstruction. No pneumatosis, free air or portal venous gas. 3. Extensive colonic diverticulosis. No evidence for acute diverticulitis. ACT 112: Negative or not required by law. Electronically signed by: Tyree Zaragoza M.D. 05/19/2022 4:[address] 05/19/22 15:27 CT OF THE CHEST WITHOUT IV CONTRAST CLINICAL HISTORY: ? sepsis COMPARISON STUDY: Chest CT September 05, 2017. Chest radiograph performed earlier today. TECHNIQUE: Axial images of the chest were obtained without IV contrast. Images were reviewed in the axial, sagittal, and coronal planes. IV contrast was not administered for this examination. Automated exposure control was utilized for the study. A dose lowering technique was utilized adhering to the principles of ALARA. FINDINGS: This exam is mildly compromised by motion artifact. Mild cardiomegaly is noted. No pericardial effusion. There is dilatation of the central pulmonary arteries. No pneumothorax or pleural effusion is present. Lungs are suboptimally assessed due to motion artifact. There is no consolidation to suggest pneumonia. Linear subpleural opacities favor atelectasis. Central airways are grossly patent. A few small pulmonary nodules are similar to CT of September 05, 2017. No acute fractures within the bony thorax are identified. Several old left-sided rib fractures are present. There is no thoracic spine fracture. Abdomen and pelvis CT will be reported separately. There is no significant thoracic lymphadenopathy. Prominent subcarinal lymph nodes remain unchanged. IMPRESSION: 1. Exam mildly compromised by artifact. No consolidation to suggest pneumonia. 2. No acute intrathoracic findings on unenhanced exam. 3. Mild cardiomegaly and dilatation of the central pulmonary arteries. ACT 112: Negative or not required by law. Electronically signed by: Tyree Zaragoza M.D. 05/19/2022 4:14 PM Duplex Scan Lower Extremity Artery 05/19/22 17:22 LEFT LOWER EXTREMITY ARTERIAL DOPPLER ULTRASOUND CLINICAL HISTORY: Left lower extremity infection COMPARISON STUDY: No previous studies for comparison. TECHNIQUE: Color and duplex Doppler sonography of the arterial system of the left lower extremity was performed. FINDINGS: This exam was compromised by suboptimal penetration. No elevated velocities within the left lower extremity were identified to suggest a hemodynamically significant stenosis. Triphasic flow was noted within the left common femoral, superficial femoral, popliteal, anterior tibial and posterior tibial arteries. The left peroneal artery was not well visualized on this exam. Mild atherosclerotic plaque was noted. IMPRESSION: 1. No evidence for a hemodynamically significant stenosis within the left lower extremity. Triphasic flow throughout the left lower extremity. 2. Left peroneal artery not well visualized. Exam compromised by suboptimal penetration. ACT 112: Negative or not required by law. Electronically signed by: Tyree Zaragoza M.D. 05/20/2022 8:11 AM Chest X-Ray 05/22/22 07:00 SINGLE VIEW CHEST CLINICAL HISTORY: Congestive heart failure. FINDINGS: An AP, portable, upright chest radiograph is compared to chest x-ray and chest CT dated 05/19/2022. The heart is enlarged. Mild pulmonary vascular congestion appears improved from previous. There is bibasilar scarring/atelectasis. No airspace consolidation or large pleural effusion is identified. No pneumothorax is seen. The skeletal structures are osteopenic. There are chronic/healed left-sided rib fractures. IMPRESSION: 1. Cardiomegaly with mild pulmonary vascular congestion. This has improved as compared to 05/19/2022. 2. No airspace consolidation or large pleural effusion is identified. ACT 112: Negative or not required by law. Electronically signed by: Surjit Donnelly M.D. 05/22/2022 9:52 AM Medications Administered Current Inpatient Medications Acetaminophen (Acetaminophen 325 Mg Tab) 650 mg PO Q4H PRN PRN Reason: Pain or Fever Stop: 06/18/22 19:15 Last Admin: 05/21/22 12:29 Dose: 650 mg Allopurinol (Allopurinol 300 Mg Tab) 300 mg PO QAM [facility] Stop: 06/19/22 08:59 Last Admin: 05/22/22 08:42 Dose: 300 mg Aspirin (Aspirin 81 Mg Ectab) 81 mg PO QAM [facility] Stop: 06/19/22 08:59 Last Admin: 05/22/22 08:42 Dose: 81 mg Dextrose (Dextrose 50% 50 Ml Syringe) 25 - 50 ml IV UD PRN; Protocol PRN Reason: Hypoglycemia Protocol Stop: 06/18/22 19:15 Enoxaparin Sodium (Enoxaparin 150 Mg/Ml Syr) 135 mg SQ Q12H [facility] Stop: 06/21/22 04:59 Last Admin: 05/22/22 05:47 Dose: 135 mg Finasteride (Finasteride 5 Mg Tab) 5 mg PO QAM [facility] Stop: 06/19/22 08:59 Last Admin: 05/22/22 08:42 Dose: 5 mg Glucagon (Glucagon For Inj 1 Mg Vial) 1 mg SQ UD PRN; Protocol PRN Reason: Hypoglycemia Protocol Stop: 06/18/22 19:15 Glucose (Glucose 10 Tab/Tube) 4 - 8 tab PO UD PRN; Protocol PRN Reason: Hypoglycemia Treatment Stop: 06/18/22 19:15 Glucose (Glucose 40% Gel 15 Gm Tube) 15 - 30 gm PO UD PRN; Protocol PRN Reason: Hypoglycemia Protocol Stop: 06/18/22 19:15 Cefazolin Sodium (Ancef 2000mg) 2,000 mg in 15 mls @ 3.75 mls/min IV Q12H [facility] Stop: 06/04/22 11:59 Last Admin: 05/22/22 12:16 Dose: 3.75 mls/min Insulin Aspart (Insulin Aspart Per Unit Charge) 0 units SC ACHS [facility] Stop: 06/18/22 20:59 Last Admin: 05/22/22 12:16 Dose: 18 units Insulin Glargine (Lantus Per Unit Charge) 20 units SQ BID [facility] Stop: 06/19/22 20:59 Metoprolol Tartrate (Metoprolol Tartrate 100 Mg Tab) 100 mg PO BID [facility] Stop: 06/21/22 20:59 Miscellaneous (Carbohydrates For Hypoglycemia ) 15 - 30 gm PO UD PRN PRN Reason: Hypoglycemia Protocol Stop: 06/18/22 19:15 Miscellaneous Information (Pharmacy Glycemic Mgmt Consult) 1 each N/A UD PRN PRN Reason: Consult Stop: 06/18/22 19:15 Pantoprazole Sodium (Pantoprazole 40 Mg Tab) 40 mg PO BID [facility] Stop: 06/18/22 20:59 Last Admin: 05/22/22 08:43 Dose: 40 mg Potassium Chloride (Potassium Chloride Crtab 20 Meq Tabcr) 20 meq PO BID [facility] Stop: 06/20/22 08:59 Last Admin: 05/22/22 08:43 Dose: 20 meq Rosuvastatin Calcium (Rosuvastatin Calcium 10 Mg Tab) 10 mg PO DAILY [facility] Stop: 06/19/22 08:59 Last Admin: 05/22/22 08:43 Dose: 10 mg Tamsulosin HCl (Tamsulosin Hcl 0.4 Mg Cap) 0.8 mg PO HS [facility]JEL Stop: 06/19/22 20:59 Last Admin: 05/21/22 21:36 Dose: 0.8 mg
--- NOTE | 2022-05-22 16:37 | Hospitalist Progress Note ---
Date of Service May 22, 2022 Assessment & Plan (1) Streptococcal septicemia: Plan: Group G beta streptococcus isolated from blood cultures on 05/19/2022-source is the cellulitis of the left lower extremity. With fever, tachycardia, and leukocytosis-now afebrile, remains mildly tachycardic with atrial fibrillation, and leukocytosis was improving but not checked in 2 days Procalcitonin elevated on admission CT chest/abdomen/pelvis-negative for acute Initially given ceftriaxone in the ER, followed by cefepime and metronidazole x2 days, then switch to cefazolin on 05/21 Appreciate ID consultation-changed back to ceftriaxone due to renal function being diminished -Check echocardiogram for valvular vegetation as well as for new onset atrial fibrillation -Continue to follow repeat blood cultures from 05/21-no growth to date -Follow CBC, CMP, procalcitonin in the morning (2) Atrial fibrillation: Plan: Has been in atrial fibrillation since admission Rates are a bit rapid today in the 1 teens to 120s Increase metoprolol to 100 Mg p.o. twice daily Convert Lovenox SQ to Eliquis 5 Mg p.o. twice daily-ewing check Eliquis with case management Follow on telemetry Appreciate cardiology consultation (3) Cellulitis: Plan: As above, left lower extremity, improving (4) CHF (congestive heart failure): Plan: Acute on chronic diastolic CHF. Normal ejection fraction on most recent echo from 1 year ago but will recheck echocardiogram. This has caused acute hypoxic respiratory failure. Wean down off oxygen-now on 3 LNC Lasix diuresis ordered and is improving, chest x-ray improved With creatinine rising-discontinued IV Lasix. Monitor intake and output, daily weight (5) Chronic kidney disease, stage 3: Plan: Baseline creatinine around 1.4-1.6 Creatinine up to 1.8 today after IV diuretics Hold IV Lasix Follow BMP, avoid nephrotoxins, renally dose medications when necessary Holding home dapagliflozin Would recommend stopping NSAIDs such as nabumetone (6) Toenail avulsion: Plan: Right great toe nail avulsed and about to fall off with serous possibly purulent fluid draining Consult podiatry (7) Coronary artery disease: Plan: Stable. Continue ASA, rosuvastatin, metoprolol (8) Enlarged prostate without lower urinary tract symptoms (luts): Plan: Continue tamsulosin and finasteride. Monitor for urinary retention given this has been an issue in the past. (9) GERD without esophagitis: Plan: Continue PPI (10) Hypertension: Plan: Blood pressures are controlled Increasing metoprolol for rapid atrial fibrillation as above (11) Type 2 diabetes mellitus: Plan: HbA1C 7.8 in Mar. p.o. home meds are on hold ( Farxiga, glipizide, metformin). Sliding scale coverage as needed (12) Gout, joint: Plan: No acute exacerbation. Continue allopurinol for prophylaxis (13) Urinary tract infection: Plan: Staph isolated. This is a contaminant as UA has epithelial cells no need to treat (14) Anemia: Plan: Normocytic, hemoglobin mildly low at 11.9 Check iron studies, B12, folate, and TSH in the morning Plan DVT prophylaxis-Lovenox and now switched to Eliquis Disposition-continued stay, will need IV antibiotics at home if possible- consulted case management to arrange this Admission and Anticipated Discharge Date Admission Date: May 19, 2022 Subjective Patient difficult to obtain history from. Continued to complain about how his irritates him. She is not in the room. Overall feels much better he says and is anxious to go home. He does not think he has had atrial fibrillation in the past. I discussed his care with cardiology I also discussed his care with infectious disease. Telemetry with atrial fibrillation with rates in the 1 teens to 120s Physical Exam Constitutional: WD/WN, vitals as above + obese Respiratory: normal respiratory effort, lungs clear to auscultation On nasal cannula Cardiovascular: Rate/Rhythm: + tachycardic and + irregularly irregular Heart Sounds: no murmur Extremities: + edema (2+ pitting edema left leg and foot, 1+ right ankle and foot) Skin: + lesion (Left pinky toe with scabbed over wound, crusted blood), + wound (Scabbed over wounds bilateral anterior shins), + erythema (Left distal leg and ankle and foot with erythema and warmth) and + nail abnormality (Right great toenail avulsed at the base, thickened and yellow) Psychiatric: Orientation: alert, oriented to person, oriented to place and cooperative Thought Process: + tangential thought process Results & Data Results & Data Vital Signs (Past 12 Hours) Vital Signs Temp Pulse Pulse Resp BP Pulse Ox O2 Del Method 05/22/22 11:38 36.7 C 110 H 20 143/100 H 96 Nasal Cannula 05/22/22 10:12 Nasal Cannula 05/22/22 07:44 37.2 C 84 22 169/44 H 94 Nasal Cannula 05/22/22 07:24 120 H O2 Flow Rate 05/22/22 11:38 3 05/22/22 10:12 3 05/22/22 07:44 3 05/22/22 07:24 Laboratory Results BMP reviewed Blood cultures reviewed-no growth to date from 05/21 PG Care Time/CCT Total # of Minutes Spent Total Time Spent with Patient: Total time spent is greater than 50% in coordination of care (as documented) at patient's floor/unit and/or counseling patient: Coding Level of Care Code 65666 SUB INP/OBS CARE MIN Diagnoses Streptococcal septicemia A40.9 Atrial fibrillation I48.91 Cellulitis L03.90 CHF (congestive heart failure) I50.9 Chronic kidney disease, stage 3 N18.30 Toenail avulsion S91.209A Coronary artery disease I25.10 Enlarged prostate without lower urinary tract symptoms (luts) N40.0 GERD without esophagitis K21.9 Hypertension I10 Type 2 diabetes mellitus E11.9 Gout, joint M10.9 Urinary tract infection N39.0 Anemia D64.9
[2022-05-22] MEDS: cefTRIAXone SODIUM 2,000 MG in DEXTROSE 5% 50 ML IV SCH (16:46)
--- NOTE | 2022-05-22 19:53 | Cardiology Consultation ---
Date of Consultation May 22, 2022 Assessment & Plan (1) Atrial fibrillation: (2) Heart failure with mid-range ejection fraction (HFmEF): (3) Cardiomyopathy: (4) Bacteremia: (5) Sepsis: (6) Hypertension: (7) Coronary artery disease: (8) Chronic kidney disease, stage 3: Plan ASSESSMENT/PLAN: 1. Atrial fibrillation: Appears persistent. Asymptomatic. Agree with rate control strategy. Data nickie has been titrated upward by hospitalist service. New dose of 100 mg twice daily to begin tonight. Continue anticoagulation for stroke risk reduction. Onset unclear. Was not on anticoagulation therapy prior to hospital stay. Monitor CBC and renal function. 2. Cardiomyopathy: Probable mildly reduced LV systolic function however poor image quality. May be related to heart rate. On discharge, recommend metoprolol succinate in place of tartrate. Volume status unclear. Twice daily Lasix 40 mg IV was held after this morning's dose by hospitalist service due to creatinine slightly higher than typical baseline, but similar. Would consider p.o. Lasix tomorrow, 40 mg twice daily. Would consider spironolactone given some degree of LV systolic dysfunction, which may limit need for potassium supplementation. No SGLT2 inhibitor given urinary tract issues. If LV systolic function becomes more significantly reduced, could consider Entresto. 3. Acute on Chronic Heart failure with midrange EF: Per notes, was hypervolemic on presentation and improved with diuresis. Spironolactone as above. No SGLT2 inhibitor given urinary tract issues. Metoprolol succinate in place of tartrate on discharge. Could consider Entresto, especially if LV systolic function becomes more significantly reduced. Would try to attempt repeat echo as an outpatient. Heart failure program recommended. 4. CAD: Details unclear but reportedly [place] in January 2011. No known PCI. Continue beta-nickie. Continue statin therapy. LDL well controlled. No angina. 5. CKD: Monitor closely especially with diuretics. 6. Sepsis/urinary tract infection/streptococcal septicemia: As per ID and primary hospitalist service. 7. Hypertension: Intermittently hypertensive today. Plan as above. 8. Disposition: Cardiology will continue to follow. Patient care discussed with Dr. Freeman of the primary hospitalist service. Highly complex medical issues. Thank you for allowing me to participate in the care of your patient. Please call for any other questions or concerns. Sincerely, Brenden Curran M.D. History of Present Illness Reason for Consultation: Atrial fibrillation Requesting Physician: Katrina Freeman MD Attending Physician: Katrina Freeman MD History of Present Illness Mr. Amor is a 72-year-old gentleman with a history significant for NSTEMI January 2011, pulmonary emboli November 2016, hypertension, dyslipidemia, type 2 diabetes, rheumatoid arthritis, and atrial fibrillation. He was hospitalized on 05/19/2022 with sepsis felt to be due to left lower extremity cellulitis in the setting of diabetes. He was noted to be in atrial fibrillation, which apparently is a new diagnosis for him. Hospitalist service has increased beta-nickie from home dose of metoprolol 50 mg twice daily to 100 mg twice daily. He is a poor historian. When asking questions, he often goes off on tangents completely unrelated to conversation. He states that he is back close to his typical baseline. He stated "I had that sepsis in me." He recalls having "pus" coming from his left lower extremity wound and stated that he is thinking about tearing off the scab as it is now healing. He was advised not to. He states that his left leg was purple but has improved. When asked about lower extremity edema, he states that he typically does not have "too much." He denies chest pain, shortness of breath, syncope, near syncope, palpitations, or bleeding. In regards to his history of CAD, this history is not well known but discussed an outpatient primary care notes as having a myocardial infarction in January 2011. He has been diagnosed with CHF as an outpatient When reviewing outpatient records, being a poor historian apparently is chronic. Review of systems: As above. Review of systems otherwise negative/unremarkable or unobtainable. Social history: He quit smoking in the past. He denies alcohol or drug abuse. He lives at home with his and son. He has 4 children total. He reports that 1 child has . Family history: Noncontributory. Allergies Allergy/AdvReac Type Severity Reaction Status Date / Time fluticasone Allergy Severe lips and Verified 05/19/22 16:24 tongue swelling, angioedema tomato Allergy Mild Itching Verified 05/19/22 16:24 Home Medications Medication Instructions Recorded Confirmed Type folic acid 1 mg tablet 1 mg PO QAM 07/17/18 05/19/22 History walker #1 ea 07/17/18 05/19/22 Rx lancets (Microlet Lancet) #100 ea 04/08/21 05/19/22 Rx aspirin 81 mg tablet,delayed 81 mg PO QAM 06/05/21 05/19/22 History release (Adult Low Dose Aspirin) metformin 500 mg tablet,extended 500 mg PO BID #180 tabs 08/04/21 05/19/22 Rx release 24 hr coenzyme Q10 100 mg capsule 100 mg PO DAILY 09/01/21 05/19/22 History (CoQ-10) digestive enzymes 1 cap PO DAILY 09/01/21 05/19/22 History ferrous sulfate 325 mg (65 mg 325 mg PO DAILY 09/01/21 05/19/22 History iron) tablet (iron) multivitamin (Multiple Vitamins 1 tab PO DAILY 09/01/21 05/19/22 History tablet) metoprolol tartrate 50 mg tablet 50 mg PO BID #60 tabs 12/21/21 05/19/22 Rx nabumetone 500 mg tablet 500 mg PO BID M19.90 #60 tabs 01/09/22 05/19/22 Rx furosemide 20 mg tablet (Lasix) 40 mg PO QAM #90 tabs 02/10/22 05/19/22 Rx omeprazole 20 mg capsule,delayed 20 mg PO BID #180 caps 03/03/22 05/19/22 Rx release rosuvastatin 10 mg tablet (Crestor) 10 mg PO DAILY #90 tabs 03/03/22 05/19/22 Rx allopurinol 300 mg tablet 300 mg PO QAM #90 tabs 03/09/22 05/19/22 Rx finasteride 5 mg tablet (Proscar) 5 mg PO QAM #30 tabs 03/16/22 05/19/22 Rx glipizide 5 mg tablet 5 mg PO BID #180 tabs 03/20/22 05/19/22 Rx tamsulosin 0.4 mg capsule 0.8 mg PO HS #90 caps 03/21/22 05/19/22 Rx dapagliflozin 5 mg tablet (Farxiga) 5 mg PO DAILY #90 tabs 04/13/22 05/19/22 Rx OneTouch Verio Meter #1 ea 04/14/22 05/19/22 Rx (blood-glucose meter) OneTouch Verio test strips (blood #200 ea 04/14/22 05/19/22 Rx sugar diagnostic) lancets 30 gauge (OneTouch Delica #100 ea 04/18/22 05/19/22 Rx Lancets) potassium gluconate 595 mg (99 mg) 595 mg PO DAILY 05/19/22 05/19/22 History tablet Patient History Medical History Acute metabolic encephalopathy Allergic rhinitis Anemia Atrial fibrillation Bacterial endocarditis (02/18/11) Bronchitis Coronary artery disease Diabetes mellitus type 2, uncontrolled Elevated homocysteine Encephalopathy Enlarged prostate without lower urinary tract symptoms (luts) Foreign body in nose GERD without esophagitis Gout, joint Hyperlipidemia Hypomagnesemia Hypomagnesemia Morbid obesity Multiple pulmonary nodules NSTEMI (non-ST elevated myocardial infarction) (01/30/11) Raynauds phenomenon Rheumatoid arthritis Sepsis Septic shock Type 2 diabetes mellitus Urinary tract infection Surgical History H/O colonoscopy Social History Smoking Status: Former smoker Age Started Using Tobacco: 12; Age Quit Using Tobacco: 68; packs per day: 1; Smoking End Date: 7 years ago; Hx Alcohol Use: No Hx Substance Use: No Preferred Language: Vincentian Communication Ability: Effective Field Installation Technician Required: No Beliefs That Will Affect Care: None marital status: Current Living Situation: Spouse and Family Current Living Situation Comment: Pt lives with and son. Stated his son helps with his care. current occupational status: retired Other Information That Helps Us Care for You: No Feels Safe at Home: Yes Safety Concerns: Feels Safe At This Time Assistive Devices: Cane, Oxygen - Continuous and Walker Physical Exam Physical Exam: Gen.: No acute distress. Alert. HEENT: Anicteric sclera. Neck: Thick neck. No appreciable JVD. No bruits. Normal carotid upstrokes bilaterally. Cardiac: No ventricular heave. Irregularly irregular near 100 bpm. Normal S1- S2. No murmurs, rubs, or gallops. Pulmonary: Decreased breath signs bilaterally, but otherwise clear to auscultation bilaterally without wheezes, rales, or rhonchi. Abdomen: Soft, nontender, nondistended, with normoactive bowel sounds. No bruits noted. Extremities: 2+ radial pulses bilaterally. 2+ posterior tibialis pulses bilaterally. Trace to 1+ bilateral lower extremity edema, L > R. No cyanosis. Left lower extremity (distal) wound appears to be healing. No purulent discharge noted. Results & Data Vital Signs (Past 12 Hours) Vital Signs Temp Pulse Pulse Resp BP Pulse Ox O2 Del Method 05/22/22 14:42 113 H 05/22/22 16:34 37.0 C 89 18 114/82 97 Nasal Cannula 05/22/22 11:38 36.7 C 110 H 20 143/100 H 96 Nasal Cannula 05/22/22 10:12 Nasal Cannula O2 Flow Rate 05/22/22 14:42 05/22/22 16:34 3 05/22/22 11:38 3 05/22/22 10:12 3 Laboratory Results Laboratory Results - last 24 hr 05/21/22 05/22/22 05/22/22 20:34 06:06 07:36 Sodium 136 Potassium 3.7 Chloride 99 Carbon Dioxide 26 Anion Gap 11 BUN 36 H Creatinine 1.84 H Est Cr Clr Drug Dosing 50.2 Est GFR ( Amer) 40.9 Est GFR (Non-Af Amer) 35.3 BUN/Creatinine Ratio 19.6 Glucose 151 H POC Glucose 137 H 139 H Calcium 8.6 05/22/22 05/22/22 11:05 16:10 Sodium Potassium Chloride Carbon Dioxide Anion Gap BUN Creatinine Est Cr Clr Drug Dosing Est GFR ( Amer) Est GFR (Non-Af Amer) BUN/Creatinine Ratio Glucose POC Glucose 203 H 151 H Calcium Diagnostic Findings Telemetry personally reviewed: Atrial fibrillation. ECGs personally reviewed: ECG 05/19/2022 at 1316: A-fib RVR 110 bpm. PVC versus aberrantly conducted complexes. LBBB. ECG 05/21/2022 at 1555: A-fib 95 bpm. LBBB. Labs reviewed: Labs from 05/20/2022 demonstrated mild and chronic/stable anemia. Labs from 05/22/2022 demonstrated abnormal but stable renal function. Normal potassium. Blood cultures from 05/19/2022: Group G beta strep Urine culture from 05/19/2022: Coag negative staph. Blood cultures from 05/21/2022 negative x2. Infectious disease consultation from 05/22/2022 reviewed. Hospital note from today reviewed. Chest x-ray 05/22/2022: Improved vascular congestion. Chest CT 05/19/2022: Dilation of central pulmonary arteries per radiology. No consolidation. Left lower extremity arterial duplex 05/19/2022: No significant stenosis. Mild atherosclerotic plaque. Echo 05/22/2022: LV not well visualized. Poor image quality. LV systolic function likely mildly reduced. Septal motion consistent with bundle branch block. Sclerotic aortic valve. Medications Administered Current Inpatient Medications Acetaminophen (Acetaminophen 325 Mg Tab) 650 mg PO Q4H PRN PRN Reason: Pain or Fever Stop: 06/18/22 19:15 Last Admin: 05/21/22 12:29 Dose: 650 mg Allopurinol (Allopurinol 300 Mg Tab) 300 mg PO [facility] Stop: 06/19/22 08:59 Last Admin: 05/22/22 08:42 Dose: 300 mg Apixaban (Apixaban 5 Mg Tablet) 5 mg PO BID [facility] Stop: 06/21/22 20:59 Aspirin (Aspirin 81 Mg Ectab) 81 mg PO [facility] Stop: 06/19/22 08:59 Last Admin: 05/22/22 08:42 Dose: 81 mg Dextrose (Dextrose 50% 50 Ml Syringe) 25 - 50 ml IV UD PRN; Protocol PRN Reason: Hypoglycemia Protocol Stop: 06/18/22 19:15 Finasteride (Finasteride 5 Mg Tab) [facility] [place] Stop: 06/19/22 08:59 Last Admin: 05/22/22 08:42 Dose: 5 mg Glucagon (Glucagon For Inj 1 Mg Vial) 1 mg SQ UD PRN; Protocol PRN Reason: Hypoglycemia Protocol Stop: 06/18/22 19:15 Glucose (Glucose 10 Tab/Tube) 4 - 8 tab PO UD PRN; Protocol PRN Reason: Hypoglycemia Treatment Stop: 06/18/22 19:15 Glucose (Glucose 40% Gel 15 Gm Tube) 15 - 30 gm PO UD PRN; Protocol PRN Reason: Hypoglycemia Protocol Stop: 06/18/22 19:15 Ceftriaxone Sodium 2,000 mg/ (Dextrose) 70 mls @ 100 mls/hr IV Q24H [facility]; Protocol Stop: 06/05/22 15:59 Last Infusion: 05/22/22 17:28 Dose: Infused Insulin Aspart (Insulin Aspart Per Unit Charge) 0 units SC [facility] Stop: 06/18/22 20:59 Last Admin: 05/22/22 17:33 Dose: 13 units Insulin Glargine (Lantus Per Unit Charge) 20 units SQ BID [facility] Stop: 06/19/22 20:59 Metoprolol Tartrate (Metoprolol Tartrate 100 Mg Tab) 100 mg PO BID [facility] Stop: 06/21/22 20:59 Miscellaneous (Carbohydrates For Hypoglycemia ) 15 - 30 gm PO UD PRN PRN Reason: Hypoglycemia Protocol Stop: 06/18/22 19:15 Miscellaneous Information (Pharmacy Glycemic Mgmt Consult) 1 each N/A UD PRN PRN Reason: Consult Stop: 06/18/22 19:15 Pantoprazole Sodium (Pantoprazole 40 Mg Tab) 40 mg PO BID [facility] Stop: 06/18/22 20:59 Last Admin: 05/22/22 08:43 Dose: 40 mg Potassium Chloride (Potassium Chloride Crtab 20 Meq Tabcr) 20 meq PO BID [facility] Stop: 06/20/22 08:59 Last Admin: 05/22/22 08:43 Dose: 20 meq Rosuvastatin Calcium (Rosuvastatin Calcium 10 Mg Tab) 10 mg PO DAILY [facility] Stop: 06/19/22 08:59 Last Admin: 05/22/22 08:43 Dose: 10 mg Tamsulosin HCl (Tamsulosin Hcl 0.4 Mg Cap) 0.8 mg PO HS [facility] Stop: 06/19/22 20:59 Last Admin: 05/21/22 21:36 Dose: 0.8 mg PG Care Time/CCT Total # of Minutes Spent Total Time Spent with Patient: Total time spent is greater than 50% in coordination of care (as documented) at patient's floor/unit and/or counseling patient: Coding Level of Care Code 15388 INT INP/OBS CARE 3/75MIN Diagnoses Atrial fibrillation I48.91 Heart failure with mid-range ejection fraction (HFmEF) I50.22 Cardiomyopathy I42.9 Bacteremia R78.81 Sepsis A41.9 Hypertension I10 Coronary artery disease I25.10 Chronic kidney disease, stage 3 N18.30
[2022-05-22] MEDS: APIXABAN 5 MG TABLET PO SCH (19:57)
[2022-05-22] MEDS: TAMSULOSIN HCL 0.4 MG CAP PO SCH (19:58)
--- NOTE | 2022-05-22 20:10 | XCELERA ---
[id number]
[2022-05-22] MEDS: METOPROLOL TARTRATE 100 MG TAB PO SCH (20:58)
[2022-05-22] MEDS: ACETAMINOPHEN 325 MG TAB PO PRN (22:25)
--- NOTE | 2022-05-22 23:02 | XRay Report ---
XR foot LT min 3V routine CLINICAL HISTORY: Cellulitis Left LE, Left fifth toe wound TECHNIQUE: 3 views of the left foot were obtained. Comparison: None available at the time of this dictation. FINDINGS: No evidence of bony erosion is seen. The joint spaces are well preserved. Soft tissue swelling is see n about the foot. IMPRESSION: No radiographic evidence of osteomyelitis. If clinical concern remains, MRI is a more sensitive modal ity. ACT 112: Negative or not required by law. Electronically signed by: Warren Mckeon M.D. 05/22/2022 11:00 PM
[2022-05-23 07:41] LABS: Basophils # (auto) 0.07 K/uL (0-0.2); Basophils % (auto) 0.7 %; Hematocrit (blood only) 38.2 % (42.0-52.0); Hemoglobin 12.7 g/dl (14.0-18.0); Immature Granulocytes # (auto) 0.04 K/uL (0.01-0.20); Immature Granulocytes % (auto) 0.4 %; Lymphocytes # (auto) 3.17 K/uL (1.2-3.4); Lymphocytes % (auto) 31.8 %; Mean Corpuscular Hemoglobin 30.1 pg (25.0-34.0); Mean Corpuscular Hgb Conc 33.2 g/dL (32.0-36.0); Mean Corpuscular Volume 90.5 fL (80.0-100.0); Mean Platelet Volume 9.2 fL (9.4-12.4); Monocytes # (auto) 1.01 K/uL (0.11-0.59); Monocytes % (auto) 10.1 %; Neutrophils # (auto) 5.39 K/uL (1.40-6.50); Platelet Count 226 K/uL (130-400); RDW Coefficient of Variation 14.6 % (11.5-14.5); RDW Standard Deviation 47.8 fL (36.4-46.3); Red Blood Count 4.22 M/uL (4.70-6.10); White Blood Count 9.98 K/ul (4.8-10.8)
[2022-05-23] MEDS: INSULIN ASPART PER UNIT CHARGE SC SCH ×4 (08:21→20:19)
[2022-05-23] MEDS: LANTUS PER UNIT CHARGE SQ SCH ×2 (08:22→20:19)
[2022-05-23] MEDS: allopurinoL 300 MG TAB PO SCH (08:28)
[2022-05-23] MEDS: ASPIRIN 81 MG ECTAB PO SCH (08:28)
[2022-05-23] MEDS: FINASTERIDE 5 MG TAB PO SCH (08:28)
[2022-05-23] MEDS: APIXABAN 5 MG TABLET PO SCH ×2 (08:28→20:12)
[2022-05-23] MEDS: METOPROLOL TARTRATE 100 MG TAB PO SCH (08:29)
[2022-05-23] MEDS: PANTOprazole 40 MG TAB PO SCH ×2 (08:29→20:12)
[2022-05-23] MEDS: POTASSIUM CHLORIDE CRTAB 20 MEQ TABCR PO SCH ×2 (08:30→20:11)
[2022-05-23] MEDS: ROSUVASTATIN CALCIUM 10 MG TAB PO SCH (08:30)
--- NOTE | 2022-05-23 08:33 | Orthopedic Consultation ---
Date of Consultation May 22, 2022 Assessment & Plan (1) Toenail avulsion: Patient seen, evaluated, and treated. I reviewed Right partially avulsed hallux nail with Patient. Patient declines total nail avulsion under local anesthetic. Patient understands nail will detach on its own. X-rays taken and reviewed for left foot. There is no gas, no bone involvement noted. (+) soft tissue swelling. Both left leg and left foot wound are potential sites of infection. Appreciate ID [email or web address]. Will continue to follow while in house. Thank you for allowing me to participate in the care of this Patient. (2) Cellulitis: (3) Diabetes mellitus type 2, uncontrolled: History of Present Illness Attending Physician: Katrina Freeman MD History of Present Illness Patient is a pleasant 72 year old male who is seen at bedside for chronic lower extremity wounds and bacteremia. Patient past medical history includes CAD, DM2, BPH, morbid obesity, chronic lower extremity wounds. Patient is a poor historian. EMR reviewed. Patient began vomiting day of admission. Patient states he lives with his and was helping her with tasks and that he stubbed his right and left foot against something. Per EMR his reported around midday he was sitting in his recliner slouched over and couldn't get up there she called for an ambulance. He was seen at [facility] and was admitted left leg drainage. On admission, he was noted to be hypoxic and requiring 3LPM O2 at rest to maintain O2 sats > 90%. He denies any chest pain, orthopnea, PND, shortness of breath, nasal congestion or cough. Blood culture 05/19 Group G BHS 05/16 bottles, Urine Culture 05/19 >100, 000 cfu/ml ConS Oxacillin R (MRSE). Allergies Allergy/AdvReac Type Severity Reaction Status Date / Time fluticasone Allergy Severe lips and Verified 05/19/22 16:24 tongue swelling, angioedema tomato Allergy Mild Itching Verified 05/19/22 16:24 Home Medications Medication Instructions Recorded Confirmed Type folic acid 1 mg tablet 1 mg PO QAM 07/17/18 05/19/22 History walker #1 ea 07/17/18 05/19/22 Rx lancets (Microlet Lancet) #100 ea 04/08/21 05/19/22 Rx aspirin 81 mg tablet,delayed 81 mg PO QAM 06/05/21 05/19/22 History release (Adult Low Dose Aspirin) metformin 500 mg tablet,extended 500 mg PO BID #180 tabs 08/04/21 05/19/22 Rx release 24 hr coenzyme Q10 100 mg capsule 100 mg PO DAILY 09/01/21 05/19/22 History (CoQ-10) digestive enzymes 1 cap PO DAILY 09/01/21 05/19/22 History ferrous sulfate 325 mg (65 mg 325 mg PO DAILY 09/01/21 05/19/22 History iron) tablet (iron) multivitamin (Multiple Vitamins 1 tab PO DAILY 09/01/21 05/19/22 History tablet) metoprolol tartrate 50 mg tablet 50 mg PO BID #60 tabs 12/21/21 05/19/22 Rx nabumetone 500 mg tablet 500 mg PO BID M19.90 #60 tabs 01/09/22 05/19/22 Rx furosemide 20 mg tablet (Lasix) 40 mg PO QAM #90 tabs 02/10/22 05/19/22 Rx omeprazole 20 mg capsule,delayed 20 mg PO BID #180 caps 03/03/22 05/19/22 Rx release rosuvastatin 10 mg tablet (Crestor) 10 mg PO DAILY #90 tabs 03/03/22 05/19/22 Rx allopurinol 300 mg tablet 300 mg PO QAM #90 tabs 03/09/22 05/19/22 Rx finasteride 5 mg tablet (Proscar) 5 mg PO QAM #30 tabs 03/16/22 05/19/22 Rx glipizide 5 mg tablet 5 mg PO BID #180 tabs 03/20/22 05/19/22 Rx tamsulosin 0.4 mg capsule 0.8 mg PO HS #90 caps 03/21/22 05/19/22 Rx dapagliflozin 5 mg tablet (Farxiga) 5 mg PO DAILY #90 tabs 04/13/22 05/19/22 Rx OneTouch Verio Meter #1 ea 04/14/22 05/19/22 Rx (blood-glucose meter) OneTouch Verio test strips (blood #200 ea 04/14/22 05/19/22 Rx sugar diagnostic) lancets 30 gauge (OneTouch Delica #100 ea 04/18/22 05/19/22 Rx Lancets) potassium gluconate 595 mg (99 mg) 595 mg PO DAILY 05/19/22 05/19/22 History tablet Patient History Medical History Acute metabolic encephalopathy Allergic rhinitis Anemia Atrial fibrillation Bacterial endocarditis (02/18/11) Bronchitis Coronary artery disease Diabetes mellitus type 2, uncontrolled Elevated homocysteine Encephalopathy Enlarged prostate without lower urinary tract symptoms (luts) Foreign body in nose GERD without esophagitis Gout, joint Hyperlipidemia Hypomagnesemia Hypomagnesemia Morbid obesity Multiple pulmonary nodules NSTEMI (non-ST elevated myocardial infarction) (01/30/11) Raynauds phenomenon Rheumatoid arthritis Sepsis Septic shock Type 2 diabetes mellitus Urinary tract infection Surgical History H/O colonoscopy Social History Smoking Status: Former smoker Age Started Using Tobacco: 12; Age Quit Using Tobacco: 68; packs per day: 1; Smoking End Date: 7 years ago; Hx Alcohol Use: No Hx Substance Use: No Preferred Language: Vietnamese Communication Ability: Effective Inspector Cold Working Required: No Beliefs That Will Affect Care: None marital status: Current Living Situation: Spouse and Family Current Living Situation Comment: Pt lives with and son. Stated his son helps with his care. current occupational status: retired Other Information That Helps Us Care for You: No Feels Safe at Home: Yes Safety Concerns: Feels Safe At This Time Assistive Devices: Cane, Oxygen - Continuous and Walker Review of Systems Review of Systems: All systems reviewed & are unremarkable except as noted in HPI & below Physical Exam Eyes: normal visual vargas by confrontation Neck: trachea midline Respiratory: normal respiratory effort Cardiovascular: Rate/Rhythm: regular rate (Bilateral lower extremity edema L>R, non pitting) and regular rhythm Musculoskeletal: No gross deformities Skin: Right hallux loose nail plate. Pain with palpation. Left fifth toe partial thickness wound. Minimal active bleeding. Left leg partial thickness wound. No immediate drainage noted. Neurologic: Decreased epicritic sensation Psychiatric: Orientation: alert and oriented x 3 Results & Data Vital Signs (Past 12 Hours) Vital Signs Temp Pulse Pulse Pulse Resp BP Pulse Ox 05/23/22 07:13 36.6 C 118 H 17 129/75 93 05/23/22 03:00 36.9 C 103 H 20 128/75 90 05/22/22 23:00 101 H 05/22/22 22:33 36.7 C 106 H 22 123/78 94 O2 Del Method 05/23/22 07:13 Room Air 05/23/22 03:00 Room Air 05/22/22 23:00 05/22/22 22:33 Room Air Diagnostic Findings [place], [place] [phone] XRay Report Patient:MISHEL SMITH Admit Date:05/19/22 MR#:[id number] Address1:[address] Acct ID:[id number] Address2: Date:1950 [facility] Zip:[place] [address] Age:72 Location: Sex:M Room/Bed:[facility] Att Phy:Katrina Freeman MD Diagnosis:SEPSIS Marylu Phy:Diego Marie MD Service Date:05/22/22 Fam Phy: Interpreting Phy:Warren Mckeon MDAdmit Phy:Gregory Strickland MD Ordering Phy:Yazan Victor DPM, MS cc: ~ XR foot LT min 3V routine CLINICAL HISTORY: Cellulitis Left LE, Left fifth toe wound TECHNIQUE: 3 views of the left foot were obtained. Comparison: None available at the time of this dictation. FINDINGS: No evidence of bony erosion is seen. The joint spaces are well preserved. Soft tissue swelling is seen about the foot. IMPRESSION: No radiographic evidence of osteomyelitis. If clinical concern remains, MRI is a more sensitive modality. ACT 112: Negative or not required by law. Electronically signed by: Warren Mckeon M.D. 05/22/2022 11:00 PM
[2022-05-23 08:45] LABS: Albumin Level 3.8 gm/dl (3.4-5.0); Bilirubin,Total 0.8 mg/dl (0.2-1.0); Calcium 8.9 mg/dl (8.6-10.3); Magnesium 2.1 mg/dl (1.7-2.4); Potassium 3.8 mmol/L (3.5-5.1)
[2022-05-23 08:46] LABS: Ferritin 157.6 ng/ml (8-388)
[2022-05-23 08:51] LABS: Vitamin B12 101 pg/ml (180-914)
[2022-05-23 08:52] LABS: BUN Creatinine Ratio 23.8 (10-20); Creatinine Clr Calc Pharmacy 57.8 ml/min; Est GFR (African American) 48.5 ml/min; Est GFR (Non-African American) 41.8 ml/min; Globulin 3.9 gm/dl (2.5-4.0); Total Protein 7.7 gm/dl (6.0-8.3)
--- NOTE | 2022-05-23 09:17 | Infectious Disease Progress Nt ---
Date of Service May 23, 2022 Assessment & Plan (1) Bacteremia: Plan: #BHS bacteremia, Group G #LE lesions #Resolving cellulitis #Bacteruria with MRSE #Leukocytosis #CKD ABX Cefazolin MICRO Blood cultures 05/21 in lab Blood culture 05/19 Group G BHS 4/4 bottles Urine Culture 05/19 >100, 000 cfu/ml ConS Oxacillin R (MRSE) 72 year old male with h/o CAD, DM2, BPH, morbid obesity, chronic lower extremity wounds who was admitted left leg drainage. Infectious diseases consulted for bacteremia. Patient is not a good historian. Review EMR states that he had eaten tacos and began vomiting day of admission. He states that he stubbed his right toe against something and his left leg began draining. Denies any emesis or diarrhea prior to admission. Per EMR his reported around midday he was sitting in his recliner slouched over and couldn't get up there she called for an ambulance. On admission, he was noted to be hypoxic and requiring 3LPM O2 at rest to maintain O2 sats > 90%. He denies any chest pain, orthopnea, PND, shortness of breath, nasal congestion or cough. Blood culture 05/19 Group G BHS 05/16 bottles, Urine Culture 05/19 >100, 000 cfu/ml ConS Oxacillin R (MRSE) CT A/P without contrast nonrevealing. CT Chest no infectious etiology. Arterial dopplers No evidence for a hemodynamically significant stenosis within the left lower extremity. Evaluated by Podiatry, Xray of foot negative for osteomyelitis Discussion Suspect Strep is from lower extremities. CT negative for GI or pulm source. I also suspect CoNS in urine is a contaminant. He also has no urinary complaints to me and MRSE in urine is resistant to cefazolin. Given his CKD, Changed Cefazolin to Ceftriaxone 2G IVdaily. Imaging is negative for osteomyelitis of foot. Therefore will plan to treat for cellulitis with bacteremia. (2) Leukocytosis: Plan -CW Ceftriaxone 2G IV daily -Follow repeat blood cultures from 05/21 -Follow WBC Thank you ID will follow Shameka Love MD Infectious Diseases [facility] Admission and Anticipated Discharge Date Admission Date: May 19, 2022 Subjective This patient recommendation is based on a telemedicine consult request which was completed asynchronously through chart review and information provided by the primary physician. The patient was not seen or examined today. The evaluation is consultative in nature and all patient care and treatment decisions can either be accepted or rejected by the patient's primary hospital-based treating physician using their own independent medical judgment for their patient. Time Spent Reviewing Chart: 21 - 30 minutes 24 hours: JORGE ALBERTO WBC 9.9 4/9 Blood cultures No Growth to date Foot Xray negative for Osteo Results & Data Vital Signs (Past 12 Hours) Vital Signs Temp Pulse Pulse Pulse Resp BP Pulse Ox 05/23/22 07:13 36.6 C 118 H 17 129/75 93 05/23/22 03:00 36.9 C 103 H 20 128/75 90 05/22/22 23:00 101 H 05/22/22 22:33 36.7 C 106 H 22 123/78 94 O2 Del Method 05/23/22 07:13 Room Air 05/23/22 03:00 Room Air 05/22/22 23:00 05/22/22 22:33 Room Air Laboratory Results Laboratory Results - last 48 hr 05/21/22 05/21/22 05/21/22 11:21 16:32 20:34 WBC RBC Hgb Hct MCV MCH MCHC RDW Std Deviation RDW Coeff of Cheng Plt Count MPV Immature Gran % (Auto) Neut % (Auto) Lymph % (Auto) [place] % (Auto) Eos % (Auto) Baso % (Auto) Neut # (Auto) Lymph # (Auto) [place] # (Auto) Eos # (Auto) Baso # (Auto) Immature Gran # (Auto) Sodium Potassium Chloride Carbon Dioxide Anion Gap BUN Creatinine Est Cr Clr Drug Dosing Est GFR ( Amer) Est GFR (Non-Af Amer) BUN/Creatinine Ratio Glucose POC Glucose 245 H 106 H 137 H Calcium Magnesium Iron TIBC Unsaturated IBC Transferrin % Sat Ferritin Total Bilirubin AST ALT Alkaline Phosphatase Total Protein Albumin Globulin Albumin/Globulin Ratio Vitamin B12 Folate Procalcitonin TSH 05/22/22 05/22/22 05/22/22 06:06 07:36 11:05 WBC RBC Hgb Hct MCV MCH MCHC RDW Std Deviation RDW Coeff of Cheng Plt Count MPV Immature Gran % (Auto) Neut % (Auto) Lymph % (Auto) [place] % (Auto) Eos % (Auto) Baso % (Auto) Neut # (Auto) Lymph # (Auto) [place] # (Auto) Eos # (Auto) Baso # (Auto) Immature Gran # (Auto) Sodium 136 Potassium 3.7 Chloride 99 Carbon Dioxide 26 Anion Gap 11 BUN 36 H Creatinine 1.84 H Est Cr Clr Drug Dosing 50.2 Est GFR ( Amer) 40.9 Est GFR (Non-Af Amer) 35.3 BUN/Creatinine Ratio 19.6 Glucose 151 H POC Glucose 139 H 203 H Calcium 8.6 Magnesium Iron TIBC Unsaturated IBC Transferrin % Sat Ferritin Total Bilirubin AST ALT Alkaline Phosphatase Total Protein Albumin Globulin Albumin/Globulin Ratio Vitamin B12 Folate Procalcitonin TSH 05/22/22 05/22/22 05/23/22 16:10 20:21 07:02 WBC 9.98 RBC 4.22 L Hgb 12.7 L Hct 38.2 L MCV 90.5 MCH 30.1 MCHC 33.2 RDW Std Deviation 47.8 H RDW Coeff of Cheng 14.6 H Plt Count 226 MPV 9.2 L Immature Gran % (Auto) 0.4 Neut % (Auto) 54.0 Lymph % (Auto) 31.8 [place] % (Auto) 10.1 Eos % (Auto) 3.0 Baso % (Auto) 0.7 Neut # (Auto) 5.39 Lymph # (Auto) 3.17 [place] # (Auto) 1.01 H Eos # (Auto) 0.30 Baso # (Auto) 0.07 Immature Gran # (Auto) 0.04 Sodium Potassium Chloride Carbon Dioxide Anion Gap BUN Creatinine Est Cr Clr Drug Dosing Est GFR ( Amer) Est GFR (Non-Af Amer) BUN/Creatinine Ratio Glucose POC Glucose 151 H 119 H Calcium Magnesium Iron TIBC Unsaturated IBC Transferrin % Sat Ferritin Total Bilirubin AST ALT Alkaline Phosphatase Total Protein Albumin Globulin Albumin/Globulin Ratio Vitamin B12 Folate Procalcitonin TSH 05/23/22 05/23/22 05/23/22 07:02 07:02 07:02 WBC RBC Hgb Hct MCV MCH MCHC RDW Std Deviation RDW Coeff of Cheng Plt Count MPV Immature Gran % (Auto) Neut % (Auto) Lymph % (Auto) [place] % (Auto) Eos % (Auto) Baso % (Auto) Neut # (Auto) Lymph # (Auto) [place] # (Auto) Eos # (Auto) Baso # (Auto) Immature Gran # (Auto) Sodium 138 Potassium 3.8 Chloride 100 Carbon Dioxide 25 Anion Gap 13 H BUN 38 H Creatinine 1.60 H Est Cr Clr Drug Dosing 57.8 Est GFR ( Amer) 48.5 Est GFR (Non-Af Amer) 41.8 BUN/Creatinine Ratio 23.8 H Glucose 104 H POC Glucose Calcium 8.9 Magnesium 2.1 Iron 68 TIBC 285 Unsaturated IBC 217 Transferrin % Sat 24 Ferritin 157.6 Total Bilirubin 0.8 AST 26 ALT 4 L Alkaline Phosphatase 59 Total Protein 7.7 Albumin 3.8 Globulin 3.9 Albumin/Globulin Ratio 1.0 Vitamin B12 101 L Folate > 22.30 Procalcitonin TSH 2.581 05/23/22 05/23/22 07:02 07:15 WBC RBC Hgb Hct MCV MCH MCHC RDW Std Deviation RDW Coeff of Cheng Plt Count MPV Immature Gran % (Auto) Neut % (Auto) Lymph % (Auto) [place] % (Auto) Eos % (Auto) Baso % (Auto) Neut # (Auto) Lymph # (Auto) [place] # (Auto) Eos # (Auto) Baso # (Auto) Immature Gran # (Auto) Sodium Potassium Chloride Carbon Dioxide Anion Gap BUN Creatinine Est Cr Clr Drug Dosing Est GFR ( Amer) Est GFR (Non-Af Amer) BUN/Creatinine Ratio Glucose POC Glucose 106 H Calcium Magnesium Iron TIBC Unsaturated IBC Transferrin % Sat Ferritin Total Bilirubin AST ALT Alkaline Phosphatase Total Protein Albumin Globulin Albumin/Globulin Ratio Vitamin B12 Folate Procalcitonin 0.72 H TSH Microbiology 05/21/22 09:31 Blood Aerobic Blood Culture - Preliminary No growth in Aerobic bottle after 24 hours. 05/21/22 09:31 Blood Anaerobic Blood Culture - Preliminary No growth in Anaerobic bottle after 24 hours. 05/21/22 09:25 Blood Aerobic Blood Culture - Preliminary No growth in Aerobic bottle after 24 hours. 05/21/22 09:25 Blood Anaerobic Blood Culture - Preliminary No growth in Anaerobic bottle after 24 hours. 05/19/22 Unknown Urine,Clean Catch Urine Culture - Final Coag negative Staphylococcus 05/19/22 14:22 Blood Aerobic Blood Culture - Preliminary Group G Beta Strep 05/19/22 14:22 Blood Anaerobic Blood Culture - Preliminary Group G Beta Strep 05/19/22 14:22 Blood Aerobic Blood Culture - Final Group G Beta Strep 05/19/22 14:22 Blood Anaerobic Blood Culture - Final Group G Beta Strep Diagnostic Findings Chest X-Ray 05/22/22 07:00 SINGLE VIEW CHEST CLINICAL HISTORY: Congestive heart failure. FINDINGS: An AP, portable, upright chest radiograph is compared to chest x-ray and chest CT dated 05/19/2022. The heart is enlarged. Mild pulmonary vascular congestion appears improved from previous. There is bibasilar scarring/atelectasis. No airspace consolidation or large pleural effusion is identified. No pneumothorax is seen. The skeletal structures are osteopenic. There are chronic/healed left-sided rib fractures. IMPRESSION: 1. Cardiomegaly with mild pulmonary vascular congestion. This has improved as compared to 05/19/2022. 2. No airspace consolidation or large pleural effusion is identified. ACT 112: Negative or not required by law. Electronically signed by: Surjit Donnelly M.D. 05/22/2022 9:52 AM Foot X-Ray 05/22/22 18:47 XR foot LT min 3V routine CLINICAL HISTORY: Cellulitis Left LE, Left fifth toe wound TECHNIQUE: 3 views of the left foot were obtained. Comparison: None available at the time of this dictation. FINDINGS: No evidence of bony erosion is seen. The joint spaces are well preserved. Soft tissue swelling is seen about the foot. IMPRESSION: No radiographic evidence of osteomyelitis. If clinical concern remains, MRI is a more sensitive modality. ACT 112: Negative or not required by law. Electronically signed by: Warren Mckeon M.D. 05/22/2022 11:00 PM Medications Administered Current Inpatient Medications Acetaminophen (Acetaminophen 325 Mg Tab) 650 mg PO Q4H PRN PRN Reason: Pain or Fever Stop: 06/18/22 19:15 Last Admin: 05/22/22 22:25 Dose: 650 mg Allopurinol (Allopurinol 300 Mg Tab) 300 mg PO QAM [facility] Stop: 06/19/22 08:59 Last Admin: 05/23/22 08:28 Dose: 300 mg Apixaban (Apixaban 5 Mg Tablet) 5 mg PO BID [facility] Stop: 06/21/22 20:59 Last Admin: 05/23/22 08:28 Dose: 5 mg Aspirin (Aspirin 81 Mg Ectab) 81 mg PO QAM [facility] Stop: 06/19/22 08:59 Last Admin: 05/23/22 08:28 Dose: 81 mg Dextrose (Dextrose 50% 50 Ml Syringe) 25 - 50 ml IV UD PRN; Protocol PRN Reason: Hypoglycemia Protocol Stop: 06/18/22 19:15 Finasteride (Finasteride 5 Mg Tab) 5 mg PO QAM ANJEL Stop: 06/19/22 08:59 Last Admin: 05/23/22 08:28 Dose: 5 mg Glucagon (Glucagon For Inj 1 Mg Vial) 1 mg SQ UD PRN; Protocol PRN Reason: Hypoglycemia Protocol Stop: 06/18/22 19:15 Glucose (Glucose 10 Tab/Tube) 4 - 8 tab PO UD PRN; Protocol PRN Reason: Hypoglycemia Treatment Stop: 06/18/22 19:15 Glucose (Glucose 40% Gel 15 Gm Tube) 15 - 30 gm PO UD PRN; Protocol PRN Reason: Hypoglycemia Protocol Stop: 06/18/22 19:15 Ceftriaxone Sodium 2,000 mg/ (Dextrose) 70 mls @ 100 mls/hr IV Q24H ANJEL; Protocol Stop: 06/05/22 15:59 Last Infusion: 05/22/22 17:28 Dose: Infused Insulin Aspart (Insulin Aspart Per Unit Charge) 0 units SC ACHS ANJEL Stop: 06/18/22 20:59 Last Admin: 05/23/22 08:21 Dose: 8 units Insulin Glargine (Lantus Per Unit Charge) 20 units SQ BID ANJEL Stop: 06/19/22 20:59 Last Admin: 05/23/22 08:22 Dose: 20 units Metoprolol Tartrate (Metoprolol Tartrate 100 Mg Tab) 100 mg PO BID ANJEL Stop: 06/21/22 20:59 Last Admin: 05/23/22 08:29 Dose: 100 mg Miscellaneous (Carbohydrates For Hypoglycemia ) 15 - 30 gm PO UD PRN PRN Reason: Hypoglycemia Protocol Stop: 06/18/22 19:15 Miscellaneous Information (Pharmacy Glycemic Mgmt Consult) 1 each N/A UD PRN PRN Reason: Consult Stop: 06/18/22 19:15 Pantoprazole Sodium (Pantoprazole 40 Mg Tab) 40 mg PO BID [facility] Stop: 06/18/22 20:59 Last Admin: 05/23/22 08:29 Dose: 40 mg Potassium Chloride (Potassium Chloride Crtab 20 Meq Tabcr) 20 meq PO BID ANJEL Stop: 06/20/22 08:59 Last Admin: 05/23/22 08:30 Dose: 20 meq Rosuvastatin Calcium (Rosuvastatin Calcium 10 Mg Tab) 10 mg PO DAILY ANJEL Stop: 06/19/22 08:59 Last Admin: 05/23/22 08:30 Dose: 10 mg Tamsulosin HCl (Tamsulosin Hcl 0.4 Mg Cap) 0.8 mg PO HS ANJEL Stop: 06/19/22 20:59 Last Admin: 05/22/22 19:58 Dose: 0.8 mg
[2022-05-23] MEDS: CYANOCOBALAMIN 1000 MCG/ML VIAL IM SCH (13:34)
--- NOTE | 2022-05-23 14:09 | Hospitalist Progress Note ---
Date of Service May 23, 2022 Assessment & Plan (1) Streptococcal septicemia: Plan: Group G beta streptococcus isolated from blood cultures on 05/19/2022-source is the cellulitis of the left lower extremity. With fever, tachycardia, and leukocytosis-now afebrile, tachycardia improved, and leukocytosis resolved Procalcitonin elevated on admission and now improving CT chest/abdomen/pelvis-negative for acute Initially given ceftriaxone in the ER, followed by cefepime and metronidazole x2 days, then switch to cefazolin on 05/21 Appreciate ID consultation-changed back to ceftriaxone on 05/22 due to renal function being diminished Checked echocardiogram for valvular vegetation as well as for new onset atrial fibrillation-difficult study, with reduced EF, -Continue to follow repeat blood cultures from 05/21-no growth to date -Follow CBC, CMP in the morning -ID recommends 2 weeks of IV abx from last neg BCxs on 05/21, no TERESA indicated as cultures have cleared and no pacer/hardware, no murmur (2) Atrial fibrillation: Plan: Has been in atrial fibrillation since admission Rates were a bit rapid in the 120s, but now improving with increased dose metoprolol continue increased metoprolol to 100 Mg p.o. twice daily and change to Toprol XL on discharge Started Eliquis 5 Mg p.o. twice daily-ewing checked Eliquis with case management-$0 Follow on telemetry Appreciate cardiology consultation (3) Heart failure with mid-range ejection fraction (HFmEF): Plan: EF reduced but no EF calculated due to poor visibility on ECHO Appreciate Cardiology consult Continue rate control, convert metoprolol tartrate to XL at dc add Entresto if able vs ACEi start lasix 40mg po bid today and add Aldactone starting tomorrow follow BMP, mag f/u CHF clinic (4) Cellulitis: Plan: As above, left lower extremity, improving daily (5) CHF (congestive heart failure): Plan: Acute on chronic diastolic CHF. Normal ejection fraction on most recent echo from 1 year ago but now w/ reduced EF as above This has caused acute hypoxic respiratory failure. 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 Continue ASA, rosuvastatin, metoprolol (9) Enlarged prostate without lower urinary tract symptoms (luts): Plan: Continue tamsulosin and finasteride. Monitor for urinary retention given this has been an issue in the past. (10) GERD without esophagitis: Plan: Continue PPI (11) Hypertension: Plan: Blood pressures are controlled Increasing metoprolol for rapid atrial fibrillation as above and adding aldactone, lasix (12) Type 2 diabetes mellitus: Plan: HbA1C 7.8 in Mar. p.o. home meds are on hold ( Farxiga, glipizide, metformin). Sliding scale coverage as needed (13) Gout, joint: Plan: No acute exacerbation. Continue allopurinol for prophylaxis (14) Urinary tract infection: Plan: Staph isolated. This is a contaminant as UA has epithelial cells no need to treat (15) Anemia: Plan: Normocytic, hemoglobin mildly low at 11.9-12.7 iron studies normal [id number] low at 101--> start B12 1000 mcg IM daily x 3 doses then start po B12 1000 mcg folate and TSH normal Plan DVT prophylaxis- Eliquis Disposition-continued stay, will need IV antibiotics at home if possible- consulted case management to arrange this-possible dc in 1-2 days Admission and Anticipated Discharge Date Admission Date: May 19, 2022 Subjective Pt reports feeling well. No concerns except about if his big toenail will be removed. Tele with Afib, rates 90-100s Discussed care with ID Physical Exam Constitutional: WD/WN, vitals as above + obese Respiratory: normal respiratory effort, lungs clear to auscultation Cardiovascular: Rate/Rhythm: regular rate and + irregularly irregular Heart Sounds: no murmur Extremities: + edema (2+ pitting edema left leg and foot, 1+ right ankle and foot) Skin: + lesion (Left pinky toe with scabbed over wound, crusted blood), + wound (Scabbed over wounds bilateral anterior shins), + erythema (Left distal leg and ankle and foot with erythema and warmth,improved) and + nail abnormality (Right great toenail avulsed at the base, thickened and yellow) Psychiatric: Orientation: alert, oriented to person, oriented to place and cooperative Thought Process: + tangential thought process Results & Data Results & Data Vital Signs (Past 12 Hours) Vital Signs Temp Pulse Pulse Pulse Resp BP BP 05/23/22 11:31 36.6 C 74 17 114/76 05/23/22 09:30 105 H 05/23/22 09:25 05/23/22 07:13 36.6 C 118 H 17 129/75 05/23/22 03:00 36.9 C 103 H 20 128/75 Pulse Ox O2 Del Method 05/23/22 11:31 95 Room Air 05/23/22 09:30 05/23/22 09:25 Room Air 05/23/22 07:13 93 Room Air 05/23/22 03:00 90 Room Air Laboratory Results CBC, BMP, Procal, TSH, B12, folate, and iron studies reviewed PG Care Time/CCT Total # of Minutes Spent Total Time Spent with Patient: Total time spent is greater than 50% in coordination of care (as documented) at patient's floor/unit and/or counseling patient: Coding Level of Care Code 68887 SUB INP/OBS CARE 3/50MIN Diagnoses Streptococcal septicemia A40.9 Atrial fibrillation I48.91 Heart failure with mid-range ejection fraction (HFmEF) I50.22 Cellulitis L03.90 CHF (congestive heart failure) I50.9 Chronic kidney disease, stage 3 N18.30 Toenail avulsion S91.209A Coronary artery disease I25.10 Enlarged prostate without lower urinary tract symptoms (luts) N40.0 GERD without esophagitis K21.9 Hypertension I10 Type 2 diabetes mellitus E11.9 Gout, joint M10.9 Urinary tract infection N39.0 Anemia D64.9
--- NOTE | 2022-05-23 14:22 | Pharmacy Report ---
Pharmacy Glycemic Short Note 2 - Date of Service May 23, 2022 - Glycemic Short BSG Results (Last 24 hours): 05/22/22 05/22/22 05/23/22 16:10 20:21 07:02 Glucose 104 H POC Glucose 151 H 119 H 05/23/22 05/23/22 07:15 11:27 Glucose POC Glucose 106 H 159 H OUTPATIENT ANTIDIABETIC REGIMEN: * Farxiga 5 mg daily * glipizide 5 mg PO BID * metformin ER 500 mg PO BID * HbA1C = 7.8% (04/10/22) ASSESSMENT: * Mr Amor is a 72 y/o M with a PMH of T2DM who was admitted on 05/19/22. * His BSGs on day of admission were ~200s. * He received Lantus 20 units yesterday evening and BSGs overnight were 152-146 mg/dL. Fasting this AM was 166 mg/dL. * Will start with Lantus 20 units BID- this is slightly less than weight-based stress of 2. * Novolog weight-based stress of 2. PLAN FOR INPATIENT GLYCEMIC CONTROL: * Hold outpatient oral diabetes medications * Basal insulin * Lantus 20 units SQ BID * Bolus insulin * NovoLog per scale ACHS or Q6hrs while NPO * Goal Range: Low 110 mg/dL - High 140 mg/dL * Correction Factor: 15 mg/dL/unit * Nutritional / Prandial insulin per carb ratio of 1 unit per 5 grams CHO consumed
[2022-05-23] MEDS ORDERED: MAGNESIUM HYDROXIDE SUSP 30 ML UDC PO ONE (14:27)
--- NOTE | 2022-05-23 14:37 | Pharmacy Report ---
Pharmacy Glycemic Short Note 2 - Date of Service May 23, 2022 - Glycemic Short BSG Results (Last 24 hours): 05/22/22 05/22/22 05/23/22 16:10 20:21 07:02 Glucose 104 H POC Glucose 151 H 119 H 05/23/22 05/23/22 07:15 11:27 Glucose POC Glucose 106 H 159 H OUTPATIENT ANTIDIABETIC REGIMEN: * Farxiga 5 mg daily * glipizide 5 mg PO BID * metformin ER 500 mg PO BID * HbA1C = 7.8% (04/10/22) ASSESSMENT: 05/23: * The patient received 80 units of insulin yesterday, of which 40 were basal * He is being treated for bacteremia with rocephin, other stressors stable * Fasting BSG slightly below goal today and downtrending, consider decrease of basal insulin if still below goal tomorrow * Novolog parameters seem effective at correcting and covering, continue current parameters 05/20: * Mr Amor is a 72 y/o M with a PMH of T2DM who was admitted on 05/19/22. * His BSGs on day of admission were ~200s. * He received Lantus 20 units yesterday evening and BSGs overnight were 152-146 mg/dL. Fasting this AM was 166 mg/dL. * Will start with Lantus 20 units BID- this is slightly less than weight-based stress of 2. * Novolog weight-based stress of 2. PLAN FOR INPATIENT GLYCEMIC CONTROL: * Hold outpatient oral diabetes medications * Basal insulin * Lantus 20 units SQ BID * Bolus insulin * NovoLog per scale ACHS or Q6hrs while NPO * Goal Range: Low 110 mg/dL - High 140 mg/dL * Correction Factor: 15 mg/dL/unit * Nutritional / Prandial insulin per carb ratio of 1 unit per 5 grams CHO consumed
[2022-05-23] MEDS: FUROSEMIDE 40 MG TAB PO SCH (16:33)
[2022-05-23] MEDS: cefTRIAXone SODIUM 2,000 MG in DEXTROSE 5% 50 ML IV SCH (16:33)
--- NOTE | 2022-05-23 18:42 | Cardiology Progress Note ---
Date of Service May 23, 2022 Assessment & Plan (1) Atrial fibrillation: (2) Heart failure with mid-range ejection fraction (HFmEF): (3) Cardiomyopathy: (4) Bacteremia: (5) Sepsis: (6) Hypertension: (7) Coronary artery disease: (8) Chronic kidney disease, stage 3: Plan ASSESSMENT/PLAN: 1. Atrial fibrillation: Appears persistent. Asymptomatic. Agree with rate control strategy. Heart rate elevated today but did not receive metoprolol last night. Despite this morning's dose, remains tachycardic. Increase metoprolol to 150 mg twice daily. Continue anticoagulation for stroke risk reduction. Onset unclear. Was not on anticoagulation therapy prior to hospital stay. Monitor CBC and renal function. 2. Cardiomyopathy: Probable mildly reduced LV systolic function however poor image quality. May be related to heart rate. On discharge, recommend metoprolol succinate in place of tartrate. Volume status unclear. Twice daily Lasix 40 mg IV was held after this morning's dose by hospitalist service due to creatinine slightly higher than typical baseline, but similar. Oral Lasix initiated 05/23/2022. Spironolactone to begin tomorrow. No SGLT2 inhibitor given urinary tract issues. If LV systolic function becomes more significantly reduced, could consider Entresto. 3. Acute on Chronic Heart failure with midrange EF: Per notes, was hypervolemic on presentation and improved with diuresis. Spironolactone as above. No SGLT2 inhibitor given urinary tract issues. Metoprolol succinate in place of tartrate on discharge. Could consider Entresto, especially if LV systolic function becomes more significantly reduced. Would try to attempt repeat echo as an outpatient. Heart failure program enrollment. 4. CAD: Details unclear but reportedly [place] in January 2011. No known PCI. Continue beta-nickie. Continue statin therapy. LDL well controlled. No angina. If no PCI aspirin therapy could be discontinued while on Eliquis. We will try to clarify if PCI in the past. 5. CKD: Monitor closely especially with diuretics. 6. Sepsis/urinary tract infection/streptococcal septicemia: As per ID and primary hospitalist service. 7. Hypertension: Blood pressure well controlled. 8. Disposition: Cardiology will continue to follow. Patient care discussed with Dr. Freeman of the primary hospitalist service. Admission and Anticipated Discharge Date Admission Date: May 19, 2022 Subjective Patient seen this evening. He denies chest pain, shortness of breath, palpitations, syncope, near syncope. Nursing staff has reported that metoprolol was held last evening. He was alone in his hospital room. Physical Exam Physical Exam: Gen.: No acute distress. Alert. HEENT: Anicteric sclera. Neck: Thick neck. Cardiac: No ventricular heave. Irregularly irregular and tachycardic. Normal S1-S2. No murmurs, rubs, or gallops. Pulmonary: Decreased breath signs bilaterally, but otherwise clear to auscultation bilaterally without wheezes, rales, or rhonchi. Abdomen: Soft, nontender, nondistended, with normoactive bowel sounds. No bruits noted. Extremities: 2+ radial pulses bilaterally. 1+ left lower extremity edema. Trace right lower extremity edema. No cyanosis. Results & Data Vital Signs (Past 12 Hours) Vital Signs Temp Pulse Pulse Resp BP BP Pulse Ox 05/23/22 16:05 113 H 05/23/22 15:47 36.8 C 89 20 131/84 94 05/23/22 11:31 36.6 C 74 17 114/76 95 05/23/22 09:30 105 H 05/23/22 09:25 05/23/22 07:13 36.6 C 118 H 17 129/75 93 O2 Del Method 05/23/22 16:05 05/23/22 15:47 Room Air 05/23/22 11:31 Room Air 05/23/22 09:30 05/23/22 09:25 Room Air 05/23/22 07:13 Room Air Intake & Output 05/21/22 05/22/22 05/23/22 05/24/22 06:59 06:59 06:59 06:59 Intake Total 1330 / 1330 860 / 860 1850 / 1850 1130 / 1130 Output Total 211 / 2115 2024 / 2024 1725 / 1725 590 / 590 Balance -785 / -785 -1165 / -1165 125 / 125 540 / 540 Weight 293 lb 14.019 oz 291 lb 7.218 oz Laboratory Results Laboratory Results - last 24 hr 05/22/22 05/23/22 05/23/22 20:21 07:02 07:02 WBC 9.98 RBC 4.22 L Hgb 12.7 L Hct 38.2 L MCV 90.5 MCH 30.1 MCHC 33.2 RDW Std Deviation 47.8 H RDW Coeff of Cheng 14.6 H Plt Count 226 MPV 9.2 L Immature Gran % (Auto) 0.4 Neut % (Auto) 54.0 Lymph % (Auto) 31.8 Sac % (Auto) 10.1 Eos % (Auto) 3.0 Baso % (Auto) 0.7 Neut # (Auto) 5.39 Lymph # (Auto) 3.17 Sac # (Auto) 1.01 H Eos # (Auto) 0.30 Baso # (Auto) 0.07 Immature Gran # (Auto) 0.04 Sodium 138 Potassium 3.8 Chloride 100 Carbon Dioxide 25 Anion Gap 13 H BUN 38 H Creatinine 1.60 H Est Cr Clr Drug Dosing 57.8 Est GFR ( Amer) 48.5 Est GFR (Non-Af Amer) 41.8 BUN/Creatinine Ratio 23.8 H Glucose 104 H POC Glucose 119 H Calcium 8.9 Magnesium 2.1 Iron 68 TIBC 285 Unsaturated IBC 217 Transferrin % Sat 24 Ferritin 157.6 Total Bilirubin 0.8 AST 26 ALT 4 L Alkaline Phosphatase 59 Total Protein 7.7 Albumin 3.8 Globulin 3.9 Albumin/Globulin Ratio 1.0 Vitamin B12 Folate Procalcitonin TSH 05/23/22 05/23/22 05/23/22 07:02 07:02 07:02 WBC RBC Hgb Hct MCV MCH MCHC RDW Std Deviation RDW Coeff of Cheng Plt Count MPV Immature Gran % (Auto) Neut % (Auto) Lymph % (Auto) Sac % (Auto) Eos % (Auto) Baso % (Auto) Neut # (Auto) Lymph # (Auto) Sac # (Auto) Eos # (Auto) Baso # (Auto) Immature Gran # (Auto) Sodium Potassium Chloride Carbon Dioxide Anion Gap BUN Creatinine Est Cr Clr Drug Dosing Est GFR ( Amer) Est GFR (Non-Af Amer) BUN/Creatinine Ratio Glucose POC Glucose Calcium Magnesium Iron TIBC Unsaturated IBC Transferrin % Sat Ferritin Total Bilirubin AST ALT Alkaline Phosphatase Total Protein Albumin Globulin Albumin/Globulin Ratio Vitamin B12 101 L Folate > 22.30 Procalcitonin 0.72 H TSH 2.581 05/23/22 05/23/22 05/23/22 07:15 11:27 16:09 WBC RBC Hgb Hct MCV MCH MCHC RDW Std Deviation RDW Coeff of Cheng Plt Count MPV Immature Gran % (Auto) Neut % (Auto) Lymph % (Auto) Sac % (Auto) Eos % (Auto) Baso % (Auto) Neut # (Auto) Lymph # (Auto) Sac # (Auto) Eos # (Auto) Baso # (Auto) Immature Gran # (Auto) Sodium Potassium Chloride Carbon Dioxide Anion Gap BUN Creatinine Est Cr Clr Drug Dosing Est GFR ( Amer) Est GFR (Non-Af Amer) BUN/Creatinine Ratio Glucose POC Glucose 106 H 159 H 130 H Calcium Magnesium Iron TIBC Unsaturated IBC Transferrin % Sat Ferritin Total Bilirubin AST ALT Alkaline Phosphatase Total Protein Albumin Globulin Albumin/Globulin Ratio Vitamin B12 Folate Procalcitonin TSH Diagnostic Findings Telemetry personally reviewed: Atrial fibrillation with rapid ventricular response. Labs reviewed and demonstrated improved creatinine, mild anemia. Hospitalist report and ID progress note reviewed. Medications Administered Current Inpatient Medications Acetaminophen (Acetaminophen 325 Mg Tab) 650 mg PO Q4H PRN PRN Reason: Pain or Fever Stop: 06/18/22 19:15 Last Admin: 05/22/22 22:25 Dose: 650 mg Allopurinol (Allopurinol 300 Mg Tab) 300 mg PO [facility] Stop: 06/19/22 08:59 Last Admin: 05/23/22 08:28 Dose: 300 mg Apixaban (Apixaban 5 Mg Tablet) 5 mg PO BID [facility] Stop: 06/21/22 20:59 Last Admin: 05/23/22 08:28 Dose: 5 mg Aspirin (Aspirin 81 Mg Ectab) 81 mg PO [facility] Stop: 06/19/22 08:59 Last Admin: 05/23/22 08:28 Dose: 81 mg Cyanocobalamin (Cyanocobalamin 1000 Mcg/Ml Vial) 1,000 mcg IM [facility] Stop: 05/25/22 09:01 Last Admin: 05/23/22 13:34 Dose: 1,000 mcg Cyanocobalamin (Cyanocobalamin (B-12) 500 Mcg Tablet) 500 mcg PO [facility] Stop: 06/25/22 08:59 Dextrose (Dextrose 50% 50 Ml Syringe) 25 - 50 ml IV UD PRN; Protocol PRN Reason: Hypoglycemia Protocol Stop: 06/18/22 19:15 Finasteride (Finasteride 5 Mg Tab) 5 mg PO [facility] Stop: 06/19/22 08:59 Last Admin: 05/23/22 08:28 Dose: 5 mg Furosemide (Furosemide 40 Mg Tab) 40 mg PO [id number] ANJEL Stop: 06/22/22 16:59 Last Admin: 05/23/22 16:33 Dose: 40 mg Glucagon (Glucagon For Inj 1 Mg Vial) 1 mg SQ UD PRN; Protocol PRN Reason: Hypoglycemia Protocol Stop: 06/18/22 19:15 Glucose (Glucose 10 Tab/Tube) 4 - 8 tab PO UD PRN; Protocol PRN Reason: Hypoglycemia Treatment Stop: 06/18/22 19:15 Glucose (Glucose 40% Gel 15 Gm Tube) 15 - 30 gm PO UD PRN; Protocol PRN Reason: Hypoglycemia Protocol Stop: 06/18/22 19:15 Ceftriaxone Sodium 2,000 mg/ (Dextrose) 70 mls @ 100 mls/hr IV Q24H ANJEL; Protocol Stop: 06/05/22 15:59 Last Infusion: 05/23/22 17:15 Dose: Infused Insulin Aspart (Insulin Aspart Per Unit Charge) 0 units SC ACHS ANJEL Stop: 06/18/22 20:59 Last Admin: 05/23/22 17:52 Dose: 10 units Insulin Glargine (Lantus Per Unit Charge) 20 units SQ BID ANJEL Stop: 06/19/22 20:59 Last Admin: 05/23/22 08:22 Dose: 20 units Metoprolol Tartrate (Metoprolol Tartrate 100 Mg Tab) 100 mg PO BID ANJEL Stop: 06/21/22 20:59 Last Admin: 05/23/22 08:29 Dose: 100 mg Miscellaneous (Carbohydrates For Hypoglycemia ) 15 - 30 gm PO UD PRN PRN Reason: Hypoglycemia Protocol Stop: 06/18/22 19:15 Miscellaneous Information (Pharmacy Glycemic Mgmt Consult) 1 each N/A UD PRN PRN Reason: Consult Stop: 06/18/22 19:15 Pantoprazole Sodium (Pantoprazole 40 Mg Tab) 40 mg PO BID ANJEL Stop: 06/18/22 20:59 Last Admin: 05/23/22 08:29 Dose: 40 mg Potassium Chloride (Potassium Chloride Crtab 20 Meq Tabcr) 20 meq PO BID ANJEL Stop: 06/20/22 08:59 Last Admin: 05/23/22 08:30 Dose: 20 meq Rosuvastatin Calcium (Rosuvastatin Calcium 10 Mg Tab) 10 mg PO DAILY ANJEL Stop: 06/19/22 08:59 Last Admin: 05/23/22 08:30 Dose: 10 mg Spironolactone (Spironolactone 12.5 Mg Tab) 12.5 mg PO DAILY ANJEL Stop: 06/23/22 08:59 Tamsulosin HCl (Tamsulosin Hcl 0.4 Mg Cap) 0.8 mg PO HS ANJEL Stop: 06/19/22 20:59 Last Admin: 05/22/22 19:58 Dose: 0.8 mg PG Care Time/CCT Total # of Minutes Spent Total Time Spent with Patient: Total time spent is greater than 50% in coordination of care (as documented) at patient's floor/unit and/or counseling patient: Coding Level of Care Code 60882 SUB INP/OBS CARE 2/35MIN Diagnoses Atrial fibrillation I48.91 Heart failure with mid-range ejection fraction (HFmEF) I50.22 Cardiomyopathy I42.9 Bacteremia R78.81 Sepsis A41.9 Hypertension I10 Coronary artery disease I25.10 Chronic kidney disease, stage 3 N18.30
[2022-05-23] MEDS: TAMSULOSIN HCL 0.4 MG CAP PO SCH (20:12)
[2022-05-23] MEDS: METOPROLOL TARTRATE 50 MG TAB PO SCH (20:13)
[2022-05-23] MEDS: ACETAMINOPHEN 325 MG TAB PO PRN (21:28)
[2022-05-24] MEDS: ACETAMINOPHEN 325 MG TAB PO PRN ×2 (03:30→21:05)
[2022-05-24 07:49] LABS: Basophils # (auto) 0.08 K/uL (0-0.2); Basophils % (auto) 0.8 %; Eosinophils # (auto) 0.42 K/uL (0-0.50); Hematocrit (blood only) 35.5 % (42.0-52.0); Immature Granulocytes # (auto) 0.09 K/uL (0.01-0.20); Immature Granulocytes % (auto) 0.9 %; Lymphocytes # (auto) 2.89 K/uL (1.2-3.4); Lymphocytes % (auto) 27.7 %; Mean Corpuscular Hemoglobin 30.2 pg (25.0-34.0); Mean Corpuscular Hgb Conc 33.8 g/dL (32.0-36.0); Mean Corpuscular Volume 89.4 fL (80.0-100.0); Mean Platelet Volume 9.3 fL (9.4-12.4); Monocytes % (auto) 8.6 %; Neutrophils # (auto) 6.06 K/uL (1.40-6.50); Platelet Count 220 K/uL (130-400); RDW Coefficient of Variation 14.7 % (11.5-14.5); RDW Standard Deviation 48.3 fL (36.4-46.3); Red Blood Count 3.97 M/uL (4.70-6.10); White Blood Count 10.44 K/ul (4.8-10.8)
[2022-05-24 08:03] LABS: Albumin Level 3.6 gm/dl (3.4-5.0); BUN Creatinine Ratio 22.3 (10-20); Bilirubin,Total 0.7 mg/dl (0.2-1.0); Calcium 8.6 mg/dl (8.6-10.3); Creatinine Clr Calc Pharmacy 62.7 ml/min; Est GFR (African American) 53.3 ml/min; Globulin 3.5 gm/dl (2.5-4.0); Magnesium 2.1 mg/dl (1.7-2.4); Total Protein 7.1 gm/dl (6.0-8.3)
[2022-05-24] MEDS: INSULIN ASPART PER UNIT CHARGE SC SCH ×4 (08:07→20:30)
[2022-05-24] MEDS: METOPROLOL TARTRATE 50 MG TAB PO SCH (08:24)
[2022-05-24] MEDS: POTASSIUM CHLORIDE CRTAB 20 MEQ TABCR PO SCH (08:24)
[2022-05-24] MEDS: CYANOCOBALAMIN 1000 MCG/ML VIAL IM SCH (08:25)
[2022-05-24] MEDS: PANTOprazole 40 MG TAB PO SCH ×2 (08:25→20:33)
[2022-05-24] MEDS: ROSUVASTATIN CALCIUM 10 MG TAB PO SCH (08:25)
[2022-05-24] MEDS: SPIRONOLACTONE 12.5 MG TAB PO SCH (08:25)
[2022-05-24] MEDS: APIXABAN 5 MG TABLET PO SCH ×2 (08:25→20:31)
[2022-05-24] MEDS: FINASTERIDE 5 MG TAB PO SCH (08:25)
[2022-05-24] MEDS: FUROSEMIDE 40 MG TAB PO SCH ×2 (08:25→17:36)
[2022-05-24] MEDS: allopurinoL 300 MG TAB PO SCH (08:25)
[2022-05-24] MEDS: ASPIRIN 81 MG ECTAB PO SCH (08:25)
--- NOTE | 2022-05-24 09:13 | Infectious Disease Progress Nt ---
Date of Service May 24, 2022 Assessment & Plan (1) Bacteremia: Plan: #BHS bacteremia, Group G #LE lesions #Resolving cellulitis #Bacteruria with MRSE #Leukocytosis #CKD ABX Cefazolin MICRO Blood cultures 05/21 in lab Blood culture 05/19 Group G BHS /4 bottles Urine Culture 05/19 >100, 000 cfu/ml ConS Oxacillin R (MRSE) 72 year old male with h/o CAD, DM2, BPH, morbid obesity, chronic lower extremity wounds who was admitted left leg drainage. Infectious diseases consulted for bacteremia. Patient is not a good historian. Review EMR states that he had eaten tacos and began vomiting day of admission. He states that he stubbed his right toe against something and his left leg began draining. Denies any emesis or diarrhea prior to admission. Per EMR his reported around midday he was sitting in his recliner slouched over and couldn't get up there she called for an ambulance. On admission, he was noted to be hypoxic and requiring 3LPM O2 at rest to maintain O2 sats > 90%. He denies any chest pain, orthopnea, PND, shortness of breath, nasal congestion or cough. Blood culture 05/19 Group G BHS 05/16 bottles, Urine Culture 05/19 >100, 000 cfu/ml ConS Oxacillin R (MRSE) CT A/P without contrast nonrevealing. CT Chest no infectious etiology. Arterial dopplers No evidence for a hemodynamically significant stenosis within the left lower extremity. Evaluated by Podiatry, Xray of foot negative for osteomyelitis Discussion Suspect Strep is from lower extremities. CT negative for GI or pulm source. I also suspect CoNS in urine is a contaminant. He also has no urinary complaints to me and MRSE in urine is resistant to cefazolin. Given his CKD, Changed Cefazolin to Ceftriaxone 2G IVdaily. Imaging is negative for osteomyelitis of foot. Therefore will plan to treat for cellulitis with bacteremia. (2) Leukocytosis: Plan -CW Ceftriaxone 2G IV daily -Follow repeat blood cultures from 05/21 -Follow WBC -Anticipate 2 week course from first negative culture 05/21-06/04 with weekly CBC with diff and cmp to primary care Discuss with Dr. Pete Love MD Infectious Diseases [facility] Admission and Anticipated Discharge Date Admission Date: May 19, 2022 Subjective This patient recommendation is based on a telemedicine consult request which was completed asynchronously through chart review and information provided by the primary physician. The patient was not seen or examined today. The evaluation is consultative in nature and all patient care and treatment decisions can either be accepted or rejected by the patient's primary hospital-based treating physician using their own independent medical judgment for their patient. Time Spent Reviewing Chart: 21 - 30 minutes 24 hours: 05/21 Blood culture No Growth Results & Data Vital Signs (Past 12 Hours) Vital Signs Temp Pulse Pulse Resp BP BP Pulse Ox 05/24/22 07:54 36.8 C 112 H 20 134/70 05/24/22 03:26 36.4 C L 110 H 20 128/77 94 05/24/22 00:09 88 05/23/22 22:31 36.9 C 89 18 131/80 92 O2 Del Method 05/24/22 07:54 Room Air 05/24/22 03:26 Room Air 05/24/22 00:09 05/23/22 22:31 Room Air Laboratory Results Laboratory Results - last 48 hr 05/22/22 05/22/22 05/22/22 11:05 16:10 20:21 WBC RBC Hgb Hct MCV MCH MCHC RDW Std Deviation RDW Coeff of Cheng Plt Count MPV Immature Gran % (Auto) Neut % (Auto) Lymph % (Auto) [place] % (Auto) Eos % (Auto) Baso % (Auto) Neut # (Auto) Lymph # (Auto) [place] # (Auto) Eos # (Auto) Baso # (Auto) Immature Gran # (Auto) Sodium Potassium Chloride Carbon Dioxide Anion Gap BUN Creatinine Est Cr Clr Drug Dosing Est GFR ( Amer) Est GFR (Non-Af Amer) BUN/Creatinine Ratio Glucose POC Glucose 203 H 151 H 119 H Calcium Magnesium Iron TIBC Unsaturated IBC Transferrin % Sat Ferritin Total Bilirubin AST ALT Alkaline Phosphatase Total Protein Albumin Globulin Albumin/Globulin Ratio Vitamin B12 Folate Procalcitonin TSH 05/23/22 05/23/22 05/23/22 07:02 07:02 07:02 WBC 9.98 RBC 4.22 L Hgb 12.7 L Hct 38.2 L MCV 90.5 MCH 30.1 MCHC 33.2 RDW Std Deviation 47.8 H RDW Coeff of Cheng 14.6 H Plt Count 226 MPV 9.2 L Immature Gran % (Auto) 0.4 Neut % (Auto) 54.0 Lymph % (Auto) 31.8 [place] % (Auto) 10.1 Eos % (Auto) 3.0 Baso % (Auto) 0.7 Neut # (Auto) 5.39 Lymph # (Auto) 3.17 [place] # (Auto) 1.01 H Eos # (Auto) 0.30 Baso # (Auto) 0.07 Immature Gran # (Auto) 0.04 Sodium 138 Potassium 3.8 Chloride 100 Carbon Dioxide 25 Anion Gap 13 H BUN 38 H Creatinine 1.60 H Est Cr Clr Drug Dosing 57.8 Est GFR ( Amer) 48.5 Est GFR (Non-Af Amer) 41.8 BUN/Creatinine Ratio 23.8 H Glucose 104 H POC Glucose Calcium 8.9 Magnesium 2.1 Iron 68 TIBC 285 Unsaturated IBC 217 Transferrin % Sat 24 Ferritin 157.6 Total Bilirubin 0.8 AST 26 ALT 4 L Alkaline Phosphatase 59 Total Protein 7.7 Albumin 3.8 Globulin 3.9 Albumin/Globulin Ratio 1.0 Vitamin B12 101 L Folate > 22.30 Procalcitonin TSH 05/23/22 05/23/22 05/23/22 07:02 07:02 07:15 WBC RBC Hgb Hct MCV MCH MCHC RDW Std Deviation RDW Coeff of Cheng Plt Count MPV Immature Gran % (Auto) Neut % (Auto) Lymph % (Auto) [place] % (Auto) Eos % (Auto) Baso % (Auto) Neut # (Auto) Lymph # (Auto) [place] # (Auto) Eos # (Auto) Baso # (Auto) Immature Gran # (Auto) Sodium Potassium Chloride Carbon Dioxide Anion Gap BUN Creatinine Est Cr Clr Drug Dosing Est GFR ( Amer) Est GFR (Non-Af Amer) BUN/Creatinine Ratio Glucose POC Glucose 106 H Calcium Magnesium Iron TIBC Unsaturated IBC Transferrin % Sat Ferritin Total Bilirubin AST ALT Alkaline Phosphatase Total Protein Albumin Globulin Albumin/Globulin Ratio Vitamin B12 Folate Procalcitonin 0.72 H TSH 2.581 05/23/22 05/23/22 05/23/22 11:27 16:09 20:11 WBC RBC Hgb Hct MCV MCH MCHC RDW Std Deviation RDW Coeff of Cheng Plt Count MPV Immature Gran % (Auto) Neut % (Auto) Lymph % (Auto) [place] % (Auto) Eos % (Auto) Baso % (Auto) Neut # (Auto) Lymph # (Auto) [place] # (Auto) Eos # (Auto) Baso # (Auto) Immature Gran # (Auto) Sodium Potassium Chloride Carbon Dioxide Anion Gap BUN Creatinine Est Cr Clr Drug Dosing Est GFR ( Amer) Est GFR (Non-Af Amer) BUN/Creatinine Ratio Glucose POC Glucose 159 H 130 H 145 H Calcium Magnesium Iron TIBC Unsaturated IBC Transferrin % Sat Ferritin Total Bilirubin AST ALT Alkaline Phosphatase Total Protein Albumin Globulin Albumin/Globulin Ratio Vitamin B12 Folate Procalcitonin TSH 05/24/22 05/24/22 05/24/22 07:07 07:07 07:32 WBC 10.44 RBC 3.97 L Hgb 12.0 L Hct 35.5 L MCV 89.4 MCH 30.2 MCHC 33.8 RDW Std Deviation 48.3 H RDW Coeff of Cheng 14.7 H Plt Count 220 MPV 9.3 L Immature Gran % (Auto) 0.9 Neut % (Auto) 58.0 Lymph % (Auto) 27.7 [place] % (Auto) 8.6 Eos % (Auto) 4.0 Baso % (Auto) 0.8 Neut # (Auto) 6.06 Lymph # (Auto) 2.89 [place] # (Auto) 0.90 H Eos # (Auto) 0.42 Baso # (Auto) 0.08 Immature Gran # (Auto) 0.09 Sodium 139 Potassium 4.0 Chloride 102 Carbon Dioxide 31 Anion Gap 6 BUN 33 H Creatinine 1.48 H Est Cr Clr Drug Dosing 62.7 Est GFR ( Amer) 53.3 Est GFR (Non-Af Amer) 46.0 BUN/Creatinine Ratio 22.3 H Glucose 118 H POC Glucose 122 H Calcium 8.6 Magnesium 2.1 Iron TIBC Unsaturated IBC Transferrin % Sat Ferritin Total Bilirubin 0.7 AST 20 ALT 4 L Alkaline Phosphatase 56 Total Protein 7.1 Albumin 3.6 Globulin 3.5 Albumin/Globulin Ratio 1.0 Vitamin B12 Folate Procalcitonin TSH Microbiology 05/21/22 09:31 Blood Aerobic Blood Culture - Preliminary No growth in Aerobic bottle after 48 hours. 05/21/22 09:31 Blood Anaerobic Blood Culture - Preliminary No growth in Anaerobic bottle after 48 hours. 05/21/22 09:25 Blood Aerobic Blood Culture - Preliminary No growth in Aerobic bottle after 48 hours. 05/21/22 09:25 Blood Anaerobic Blood Culture - Preliminary No growth in Anaerobic bottle after 48 hours. 05/19/22 Unknown Urine,Clean Catch Urine Culture - Final Coag negative Staphylococcus 05/19/22 14:22 Blood Aerobic Blood Culture - Preliminary Group G Beta Strep 05/19/22 14:22 Blood Anaerobic Blood Culture - Preliminary Group G Beta Strep 05/19/22 14:22 Blood Aerobic Blood Culture - Final Group G Beta Strep 05/19/22 14:22 Blood Anaerobic Blood Culture - Final Group G Beta Strep Medications Administered Current Inpatient Medications Acetaminophen (Acetaminophen 325 Mg Tab) 650 mg PO Q4H PRN PRN Reason: Pain or Fever Stop: 06/18/22 19:15 Last Admin: 05/24/22 03:30 Dose: 650 mg Allopurinol (Allopurinol 300 Mg Tab) 300 mg PO [facility] Stop: 06/19/22 08:59 Last Admin: 05/24/22 08:25 Dose: 300 mg Apixaban (Apixaban 5 Mg Tablet) 5 mg PO BID [facility] Stop: 06/21/22 20:59 Last Admin: 05/24/22 08:25 Dose: 5 mg Aspirin (Aspirin 81 Mg Ectab) 81 mg PO [facility] Stop: 06/19/22 08:59 Last Admin: 05/24/22 08:25 Dose: 81 mg Cyanocobalamin (Cyanocobalamin 1000 Mcg/Ml Vial) [facility] Stop: 05/25/22 09:01 Last Admin: 05/24/22 08:25 Dose: 1,000 mcg Cyanocobalamin (Cyanocobalamin (B-12) 500 Mcg Tablet) 500 [facility] Stop: 06/25/22 08:59 Dextrose (Dextrose 50% 50 Ml Syringe) 25 - 50 ml IV UD PRN; Protocol PRN Reason: Hypoglycemia Protocol Stop: 06/18/22 19:15 Finasteride (Finasteride 5 Mg Tab) [facility] Stop: 06/19/22 08:59 Last Admin: 05/24/22 08:25 Dose: 5 mg Furosemide (Furosemide 40 Mg Tab) 40 mg PO BID17 [facility] Stop: 06/22/22 16:59 Last Admin: 05/24/22 08:25 Dose: 40 mg Glucagon (Glucagon For Inj 1 Mg Vial) 1 mg SQ UD PRN; Protocol PRN Reason: Hypoglycemia Protocol Stop: 06/18/22 19:15 Glucose (Glucose 10 Tab/Tube) 4 - 8 tab PO UD PRN; Protocol PRN Reason: Hypoglycemia Treatment Stop: 06/18/22 19:15 Glucose (Glucose 40% Gel 15 Gm Tube) 15 - 30 gm PO UD PRN; Protocol PRN Reason: Hypoglycemia Protocol Stop: 06/18/22 19:15 Ceftriaxone Sodium 2,000 mg/ (Dextrose) 70 mls @ 100 mls/hr IV Q24H [facility]; Protocol Stop: 06/05/22 15:59 Last Infusion: 05/23/22 17:15 Dose: Infused Insulin Aspart (Insulin Aspart Per Unit Charge) 0 units SC ACHS [facility] Stop: 06/18/22 20:59 Last Admin: 05/24/22 08:07 Dose: 9 units Insulin Glargine (Lantus Per Unit Charge) 20 units SQ BID [facility] Stop: 06/19/22 20:59 Last Admin: 05/23/22 20:19 Dose: 20 units Metoprolol Tartrate (Metoprolol Tartrate 50 Mg Tab) 150 mg PO BID [facility] Stop: 06/22/22 20:59 Last Admin: 05/24/22 08:24 Dose: 150 mg Miscellaneous (Carbohydrates For Hypoglycemia ) 15 - 30 gm PO UD PRN PRN Reason: Hypoglycemia Protocol Stop: 06/18/22 19:15 Miscellaneous Information (Pharmacy Glycemic Mgmt Consult) 1 each N/A UD PRN PRN Reason: Consult Stop: 06/18/22 19:15 Pantoprazole Sodium (Pantoprazole 40 Mg Tab) 40 mg PO BID [facility] Stop: 06/18/22 20:59 Last Admin: 05/24/22 08:25 Dose: 40 mg Rosuvastatin Calcium (Rosuvastatin Calcium 10 Mg Tab) 10 mg PO DAILY [facility] Stop: 06/19/22 08:59 Last Admin: 05/24/22 08:25 Dose: 10 mg Spironolactone (Spironolactone 12.5 Mg Tab) 12.5 mg PO DAILY [facility] Stop: 06/23/22 08:59 Last Admin: 05/24/22 08:25 Dose: 12.5 mg Tamsulosin HCl (Tamsulosin Hcl 0.4 Mg Cap) 0.8 mg PO HS [facility] Stop: 06/19/22 20:59 Last Admin: 05/23/22 20:12 Dose: 0.8 mg
[2022-05-24] MEDS: LANTUS PER UNIT CHARGE SQ SCH ×2 (09:15→20:31)
--- NOTE | 2022-05-24 10:44 | Cardiology Progress Note ---
Date of Service May 24, 2022 Assessment & Plan (1) Atrial fibrillation: (2) Heart failure with mid-range ejection fraction (HFmEF): (3) Cardiomyopathy: (4) Bacteremia: (5) Sepsis: (6) Hypertension: (7) Coronary artery disease: (8) Chronic kidney disease, stage 3: Plan ASSESSMENT/PLAN: 1. Atrial fibrillation: Appears persistent. Asymptomatic. Agree with rate control strategy. Heart rate is improving on increased metoprolol. If heart rate remains elevated, will increase metoprolol to 200 mg twice daily, which can be converted to succinate at discharge. Continue anticoagulation for stroke risk reduction. Onset unclear. Was not on anticoagulation therapy prior to hospital stay. Monitor CBC and renal function. After 4 weeks of anticoagulation therapy, can consider cardioversion if applicable. Heart rate reasonable enough at this time to avoid transesophageal echo and cardioversion. 2. Cardiomyopathy: Probable mildly reduced LV systolic function however poor image quality. May be related to heart rate. On discharge, recommend metoprolol succinate in place of tartrate. Volume status unclear. Oral Lasix initiated 05/23/2022, had IV lasix prior. Spironolactone has been initiated. No SGLT2 inhibitor given urinary tract issues. If LV systolic function becomes more significantly reduced, could consider Entresto. 3. Acute on Chronic Heart failure with midrange EF: Per notes, was hypervolemic on presentation and improved with diuresis. Spironolactone as above. No SGLT2 inhibitor given urinary tract issues. Metoprolol succinate in place of tartrate on discharge. Could consider Entresto, especially if LV systolic function becomes more significantly reduced. Would try to attempt repeat echo as an outpatient. Heart failure program enrollment. 4. CAD: Details unclear but reportedly [place] in January 2011. No known PCI. Continue beta-nickie. Continue statin therapy. LDL well controlled. No angina. No history of PCI. Can d/c aspirin while on eliquis. 5. CKD: Monitor closely especially with diuretics. 6. Sepsis/urinary tract infection/streptococcal septicemia: As per ID and primary hospitalist service. 7. Hypertension: Blood pressure well controlled. 8. Disposition: Cardiology will continue to follow. Patient care discussed with Dr. Freeman of the primary hospitalist service. Admission and Anticipated Discharge Date Admission Date: May 19, 2022 Subjective Patient had no specific complaints this morning. He denies chest pain, shortness of breath, palpitations, syncope, near syncope. He denies bleeding. He was alone in his hospital room. Physical Exam Physical Exam: Gen.: No acute distress. Alert. HEENT: Anicteric sclera. Neck: Thick neck. Cardiac: No ventricular heave. Irregularly irregular. Normal S1-S2. No murmurs, rubs, or gallops. Pulmonary: Decreased breath signs bilaterally, but otherwise clear to auscultation bilaterally without wheezes, rales, or rhonchi. Abdomen: Soft, nontender, nondistended, with normoactive bowel sounds. No bruits noted. Extremities: 2+ radial pulses bilaterally. 1+ left lower extremity edema. Trace right lower extremity edema. No cyanosis. Results & Data Vital Signs (Past 12 Hours) Vital Signs Temp Pulse Pulse Resp BP BP Pulse Ox 05/24/22 09:58 96 H 05/24/22 07:54 36.8 C 112 H 20 134/70 05/24/22 03:26 36.4 C L 110 H 20 128/77 94 05/24/22 00:09 88 O2 Del Method 05/24/22 09:58 05/24/22 07:54 Room Air 05/24/22 03:26 Room Air 05/24/22 00:09 Intake & Output 05/22/22 05/23/22 05/24/22 05/25/22 06:59 06:59 06:59 06:59 Intake Total 860 / 860 1850 / 1850 2009 300 / 300 Output Total 2024 1725 / 1725 1290 / 1290 275 / 275 Balance -1165 / -1165 125 / 125 720 / 720 25 / 25 Weight 291 lb 7.218 oz 293 lb 6.964 oz Laboratory Results Laboratory Results - last 24 hr 05/23/22 05/23/22 05/23/22 11:27 16:09 20:11 WBC RBC Hgb Hct MCV MCH MCHC RDW Std Deviation RDW Coeff of Cheng Plt Count MPV Immature Gran % (Auto) Neut % (Auto) Lymph % (Auto) [place] % (Auto) Eos % (Auto) Baso % (Auto) Neut # (Auto) Lymph # (Auto) [place] # (Auto) Eos # (Auto) Baso # (Auto) Immature Gran # (Auto) Sodium Potassium Chloride Carbon Dioxide Anion Gap BUN Creatinine Est Cr Clr Drug Dosing Est GFR ( Amer) Est GFR (Non-Af Amer) BUN/Creatinine Ratio Glucose POC Glucose 159 H 130 H 145 H Calcium Magnesium Total Bilirubin AST ALT Alkaline Phosphatase Total Protein Albumin Globulin Albumin/Globulin Ratio 05/24/22 05/24/22 05/24/22 07:07 07:07 07:32 WBC 10.44 RBC 3.97 L Hgb 12.0 L Hct 35.5 L MCV 89.4 MCH 30.2 MCHC 33.8 RDW Std Deviation 48.3 H RDW Coeff of Cheng 14.7 H Plt Count 220 MPV 9.3 L Immature Gran % (Auto) 0.9 Neut % (Auto) 58.0 Lymph % (Auto) 27.7 [place] % (Auto) 8.6 Eos % (Auto) 4.0 Baso % (Auto) 0.8 Neut # (Auto) 6.06 Lymph # (Auto) 2.89 [place] # (Auto) 0.90 H Eos # (Auto) 0.42 Baso # (Auto) 0.08 Immature Gran # (Auto) 0.09 Sodium 139 Potassium 4.0 Chloride 102 Carbon Dioxide 31 Anion Gap 6 BUN 33 H Creatinine 1.48 H Est Cr Clr Drug Dosing 62.7 Est GFR ( Amer) 53.3 Est GFR (Non-Af Amer) 46.0 BUN/Creatinine Ratio 22.3 H Glucose 118 H POC Glucose 122 H Calcium 8.6 Magnesium 2.1 Total Bilirubin 0.7 AST 20 ALT 4 L Alkaline Phosphatase 56 Total Protein 7.1 Albumin 3.6 Globulin 3.5 Albumin/Globulin Ratio 1.0 Diagnostic Findings Telemetry personally reviewed: Atrial fibrillation with rapid ventricular response but heart rate improving. Labs reviewed from this morning, demonstrating improved renal function, normal potassium, mild anemia. ID progress note reviewed Medications Administered Current Inpatient Medications Acetaminophen (Acetaminophen 325 Mg Tab) 650 mg PO Q4H PRN PRN Reason: Pain or Fever Stop: 06/18/22 19:15 Last Admin: 05/24/22 03:30 Dose: 650 mg Allopurinol (Allopurinol 300 Mg Tab) 300 mg PO QAM [facility] Stop: 06/19/22 08:59 Last Admin: 05/24/22 08:25 Dose: 300 mg Apixaban (Apixaban 5 Mg Tablet) 5 mg PO BID [facility] Stop: 06/21/22 20:59 Last Admin: 05/24/22 08:25 Dose: 5 mg Aspirin (Aspirin 81 Mg Ectab) 81 mg PO QAM [facility] Stop: 06/19/22 08:59 Last Admin: 05/24/22 08:25 Dose: 81 mg Cyanocobalamin (Cyanocobalamin 1000 Mcg/Ml Vial) 1,000 mcg IM QAM [facility] Stop: 05/25/22 09:01 Last Admin: 05/24/22 08:25 Dose: 1,000 mcg Cyanocobalamin (Cyanocobalamin (B-12) 500 Mcg Tablet) [facility] Stop: 06/25/22 08:59 Dextrose (Dextrose 50% 50 Ml Syringe) 25 - 50 ml IV UD PRN; Protocol PRN Reason: Hypoglycemia Protocol Stop: 06/18/22 19:15 Finasteride (Finasteride 5 Mg Tab) [facility] Stop: 06/19/22 08:59 Last Admin: 05/24/22 08:25 Dose: 5 mg Furosemide (Furosemide 40 Mg Tab) 40 mg PO BID17 [facility] Stop: 06/22/22 16:59 Last Admin: 05/24/22 08:25 Dose: 40 mg Glucagon (Glucagon For Inj 1 Mg Vial) 1 mg SQ UD PRN; Protocol PRN Reason: Hypoglycemia Protocol Stop: 06/18/22 19:15 Glucose (Glucose 10 Tab/Tube) 4 - 8 tab PO UD PRN; Protocol PRN Reason: Hypoglycemia Treatment Stop: 06/18/22 19:15 Glucose (Glucose 40% Gel 15 Gm Tube) 15 - 30 gm PO UD PRN; Protocol PRN Reason: Hypoglycemia Protocol Stop: 06/18/22 19:15 Ceftriaxone Sodium 2,000 mg/ (Dextrose) 70 mls @ 100 mls/hr IV Q24H [facility]; Protocol Stop: 06/05/22 15:59 Last Infusion: 05/23/22 17:15 Dose: Infused Insulin Aspart (Insulin Aspart Per Unit Charge) 0 units SC ACHS [facility] Stop: 06/18/22 20:59 Last Admin: 05/24/22 08:07 Dose: 9 units Insulin Glargine (Lantus Per Unit Charge) 20 units SQ BID [facility] Stop: 06/19/22 20:59 Last Admin: 05/24/22 09:15 Dose: 20 units Metoprolol Tartrate (Metoprolol Tartrate 50 Mg Tab) 150 mg PO BID [facility] Stop: 06/22/22 20:59 Last Admin: 05/24/22 08:24 Dose: 150 mg Miscellaneous (Carbohydrates For Hypoglycemia ) 15 - 30 gm PO UD PRN PRN Reason: Hypoglycemia Protocol Stop: 06/18/22 19:15 Miscellaneous Information (Pharmacy Glycemic Mgmt Consult) 1 each N/A UD PRN PRN Reason: Consult Stop: 06/18/22 19:15 Pantoprazole Sodium (Pantoprazole 40 Mg Tab) 40 mg PO BID [facility] Stop: 06/18/22 20:59 Last Admin: 05/24/22 08:25 Dose: 40 mg Rosuvastatin Calcium (Rosuvastatin Calcium 10 Mg Tab) 10 mg PO DAILY [facility] Stop: 06/19/22 08:59 Last Admin: 05/24/22 08:25 Dose: 10 mg Spironolactone (Spironolactone 12.5 Mg Tab) 12.5 mg PO DAILY [facility] Stop: 06/23/22 08:59 Last Admin: 05/24/22 08:25 Dose: 12.5 mg Tamsulosin HCl (Tamsulosin Hcl 0.4 Mg Cap) 0.8 mg PO HS [facility] Stop: 06/19/22 20:59 Last Admin: 05/23/22 20:12 Dose: 0.8 mg PG Care Time/CCT Total # of Minutes Spent Total Time Spent with Patient: Total time spent is greater than 50% in coordination of care (as documented) at patient's floor/unit and/or counseling patient: Coding Level of Care Code 42177 SUB INP/OBS CARE 2/35MIN Diagnoses Atrial fibrillation I48.91 Heart failure with mid-range ejection fraction (HFmEF) I50.22 Cardiomyopathy I42.9 Bacteremia R78.81 Sepsis A41.9 Hypertension I10 Coronary artery disease I25.10 Chronic kidney disease, stage 3 N18.30
[2022-05-24] MEDS: cefTRIAXone SODIUM 2,000 MG in DEXTROSE 5% 50 ML IV SCH (15:55)
--- NOTE | 2022-05-24 17:12 | Hospitalist Progress Note ---
Date of Service May 24, 2022 Assessment & Plan (1) Streptococcal septicemia: Plan: Group G beta streptococcus isolated from blood cultures on 05/19/2022-source is the cellulitis of the left lower extremity. With fever, tachycardia, and leukocytosis-now afebrile, tachycardia and leukocytosis resolved Procalcitonin elevated on admission and now improving CT chest/abdomen/pelvis-negative for acute Initially given ceftriaxone in the ER, followed by cefepime and metronidazole x2 days, then switched to cefazolin on 05/21 Appreciate ID consultation-changed back to ceftriaxone on 05/22 due to renal function being diminished Checked echocardiogram for valvular vegetation as well as for new onset atrial fibrillation-difficult study, with reduced EF, no definite valvular vegetation -Continue to follow repeat blood cultures from 05/21-no growth to date -Follow CBC, CMP in the morning and then once weekly while on abx -ID recommends 2 weeks of IV abx from last neg BCxs on 05/21, no TERESA indicated as cultures have cleared and no pacer/hardware, no murmur -last day of Rx will be 06/04 -plan to place PIV US guided in the AM (2) Atrial fibrillation: Plan: Has been in atrial fibrillation since admission Rates were a bit rapid in the 120s, but now improving with increased dose metoprolol but still high today -increase metoprolol again to 150 Mg p.o. twice daily and change to Toprol XL on discharge Started Eliquis 5 Mg p.o. twice daily-ewing checked Eliquis with case management-$0 Follow on telemetry Appreciate cardiology consultation f/u for possible cardioversion after being on AC for 3-4 weeks (3) Heart failure with mid-range ejection fraction (HFmEF): Plan: With acute HFrEF EF reduced but no EF calculated due to poor visibility on ECHO Appreciate Cardiology consult Continue rate control, convert metoprolol tartrate to XL at dc add Entresto if able vs ACEi -continue lasix 40mg po bid and added Aldactone follow BMP, mag f/u CHF clinic as outpt f/u ECHO as outpt after rates controlled (4) Cellulitis: Plan: As above, left lower extremity, improving daily (5) Chronic kidney disease, stage 3: Plan: Baseline creatinine around 1.4-1.6 Creatinine up to 1.8 after IV diuretics, now improved to 1.48 Follow BMP, avoid nephrotoxins, renally dose medications when necessary Holding home dapagliflozin Would recommend stopping NSAIDs such as nabumetone (6) Toenail avulsion: Plan: Right great toe nail avulsed and about to fall off with serous possibly purulent fluid draining Consult podiatry appreciated-offered to remove toenail but pt declined. Will fall off on own (7) Coronary artery disease: Plan: Review of chart shows no stents but had NSTEMI in 2010, managed medically -can dc ASA as now on Eliquis -continue rosuvastatin, metoprolol (8) Enlarged prostate without lower urinary tract symptoms (luts): Plan: Continue tamsulosin and finasteride. Monitor for urinary retention given this has been an issue in the past. (9) GERD without esophagitis: Plan: Continue PPI (10) Hypertension: Plan: Blood pressures are controlled Increasing metoprolol again for rapid atrial fibrillation as above and added aldactone, lasix (11) Type 2 diabetes mellitus: Plan: HbA1C 7.8 in Mar. p.o. home meds are on hold ( Farxiga, glipizide, metformin). Sliding scale coverage as needed (12) Gout, joint: Plan: No acute exacerbation. Continue allopurinol for prophylaxis (13) Urinary tract infection: Plan: Staph isolated. This is a contaminant as UA has epithelial cells no need to treat (14) Anemia: Plan: Normocytic, hemoglobin mildly low at 11.9-12.7 iron studies normal N91-oemhu low at 101--> start B12 1000 mcg IM daily x 3 doses then start po B12 1000 mcg folate and TSH normal Plan DVT prophylaxis- Eliquis Disposition-continued stay, plan for dc to SNF tomorrow Admission and Anticipated Discharge Date Admission Date: May 19, 2022 Subjective Pt has no complaints. Tele with rates 120s overnight, 80s during day Moved bowels yesterday Discussed care with Podiatry and Cardiology Physical Exam Constitutional: WD/WN, vitals as above + obese Respiratory: normal respiratory effort, lungs clear to auscultation Cardiovascular: Rate/Rhythm: regular rate and + irregularly irregular Heart Sounds: no murmur Extremities: + edema (2+ pitting edema left leg and foot, 1+ right ankle and foot) Skin: + lesion (Left pinky toe with scabbed over wound, crusted blood), + wound (Scabbed over wounds bilateral anterior shins), + erythema (Left distal leg and ankle and foot with erythema almost completely resolved) and + nail abnormality (Right great toenail avulsed at the base, thickened and yellow) Psychiatric: Orientation: alert, oriented to person, oriented to place and cooperative Thought Process: + tangential thought process Results & Data Results & Data Vital Signs (Past 12 Hours) Vital Signs Temp Pulse Pulse Resp BP Pulse Ox O2 Del Method 05/24/22 15:51 36.5 C 112 H 20 95 Room Air 05/24/22 11:26 36.5 C 110 H 22 124/74 95 Room Air 05/24/22 09:58 96 H 05/24/22 07:54 36.8 C 112 H 20 134/70 Room Air Laboratory Results CBC, BMP, LFTs, Magnesium reviewed PG Care Time/CCT Total # of Minutes Spent Total Time Spent with Patient: Total time spent is greater than 50% in coordination of care (as documented) at patient's floor/unit and/or counseling patient: Coding Level of Care Code 74693 SUB INP/OBS CARE 2/35MIN Diagnoses Streptococcal septicemia A40.9 Atrial fibrillation I48.91 Heart failure with mid-range ejection fraction (HFmEF) I50.22 Cellulitis L03.90 Chronic kidney disease, stage 3 N18.30 Toenail avulsion S91.209A Coronary artery disease I25.10 Enlarged prostate without lower urinary tract symptoms (luts) N40.0 GERD without esophagitis K21.9 Hypertension I10 Type 2 diabetes mellitus E11.9 Gout, joint M10.9 Urinary tract infection N39.0 Anemia D64.9
[2022-05-24] MEDS: TAMSULOSIN HCL 0.4 MG CAP PO SCH (20:32)
[2022-05-24] MEDS: METOPROLOL TARTRATE 100 MG TAB PO SCH (20:43)
[2022-05-25 08:35] LABS: Basophils # (auto) 0.07 K/uL (0-0.2); Basophils % (auto) 0.6 %; Eosinophils # (auto) 0.39 K/uL (0-0.50); Eosinophils % (auto) 3.4 %; Hematocrit (blood only) 38.6 % (42.0-52.0); Hemoglobin 12.7 g/dl (14.0-18.0); Immature Granulocytes # (auto) 0.11 K/uL (0.01-0.20); Immature Granulocytes % (auto) 0.9 %; Lymphocytes # (auto) 3.23 K/uL (1.2-3.4); Lymphocytes % (auto) 27.8 %; Mean Corpuscular Hemoglobin 30.2 pg (25.0-34.0); Mean Corpuscular Hgb Conc 32.9 g/dL (32.0-36.0); Mean Corpuscular Volume 91.7 fL (80.0-100.0); Mean Platelet Volume 9.1 fL (9.4-12.4); Monocytes # (auto) 0.75 K/uL (0.11-0.59); Monocytes % (auto) 6.5 %; Neutrophils # (auto) 7.05 K/uL (1.40-6.50); Neutrophils % (auto) 60.8 %; Platelet Count 249 K/uL (130-400); RDW Coefficient of Variation 14.9 % (11.5-14.5); RDW Standard Deviation 49.9 fL (36.4-46.3); Red Blood Count 4.21 M/uL (4.70-6.10)
[2022-05-25 08:40] LABS: Albumin Globulin Ratio 1.1 (0.9-2); Albumin Level 3.9 gm/dl (3.4-5.0); BUN Creatinine Ratio 24.2 (10-20); Bilirubin,Total 0.7 mg/dl (0.2-1.0); Calcium 9.2 mg/dl (8.6-10.3); Creatinine Clr Calc Pharmacy 62.4 ml/min; Est GFR (African American) 52.8 ml/min; Est GFR (Non-African American) 45.6 ml/min; Globulin 3.7 gm/dl (2.5-4.0); Magnesium 2.1 mg/dl (1.7-2.4); Potassium 4.1 mmol/L (3.5-5.1); Total Protein 7.6 gm/dl (6.0-8.3)
[2022-05-25] MEDS: INSULIN ASPART PER UNIT CHARGE SC SCH ×2 (09:07→11:48)
[2022-05-25] MEDS: ROSUVASTATIN CALCIUM 10 MG TAB PO SCH (09:08)
[2022-05-25] MEDS: LANTUS PER UNIT CHARGE SQ SCH (09:08)
[2022-05-25] MEDS: FUROSEMIDE 40 MG TAB PO SCH (09:08)
[2022-05-25] MEDS: METOPROLOL TARTRATE 100 MG TAB PO SCH (09:08)
[2022-05-25] MEDS: CYANOCOBALAMIN 1000 MCG/ML VIAL IM SCH (09:09)
[2022-05-25] MEDS: APIXABAN 5 MG TABLET PO SCH (09:09)
[2022-05-25] MEDS: PANTOprazole 40 MG TAB PO SCH (09:09)
[2022-05-25] MEDS: SPIRONOLACTONE 12.5 MG TAB PO SCH (09:10)
[2022-05-25] MEDS: allopurinoL 300 MG TAB PO SCH (09:10)
[2022-05-25] MEDS: FINASTERIDE 5 MG TAB PO SCH (09:10)
--- NOTE | 2022-05-25 11:06 | Discharge Summary ---
Date of Service May 25, 2022 Admission HPI Per Admitting Provider Fermin Amor is a 72 year old male who presents to the ER with generalized weakness. Story from ER notes is that he was complaining of back pain but he denies this to me. He reports he ate tacos last night and was vomiting this morning therefore he came to the ER. On discussion with his over the phone she reports he is here for generalized weakness - around midday he was sitting in his recliner slouched over and couldn't get up there she called for an ambulance. He was noted to have a left lower extremity cellulitis. He reports stubbing his left 5th toe (and possible 1st toe per his ) last week and again last night. Since last week it has surrounding erythema although he is unsure if this is getting better or worse. He denies any fever or chills. He was noted to be hypoxic and requiring 3LPM O2 at rest to maintain O2 sats > 90%. He denies any chest pain, orthopnea, PND, shortness of breath, nasal congestion or cough. Principal Diagnosis Group G beta Streptococcal septicemia Left leg cellulitis New onset rapid atrial fibrillation Acute HFrEF Discharge Exam Constitutional WD/WN, vitals as above + obese Respiratory normal respiratory effort, lungs clear to auscultation Cardiovascular Rate/Rhythm: regular rate and + irregularly irregular Heart Sounds: no murmur Extremities: + edema (2+ pitting edema left leg and foot, 1+ right ankle and foot) Skin + lesion (Left pinky toe with scabbed over wound, crusted blood), + wound (Scabbed over wounds bilateral anterior shins), + erythema (Left distal leg and ankle and foot with no further erythema) and + nail abnormality (Right great toenail avulsed at the base, thickened and yellow) Psychiatric Orientation: alert, oriented to person, oriented to place and cooperative Thought Process: + tangential thought process Discharge Data Allergies Allergy/AdvReac Type Severity Reaction Status Date / Time fluticasone Allergy Severe lips and Verified 05/19/22 16:24 tongue swelling, angioedema tomato Allergy Mild Itching Verified 05/19/22 16:24 Consultations 05/19/22 16:15 ED Decision to Admit Stat 05/20/22 12:44 Consult Infectious Diseases Routine 05/22/22 08:52 Consult Cardiology Routine 05/22/22 16:30 Consult Podiatry Routine 05/22/22 20:56 [facility] CHF Program Referral Routine Ordered Studies 05/19/22 14:17 CT abd pelvis wo con Stat 05/19/22 15:27 CT chest diagnostic wo con Stat 05/19/22 17:22 US arterial duplex LE LT Routine ECHO Hospital Course (1) Streptococcal septicemia: Group G beta streptococcus isolated from blood cultures on 05/19/2022-source is the cellulitis of the left lower extremity. With fever, tachycardia, and leukocytosis-now afebrile, tachycardia and leukocytosis resolved Procalcitonin elevated on admission and now improving CT chest/abdomen/pelvis-negative for acute Initially given ceftriaxone in the ER, followed by cefepime and metronidazole x2 days, then switched to cefazolin on 05/21 Appreciate ID consultation-changed back to ceftriaxone on 05/22 due to renal function being diminished Checked echocardiogram for valvular vegetation as well as for new onset atrial fibrillation-difficult study, with reduced EF, no definite valvular vegetation -Continue to follow repeat blood cultures from 05/21-no growth to date -Follow CBC, CMP once weekly while on abx -ID recommends 2 weeks of IV abx from last neg BCxs on 05/21, no TERESA indicated as cultures have cleared and no pacer/hardware, no murmur -last day of Rx will be 06/04 -placed PIV US guided 05/25 (2) Atrial fibrillation: Has been in atrial fibrillation since admission Rates were a bit rapid in the 120s, but now well controlled with increased dose metoprolol -continue Toprol XL 200mg bid on discharge Started Eliquis 5 Mg p.o. twice daily-ewing checked Eliquis with case management-$0 Appreciate cardiology consultation f/u for possible cardioversion after being on AC for 3-4 weeks f/u with Cardiology in office (3) Heart failure with mid-range ejection fraction (HFmEF): With acute HFrEF EF reduced but no EF calculated due to poor visibility on ECHO Appreciate Cardiology consult Continue rate control, converted metoprolol tartrate to XL at dc at higher dose of 200mg bid add Entresto if able vs ACEi as an outpt if renal function and BP allows -continue lasix 40mg po bid and added Aldactone follow BMP, mag as outpt at [facility] f/u CHF clinic as outpt f/u ECHO as outpt after rates controlled (4) Cellulitis: As above, left lower extremity, improving daily-resolved left foot xray no OM wound care with legs, toes (5) Chronic kidney disease, stage 3: Baseline creatinine around 1.4-1.6 Creatinine up to 1.8 after IV diuretics, now improved to 1.48 and remains stable Follow BMP, avoid nephrotoxins, renally dose medications when necessary Holding home dapagliflozin but restart on discharge Would recommend stopping NSAIDs such as nabumetone (6) Toenail avulsion: Right great toe nail avulsed and about to fall off with serous possibly purulent fluid draining Consult podiatry appreciated-offered to remove toenail but pt declined. Will fall off on own follow after discharge (7) Coronary artery disease: Review of chart shows no stents but had NSTEMI in 2010, managed medically -can dc ASA as now on Eliquis -continue rosuvastatin, metoprolol (8) Enlarged prostate without lower urinary tract symptoms (luts): Continue tamsulosin and finasteride. Monitor for urinary retention given this has been an issue in the past. (9) GERD without esophagitis: Continue PPI (10) Hypertension: Blood pressures are controlled Increased metoprolol as above for rapid atrial fibrillation as above and added aldactone, lasix (11) Type 2 diabetes mellitus: HbA1C 7.8 in Mar. p.o. home meds are on hold ( Farxiga, glipizide, metformin). restart home meds on discharge plus Lantus 20 units daily and adjust as needed (12) Gout, joint: No acute exacerbation. Continue allopurinol for prophylaxis (13) Urinary tract infection: Staph isolated. This is a contaminant as UA has epithelial cells no need to treat (14) Anemia: Normocytic, hemoglobin mildly low at 11.9-12.7 iron studies normal F29-vgaie low at 101--> gave B12 1000 mcg IM daily x 3 doses then started po B12 1000 mcg folate and TSH normal Plan DVT prophylaxis- Eliquis Disposition- dc to SNF today Total Time Total Time Spent Total Time Spent (In Minutes): 45 min Total Time Includes: Examination of the Patient, Discharge Planning, Medication Reconciliation and Communication With Other Providers (Cardiology,Station Installation Supervisor) Discharge Plan Discharge Items Patient Disposition: Transfer Longterm Fac Reason For Visit: SEPSIS Discharge Diagnosis: Group G beta Streptococcal septicemia Left leg cellulitis New onset rapid atrial fibrillation Acute HFrEF Condition on Discharge: Good Activity: As commented below Bathing: No limitations Exercise/Sports: Gradually increase as tolerated Weightbearing: Full weightbearing Non-emergency contact: Primary Care Provider and Broadcast Meteorologist Call non-emergency contact if: you have any medication questions, your symptoms worsen, you have a fever, your wound has increased redness and your wound has increased drainage Follow-up/Referrals: Diego Marie MD [Primary Care Provider] - Cheyanne Pyle PA-C [Physician E Commerce Director] - 06/01/22 2:30 pm (Congestive Heart Failure Program Appointment Information Early follow up is essential to managing your heart failure. An appointment has been scheduled for you with the [facility] within 7 days of discharge. Anticipate this visit to be 30-60 minutes long. Please expect a intern phone call from one of our nurses approximately 48 hours from discharge. They will also be placing an order for lab work to be completed 1-2 days prior to your heart failure follow up appointment. Please be sure to have this done so we can go over the results when you come in. Office Location The cardiology office building is located in front of the hospital at [address] Bring the following with you to your follow-up doctor appointments: Please bring your daily weight log any discharge paperwork all of your medication bottles with you to this visit. ) Diet: Carb Consistent or DM2, Heart Healthy and Low Sodium (2gm) Fluids: 1800ml (7 cups) Addtl Attending Provider Instructions: Continue IV Rocephin for the bacteremia through the end date of 06/04. Please check once weekly CBC, CMP. Continue daily wound care as per wound care instructions for leg wounds and toenail care. You were started on Eliquis and your metoprolol dose was increased for your rapid atrial fibrillation. You were started on lasix and aldactone for your CHF. Please follow up with the CHF clinic. Call your Primary Care doctor if any of the following symptoms or problems start or get worse: * Shortness of breath or difficulty breathing * Wake up at night short of breath * Chest pain * Cough * Swelling of your hands, feet, or legs * More fatigued or tired with your normal activity * Palpitations - sudden fast heart beats WEIGHT * Weigh yourself every morning after using the bathroom. * Use the same scale. * Wear the same amount of clothing. * Write your weight down on a chart. * Call your Primary Care doctor if you gain more than 2-3 pounds in 1-2 days. MEDICATIONS * Use this discharge instruction sheet for medication instructions. * Take your medications at the time your doctor ordered. * Do not skip a dose of your medicines. * If you miss a dose of medicine, take it as soon as possible, but DO NOT DOUBLE A DOSE. * Read your medicine information when you get home. * Know all of the side effects of your medicine. If in doubt, ask your pharmacist * Call your Primary Care doctor's office if you have any side effects. * Be sure all of your doctors know what medicine and herbs you take (including cold, flu, and herbal medicine). Take the following with you to your follow-up doctor appointments: * Weight Chart * Medication List * List of questions Do not drink excessive alcohol, beer or wine. Pending Studies at Discharge: Yes Studies:: final blood cultures-no growth to date Stand-Alone Forms: My [facility] Skilled Items Patient informed of condition?: Yes DNR: No Discharge Level of Care: Skilled Communicable Disease: No Discharge Prognosis: Improving Lines: US Guided Peripheral IV Urinary Catheter: No Medications and DC Order Prescriptions: New Eliquis 5 mg Tablet 5 mg PO BID Qty: 60 0RF metoprolol succinate [Toprol XL] 200 mg tablet extended release 24 hr 200 mg PO BID Qty: 60 0RF acetaminophen 325 mg Tablet 650 mg PO Q4H PRN (Reason: pain) Qty: 30 0RF spironolactone 25 mg Tablet 12.5 mg PO DAILY Qty: 15 0RF insulin glargine [Lantus U-100 Insulin] 100 unit/mL Solution 20 unit subcut QAM Qty: 10 0RF cyanocobalamin (vitamin B-12) 500 mcg Tablet 500 mcg PO QAM Qty: 30 0RF ceftriaxone 2 gram recon soln 2 g IV DAILY 10 Days Qty: 10 0RF Continued (DME) lancets [Microlet Lancet] Misc See Rx Instructions .Route Qty: 100 11RF Rx Instructions: TEST TWICE DAILY E11.9 metformin 500 mg tablet extended release 24 hr 500 mg PO BID Qty: 180 3RF omeprazole 20 mg capsule,delayed release(DR/EC) 20 mg PO BID Qty: 180 3RF rosuvastatin [Crestor] 10 mg tablet 10 mg PO DAILY Qty: 90 3RF allopurinol 300 mg tablet 300 mg PO QAM Qty: 90 3RF finasteride [Proscar] 5 mg tablet 5 mg PO QAM Qty: 30 5RF glipizide 5 mg tablet 5 mg PO BID Qty: 180 3RF tamsulosin 0.4 mg capsule 0.8 mg PO HS Qty: 90 3RF Farxiga 5 mg tablet 5 mg PO DAILY Qty: 90 3RF (DME) OneTouch Verio test strips Strip See Rx Instructions .Route Qty: 200 5RF Rx Instructions: TEST TWICE DAILY. DX: E11.65 (DME) blood-glucose meter [OneTouch Verio Meter] [facility] [place] See Rx Instructions .Route Qty: 1 0RF Rx Instructions: TEST TWICE DAILY. DX: E11.65 (DME) lancets [RAREFORMTouch Delica Lancets] [facility] See Rx Instructions .Route Qty: 100 5RF Rx Instructions: test twice daily and prn multivitamin [Multiple Vitamins] Tablet 1 tab PO DAILY digestive enzymes Capsule 1 cap PO DAILY Rx Instructions: administer with food; swallow whole; do not crush/chew/dissolve/break/cut ferrous sulfate [iron] 325 mg (65 mg iron) tablet 325 mg PO DAILY coenzyme Q10 [CoQ-10] 100 mg capsule 100 mg PO DAILY folic acid 1 mg tablet 1 mg PO QAM (DME) [facility] See Dose Instructions .ROUTE .MEDSUPPLY Qty: 1 0RF Dose Instruction: As directed Rx Instructions: As directed Changed furosemide [Lasix] 20 mg tablet 40 mg PO BID17 Qty: 60 0RF Discontinued metoprolol tartrate 50 mg tablet 50 mg PO BID Qty: 60 11RF Hold Instructions: pt in hospital nabumetone 500 mg tablet 500 mg PO BID Qty: 60 5RF aspirin [Adult Low Dose Aspirin] 81 mg tablet,delayed release (DR/EC) 81 mg PO QAM potassium gluconate 595 mg (99 mg) Tablet 595 mg PO DAILY Discharge Orders: Discharge Order- CHF (Routine); Ordered 05/25/22 Ordered By: Katrina Freeman Admission Data Admit Date/Time: 05/19/22 17:18 Attending Provider: Katrina Freeman Admit Provider: Gregory Strickland Primary Care Provider: Diego Marie Other Providers: Gregory Strickland ; Christa Rodriguez ; Brenden Brooks ; Leatha Romo ; Victor M Salmon ; Mary Vines ; Shameka Love ; Alicia Raines ; George Castro ; Rosi Rashid ; Nik Curran ; Yazan Victor ; Cheyanne Pyle ; [place],[facility], [place] Coding Level of Care Code 71110 INP/OBS DISCH >30 MIN Diagnoses Streptococcal septicemia A40.9 Atrial fibrillation I48.91 Heart failure with mid-range ejection fraction (HFmEF) I50.22 Cellulitis L03.90 Chronic kidney disease, stage 3 N18.30 Toenail avulsion S91.209A Coronary artery disease I25.10 Enlarged prostate without lower urinary tract symptoms (luts) N40.0 GERD without esophagitis K21.9 Hypertension I10 Type 2 diabetes mellitus E11.9 Gout, joint M10.9 Urinary tract infection N39.0 Anemia D64.9
[2022-05-25] MEDS ORDERED: INSULIN ASPART PER UNIT CHARGE SC SCH (11:45)
--- NOTE | 2022-05-25 12:13 | Cardiology Progress Note ---
Date of Service May 25, 2022 Assessment & Plan (1) Atrial fibrillation: (2) Heart failure with mid-range ejection fraction (HFmEF): (3) Cardiomyopathy: (4) Bacteremia: (5) Sepsis: (6) Hypertension: (7) Coronary artery disease: (8) Chronic kidney disease, stage 3: Plan ASSESSMENT/PLAN: 1. Atrial fibrillation: Appears persistent. Asymptomatic. Heart rate well controlled on metoprolol 200 mg twice daily. Changed to succinate at discharge given cardiomyopathy. Continue anticoagulation for stroke risk reduction. Onset unclear. Was not on anticoagulation therapy prior to hospital stay. Monitor CBC and renal function. After 4 weeks of anticoagulation therapy, can consider cardioversion if applicable. 2. Cardiomyopathy: Probable mildly reduced LV systolic function however poor image quality. May be related to heart rate. On discharge, recommend metopro lol succinate in place of tartrate. Volume status unclear. Oral Lasix initiated 05/23/2022, had IV lasix prior. Spironolactone has been initiated. No SGLT2 inhibitor given urinary tract issues. If LV systolic function becomes more significantly reduced, could consider Entresto. 3. Acute on Chronic Heart failure with midrange EF: Per notes, was hypervolemic on presentation and improved with diuresis. Spironolactone as above. No SGLT2 inhibitor given urinary tract issues. Metoprolol succinate in place of tartrate on discharge. Could consider Entresto if LV systolic function becomes more significantly reduced. Would try to attempt repeat echo as an outpatient. Heart failure program enrollment. 4. CAD: Details unclear but reportedly [place] in January 2011. No known PCI. Continue beta-nickie. Continue statin therapy. LDL well controlled. No angina. No history of PCI. Can d/c aspirin while on eliquis. 5. CKD: Monitor closely especially with diuretics. 6. Sepsis/urinary tract infection/streptococcal septicemia: As per ID and primary hospitalist service. 7. Hypertension: Blood pressure well controlled. 8. Disposition: Can be discharged from a cardiology perspective. Patient care discussed with Dr. Freeman of the primary hospitalist service. Admission and Anticipated Discharge Date Admission Date: May 19, 2022 Subjective Patient was seen this morning. He denies chest pain, shortness of breath, syncope, near syncope, palpitations, or bleeding. Heart rate much better controlled on telemetry. He was alone in his hospital room. Physical Exam Physical Exam: Gen.: No acute distress. Alert. HEENT: Anicteric sclera. Neck: Thick neck. Cardiac: No ventricular heave. Irregularly irregular. Normal heart rate. Normal S1-S2. No murmurs, rubs, or gallops. Pulmonary: Decreased breath signs bilaterally, but otherwise clear to auscultation bilaterally without wheezes, rales, or rhonchi. Abdomen: Soft, nontender, nondistended, with normoactive bowel sounds. No bruits noted. Extremities: 2+ radial pulses bilaterally. 1+ left lower extremity edema. Trace right lower extremity edema. No cyanosis. Results & Data Vital Signs (Past 12 Hours) Vital Signs Temp Pulse Pulse Pulse Resp BP BP 05/25/22 11:36 36.6 C 88 20 126/76 05/25/22 11:16 36.6 C 86 103 H 17 108/74 128/77 05/25/22 08:42 87 05/25/22 07:38 36.6 C 86 17 108/74 Pulse Ox O2 Del Method 05/25/22 11:36 94 Room Air 05/25/22 11:16 94 05/25/22 08:42 05/25/22 07:38 94 Room Air Intake & Output 05/23/22 05/24/22 05/25/22 05/26/22 06:59 06:59 06:59 06:59 Intake Total 1850 / 1850 2009 1590 / 1590 Output Total 1725 / 1725 1290 / 1290 975 / 975 125 / 125 Balance 125 / 125 720 / 720 615 / 615 -125 / -125 Weight 293 lb 6.964 oz 294 lb 15.656 oz 294 lb 15.656 oz Laboratory Results Laboratory Results - last 24 hr 05/24/22 05/24/22 05/24/22 14:18 16:05 20:24 WBC RBC Hgb Hct MCV MCH MCHC RDW Std Deviation RDW Coeff of Cheng Plt Count MPV Immature Gran % (Auto) Neut % (Auto) Lymph % (Auto) King % (Auto) Eos % (Auto) Baso % (Auto) Neut # (Auto) Lymph # (Auto) King # (Auto) Eos # (Auto) Baso # (Auto) Immature Gran # (Auto) Sodium Potassium Chloride Carbon Dioxide Anion Gap BUN Creatinine Est Cr Clr Drug Dosing Est GFR ( Amer) Est GFR (Non-Af Amer) BUN/Creatinine Ratio Glucose POC Glucose 161 H 143 H Calcium Magnesium Total Bilirubin AST ALT Alkaline Phosphatase Total Protein Albumin Globulin Albumin/Globulin Ratio SARS-CoV-2, RNA, NAAT Cancelled 05/25/22 05/25/22 05/25/22 07:28 07:48 07:48 WBC 11.60 H RBC 4.21 L Hgb 12.7 L Hct 38.6 L MCV 91.7 MCH 30.2 MCHC 32.9 RDW Std Deviation 49.9 H RDW Coeff of Cheng 14.9 H Plt Count 249 MPV 9.1 L Immature Gran % (Auto) 0.9 Neut % (Auto) 60.8 Lymph % (Auto) 27.8 King % (Auto) 6.5 Eos % (Auto) 3.4 Baso % (Auto) 0.6 Neut # (Auto) 7.05 H Lymph # (Auto) 3.23 King # (Auto) 0.75 H Eos # (Auto) 0.39 Baso # (Auto) 0.07 Immature Gran # (Auto) 0.11 Sodium 137 Potassium 4.1 Chloride 100 Carbon Dioxide 28 Anion Gap 9 BUN 36 H Creatinine 1.49 H Est Cr Clr Drug Dosing 62.4 Est GFR ( Amer) 52.8 Est GFR (Non-Af Amer) 45.6 BUN/Creatinine Ratio 24.2 H Glucose 157 H POC Glucose 148 H Calcium 9.2 Magnesium 2.1 Total Bilirubin 0.7 AST 21 ALT 7 Alkaline Phosphatase 62 Total Protein 7.6 Albumin 3.9 Globulin 3.7 Albumin/Globulin Ratio 1.1 SARS-CoV-2, RNA, NAAT 05/25/22 05/25/22 11:06 Unknown WBC RBC Hgb Hct MCV MCH MCHC RDW Std Deviation RDW Coeff of Cheng Plt Count MPV Immature Gran % (Auto) Neut % (Auto) Lymph % (Auto) King % (Auto) Eos % (Auto) Baso % (Auto) Neut # (Auto) Lymph # (Auto) King # (Auto) Eos # (Auto) Baso # (Auto) Immature Gran # (Auto) Sodium Potassium Chloride Carbon Dioxide Anion Gap BUN Creatinine Est Cr Clr Drug Dosing Est GFR ( Amer) Est GFR (Non-Af Amer) BUN/Creatinine Ratio Glucose POC Glucose 241 H Calcium Magnesium Total Bilirubin AST ALT Alkaline Phosphatase Total Protein Albumin Globulin Albumin/Globulin Ratio SARS-CoV-2, RNA, NAAT NEGATIVE Diagnostic Findings Telemetry personally reviewed: Atrial fibrillation with improved heart rate. Labs reviewed and notable for abnormal but stable renal function, stable hemoglobin. Medications Administered Current Inpatient Medications Acetaminophen (Acetaminophen 325 Mg Tab) 650 mg PO Q4H PRN PRN Reason: Pain or Fever Stop: 06/18/22 19:15 Last Admin: 05/24/22 21:05 Dose: 650 mg Allopurinol (Allopurinol 300 Mg Tab) 300 mg PO QAM [facility] Stop: 06/19/22 08:59 Last Admin: 05/25/22 09:10 Dose: 300 mg Apixaban (Apixaban 5 Mg Tablet) 5 mg PO BID [facility] Stop: 06/21/22 20:59 Last Admin: 05/25/22 09:09 Dose: 5 mg Cyanocobalamin (Cyanocobalamin (B-12) 500 Mcg Tablet) 500 mcg PO QAM [facility] Stop: 06/25/22 08:59 Dextrose (Dextrose 50% 50 Ml Syringe) 25 - 50 ml IV UD PRN; Protocol PRN Reason: Hypoglycemia Protocol Stop: 06/18/22 19:15 Finasteride ([facility]asteride 5 Mg Tab) [facility] [place]: 06/19/22 08:59 Last Admin: 05/25/22 09:10 Dose: 5 mg Furosemide (Furosemide 40 Mg Tab) 40 mg PO [id number] [facility] Stop: 06/22/22 16:59 Last Admin: 05/25/22 09:08 Dose: 40 mg Glucagon (Glucagon For Inj 1 Mg Vial) 1 mg SQ UD PRN; Protocol PRN Reason: Hypoglycemia Protocol Stop: 06/18/22 19:15 Glucose (Glucose 10 Tab/Tube) 4 - 8 tab PO UD PRN; Protocol PRN Reason: Hypoglycemia Treatment Stop: 06/18/22 19:15 Glucose (Glucose 40% Gel 15 Gm Tube) 15 - 30 gm PO UD PRN; Protocol PRN Reason: Hypoglycemia Protocol Stop: 06/18/22 19:15 Ceftriaxone Sodium 2,000 mg/ (Dextrose) 70 mls @ 100 mls/hr IV Q24H ANJEL; Protocol Stop: 06/05/22 15:59 Last Infusion: 05/24/22 16:35 Dose: Infused Insulin Aspart (Insulin Aspart Per Unit Charge) 0 units SC QDB ANJEL Stop: 06/25/22 07:29 Insulin Aspart (Insulin Aspart Per Unit Charge) 0 units SC TID@1130,1630,2100 ANJEL Stop: 06/24/22 11:44 Insulin Glargine (Lantus Per Unit Charge) 20 units SQ BID ANJEL Stop: 06/19/22 20:59 Last Admin: 05/25/22 09:08 Dose: 20 units Metoprolol Tartrate (Metoprolol Tartrate 100 Mg Tab) 200 mg PO BID [facility] Stop: 06/23/22 20:59 Last Admin: 05/25/22 09:08 Dose: 200 mg Miscellaneous (Carbohydrates For Hypoglycemia ) 15 - 30 gm PO UD PRN PRN Reason: Hypoglycemia Protocol Stop: 06/18/22 19:15 Miscellaneous Information (Pharmacy Glycemic Mgmt Consult) 1 each N/A UD PRN PRN Reason: Consult Stop: 06/18/22 19:15 Pantoprazole Sodium (Pantoprazole 40 Mg Tab) 40 mg PO BID ANJEL Stop: 06/18/22 20:59 Last Admin: 05/25/22 09:09 Dose: 40 mg Rosuvastatin Calcium (Rosuvastatin Calcium 10 Mg Tab) 10 mg PO DAILY ANJEL Stop: 06/19/22 08:59 Last Admin: 05/25/22 09:08 Dose: 10 mg Spironolactone (Spironolactone 12.5 Mg Tab) 12.5 mg PO DAILY ANJEL Stop: 06/23/22 08:59 Last Admin: 05/25/22 09:10 Dose: 12.5 mg Tamsulosin HCl (Tamsulosin Hcl 0.4 Mg Cap) 0.8 mg PO HS ANJEL Stop: 06/19/22 20:59 Last Admin: 05/24/22 20:32 Dose: 0.8 mg PG Care Time/CCT Total # of Minutes Spent Total Time Spent with Patient: Total time spent is greater than 50% in coordination of care (as documented) at patient's floor/unit and/or counseling patient: Coding Level of Care Code 26749 SUB INP/OBS CARE 2/35MIN Diagnoses Atrial fibrillation I48.91 Heart failure with mid-range ejection fraction (HFmEF) I50.22 Cardiomyopathy I42.9 Bacteremia R78.81 Sepsis A41.9 Hypertension I10 Coronary artery disease I25.10 Chronic kidney disease, stage 3 N18.30
--- NOTE | 2022-05-25 14:28 | Pharmacy Report ---
Pharmacy Glycemic Short Note 2 - Date of Service May 25, 2022 - Glycemic Short BSG Results (Last 24 hours): 05/24/22 05/24/22 05/25/22 16:05 20:24 07:28 Glucose POC Glucose 161 H 143 H 148 H 05/25/22 05/25/22 07:48 11:06 Glucose 157 H POC Glucose 241 H OUTPATIENT ANTIDIABETIC REGIMEN: * Farxiga 5 mg daily * glipizide 5 mg PO BID * metformin ER 500 mg PO BID * HbA1C = 7.8% (04/10/22) ASSESSMENT: 05/25 * Fermin received 73 units of insulin yesterday, of which 40 were basal * Fasting BSG this AM slightly above goal, monitor for trends, continue current basal regimen * Stessors stable, continuing on ceftriaxone * Persistently elevated lunchtime BSGs, tighten breakfast Novolog parameters to CF 10 and Cr 4 05/23: * The patient received 80 units of insulin yesterday, of which 40 were basal * He is being treated for bacteremia with Rocephin, other stressors stable * Fasting BSG slightly below goal today and downtrending, consider decrease of basal insulin if still below goal tomorrow * Novolog parameters seem effective at correcting and covering, continue current parameters 05/20: * Mr Amor is a 72 y/o M with a PMH of T2DM who was admitted on 05/19/22. * His BSGs on day of admission were ~200s. * He received Lantus 20 units yesterday evening and BSGs overnight were 152-146 mg/dL. Fasting this AM was 166 mg/dL. * Will start with Lantus 20 units BID- this is slightly less than weight-based stress of 2. * Novolog weight-based stress of 2. PLAN FOR INPATIENT GLYCEMIC CONTROL: * Hold outpatient oral diabetes medications * Basal insulin * Lantus 20 units SQ BID * Bolus insulin * NovoLog per scale ACHS or Q6hrs while NPO * Goal Range: Low 110 mg/dL - High 140 mg/dL * Correction Factor: 15 mg/dL/unit (10mg/dL/unit at breakfast) * Nutritional / Prandial insulin per carb ratio of 1 unit per 5 grams CHO consumed (1 units per 4 grams CHO consumed with breakfast)
[2022-05-26] MEDS ORDERED: INSULIN ASPART PER UNIT CHARGE SC SCH (07:30)
[2022-05-26] MEDS ORDERED: CYANOCOBALAMIN (B-12) 500 MCG TABLET PO SCH (09:00)
== END 2022-05-25 14:30 | DRG 871 ==
LOC: ED 13:09 → SUATTDRO 17:18 → 2S 17:18

== ENCOUNTER 2024-10-21 10:36 | Inpatient (IN) ==
--- NOTE | 2024-10-21 10:59 | XRay Report ---
XR chest 1V portable CLINICAL HISTORY: Chest pain, nonspecific COMPARISON STUDY: 05/22/2022 FINDINGS: Heart size and pulmonary vasculature are normal. No consolidation or pleural effusion. No p neumothorax. Stable old left rib fractures. IMPRESSION: No acute findings. ACT 112: Negative or not required by law. Electronically signed by: Shmuel Jean M.D. 10/21/2024 10:58 AM
--- NOTE | 2024-10-21 11:08 | Emergency Department Note ---
Impression & Plan Hypotension, Dizziness, Weakness ED Provider Note NAME: MISHEL SMITH AGE: 74 SEX: M : 1950 ARRIVES VIA: Ambulance INFORMANT: [Patient] ED PROVIDER(S): [Surjit Oconnell MD] CHIEF COMPLAINT: Illness HISTORY OF PRESENT ILLNESS: The patient is a 74-year-old male who presented to the ER with some chest fluttering and diffuse extremity weakness. He has had symptoms for several days. He feels very tired and today, was lightheaded and dizzy. There has been no chest pain, no fever. No syncope, no cough or congestion. No diarrhea or vomiting. He has not had any recent tick bites. PMHx/PSHx/Social Hx: See Below PHYSICAL EXAM: GENERAL: Patient is in no acute distress. HEENT: No acute trauma, normocephalic atraumatic, mucous membranes moist, no nasal congestion. NECK: No stridor, no adenopathy, no meningismus, trachea is midline. LUNGS: A few scattered crackles bilaterally, no wheezing or respiratory distress. HEART: Without murmurs gallops or rubs, regular rate and rhythm. Heart tones are quite distant. ABDOMEN: Soft, nontender, no peritonitis. EXTREMITIES: No cyanosis, full range of motion of all the joints without pain or difficulty. Mild bilateral pedal edema. NEUROLOGIC: Oriented x 3, no acute motor or sensory deficits, no focal weakness. SKIN: No jaundice, no diaphoresis. DIFFERENTIAL DIAGNOSIS: UTI, dehydration, electrolyte imbalance, dysrhythmia, OH, anemia, among others. EMERGENCY DEPARTMENT PROCEDURES: MEDICAL DECISION MAKING: There is no leukocytosis. A mild anemia was seen. There is a normal platelet count. No bandemia. No coagulopathy. Creatinine is slightly elevated however, this is a baseline finding. No electrolyte abnormality that would warrant emergent correction. Lactic acid level is normal making sepsis less likely. There is no concerning liver enzyme elevation. No evidence for pancreatitis. Urinalysis did not show infection. Chest x-ray did not show pneumonia or CHF. Anaplasmosis and Babesia smears were negative. Lyme disease testing was negative. On exam, the patient was really without complaints. At times, he was noted to be hypotensive. I do not find any source for infection. I do not think the patient is septic. The patient received IV saline, 500 cc. Patient presents dizzy and weak and washed out. He was found to be hypotensive. I suspect the lower blood pressure is causing his dizziness/weakness. Certainly, his medications may be responsible for the hypotension. He does take a large dose of beta-nickie. Given his complaints and the low blood pressure, admission/observation is recommended. I spoke with the patient and case management, the on-call hospitalist was consulted. Prior/Outside records/notes reviewed: Today's EMS notes describing his presentation and transport to this hospital. ECG per my interpretation: Indication was palpitations. The ECG shows what appears to be a sinus rhythm with a first-degree AV block. The rate is 66. There is some baseline artifact. There is a possible old anterior lateral infarct. There is no acute ST elevation, no PVCs. The QTc is 454. Continuous Cardiac Monitoring per my interpretation: An order was placed for continuous cardiac monitoring. The monitor shows a rate of 72 with sinus rhythm with a first-degree AV block.. Imaging/x-ray results per my interpretation: Chest x-ray does not show pneumonia or CHF. Chronic Medical/Social conditions affecting care: Advanced age. Care/Management discussed with: Case management, the on-call hospitalist. Level of care consideration(s): After review of the information above and other included data: --I believe the patient requires escalation of care to admission DISPOSITION: Admission Past Med/Surg History Problem List Weakness (Acute) Dizziness (Acute) Hypotension (Acute) Urinary incontinence without sensory awareness Heart failure with improved ejection fraction (HFimpEF) Paroxysmal atrial fibrillation Arthritis (Chronic) Allergic rhinitis (Acute) Anemia (Acute) Coronary artery disease (Acute) Diabetes mellitus type 2, uncontrolled (Acute) Elevated homocysteine (Acute) Enlarged prostate without lower urinary tract symptoms (luts) (Acute) GERD without esophagitis (Acute) Gout, joint (Acute) Hyperlipidemia (Acute) Morbid obesity (Acute) Multiple pulmonary nodules (Acute) Raynauds phenomenon (Acute) Type 2 diabetes mellitus (Acute) Edema Chronic kidney disease, stage 3 Hypertension Vitamin D deficiency Abnormal EKG Bacteremia Toenail avulsion Cellulitis Cardiomyopathy Heart failure with mid-range ejection fraction (HFmEF) Vitamin B12 deficiency Medical History Acute metabolic encephalopathy Hypomagnesemia Encephalopathy Right kidney stone Septic shock Hypomagnesemia Urinary tract infection Sepsis NSTEMI (non-ST elevated myocardial infarction) (01/30/11) Rheumatoid arthritis Pulmonary embolism Bronchitis Bacterial endocarditis (02/18/11) Foreign body in nose Surgical History H/O colonoscopy Family History Mother Unknown family medical history Father Unknown family medical history Social History Smoking Status: Former smoker Tobacco Type: Cigarettes Age Started Using Tobacco: 12; Age Quit Using Tobacco: 68; packs per day: 1; Do You Dip or Chew Tobacco: No; Hx Alcohol Use: No Hx Substance Use: No Preferred Language: Bulgarian Communication Ability: Effective Hearing Ability: Normal Lay Out Drafter Required: No Beliefs That Will Affect Care: None marital status: Current Living Situation: Spouse and Family Current Living Situation Comment: Pt lives with and son. Stated his son helps with his care. current occupational status: retired Feels Safe at Home: Yes Diet: diabetic, low salt and regular caffeine: Yes Dental Care, Regularly: No Physical Activity Frequency: Does not Exercise Seatbelt Use: always Sunscreen Use: No Assistive Devices: Cane, Oxygen - Continuous and Walker Allergies Allergies Allergy/AdvReac Type Severity Reaction Status Date / Time fluticasone Allergy Severe lips and Verified 10/21/24 12:37 tongue swelling, angioedema tomato Allergy Mild Itching Verified 10/21/24 12:37 Home Meds Home Medications Medication Instructions Recorded Confirmed ferrous sulfate 325 mg (65 mg 325 mg PO M 09/01/21 10/21/24 iron) tablet (iron) multivitamin (Multiple Vitamins 1 tab PO M 09/01/21 10/21/24 tablet) clotrimazole 1 % topical cream 1 applic topical DAILY 10/21/24 10/21/24 empagliflozin 25 mg tablet 25 mg PO QAM 10/21/24 10/21/24 (Jardiance) furosemide 20 mg tablet (Lasix) 40 mg PO QAM 10/21/24 10/21/24 omeprazole 20 mg capsule,delayed 20 mg PO DAILYBB 10/21/24 10/21/24 release rosuvastatin 10 mg tablet (Crestor) 10 mg PO QAM 10/21/24 10/21/24 spironolactone 25 mg tablet 12.5 mg PO HS 10/21/24 10/21/24 Previous Rx's Medication Instructions Recorded walker #1 ea 07/17/18 lancets (Microlet Lancet) #100 ea 04/08/21 OneTouch Verio Meter #1 ea 04/14/22 (blood-glucose meter) acetaminophen 325 mg tablet 650 mg (2 x 325 mg) PO Q4H PRN 05/25/22 pain #30 tabs cyanocobalamin (vitamin B-12) 500 500 mcg PO QAM #30 tabs 05/25/22 mcg tablet OneTouch Verio test strips (blood #200 ea 11/05/23 sugar diagnostic) allopurinol 300 mg tablet 300 mg PO QAM #90 tabs 12/04/23 apixaban 5 mg tablet (Eliquis) 5 mg PO BID #180 tabs 12/04/23 blood-glucose sensor (Dexcom G7 #1 ea 12/26/23 Sensor device) blood-glucose,bakery deliverer,cont #1 ea 12/26/23 (Dexcom G7 Labor Crew Supervisor) diaper,brief,adult,disposable #60 ea 03/27/24 (Depend Real Fit Brief Men L/XL) glipizide 5 mg tablet 5 mg PO BID #180 tabs 04/01/24 finasteride 5 mg tablet (Proscar) 5 mg PO QAM #30 tabs 04/24/24 metformin 500 mg tablet,extended 500 mg PO BID #180 tabs 06/26/24 release 24 hr metoprolol succinate 200 mg 200 mg PO BID #60 tabs 09/03/24 tablet,extended release 24 hr (Toprol XL) lancets 30 gauge #100 ea 09/16/24 tamsulosin 0.4 mg capsule 0.8 mg (2 x 0.4 mg) PO HS #90 caps 09/16/24 Results & Data (ED) Vital Signs Vital Signs - 24 hr 10/21/24 10:47 10/21/24 10:51 10/21/24 11:00 Temperature 36.8 C Temperature Source Oral Pulse Rate 72 61 Pulse Rate [Apical] Pulse Rate from SpO2 Sensor 60 Respiratory Rate 20 17 Respiratory Effort / Characteristics Non-Labored Respiratory Depth Normal Respiratory Pattern Blood Pressure 111/59 L 91/49 L Blood Pressure [Right Arm] Blood Pressure Mean 76 63 Blood Pressure Mean [Right Arm] Pulse Oximetry 94 94 92 Oxygen Delivery Method Room Air Room Air Room Air Sepsis Recent Fever Within 48 Hours No Sepsis New/Unexplained Change in Mental Status No Sepsis Action Taken by Nursing No Action Required 10/21/24 11:30 10/21/24 12:21 10/21/24 13:00 Temperature Temperature Source Pulse Rate 56 L 54 L Pulse Rate [Apical] 53 L Pulse Rate from SpO2 Sensor 56 L Respiratory Rate 15 16 Respiratory Effort / Characteristics Non-Labored Spontaneous Respiratory Depth Normal Respiratory Pattern Regular Blood Pressure 88/48 L Blood Pressure [Right Arm] 100/46 L Blood Pressure Mean 63 Blood Pressure Mean [Right Arm] 64 Pulse Oximetry 92 93 Oxygen Delivery Method Room Air Sepsis Recent Fever Within 48 Hours Sepsis New/Unexplained Change in Mental Status Sepsis Action Taken by Nursing 10/21/24 15:38 Temperature Temperature Source Pulse Rate Pulse Rate [Apical] 65 Pulse Rate from SpO2 Sensor Respiratory Rate 19 Respiratory Effort / Characteristics Non-Labored Spontaneous Respiratory Depth Normal Respiratory Pattern Regular Blood Pressure Blood Pressure [Right Arm] 103/64 Blood Pressure Mean Blood Pressure Mean [Right Arm] 77 Pulse Oximetry 93 Oxygen Delivery Method Room Air Sepsis Recent Fever Within 48 Hours Sepsis New/Unexplained Change in Mental Status Sepsis Action Taken by [facility] Medications Current Medication List: was personally reviewed by me Laboratory Data Attestation: I reviewed the patient's lab results. 10/21/24 10:53 10/21/24 10:53 Lab Results 10/21/24 10/21/24 10/21/24 Range/Units 10:53 11:11 12:06 WBC 9.19 (4.8-10.8) K/ul RBC 4.32 L (4.70-6.10) M/uL Hgb 13.1 L (14.0-18.0) g/dl Hct 40.8 L (42.0-52.0) % MCV 94.4 (80.0-100.0) fL MCH 30.3 (25.0-34.0) pg MCHC 32.1 (32.0-36.0) g/dL RDW Std Deviation 50.4 H (36.4-46.3) fL RDW Coeff of Cheng 14.7 H (11.5-14.5) % Plt Count 176 (130-400) K/uL MPV 9.3 L (9.4-12.4) fL Immature Gran % (Auto) 0.3 % Neut % (Auto) 52.9 % Lymph % (Auto) 36.2 % [place] % (Auto) 6.9 % Eos % (Auto) 3.0 % Baso % (Auto) 0.7 % Neut # (Auto) 4.86 (1.40-6.50) K/uL Lymph # (Auto) 3.33 (1.20-3.40) K/uL [place] # (Auto) 0.63 H (0.11-0.59) K/uL Eos # (Auto) 0.28 (0.00-0.50) K/uL Baso # (Auto) 0.06 (0.00-0.20) K/uL Immature Gran # (Auto) 0.03 (0.01-0.20) K/uL PT 11.5 (9.0-12.0) Seconds INR 1.1 (0.9-1.1) APTT 31 (21-31) Seconds PTT Ratio 1.2 Sodium 141 (136-145) mmol/L Potassium 4.2 (3.5-5.1) mmol/L Chloride 104 (98-107) mmol/L Carbon Dioxide 27 (21-32) mmol/L Anion Gap 10 (3-11) BUN 30 H (6-23) mg/dl Creatinine 1.50 H (0.6-1.4) mg/dl Est Cr Clr Drug Dosing 57.9 ml/min eGFR 47.95 BUN/Creatinine Ratio 20.0 (10-20) Glucose 161 H (70-99(Fasting)) mg/dl Lactate (0.4-2.0) mmol/L Calcium 9.0 (8.6-10.3) mg/dl Magnesium 2.1 (1.7-2.4) mg/dl Total Bilirubin 0.9 (0.2-1.0) mg/dl AST 16 (13-39) U/L ALT 9 (7-52) U/L Alkaline Phosphatase 96 (34-104) U/L Troponin I High Sens 5.2 (0-20) pg/ml C-Reactive Protein 1.22 H (0-0.5) mg/dl B-Natriuretic Peptide 178 H (0-100) pg/ml Total Protein 7.7 (6.0-8.3) gm/dl Albumin 3.8 (3.4-5.0) gm/dl Globulin 3.9 (2.5-4.0) gm/dl Albumin/Globulin Ratio 1.0 (0.9-2) Lipase 25 (11-82) U/L Procalcitonin 0.08 (0-0.5) ng/ml Urine Color Urine Appearance (Clear) Urine pH (4.5-7.5) Ur Specific [place] (1.000-1.030) Urine Protein (Negative) Urine Glucose (UA) (Negative) Urine Ketones (Negative) Urine Blood (Negative) Urine Nitrite (Negative) Urine Bilirubin (Negative) Urine Urobilinogen (Negative) Ur Leukocyte Esterase (Negative) Urine Comment Anaplasma Smear See Comment Babesia Smear See Comment Lyme Disease Screen Negative (Negative) 10/21/24 10/21/24 Range/Units 12:07 Unknown WBC (4.8-10.8) K/ul RBC (4.70-6.10) M/uL Hgb (14.0-18.0) g/dl Hct (42.0-52.0) % MCV (80.0-100.0) fL MCH (25.0-34.0) pg MCHC (32.0-36.0) g/dL RDW Std Deviation (36.4-46.3) fL RDW Coeff of Cheng (11.5-14.5) % Plt Count (130-400) K/uL MPV (9.4-12.4) fL Immature Gran % (Auto) % Neut % (Auto) % Lymph % (Auto) % [place] % (Auto) % Eos % (Auto) % Baso % (Auto) % Neut # (Auto) (1.40-6.50) K/uL Lymph # (Auto) (1.20-3.40) K/uL [place] # (Auto) (0.11-0.59) K/uL Eos # (Auto) (0.00-0.50) K/uL Baso # (Auto) (0.00-0.20) K/uL Immature Gran # (Auto) (0.01-0.20) K/uL PT (9.0-12.0) Seconds INR (0.9-1.1) APTT (21-31) Seconds PTT Ratio Sodium (136-145) mmol/L Potassium (3.5-5.1) mmol/L Chloride (98-107) mmol/L Carbon Dioxide (21-32) mmol/L Anion Gap (3-11) BUN (6-23) mg/dl Creatinine (0.6-1.4) mg/dl Est Cr Clr Drug Dosing ml/min eGFR BUN/Creatinine Ratio (10-20) Glucose (70-99(Fasting)) mg/dl Lactate 1.5 (0.4-2.0) mmol/L Calcium (8.6-10.3) mg/dl Magnesium (1.7-2.4) mg/dl Total Bilirubin (0.2-1.0) mg/dl AST (13-39) U/L ALT (7-52) U/L Alkaline Phosphatase (34-104) U/L Troponin I High Sens (0-20) pg/ml C-Reactive Protein (0-0.5) mg/dl B-Natriuretic Peptide (0-100) pg/ml Total Protein (6.0-8.3) gm/dl Albumin (3.4-5.0) gm/dl Globulin (2.5-4.0) gm/dl Albumin/Globulin Ratio (0.9-2) Lipase (11-82) U/L Procalcitonin (0-0.5) ng/ml Urine Color Yellow Urine Appearance Clear (Clear) Urine pH 5.0 (4.5-7.5) Ur Specific [place] 1.019 (1.000-1.030) Urine Protein Negative (Negative) Urine Glucose (UA) 1+ H (Negative) Urine Ketones Negative (Negative) Urine Blood Negative (Negative) Urine Nitrite Negative (Negative) Urine Bilirubin Negative (Negative) Urine Urobilinogen Negative (Negative) Ur Leukocyte Esterase Negative (Negative) Urine Comment Anaplasma Smear Babesia Smear Lyme Disease Screen (Negative) Administered Medications Discontinued Medications Sodium Chloride (Nss) 500 mls @ 999 mls/hr IV .Q31M ONE Stop: 10/21/24 12:24 Last Infusion: 10/21/24 13:14 Dose: Infused Documented By: Admin: 10/21/24 12:09 Dose: 999 mls/hr Documented By: RODOLFO Imaging Data Radiologist's Impression: Chest X-Ray 10/21/24 10:47 XR chest 1V portable CLINICAL HISTORY: Chest pain, nonspecific COMPARISON STUDY: 05/22/2022 FINDINGS: Heart size and pulmonary vasculature are normal. No consolidation or pleural effusion. No pneumothorax. Stable old left rib fractures. IMPRESSION: No acute findings. ACT 112: Negative or not required by law. Electronically signed by: Shmuel Jean M.D. 10/21/2024 10:58 AM Discharge Plan Visit Data Chief Complaint: Illness Stated Complaint: CHEST PAIN ED Provider: Surjit Oconnell Discharge Problem: Hypotension, Dizziness, Weakness Patient Disposition: Admitted As Inpatient Condition: Fair Forms Stand Alone Forms: [facility] Prescriptions Prescriptions: No Action (DME) lancets [Microlet Lancet] Misc See Rx Instructions .Route Qty: 100 11RF Rx Instructions: TEST TWICE DAILY E11.9 (DME) blood-glucose meter [OneTouch Verio Meter] Misc See Rx Instructions .Route Qty: 1 0RF Rx Instructions: TEST TWICE DAILY. DX: E11.65 (DME) OneTouch Verio test strips Strip See Rx Instructions .Route Qty: 200 5RF Rx Instructions: TEST TWICE DAILY. DX: E11.65 allopurinol 300 mg tablet 300 mg PO QAM Qty: 90 3RF Eliquis 5 mg tablet 5 mg PO BID Qty: 180 3RF (DME) Depend Real Fit Brief Men L/XL Misc See Rx Instructions .Route Qty: 60 11RF Rx Instructions: 2 briefs a dayx 30 days=60 monthly Dx: N39.42 glipizide 5 mg tablet 5 mg PO BID Qty: 180 3RF finasteride [Proscar] 5 mg tablet 5 mg PO QAM Qty: 30 5RF metformin 500 mg tablet extended release 24 hr 500 mg PO BID Qty: 180 3RF metoprolol succinate [Toprol XL] 200 mg tablet extended release 24 hr 200 mg PO BID Qty: 60 5RF (DME) lancets 30 gauge misc See Rx Instructions .Route Qty: 100 5RF Rx Instructions: test twice daily and prn tamsulosin 0.4 mg capsule 0.8 mg PO HS Qty: 90 3RF multivitamin [Multiple Vitamins] Tablet 1 tab PO QAM ferrous sulfate [iron] 325 mg (65 mg iron) tablet 325 mg PO QAM (DME) Dexcom G7 Labor Crew Supervisor Misc See Rx Instructions .Route Qty: 1 0RF Rx Instructions: As directed (DME) Dexcom G7 Sensor Device See Rx Instructions .Route Qty: 1 5RF Rx Instructions: As directed (DME) walker misc See Dose Instructions .ROUTE .MEDSUPPLY Qty: 1 0RF Dose Instruction: As directed Rx Instructions: As directed acetaminophen 325 mg Tablet 650 mg PO Q4H PRN (Reason: pain) Qty: 30 0RF cyanocobalamin (vitamin B-12) 500 mcg Tablet 500 mcg PO QAM Qty: 30 0RF spironolactone 25 mg tablet 12.5 mg PO HS omeprazole 20 mg capsule,delayed release(DR/EC) 20 mg PO DAILYBB furosemide [Lasix] 20 mg tablet 40 mg PO QAM rosuvastatin [Crestor] 10 mg tablet 10 mg PO QAM Jardiance 25 mg tablet 25 mg PO QAM clotrimazole 1 % cream 1 applic TOPICAL DAILY Referrals Referrals: Diego Marie MD [Primary Care Provider] - Discharge Problem: Hypotension Qualifiers: Hypotension type: unspecified hypotension type Qualified Code(s): I95.9 - Hypotension, unspecified
[2024-10-21 11:15] LABS: Hematocrit (blood only) 40.8 % (42.0-52.0); Hemoglobin 13.1 g/dl (14.0-18.0); Immature Granulocytes # (auto) 0.03 K/uL (0.01-0.20); Immature Granulocytes % (auto) 0.3 %; Mean Corpuscular Hemoglobin 30.3 pg (25.0-34.0); Mean Corpuscular Volume 94.4 fL (80.0-100.0); Platelet Count 176 K/uL (130-400); RDW Standard Deviation 50.4 fL (36.4-46.3); Red Blood Count 4.32 M/uL (4.70-6.10); White Blood Count 9.19 K/ul (4.8-10.8)
[2024-10-21 11:37] LABS: Alanine Aminotransferase 9.0 U/L (7-52); Albumin Globulin Ratio 1.0 (0.9-2); Alkaline Phosphatase 96.0 U/L (34-104); Anion Gap 10.0 (3-11); Bilirubin,Total 0.9 mg/dl (0.2-1.0); Blood Urea Nitrogen 30.0 mg/dl (6-23); Calcium 9.0 mg/dl (8.6-10.3); Carbon Dioxide 27.0 mmol/L (21-32); Chloride 104.0 mmol/L (98-107); Creatinine Clr Calc Pharmacy 57.9 ml/min; Globulin 3.9 gm/dl (2.5-4.0); Glucose 161.0 mg/dl (70-99(Fasting)); Lipase 25.0 U/L (11-82); Magnesium 2.1 mg/dl (1.7-2.4); Potassium 4.2 mmol/L (3.5-5.1); Sodium 141.0 mmol/L (136-145); Total Protein 7.7 gm/dl (6.0-8.3)
[2024-10-21 11:52] LABS: INR 1.1 (0.9-1.1); Partial Thromboplastin Time 31 Seconds (21-31); Prothrombin Time 11.5 Seconds (9.0-12.0)
[2024-10-21] MEDS: SODIUM CHLORIDE 0.9% 500 ML IV ONE (12:09)
--- NOTE | 2024-10-21 14:37 | Electrocardiogram Report ---
Test Reason : Blood Pressure : */* mmHG Vent. Rate : 66 BPM Atrial Rate : * BPM P-R Int : * ms QRS Dur : 138 ms QT Int : 434 ms P-R-T Axes : * -73 71 degrees QTcB Int : 454 ms Normal sinus rhythm with 1st degree A-V block Left axis deviation Left bundle branch block Possible Anterolateral infarct , age undetermined Abnormal ECG When compared with ECG of 05-Oct-2022 10:15, (unconfirmed) No significant change Confirmed by Tony Guerrero ([id number]) on 10/21/2024 2:36:43 PM Referred By: REFERRED SELF Confirmed By: Tony Guerrero
[2024-10-21] MEDS ORDERED: PHARMACY GLYCEMIC MGMT CONSULT PRN (15:31)
--- NOTE | 2024-10-21 15:31 | History & Physical Report ---
Date of Service October 21, 2024 Assessment & Plan (1) Heart failure with improved ejection fraction (HFimpEF): (2) Weakness: (3) Dizziness: (4) Hypotension: (5) Paroxysmal atrial fibrillation: (6) Diabetes mellitus type 2, uncontrolled: (7) Hyperlipidemia: Plan Weakness in a 74 yo male with HFpEF, DM2 Patient will be admitted to PCU Given findings of hypotension and weakness, perhaps this is iatrogenic. Will decrease metoprolol from 400 mg to 200 mg will check orthostatic vitals. will check tele as patient did complain of fluterring. Will also check A1C in case patient is hypoglycemic. Paroxysmal A fib Will resume home meds resumed apixaban CKD stage 3b Will monitor BMP DM2 with concern of hypoglycemia Will consult glycemic control and check a!C History of Present Illness Chief Complaint: weakness Primary Care Provider: Diego Marie MD 74 yo male with generlized malaise, weakness for the past week. However over the course of the past few days, he states he has been weaker. Today he noted some chest fluttering and worsening weakness. Patient denies any fever, chills, nausea, vomiting, rash, headache, blurry vision, rash, cough, focal vision. When ambulance was called, ptient was found to be hypotensive. Allergies Allergy/AdvReac Type Severity Reaction Status Date / Time fluticasone Allergy Severe lips and Verified 10/21/24 12:37 tongue swelling, angioedema tomato Allergy Mild Itching Verified 10/21/24 12:37 Home Medications Medication Instructions Recorded Confirmed Type walker #1 ea 07/17/18 09/19/24 Rx lancets (Microlet Lancet) #100 ea 04/08/21 09/19/24 Rx ferrous sulfate 325 mg (65 mg 325 mg PO QAM 09/01/21 10/21/24 History iron) tablet (iron) multivitamin (Multiple Vitamins 1 tab PO QAM 09/01/21 10/21/24 History tablet) OneTouch Verio Meter #1 ea 04/14/22 09/19/24 Rx (blood-glucose meter) acetaminophen 325 mg tablet 650 mg (2 x 325 mg) PO Q4H PRN 05/25/22 10/21/24 Rx pain #30 tabs cyanocobalamin (vitamin B-12) 500 500 mcg PO QAM #30 tabs 05/25/22 10/21/24 Rx mcg tablet OneTouch Verio test strips (blood #200 ea 11/05/23 09/19/24 Rx sugar diagnostic) allopurinol 300 mg tablet 300 mg PO QAM #90 tabs 12/04/23 10/21/24 Rx apixaban 5 mg tablet (Eliquis) 5 mg PO BID #180 tabs 12/04/23 10/21/24 Rx blood-glucose sensor (Dexcom G7 #1 ea 12/26/23 09/19/24 Rx Sensor device) blood-glucose,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 and plumbing installer,cont #1 ea 12/26/23 09/19/24 Rx (Dexcom G7 Cut Tobacco Bulker) diaper,brief,adult,disposable #60 ea 03/27/24 09/19/24 Rx (Depend Real Fit Brief Men L/XL) glipizide 5 mg tablet 5 mg PO BID #180 tabs 04/01/24 10/21/24 Rx finasteride 5 mg tablet (Proscar) 5 mg PO QAM #30 tabs 04/24/24 10/21/24 Rx metformin 500 mg tablet,extended 500 mg PO BID #180 tabs 06/26/24 10/21/24 Rx release 24 hr metoprolol succinate 200 mg 200 mg PO BID #60 tabs 09/03/24 10/21/24 Rx tablet,extended release 24 hr (Toprol XL) lancets 30 gauge #100 ea 09/16/24 09/19/24 Rx tamsulosin 0.4 mg capsule 0.8 mg (2 x 0.4 mg) PO HS #90 caps 09/16/24 10/21/24 Rx clotrimazole 1 % topical cream 1 applic topical DAILY 10/21/24 10/21/24 History empagliflozin 25 mg tablet 25 mg PO QAM 10/21/24 10/21/24 History (Jardiance) furosemide 20 mg tablet (Lasix) 40 mg PO QAM 10/21/24 10/21/24 History omeprazole 20 mg capsule,delayed 20 mg PO DAILYBB 10/21/24 10/21/24 History release rosuvastatin 10 mg tablet (Crestor) 10 mg PO QAM 10/21/24 10/21/24 History spironolactone 25 mg tablet 12.5 mg PO HS 10/21/24 10/21/24 History Past Med/Surg History Problem List Weakness (Acute) Dizziness (Acute) Hypotension (Acute) Urinary incontinence without sensory awareness Heart failure with improved ejection fraction (HFimpEF) Paroxysmal atrial fibrillation Arthritis (Chronic) Allergic rhinitis (Acute) Anemia (Acute) Coronary artery disease (Acute) Diabetes mellitus type 2, uncontrolled (Acute) Elevated homocysteine (Acute) Enlarged prostate without lower urinary tract symptoms (luts) (Acute) GERD without esophagitis (Acute) Gout, joint (Acute) Hyperlipidemia (Acute) Morbid obesity (Acute) Multiple pulmonary nodules (Acute) Raynauds phenomenon (Acute) Type 2 diabetes mellitus (Acute) Edema Chronic kidney disease, stage 3 Hypertension Vitamin D deficiency Abnormal EKG Bacteremia Toenail avulsion Cellulitis Cardiomyopathy Heart failure with mid-range ejection fraction (HFmEF) Vitamin B12 deficiency Medical History Acute metabolic encephalopathy Hypomagnesemia Encephalopathy Right kidney stone Septic shock Hypomagnesemia Urinary tract infection Sepsis NSTEMI (non-ST elevated myocardial infarction) (01/30/11) Rheumatoid arthritis Pulmonary embolism Bronchitis Bacterial endocarditis (02/18/11) Foreign body in nose Surgical History H/O colonoscopy Family History Mother Unknown family medical history Father Unknown family medical history Social History Smoking Status: Former smoker Tobacco Type: Cigarettes Age Started Using Tobacco: 12; Age Quit Using Tobacco: 68; packs per day: 1; Do You Dip or Chew Tobacco: No; Hx Alcohol Use: No Hx Substance Use: No Preferred Language: Telugu Communication Ability: Effective Hearing Ability: Normal Government Affairs Director Required: No Beliefs That Will Affect Care: None marital status: Current Living Situation: Spouse and Family Current Living Situation Comment: Pt lives with and son. Stated his son helps with his care. current occupational status: retired Feels Safe at Home: Yes Safety Concerns: Feels Safe At This Time Diet: diabetic, low salt and regular caffeine: Yes Dental Care, Regularly: No Physical Activity Frequency: Does not Exercise Seatbelt Use: always Sunscreen Use: No Assistive Devices: Walker Review of Systems Review of Systems: All systems reviewed & are unremarkable except as noted in HPI & below Physical Exam Constitutional: WD/WN, vitals as above (disheveled.) Eyes: PERRL, conjunctivae normal, anicteric sclerae Neck: trachea midline, no thyromegaly Respiratory: normal respiratory effort, lungs clear to auscultation Cardiovascular: RRR, no murmur, no edema Gastrointestinal (Abdomen): normal bowel sounds, soft, nontender, no he patosplenomegaly Neurologic: PERRL, EOMI, accommodation nl, no face palsy, no dysarthria Psychiatric: A+Ox3, euthymic affect Results & Data Results & Data Vital Signs (Past 12 Hours) Vital Signs Temp Pulse Pulse Resp BP BP Pulse Ox 10/21/24 13:00 53 L 16 100/46 L 93 10/21/24 12:21 54 L 10/21/24 11:30 56 L 15 88/48 L 92 10/21/24 11:00 61 17 91/49 L 92 10/21/24 10:51 94 10/21/24 10:47 36.8 C 72 20 111/59 L 94 O2 Del Method 10/21/24 13:00 10/21/24 12:21 10/21/24 11:30 Room Air 10/21/24 11:00 Room Air 10/21/24 10:51 Room Air 10/21/24 10:47 Room Air PG Care Time/CCT Total # of Minutes Spent Total Time Spent with Patient: Total time spent is greater than 50% in coordination of care (as documented) at patient's floor/unit and/or counseling patient: Coding Level of Care Code 52731 INT INP/OBS CARE 3/75MIN Diagnoses Heart failure with improved ejection fraction (HFimpEF) I50.32 Weakness R53.1 Dizziness R42 Hypotension I95.9 Hypotension type: unspecified hypotension type Paroxysmal atrial fibrillation I48.0 Diabetes mellitus type 2, uncontrolled E11.65 Glycemic state: with hypoglycemia Pure hypercholesterolemia E78.00 Hyperlipidemia type: pure hypercholesterolemia (4) Hypotension Hypotension type: unspecified hypotension type Qualified Code(s): I95.9 - Hypotension, unspecified (6) Diabetes mellitus type 2, uncontrolled Glycemic state: with hypoglycemia (7) Hyperlipidemia Hyperlipidemia type: pure hypercholesterolemia Qualified Code(s): E78.00 - Pure hypercholesterolemia, unspecified
[2024-10-21 16:17] LABS: Appearance Urine Clear (Clear); Glucose Urine UA 1+ (Negative)
[2024-10-21] MEDS ORDERED: GLUCOSE 10 TAB/TUBE PO PRN (17:15)
[2024-10-21] MEDS ORDERED: GLUCOSE 40% GEL 15 GM TUBE PO PRN (17:15)
[2024-10-21] MEDS ORDERED: CARBOHYDRATES FOR HYPOGLYCEMIA PO PRN (17:15)
[2024-10-21] MEDS ORDERED: GLUCAGON FOR INJ 1 MG VIAL SQ PRN (17:15)
[2024-10-21] MEDS ORDERED: DEXTROSE 50% 50 ML SYRINGE IV PRN (17:15)
[2024-10-21] MEDS: INSULIN ASPART PER UNIT CHARGE SC SCH (17:56)
[2024-10-21] MEDS: APIXABAN 5 MG TABLET PO SCH (21:32)
[2024-10-21] MEDS: TAMSULOSIN HCL 0.4 MG CAP PO SCH (21:33)
[2024-10-22] MEDS: ACETAMINOPHEN 325 MG TAB PO PRN (06:00)
[2024-10-22 08:04] LABS: Hematocrit (blood only) 39.0 % (42.0-52.0); Hemoglobin 12.7 g/dl (14.0-18.0); Mean Corpuscular Hemoglobin 30.2 pg (25.0-34.0); Mean Corpuscular Volume 92.9 fL (80.0-100.0); Platelet Count 167 K/uL (130-400); RDW Standard Deviation 48.8 fL (36.4-46.3); Red Blood Count 4.20 M/uL (4.70-6.10); White Blood Count 8.43 K/ul (4.8-10.8)
[2024-10-22] MEDS ORDERED: DEXTROSE 50% 50 ML SYRINGE IV PRN (08:04)
[2024-10-22] MEDS ORDERED: CARBOHYDRATES FOR HYPOGLYCEMIA PO PRN (08:04)
[2024-10-22] MEDS ORDERED: GLUCOSE 40% GEL 15 GM TUBE PO PRN (08:04)
[2024-10-22] MEDS ORDERED: GLUCAGON FOR INJ 1 MG VIAL SQ PRN (08:04)
[2024-10-22] MEDS ORDERED: GLUCOSE 10 TAB/TUBE PO PRN (08:04)
[2024-10-22 08:27] LABS: Anion Gap 8.0 (3-11); Blood Urea Nitrogen 30.0 mg/dl (6-23); Calcium 8.8 mg/dl (8.6-10.3); Carbon Dioxide 26.0 mmol/L (21-32); Chloride 105.0 mmol/L (98-107); Creatinine Clr Calc Pharmacy 47.4 ml/min; Glucose 134.0 mg/dl (70-99(Fasting)); Potassium 4.1 mmol/L (3.5-5.1); Sodium 139.0 mmol/L (136-145)
[2024-10-22] MEDS: FUROSEMIDE 40 MG/4 ML VIAL IV ONE (08:29)
[2024-10-22] MEDS: CYANOCOBALAMIN (B-12) 500 MCG TABLET PO SCH (08:30)
[2024-10-22] MEDS: EMPAGLIFLOZIN 25 MG TAB PO SCH (08:31)
[2024-10-22] MEDS: FINASTERIDE 5 MG TAB PO SCH (08:31)
[2024-10-22] MEDS: FERROUS SULFATE 325 MG TAB PO SCH (08:31)
[2024-10-22] MEDS: METOPROLOL SUCC 50MG EXT REL TAB PO SCH (08:31)
[2024-10-22] MEDS: ROSUVASTATIN CALCIUM 10 MG TAB PO SCH (08:32)
[2024-10-22] MEDS: MULTIVITAMIN TAB PO SCH (08:32)
[2024-10-22] MEDS: CLOTRIMAZOLE 1% CR 15 GM TUBE TOP SCH (08:35)
--- NOTE | 2024-10-22 08:44 | XRay Report ---
XR chest 1V portable CLINICAL HISTORY: CHF COMPARISON STUDY: 10/21/2024 FINDINGS: There is mild cardiomegaly with mild pulmonary vascular congestion. No consolidation or ple ural effusion seen. No pneumothorax. IMPRESSION: Mild CHF. ACT 112: Negative or not required by law. Electronically signed by: Shmuel Jean M.D. 10/22/2024 8:43 AM
[2024-10-22 08:46] LABS: Hemoglobin A1C 7.2 % (4.5-5.6)
--- NOTE | 2024-10-22 10:49 | Hospitalist Progress Note ---
Date of Service October 22, 2024 Assessment & Plan (1) Heart failure with improved ejection fraction (HFimpEF): Plan: Current situation appears to be acute on chronic diastolic CHF. He is on room air at this time. Repeat parenteral Lasix dosage today, October 22. (2) Weakness: Plan: OT and PT assessments requested. He flatly refuses to consider SNF placement at discharge if this is recommended (3) Dizziness: Plan: Present on admission. Now resolved (4) Hypotension: Plan: Stable. Continue current medical management (5) Paroxysmal atrial fibrillation: Plan: Continue current medications. Continue Eliquis. Stable (6) Diabetes mellitus type 2, uncontrolled: Plan: ADA diet. Sliding scale insulin as needed. Glucose 134 this morning, October 22 (7) Hyperlipidemia: Plan: Stable. Continue current medical management Plan Hopeful discharge to home tomorrow, October 23, with home health services Admission and Anticipated Discharge Date Admission Date: October 21, 2024 Subjective Alert and oriented. He is on room air. Chest x-ray done today, October 22, was interpreted as mild CHF by radiology. Repeat parenteral Lasix again today. OT and PT assessments have been requested. I spoke to his , Colette, by phone and told him that he probably would be discharged tomorrow, October 23. He flatly refuses to consider going to SNF to make a transition to home. Review of Systems 2 Review of Systems: Constitutionalno fever or chills ENTno blurred vision, no double vision, no epistaxis, no sore throat Respiratoryno cough, no wheezing, no shortness of breath at rest Cardiacno palpitations, no chest pain, no syncope Leanna nausea, vomiting, diarrhea, melena, hematochezia GUno urinary retention, no urinary incontinence, no dysuria, no hematuria Musculoskeletalno joint pain, no muscle tenderness Skinno bruising, no rashes, no pruritus Neurono isolated weakness, no paresthesia, no weakness Psychno depression, no anxiety Physical Exam 2 Physical Exam: General-alert and oriented x3, no fever, no chills HEENT-head atraumatic and normocephalic, pupils equal and reactive to light, extraocular muscles intact Neck-no lymphadenopathy or thyromegaly, trachea midline Chest-clear to auscultation. No rales, wheezing or rhonchi Cardiac-regular rate and rhythm, normal S1 and S2 Abdomen-normal bowel sounds, no hepatosplenomegaly Extremities-no cyanosis, clubbing, or edema Neuro-cranial nerves II through XII intact, motor and sensory function within normal limits, strength symmetrical, no focal deficits Psych-normal affect, normal mood Results & Data Results & Data Vital Signs (Past 12 Hours) Vital Signs Temp Pulse Resp BP Pulse Ox O2 Del Method 10/22/24 08:00 36.6 C 60 18 128/63 95 Room Air 10/22/24 03:50 36.5 C 55 L 18 105/62 91 Room Air Laboratory Results 10/22/24 07:24 10/22/24 07:24 PG Care Time/CCT Total # of Minutes Spent Total Time Spent with Patient: Total time spent is greater than 50% in coordination of care (as documented) at patient's floor/unit and/or counseling patient: Coding Level of Care Code 67274 SUB INP/OBS CARE 3/50MIN Diagnoses Heart failure with improved ejection fraction (HFimpEF) I50.32 Weakness R53.1 Dizziness R42 Hypotension I95.9 Hypotension type: unspecified hypotension type Paroxysmal atrial fibrillation I48.0 Diabetes mellitus type 2, uncontrolled E11.65 Glycemic state: with hypoglycemia Pure hypercholesterolemia E78.00 Hyperlipidemia type: pure hypercholesterolemia (4) Hypotension Hypotension type: unspecified hypotension type Qualified Code(s): I95.9 - Hypotension, unspecified (6) Diabetes mellitus type 2, uncontrolled Glycemic state: with hypoglycemia (7) Hyperlipidemia Hyperlipidemia type: pure hypercholesterolemia Qualified Code(s): E78.00 - Pure hypercholesterolemia, unspecified
[2024-10-22] MEDS: INSULIN ASPART PER UNIT CHARGE SC SCH (12:18)
[2024-10-23 07:29] VITALS: RESP 20
[2024-10-23 10:21] LABS: Hematocrit (blood only) 40.9 % (42.0-52.0); Hemoglobin 14.1 g/dl (14.0-18.0); Immature Granulocytes # (auto) 0.03 K/uL (0.01-0.20); Immature Granulocytes % (auto) 0.3 %; Mean Corpuscular Hemoglobin 31.4 pg (25.0-34.0); Mean Corpuscular Volume 91.1 fL (80.0-100.0); Platelet Count 184 K/uL (130-400); RDW Standard Deviation 48.2 fL (36.4-46.3); Red Blood Count 4.49 M/uL (4.70-6.10); White Blood Count 10.12 K/ul (4.8-10.8)
[2024-10-23 10:42] LABS: Anion Gap 10.0 (3-11); Blood Urea Nitrogen 37.0 mg/dl (6-23); Calcium 9.2 mg/dl (8.6-10.3); Carbon Dioxide 27.0 mmol/L (21-32); Chloride 98.0 mmol/L (98-107); Creatinine Clr Calc Pharmacy 44.1 ml/min; Glucose 268.0 mg/dl (70-99(Fasting)); Potassium 4.1 mmol/L (3.5-5.1); Sodium 135.0 mmol/L (136-145)
[2024-10-23 10:51] VITALS: BP 118/70; PULSE 69; TEMP 97.9; O2SAT 91
--- NOTE | 2024-10-23 11:59 | Discharge Summary ---
Discharge Summary Date of Service October 23, 2024 Principal Dx & Hospital Course #1 = Principal Diagnosis (1) Heart failure with improved ejection fraction (HFimpEF): Current situation appears to be acute on chronic diastolic CHF. He is on room air at this time. Treated and improved with parenteral Lasix. Oral Lasix dosage increased from 40 to 80 mg once daily at discharge. (2) Weakness: OT and PT while hospitalized. He flatly refuses to consider SNF placement at discharge (3) Dizziness: Present on admission. Now resolved (4) Hypotension: Stable. Continue current medical management (5) Paroxysmal atrial fibrillation: Continue current medications. Continue Eliquis. Stable (6) Diabetes mellitus type 2, uncontrolled: ADA diet. Sliding scale insulin as needed. Resume usual diabetic management at discharge. (7) Hyperlipidemia: Stable. Continue current medical management Plan Home today, October 23, with home health services Admission HPI Per Admitting Provider 74 yo male with generlized malaise, weakness for the past week. However over the course of the past few days, he states he has been weaker. Today he noted some chest fluttering and worsening weakness. Patient denies any fever, chills, nausea, vomiting, rash, headache, blurry vision, rash, cough, focal vision. When ambulance was called, ptient was found to be hypotensive. Discharge Exam General-alert and oriented x3, no fever, no chills HEENT-head atraumatic and normocephalic, pupils equal and reactive to light, extraocular muscles intact Neck-no lymphadenopathy or thyromegaly, trachea midline Chest-clear to auscultation. No rales, wheezing or rhonchi Cardiac-regular rate and rhythm, normal S1 and S2 Abdomen-normal bowel sounds, no hepatosplenomegaly Extremities-no cyanosis, clubbing, or edema Neuro-cranial nerves II through XII intact, motor and sensory function within normal limits, strength symmetrical, no focal deficits Psych-normal affect, normal mood Discharge Plan Discharge Items Patient Disposition: Home - Home Health Services Reason For Visit: HYPOTENSION/ DIZZINESS Discharge Diagnosis: Acute on chronic diastolic CHF Condition on Discharge: Fair Activity: Resume your previous activity Non-emergency contact: Primary Care Provider Call non-emergency contact if: your symptoms worsen Follow-up/Referrals: Diego Marie MD [Primary Care Provider] - Diet: Carb Consistent or DM2 and Heart Healthy Addtl Attending Provider Instructions: Lasix (furosemide) has been increased to 80 mg daily taken in the early afternoon after lunch. All other medication remains the same Pending Studies at Discharge: No Stand-Alone Forms: My [facility], Smoking Cessation Medications and DC Order Prescriptions: New furosemide [Lasix] 80 mg tablet 80 mg PO DAILY Qty: 30 0RF Continued (DME) lancets [Microlet Lancet] Misc See Rx Instructions .Route Qty: 100 11RF Rx Instructions: TEST TWICE DAILY E11.9 (DME) blood-glucose meter [OneTouch Verio Meter] Misc See Rx Instructions .Route Qty: 1 0RF Rx Instructions: TEST TWICE DAILY. DX: E11.65 (DME) OneTouch Verio test strips Strip See Rx Instructions .Route Qty: 200 5RF Rx Instructions: TEST TWICE DAILY. DX: E11.65 (DME) Depend Real Fit Brief Men L/XL Misc See Rx Instructions .Route Qty: 60 11RF Rx Instructions: 2 briefs a dayx 30 days=60 monthly Dx: N39.42 glipizide 5 mg tablet 5 mg PO BID Qty: 180 3RF finasteride [Proscar] 5 mg tablet 5 mg PO QAM Qty: 30 5RF metformin 500 mg tablet extended release 24 hr 500 mg PO BID Qty: 180 3RF metoprolol succinate [Toprol XL] 200 mg tablet extended release 24 hr 200 mg PO BID Qty: 60 5RF (DME) lancets 30 gauge misc See Rx Instructions .Route Qty: 100 5RF Rx Instructions: test twice daily and prn tamsulosin 0.4 mg capsule 0.8 mg PO HS Qty: 90 3RF allopurinol 300 mg tablet 300 mg PO QAM Qty: 90 3RF Eliquis 5 mg tablet 5 mg PO BID Qty: 180 3RF multivitamin [Multiple Vitamins] Tablet 1 tab PO QAM ferrous sulfate [iron] 325 mg (65 mg iron) tablet 325 mg PO QAM (DME) Dexcom G7 Cardio Tech Misc See Rx Instructions .Route Qty: 1 0RF Rx Instructions: As directed (DME) Dexcom G7 Sensor Device See Rx Instructions .Route Qty: 1 5RF Rx Instructions: As directed (DME) walker misc See Dose Instructions .ROUTE .MEDSUPPLY Qty: 1 0RF Dose Instruction: As directed Rx Instructions: As directed acetaminophen 325 mg Tablet 650 mg PO Q4H PRN (Reason: pain) Qty: 30 0RF cyanocobalamin (vitamin B-12) 500 mcg Tablet 500 mcg PO QAM Qty: 30 0RF spironolactone 25 mg tablet 12.5 mg PO HS omeprazole 20 mg capsule,delayed release(DR/EC) 20 mg PO DAILYBB rosuvastatin [Crestor] 10 mg tablet 10 mg PO QAM Jardiance 25 mg tablet 25 mg PO QAM clotrimazole 1 % cream 1 applic TOPICAL DAILY Discontinued furosemide [Lasix] 20 mg tablet 40 mg PO QAM Discharge Orders: Discharge Order- CHF (Routine); Ordered 10/23/24 Ordered By: Oc Baptiste/Other Patient Handouts: Managing Type 2 Diabetes Admission Data Admit Date/Time: 10/21/24 14:27 Attending Provider: Oc Dejesus Admit Provider: Collins Parks Primary Care Provider: Diego Marie Other Providers: Collins Parks Hospital Stay Data Consultations 10/21/24 13:22 ED Decision to Admit Stat Pending Results Patient Have Any Pending Studies at Discharge: No Discharge Instructions Given to Patient (Per Discharging Provider) Lasix (furosemide) has been increased to 80 mg daily taken in the early afternoon after lunch. All other medication remains the same Total Time Total Time Spent Total Time Spent (In Minutes): 45 minutes Coding Level of Care Code 34969 INP/OBS DISCH >30 MIN Diagnoses Heart failure with improved ejection fraction (HFimpEF) I50.32 Weakness R53.1 Dizziness R42 Hypotension I95.9 Hypotension type: unspecified hypotension type Paroxysmal atrial fibrillation I48.0 Diabetes mellitus type 2, uncontrolled E11.65 Glycemic state: with hypoglycemia Pure hypercholesterolemia E78.00 Hyperlipidemia type: pure hypercholesterolemia
== END 2024-10-23 13:51 | disposition home health service (06) | DRG 291 ==
LOC: ED 10:36 → SUATTDRO 14:27 → EDINP 14:27 → 2S 16:48